=== PATIENT | female | born 1940 | race Caucasian/White ===

== ENCOUNTER → 2017-07-08 | Outpatient (CLI) | payer OTHER ==
[~2017-07-08] MED LIST: ASPI-435 PO; BRIM0.2S18 OP; CHOL1000 PO; CLOP1TAB15 PO; CLOT1CRE4 TOP; DORZ1SOL6 OP; GLC5 PO; INSDGI SC; LISI10TA PO; MAGN400T6 PO; METF-383 PO; POLY1DRO2 OPB; POLYSOL OPB; SIMV20TA5 PO; TPRSR25 PO; TRVOPS OPB
== END | disposition home or self-care (01) ==
LOC: C.PAPS 14:52
PROVIDERS: ATTEND Obstetrics & Gynecology
DX: L90.0 Lichen sclerosus et atrophicus (principal)

== ENCOUNTER → 2017-09-22 | Outpatient (CLI) | payer OTHER ==
[~2017-09-22] MED LIST changes: -BRIM0.2S18 OP; +BRIM0.2S18 OPB; +CEPH500C PO; +CLOT-51 TOP; -CLOT1CRE4 TOP; +HYDR25SU6 PR; +INSDGIPEN SC; +INSU3INJ3 SC; +KFL500 PO; +LCTX PO; +TRAV0.00 OP
== END | disposition home or self-care (01) ==
LOC: C.LABSPEC 08:00 → EDSTATUS 09-29 10:30
PROVIDERS: ATTEND Physician Assistant
DX: L98.499 Non-pressure chronic ulcer of skin of other sites with unspecified severity (principal)

== ENCOUNTER 2017-09-23 09:35 | Inpatient (IN) | payer OTHER ==
[~2017-09-23] VITALS: Ht 152.4 cm; Wt 68.4 kg
[~2017-09-23 09:35] MED LIST changes: -CEPH500C PO; +CLOT-40 TOP; -CLOT-51 TOP; -HYDR25SU6 PR; -INSDGIPEN SC; -INSU3INJ3 SC; -KFL500 PO; -LCTX PO; -TRAV0.00 OP
--- NOTE | 2017-09-23 11:09 | EMERGENCY ROOM VISIT NOTE ---
ED Visit Note First contact with patient: 09:56 I have seen and examined this patient with Yuliya Camacho and generally agree with the treatment plan as discussed. 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 (8) Neuropathy In Diabetes Status: Chronic (9) Osteomyelitis Nos-Unspec Status: Resolved Surgical Problems: (1) s/p multiple toe amputations Status: Chronic Current/Historical Medications Scheduled Aspirin (Aspirin 81), 81 MG PO QAM Brimonidine Tartrate (Brimonidine Tartrate), Unknown Dose OP DAILY Cholecalciferol (Vitamin D3), 1 TAB PO DAILY Clopidogrel (Plavix), 75 MG PO QAM Clotrimazole (Topical) (Lotrimin Af), 1 APPLN TOP BID Dorzolamide Hcl-Timolol Maleat (Cosopt Oph), 1 DROPS OP BID Glipizide (Glipizide), 5 MG PO QAM Insulin Glargine (Lantus), 10 UNITS SC HS Lisinopril (Prinivil), 10 MG PO QAM Magnesium Oxide (Mag-Ox), 400 MG PO QAM Metformin Hcl (Glucophage), 850 MG PO BIDM Metoprolol Succinate (Metoprolol Succinate ER), 0.5 TAB PO QAM Polyethylene Glycol-Propylene (Systane Gel), 1 DROP OPB HS Simvastatin (Zocor), 1 TAB PO HS Travoprost (Travatan Oph Soln 0.004% *), 1 DROP OPB HS Scheduled PRN Polyvinyl Alcohol-Povidone (Op (Refresh), 1 DROP OPB QID PRN for DRY EYES Allergies Coded Allergies: Baclofen (Unverified Allergy, Unknown, unkown , 10/18/16) Sulfamethoxazole w/Trimethoprim (Verified Allergy, Unknown, itching, 10/18) Tramadol (Unverified Allergy, Unknown, unkown , 12/30/16) Vital Signs Date Time Temp Pulse Resp B/P (MAP) Pulse Ox O2 Delivery O2 Flow Rate FiO2 09/23/17 09:45 37.0 102 20 161/71 97 Room Air Laboratory Results Test 09/23/17 10:04 Departure Information Referrals Roland Plunkett M.D. (PCP) Patient Instructions Counts Include [facility] At [facility]
[2017-09-23] MEDS ORDERED: GADAVIST IV PRN (11:15)
[2017-09-23 11:23] LABS: ISTAT CREATININE 0.7 mg/dl (0.6-1.3); ISTAT HEMOGLOBIN 11.9 g/dl (12.0-16.0); ISTAT IONIZED CALCIUM 1.2 mmol/l (1.12-1.32)
[2017-09-23 12:27] LABS: BASO % 0.3 %; BASO ABS # 0.03 K/uL (0-0.2); COMPLETE YES; HEMATOCRIT 35.7 % (37-47); IG% 0.3 %; LYMPH % 15.4 %; LYMPH ABS # 1.47 K/uL (1.2-3.4); MEAN CORPUSCULAR HEMOGLOBIN 30.9 pg (25-34); MEAN CORPUSCULAR HGB CONC 33.6 g/dl (32-36); MEAN PLATELET VOLUME 10.5 fL (7.4-10.4); MONO % 8.7 %; NEUT % 72.3 %; PLATELET COUNT 170 K/uL (130-400); RED BLOOD COUNT 3.88 M/uL (4.2-5.4); WHITE BLOOD COUNT 9.57 K/uL (4.8-10.8)
--- NOTE | 2017-09-23 12:34 | DIAGNOSTIC IMAGING REPORT ---
L LOWER EXT NONJOINT COMBO HISTORY: 76 years-old Female left foot redness and swelling/evaluate for osteomyelitis attent chronic open wound of the left third toe with concern for osteomyelitis. History of diabetes. COMPARISON: Left foot radiographs 01/10/2012 TECHNIQUE: Multiplanar multisequence MRI of the left foot was obtained both with and without the use of 6.5 mL Gadavist FINDINGS: There is loss of normal marrow signal with associated cortical irregularity and indistinctness involving the distal portion of the third distal phalanx with moderate associated bone marrow edema nicely seen on image 16 series 5, image 8 series 10 and image 8 series 11. There is a focal area of nonenhancement involving this region suggesting necrotic bone as seen on image 9 series 13 and image 26 series 12. Additionally, there is moderate soft tissue swelling with a focal skin ulceration at this area measuring up to 9 x 10 mm. Edema with adjacent enhancement involves the associated soft tissues compatible with cellulitis. There is mild diffuse nonspecific edema about the forefoot and midfoot, greatest laterally. There is moderate bone marrow edema involving the third metatarsal head with mild bone marrow edema involving the first and fourth metatarsal heads. No definite additional evidence of acute osteomyelitis. 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 Subcortical cystic changes of the first metatarsal head. Mild hallux valgus deformity. Multifocal interphalangeal and metatarsal phalangeal degenerative changes are noted which are mostly moderate. Degenerative spurring with chondral thinning and joint space narrowing is also seen throughout the midfoot. Prior amputation of the second digit at the level of the metatarsal phalangeal joint. There is moderate atrophy of the intrinsic musculature of the foot. No evidence of perineural fibrosis or Brumfield's neuroma. Study is mildly motion degraded. No definite tendon or ligamentous tear identified. Lisfranc ligament appears intact. IMPRESSION: 1. Osteomyelitis involves the distal most portion of the third distal phalanx as above. Small adjacent focal skin ulcer with cellulitis. No focal abscess or drainable collection. 2. Bone marrow edema involves the first, third and fourth metatarsal heads, likely reactive and/or degenerative in nature without additional evidence of acute osteomyelitis. 3. Moderate atrophy involves the intrinsic musculature of the foot, likely secondary to chronic denervation changes with long-standing diabetes mellitus. 4. Prior amputation of the second digit at the level of the metatarsal phalangeal joint. The above report was generated using voice recognition software. It may contain grammatical, syntax or spelling errors. Electronically signed by: Dale Rodriguez M.D. 09/23/2017 12:33 PM Dictated Date/Time: 09/23/2017 12:20 PM
[2017-09-23 12:42] LABS: BUN/CREATININE RATIO 30.1 (10-20); CALCIUM 9.3 mg/dl (8.5-10.1); CREATININE 0.81 mg/dl (0.60-1.20); POTASSIUM 4.4 mmol/L (3.5-5.1)
[2017-09-23] MEDS ORDERED: VANCOMYCIN INJ 1,500 MG in SODIUM CHLORIDE 0.9% 500ML 500 ML IV STA (12:58)
[2017-09-23] MEDS ORDERED: PIPERACILLIN/TAZOBACTAM 4.5 GM/100ML D5W IV STA (12:58)
--- NOTE | 2017-09-23 13:09 | EMERGENCY ROOM VISIT NOTE ---
History First contact with patient: 09:56 Chief Complaint: WOUND INFECTION Stated Complaint: TOE BLEEDING/L FOOT SWOLLEN-WOUND CARE/DIABETIC History of Present Illness The patient is a 76 year old female who presents to the Emergency Room with complaints of left second toe being more swollen today and was bleeding. The patient is being followed by the wound clinic for this diabetic wound. She was seen there yesterday and they applied Aquacel. She also states that they did a culture yesterday She states when she woke up this morning there was bleeding and the toe looked more swollen. The patient denies any increased redness in the toe or foot. The patient is concerned because she has had to have most toes removed from the right foot due to osteomyelitis. The patient denies any fever. The patient denies any chest pain or shortness of breath. Review of Systems 10 system review was performed and was negative unless stated otherwise history of present illness. Past Medical/Surgical History Medical Problems: (1) Acute Kidney Failure With Lesion Of Tubular Necrosis (2) CAD (coronary artery disease) (3) Diab W Oth Spec Manifest, Type Ii Or Unspec Type, Uncntrld (4) Diabetic foot ulcer (5) Diabetic peripheral neuropathy associated with type 2 diabetes mellitus (6) Diverticulosis Colon (W/O Ment Of Hemorrhage) (7) Dyslipidemia (8) History of diabetic ulcer of foot (9) HTN (hypertension) (10) Loss of sensation (11) Methicillin Susceptible Staphylococcus Aureus Class Els/Nos (12) Neuropathy In Diabetes (13) Osteomyelitis (14) Osteomyelitis Nos-Unspec (15) Status post partial amputation of foot Surgical Problems: (1) s/p multiple toe amputations Social History Smoking Status: Never Smoker Drug Use: none Marital Status: Occupation Status: disabled Current/Historical Medications Scheduled Aspirin (Aspirin 81), 81 MG PO QAM Brimonidine Tartrate (Brimonidine Tartrate), Unknown Dose OP DAILY Cholecalciferol (Vitamin D3), 1 TAB PO DAILY Clopidogrel (Plavix), 75 MG PO QAM Clotrimazole (Topical) (Lotrimin Af), 1 APPLN TOP BID Dorzolamide Hcl-Timolol Maleat (Cosopt Oph), 1 DROPS OP BID Glipizide (Glipizide), 5 MG PO QAM Insulin Glargine (Lantus), 10 UNITS SC HS Lisinopril (Prinivil), 10 MG PO QAM Magnesium Oxide (Mag-Ox), 400 MG PO QAM Metformin Hcl (Glucophage), 850 MG PO BIDM Metoprolol Succinate (Metoprolol Succinate ER), 0.5 TAB PO QAM Polyethylene Glycol-Propylene (Systane Gel), 1 DROP OPB HS Simvastatin (Zocor), 1 TAB PO HS Travoprost (Travatan Oph Soln 0.004% *), 1 DROP OPB HS Scheduled PRN Polyvinyl Alcohol-Povidone (Op (Refresh), 1 DROP OPB QID PRN for DRY EYES Physical Exam Vital Signs Date Time Temp Pulse Resp B/P (MAP) Pulse Ox O2 Delivery O2 Flow Rate FiO2 09/23/17 11:34 66 22 140/70 93 Room Air 09/23/17 09:45 37.0 102 20 161/71 97 Room Air Physical Exam GENERAL: 68-year-old white female appears in no acute distress. MENTAL Status: Alert and oriented 3. NECK: Supple, no lymphadenopathy noted. No carotid bruits noted. LUNGS: Clear auscultation without wheezes rales or rhonchi. CARDIAC: Regular rate and rhythm without murmur. Pulses is full and equal throughout. LEFT FOOT: Patient has a bunion noted. The second toe is absent. The third toe had erythema and edema with a scab on the distal aspect. This is covered with a bandage. There is slight erythema and edema extending to the forefoot. Medical Decision & Procedures ER Provider Diagnostic Interpretation: L LOWER EXT NONJOINT COMBO HISTORY: 76 years-old Female left foot redness and swelling/evaluate for osteomyelitis attent chronic open wound of the left third toe with concern for osteomyelitis. History of diabetes. COMPARISON: Left foot radiographs 01/10/2012 TECHNIQUE: Multiplanar multisequence MRI of the left foot was obtained both with and without the use of 6.5 mL Gadavist FINDINGS: There is loss of normal marrow signal with associated cortical irregularity and indistinctness involving the distal portion of the third distal phalanx with moderate associated bone marrow edema nicely seen on image 16 series 5, image 8 series 10 and image 8 series 11. There is a focal area of nonenhancement involving this region suggesting necrotic bone as seen on image 9 series 13 and image 26 series 12. Additionally, there is moderate soft tissue swelling with a focal skin ulceration at this area measuring up to 9 x 10 mm. Edema with adjacent enhancement involves the associated soft tissues compatible with cellulitis. There is mild diffuse nonspecific edema about the forefoot and midfoot, greatest laterally. There is moderate bone marrow edema involving the third metatarsal head with mild bone marrow edema involving the first and fourth metatarsal heads. No definite additional evidence of acute osteomyelitis. 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 Subcortical cystic changes of the first metatarsal head. Mild hallux valgus deformity. Multifocal interphalangeal and metatarsal phalangeal degenerative changes are noted which are mostly moderate. Degenerative spurring with chondral thinning and joint space narrowing is also seen throughout the midfoot. Prior amputation of the second digit at the level of the metatarsal phalangeal joint. There is moderate atrophy of the intrinsic musculature of the foot. No evidence of perineural fibrosis or Brumfield's neuroma. Study is mildly motion degraded. No definite tendon or ligamentous tear identified. Lisfranc ligament appears intact. IMPRESSION: 1. Osteomyelitis involves the distal most portion of the third distal phalanx as above. Small adjacent focal skin ulcer with cellulitis. No focal abscess or drainable collection. 2. Bone marrow edema involves the first, third and fourth metatarsal heads, likely reactive and/or degenerative in nature without additional evidence of acute osteomyelitis. 3. Moderate atrophy involves the intrinsic musculature of the foot, likely secondary to chronic denervation changes with long-standing diabetes mellitus. 4. Prior amputation of the second digit at the level of the metatarsal phalangeal joint. The above report was generated using voice recognition software. It may contain grammatical, syntax or spelling errors. Electronically signed by: Dale Rodriguez M.D. 09/23/2017 12:33 PM Dictated Date/Time: 09/23/2017 12:20 PM Laboratory Results 09/23/17 12:09 Red Blood Count 3.88, Mean Corpuscular Volume 92.0, Mean Corpuscular Hemoglobin 30.9, Mean Corpuscular Hemoglobin Concent 33.6, Mean Platelet Volume 10.5, Neutrophils (%) (Auto) 72.3, Lymphocytes (%) (Auto) 15.4, Monocytes (%) (Auto) 8.7, Eosinophils (%) (Auto) 3.0, Basophils (%) (Auto) 0.3, Neutrophils # (Auto) 6.92, Lymphocytes # (Auto) 1.47, Monocytes # (Auto) 0.83, Eosinophils # (Auto) 0.29, Basophils # (Auto) 0.03 09/23/17 12:09 Test 09/23/17 11:07 09/23/17 12:09 Bedside Hemoglobin 11.9 g/dl (12.0-16.0) Bedside Hematocrit 35 % (37-47) Bedside Sodium 136 mEq/L (135-144) Bedside Potassium 4.2 mEq/L (3.3-5.0) Bedside Chloride 99 mEq/L (101-112) Bedside Total CO2 26 mEq/l (24-31) Bedside Blood Urea Nitrogen 24 mg/dl (7-18) Bedside Creatinine 0.7 mg/dl (0.6-1.3) Bedside Glucose (other) 229 mg/dl (70-99) Bedside Ionized Calcium (Angus) 1.20 mmol/l (1.12-1.32) White Blood Count 9.57 K/uL (4.8-10.8) Red Blood Count 3.88 M/uL (4.2-5.4) Hemoglobin 12.0 g/dL (12.0-16.0) Hematocrit 35.7 % (37-47) Mean Corpuscular Volume 92.0 fL (80-100) Mean Corpuscular Hemoglobin 30.9 pg (25-34) Mean Corpuscular Hemoglobin Concent 33.6 g/dl (32-36) Platelet Count 170 K/uL (130-400) Mean Platelet Volume 10.5 fL (7.4-10.4) Neutrophils (%) (Auto) 72.3 % Lymphocytes (%) (Auto) 15.4 % Monocytes (%) (Auto) 8.7 % Eosinophils (%) (Auto) 3.0 % Basophils (%) (Auto) 0.3 % Neutrophils # (Auto) 6.92 K/uL (1.4-6.5) Lymphocytes # (Auto) 1.47 K/uL (1.2-3.4) Monocytes # (Auto) 0.83 K/uL (0.11-0.59) Eosinophils # (Auto) 0.29 K/uL (0-0.5) Basophils # (Auto) 0.03 K/uL (0-0.2) RDW Standard Deviation 43.5 fL (36.4-46.3) RDW Coefficient of Variation 13.0 % (11.5-14.5) Immature Granulocyte % (Auto) 0.3 % Immature Granulocyte # (Auto) 0.03 K/uL (0.00-0.02) Anion Gap 6.0 mmol/L (3-11) Est Creatinine Clear Calc Drug Dose 49.4 ml/min Estimated GFR () 80.6 Estimated GFR (Non- 69.6 BUN/Creatinine Ratio 30.1 (10-20) Calcium Level 9.3 mg/dl (8.5-10.1) ED Course The patient was evaluated. IV access was obtained. CBC and differential and renal profile was ordered. MRI of the foot with and without IV contrast was ordered. Labs are reviewed. The patient's white count is normal. BUN is 25, creatinine is 0.81. MRI was reviewed as above by the radiologist with evidence of osteomyelitis. I discussed antibiotic coverage with the pharmacist who recommended Zosyn and vancomycin these were ordered IV. The patient was independently evaluated by Dr. Maldonado who agreed with treatment plan. The hospitalist was consulted for admission. Medical Decision Differential diagnosis include localized infection, cellulitis, osteomyelitis [place] Drug Monitoring Program Search Results: patient reviewed within database Medication Reconcilliation Current Medication List: was personally reviewed by me Blood Pressure Screening Patient's blood pressure: Normal blood pressure Impression Primary Impression: Osteomyelitis Departure Information Dispostion Being Evaluated By Hospitalist Condition GOOD Referrals Roland Plunkett M.D. (PCP) Patient Instructions My [facility] Problem Qualifiers Primary Impression: Osteomyelitis Osteomyelitis type: unspecified type Osteomyelitis location: foot Laterality: left Qualified Codes: M86.9 - Osteomyelitis, unspecified
[2017-09-23] MEDS ORDERED: TRAV0.00 OP (13:28)
[2017-09-23] MEDS ORDERED: INSU3INJ3 SC (13:28)
[2017-09-23] MEDS ORDERED: HYDR25SU6 PR (13:28)
[2017-09-23] MEDS ORDERED: INSDGIPEN SC (13:28)
[2017-09-23 13:30] VITALS: O2SAT 98; Ht 152.4 cm; Wt 68.4 kg
[2017-09-23] MEDS ORDERED: GLUCOSE 40% GEL 15 GM TUBE PO PRN (14:15)
[2017-09-23] MEDS ORDERED: ONDANSETRON INJ 2 MG/ML 2 ML VIAL IV PRN (14:15)
[2017-09-23] MEDS ORDERED: DEXTROSE 50% 50 ML SYR IV PRN (14:15)
[2017-09-23] MEDS ORDERED: GLUCOSE 10 TABS/TUBE PO PRN (14:15)
[2017-09-23] MEDS ORDERED: GLUCAGON FOR INJ 1 MG VIAL SQ PRN (14:15)
[2017-09-23] MEDS ORDERED: ACETAMINOPHEN 325 MG TAB PO PRN (14:15)
--- NOTE | 2017-09-23 14:40 | History and Physical ---
History & Physical Date & Time of Service: Sep 23, 2017 at 14:38 Chief Complaint: Toe Bleeding/L Foot Swollen-Wound Care/Diabetic Primary Care Physician: Roland Plunkett M.D. History of Present Illness Source: patient, family (daughter in law at bedside) This is a 76yo F with a PMH of DM II, PVD, h/o several separate toe amputations , CAD, HTN, bilateral diabetic retinopathy who presents with worsening redness and swelling of Left 3rd toe x 2 days. Patient required an amputation of 4th and 5th digits of R [place] [address] Acosta, followed by amputation of of residual R toes in 2016. Also has history of L 2nd toe amputation (date unknown) . Has been a roasterman patient in wound care clinic as well as diabetic foot clinic. Recently returned to wound clinic for development of a pressure wound on the bottom of her L foot which is healing in a removable cast walker per the most recent wound care note. Patient endorses 3/10 intermittent throbbing pain of L 2nd toe. Denies fever, chills, CP, SOB, abd pain, nausea, vomiting. Walks with a cane and removable cast walker on R foot. Lives alone and reports doing daily skin checks of feet. Past Medical/Surgical History Medical Problems: (1) CAD (coronary artery disease) Status: Chronic (2) Diabetes mellitus, type II Status: Chronic (3) Diabetic neuropathy Status: Chronic (4) Diabetic retinopathy Status: Chronic (5) Dyslipidemia Status: Chronic (6) HTN (hypertension) Status: Chronic (7) Status post partial amputation of foot Status: Chronic (8) Yeast dermatitis Status: Chronic Surgical Problems: (1) s/p multiple toe amputations Status: Chronic Family History Family history is non-contributory. Social History Smoking Status: Never Smoker Alcohol Use: none Drug Use: none Marital Status: Housing status: lives alone Occupational Status: disabled Immunizations History of Influenza Vaccine: No Influenza Vaccine Date: Sep 02, 2010 History of Tetanus Vaccine?: 2009 Tetanus Immunization Date: Jul 05, 2003 History of Pneumococcal: UNSURE OF DATE Pneumococcal Date: Feb 02, 2004 History of Hepatitis B Vaccine: Unknown Multi-Drug Resistant Organisms History of MDRO: No Allergies Coded Allergies: Baclofen (Unverified Allergy, Unknown, unkown , 10/18/16) Sulfamethoxazole w/Trimethoprim (Verified Allergy, Unknown, itching, ) Tramadol (Unverified Allergy, Unknown, unkown , 09/23/17) Home Medications Scheduled Aspirin (Aspirin 81), 81 MG PO QAM Brimonidine Tartrate (Brimonidine Tartrate), 1 DROP OPB Q8 Cholecalciferol (Vitamin D3), 1,000 UNITS PO DAILY Clopidogrel (Plavix), 75 MG PO QAM Dorzolamide Hcl-Timolol Maleat (Cosopt Oph), 1 DROPS OP BID Glipizide (Glipizide), 5 MG PO QAM Insulin Glargine (Lantus Solostar), 10 UNITS SC DAILY Lisinopril (Prinivil), 10 MG PO QAM Magnesium Oxide (Mag-Ox), 400 MG PO QAM Metformin Hcl (Glucophage), 850 MG PO BIDM Metoprolol Succinate (Metoprolol Succinate ER), 12.5 MG PO QAM Polyethylene Glycol-Propylene (Systane Gel), 1 DROP OPB HS Simvastatin (Zocor), 20 MG PO HS Travoprost (Travatan Z), 1 DROPS OP HS Review of Systems Constitutional- no fever; no weight loss Eyes- no acute visual changes ENT- no sinus drainage; no pharyngitis Pulmonary- no cough, no wheezing, no shortness of breath Cardiac- no chest pain, no palpitations, no orthopnea, no dependent edema GI- no nausea, no vomiting, no diarrhea, no melena, no hematochezia - no dysuria, no hematuria Musculoskeletal- (+) as noted above Derm- no rashes, no new skin lesions, no changing skin lesions Hematologic- no unusual bruising, no unusual bleeding Lymphatics- no adenopathy Endocrine- no polyuria or polydipsia; no heat or cold intolerance Neuro- no headaches, no focal neurologic symptoms Psych- no anxiety, no depression Physical Exam Vital Signs Date Time Temp Pulse Resp B/P (MAP) Pulse Ox O2 Delivery O2 Flow Rate FiO2 09/23/17 14:14 89 18 119/58 94 09/23/17 14:07 89 18 119/58 94 Room Air 09/23/17 13:30 98 Room Air 09/23/17 13:14 76 20 141/82 98 Room Air 09/23/17 11:34 66 22 140/70 93 Room Air 09/23/17 09:45 37.0 102 20 161/71 97 Room Air General Appearance: WD/WN, no apparent distress Head: normocephalic, atraumatic Eyes: normal inspection, PERRL, sclerae normal ENT: normal ENT inspection, hearing grossly normal, pharynx normal (moist mucous membranes) Neck: supple, thyroid normal, trachea midline Respiratory/Chest: chest non-tender, lungs clear, normal breath sounds, no respiratory distress, no accessory muscle use Cardiovascular: regular rate, rhythm, no murmur, normal peripheral pulses Abdomen/GI: non tender, soft, no organomegaly Extremities/Musculoskelatal: + pertinent finding (S/p amputation R phalanx 1-5 , L 2nd toe. L 3rd phalanx with painful ulcer on distal portion with clear drainage. Also well healing pressure wound on plantar aspect of L MCP. ) Neurologic/Psych: puppy trainer II-XII nml as tested, no motor/sensory deficits (Chronic neuropathy in bilateral feet ), alert, normal mood/affect, oriented x 3 Skin: normal color, warm/dry Diagnostics Laboratory Results Results Past 24 Hours Test 09/23/17 11:07 09/23/17 12:09 Range/Units Bedside Hemoglobin 11.9 12.0-16.0 g/dl Bedside Hematocrit 35 37-47 % Bedside Sodium 136 135-144 mEq/L Bedside Potassium 4.2 3.3-5.0 mEq/L Bedside Chloride 99 101-112 mEq/L Bedside Total CO2 26 24-31 mEq/l Anion Gap 16.0 6.0 3-11 mmol/L Bedside Blood Urea Nitrogen 24 7-18 mg/dl Bedside Creatinine 0.7 0.6-1.3 mg/dl Bedside Glucose (other) 229 70-99 mg/dl Bedside Ionized Calcium (Angus) 1.20 1.12-1.32 mmol/l White Blood Count 9.57 4.8-10.8 K/uL Red Blood Count 3.88 4.2-5.4 M/uL Hemoglobin 12.0 12.0-16.0 g/dL Hematocrit 35.7 37-47 % Mean Corpuscular Volume 92.0 80-100 fL Mean Corpuscular Hemoglobin 30.9 25-34 pg Mean Corpuscular Hemoglobin Concent 33.6 32-36 g/dl Platelet Count 170 130-400 K/uL Mean Platelet Volume 10.5 7.4-10.4 fL Neutrophils (%) (Auto) 72.3 % Lymphocytes (%) (Auto) 15.4 % Monocytes (%) (Auto) 8.7 % Eosinophils (%) (Auto) 3.0 % Basophils (%) (Auto) 0.3 % Neutrophils # (Auto) 6.92 1.4-6.5 K/uL Lymphocytes # (Auto) 1.47 1.2-3.4 K/uL Monocytes # (Auto) 0.83 0.11-0.59 K/uL Eosinophils # (Auto) 0.29 0-0.5 K/uL Basophils # (Auto) 0.03 0-0.2 K/uL RDW Standard Deviation 43.5 36.4-46.3 fL RDW Coefficient of Variation 13.0 11.5-14.5 % Immature Granulocyte % (Auto) 0.3 % Immature Granulocyte # (Auto) 0.03 0.00-0.02 K/uL Sodium Level 137 136-145 mmol/L Potassium Level 4.4 3.5-5.1 mmol/L Chloride Level 102 98-107 mmol/L Carbon Dioxide Level 29 21-32 mmol/L Blood Urea Nitrogen 25 7-18 mg/dl Creatinine 0.81 0.60-1.20 mg/dl Est Creatinine Clear Calc Drug Dose 49.4 ml/min Estimated GFR () 80.6 Estimated GFR (Non- 69.6 BUN/Creatinine Ratio 30.1 10-20 Random Glucose 158 70-99 mg/dl Calcium Level 9.3 8.5-10.1 mg/dl Diagnostic Radiology Lower Extremity MRI: IMPRESSION: 1. Osteomyelitis involves the distal most portion of the third distal phalanx as above. Small adjacent focal skin ulcer with cellulitis. No focal abscess or drainable collection. 2. Bone marrow edema involves the first, third and fourth metatarsal heads, likely reactive and/or degenerative in nature without additional evidence of acute osteomyelitis. 3. Moderate atrophy involves the intrinsic musculature of the foot, likely secondary to chronic denervation changes with long-standing diabetes mellitus. 4. Prior amputation of the second digit at the level of the metatarsal phalangeal joint. Impression Assessment and Plan This is a 76yo F with a PMH of DM II, PVD, h/o several separate toe amputations , CAD, HTN, bilateral diabetic retinopathy who presents with worsening redness and swelling of Left 3rd toe x 2 days. Left toe osteomyelitis: -Significant h/o osteomyelitis and subsequent toe amputation in setting of DM II , PVD -LE MRI: osteomyelitis involves the distal most portion of the third distal phalanx. Small adjacent focal skin ulcer with cellulitis. No focal abscess or drainable collection -Preliminary wound culture is growing staph aureus -Afebrile, no leukocytosis, minimal pain -ID consulted: recommend continuing vancomycin pending final culture results -Ortho consulted: likely require I&D, partial vs. complete amputation of L 3rd digit. Defer to vascular surgery -Vascular consulted: patient known to Dr. Acosta. Will evaluate tomorrow -Continue IV abx, follow up cultures, wound care DM II: -Hgb a1c of 6.8 in Jul 2017 -Held home agents -SSI while in-patient -BG checks AC HS CAD: -Cardiac cath in 2013: complete total occlusion of the circumflex with right-to- left collaterals and 80% mid LAD stenosis, treated medically -On lisinopril, metoprolol, statin -Hold aspirin and plavix in case of surgical intervention tomorrow HLD: -Continue statin HTN: -Cont home dose lisinopril, metoprolol Diabetic retinopathy: -Continue home eye drops DVT Ppx: SCDs (hold off on additional anticoagulation in case of potential amputation) Code status: FULL PCP: Dimitrios Dispo: Plan to return home once medically stable Patient seen in collaboration with Dr. Welch. Please see addendum. ATTENDING ADDENDUM care coordinated with JL Arshad please refer to her notes for full details, I agree with her notes patient seen and examined, records reviewed by myself as well on exam, patient seen resting in bed, comfortable states she has minimal pain on the affected toe denies fever/chills no other symptoms VS noted and reviewed oriented x 3, not in distress, speaks in sentences with no effort nor accessory muscle use normal rate, regular rhythm, no murmurs clear breath sounds bilaterally non distended, soft, nontender 3rd toe left: (+) open wound on the distal phalanx with some yellow discharge, edema, erythema no bipedal edema, erythema, warmth no neuro deficits WBC 9.5 crea 0.81 left MRI Foot: (+) 3rd toe OM ASSESSMENT/PLAN> OSTEOMYELITIS, LEFT 3RD TOE - in the setting of DM, PVD - no signs of sepsis - placed on Vanco and Zosyn IV - Ortho, Vascular Surg and ID consulted HISTORY OF CAD - ASA and Plavix held for possible procedures - resume immediately when possible DM 2 - ISS other diagnoses and plan of care as per JL Arshad's notes Brandt Welch MD Level of Care Med/Surg Advanced Directives Existing Living Will: No Existing Power of Inspector Rag Sorting: Yes Resuscitation Status FULL RESUSCITATION VTE Prophylaxis VTE Risk Assessment Done? Y/N: Yes Risk Level: Moderate Given or contraindicated: SCD's
[2017-09-23 15:01] VITALS: BP 151/68; PULSE 88; TEMP 38.5; O2SAT 100
--- NOTE | 2017-09-23 15:31 | Progress Note ---
Progress Note Date of Service Sep 23, 2017. Progress Note ID Consul Dictated #[id number] A/P: 1. Osteomyelitis left foot - S. aureus -Continue vanco for now -Follow cultures -Surgical eval pending -Will follow, thank you
--- NOTE | 2017-09-23 15:52 | INFECT. DISEASE CONSULTATION ---
DATE OF CONSULTATION: 09/23/2017 DATE OF CONSULTATION: 09/23/2017 REQUESTING PHYSICIAN: Dr. Welch. HISTORY OF PRESENT ILLNESS: This is a 76-year-old female who was admitted to the hospital with worsening redness and swelling of her left third toe for the past 2 days. She recently was at the wound center yesterday and there was drainage noted. A culture was obtained and this is preliminarily growing Staph aureus. She continued to have pain and drainage and presented to the ER. Her white blood cell count is normal. She did have an MRI which showed osteo of the third toe and questionable osteo of the metatarsals. She has had several toe amputations in the past. Most recently her second toe on the left foot was amputated. She has a TMA on the right. She denies any fevers or chills. She denies any drainage at this time. She denies any pain in the wound. Her remaining review of systems is reviewed and unremarkable. PAST MEDICAL HISTORY: Acute kidney injury, coronary artery disease, type 2 diabetes, diverticulosis, high cholesterol, hypertension, diabetic neuropathy, history of osteomyelitis. PAST SURGICAL HISTORY: Significant for multiple toe amputations. SOCIAL HISTORY: Negative for tobacco use, alcohol use or drug use. ALLERGIES: SHE IS ALLERGIC TO BACLOFEN, BACTRIM, AND TRAMADOL. MEDICATIONS: Include vitamin D, lisinopril, magnesium, Toprol-XL, eyedrops, Zocor, insulin, Tylenol, Zofran and vancomycin. PHYSICAL EXAMINATION: VITAL SIGNS: She is currently febrile with a temperature of 38.5, pulse 88, respiratory rate 18, blood pressure 151/68, oxygen saturation is 100% on room air. GENERAL: She is awake, alert and oriented x3. She is in no acute distress. HEAD, EYES, EARS, NOSE, AND THROAT: Mucous membranes are moist. Extraocular muscles are intact. HEART: Regular. LUNGS: Clear. ABDOMEN: Soft. There is no edema. EXTREMITIES: Examination of the foot reveals ulceration over the third toe on the left foot with minimal erythema. There is no drainage expressed on my exam. TMA on the right foot is noted. LABORATORY STUDIES: CBC reveals a white blood cell count 9.5, hemoglobin 12, platelets are 170. Chemistry panel reveals a sodium of 137, potassium 4.4, chloride 102, bicarb 29, BUN 25, creatinine 0.8, glucose is 158. Previous culture again is growing Staph aureus, sensitivities are pending. MRI is as above. ASSESSMENT AND PLAN: Osteomyelitis. She will continue on vancomycin pending final culture results. Surgical evaluation should be obtained for likely need for amputation. Thank you for this consultation.
--- NOTE | 2017-09-23 17:55 | Orthopedic Consultation ---
Orthopedic Consultation Date of Consultation: Sep 23, 2017. Attending Physician: Brandt Welch MD History of Present Illness The patient is a 76-year-old female who presents with worsening left third toe erythema and edema 2 days. She has an extensive history of diabetes and vascular disease with prior amputations most recently a transmetatarsal amputation on the right foot by Dr. Acosta and 2016. She also has a history of previous amputation of the second digit on the left foot, date unknown, patient is a poor historian. She has also been followed extensively at the diabetic foot clinic, wound care clinic. Currently denies fevers chills nausea vomiting shortness of breath chest pains. Social History Smoking Status: Never Smoker Alcohol Use: none Drug Use: none Marital Status: Occupation Status: disabled Allergies Coded Allergies: Baclofen (Unverified Allergy, Unknown, unkown , 10/18/16) Sulfamethoxazole w/Trimethoprim (Verified Allergy, Unknown, itching, ) Tramadol (Unverified Allergy, Unknown, unkown , 09/23/17) Home Medications Scheduled Aspirin (Aspirin 81), 81 MG PO QAM Brimonidine Tartrate (Brimonidine Tartrate), 1 DROP OPB Q8 Cholecalciferol (Vitamin D3), 1,000 UNITS PO DAILY Clopidogrel (Plavix), 75 MG PO QAM Dorzolamide Hcl-Timolol Maleat (Cosopt Oph), 1 DROPS OP BID Glipizide (Glipizide), 5 MG PO QAM Insulin Glargine (Lantus Solostar), 10 UNITS SC DAILY Lisinopril (Prinivil), 10 MG PO QAM Magnesium Oxide (Mag-Ox), 400 MG PO QAM Metformin Hcl (Glucophage), 850 MG PO BIDM Metoprolol Succinate (Metoprolol Succinate ER), 12.5 MG PO QAM Polyethylene Glycol-Propylene (Systane Gel), 1 DROP OPB HS Simvastatin (Zocor), 20 MG PO HS Travoprost (Travatan Z), 1 DROPS OP HS Current Inpatient Medications Current Inpatient Medications Medications (Trade) Dose Ordered Sig/Shell Route Start Time Stop Time Status Last Admin Dose Admin Gadobutrol (Gadavist) 6.5 mmol UD PRN IV 09/23/17 11:15 09/27/17 11:14 Acetaminophen (Tylenol Tab) 650 mg Q4H PRN PO 09/23/17 14:15 10/23/17 14:14 Ondansetron HCl (Zofran Inj) 4 mg Q6H PRN IV 09/23/17 14:15 10/23/17 14:14 Insulin Aspart (novoLOG ASPART) SLIDING SCALE If C... ACHS SC 09/23/17 17:15 10/23/17 17:14 Glucose (Glucose 40% Gel) 15-30 GRAMS 15 GRAMS... UD PRN PO 09/23/17 14:15 10/23/17 14:14 Glucose (Glucose Chew Tab) 4-8 Tablets 4 Tabl... UD PRN PO 09/23/17 14:15 10/23/17 14:14 Dextrose (Dextrose 50% 50ML Syringe) 25-50ML OF 50% DW IV FOR... UD PRN IV 09/23/17 14:15 10/23/17 14:14 Glucagon (Glucagon Inj) 1 mg UD PRN SQ 09/23/17 14:15 10/23/17 14:14 Cholecalciferol (Vitamin D Tab) 1,000 inter.unit DAILY PO 09/24/17 09:00 10/24/17 08:59 Dorzolamide/ Timolol (Cosopt Op Soln) 1 drops BID OP 09/23/17 21:00 10/23/17 20:59 Lisinopril (Zestril Tab) 10 mg QAM PO 09/24/17 09:00 10/24/17 08:59 Magnesium Oxide (Mag-Ox Tab) 400 mg QAM PO 09/24/17 09:00 10/24/17 08:59 Metoprolol Succinate (Toprol Xl Tab) 12.5 mg QAM PO 09/24/17 09:00 10/24/17 08:59 Simvastatin (Zocor Tab) 20 mg HS PO 09/23/17 21:00 10/23/17 20:59 Travoprost (Travatan Z) 1 drops HS OP 09/23/17 21:00 10/23/17 20:59 Miscellaneous Information (Order Awaiting Action) 1 ea QS N/A 09/23/17 16:00 1/4/18 15:59 Review of Systems Review of systems negative with the exception of those mentioned in history of present illness above. Physical Exam Date Time Temp Pulse Resp B/P (MAP) Pulse Ox O2 Delivery O2 Flow Rate FiO2 09/23/17 15:01 38.5 88 18 151/68 (95) 100 Room Air 09/23/17 14:14 89 18 119/58 94 09/23/17 14:07 89 18 119/58 94 Room Air 09/23/17 13:30 98 Room Air 09/23/17 13:14 76 20 141/82 98 Room Air 09/23/17 11:34 66 22 140/70 93 Room Air 09/23/17 09:45 37.0 102 20 161/71 97 Room Air No apparent distress, alert and oriented 3 Left lower extremity: 1.5 x 1 cm ulceration of the distal plantar aspect of the third digit, no active drainage, +erythema. Second toe amputation, scar clean dry and intact. Decreased sensation to the distal aspects of the first third fourth and fifth digits. Otherwise SILT grossly, compartments soft nontender, painless range of motion of hip knee and ankle. Laboratory Results Last 24 Hours Test 09/23/17 11:07 09/23/17 12:09 Bedside Hemoglobin 11.9 g/dl Bedside Hematocrit 35 % Bedside Sodium 136 mEq/L Bedside Potassium 4.2 mEq/L Bedside Chloride 99 mEq/L Bedside Total CO2 26 mEq/l Anion Gap 16.0 mmol/L 6.0 mmol/L Bedside Blood Urea Nitrogen 24 mg/dl Bedside Creatinine 0.7 mg/dl Bedside Glucose (other) 229 mg/dl Bedside Ionized Calcium (Angus) 1.20 mmol/l White Blood Count 9.57 K/uL Red Blood Count 3.88 M/uL Hemoglobin 12.0 g/dL Hematocrit 35.7 % Mean Corpuscular Volume 92.0 fL Mean Corpuscular Hemoglobin 30.9 pg Mean Corpuscular Hemoglobin Concent 33.6 g/dl Platelet Count 170 K/uL Mean Platelet Volume 10.5 fL Neutrophils (%) (Auto) 72.3 % Lymphocytes (%) (Auto) 15.4 % Monocytes (%) (Auto) 8.7 % Eosinophils (%) (Auto) 3.0 % Basophils (%) (Auto) 0.3 % Neutrophils # (Auto) 6.92 K/uL Lymphocytes # (Auto) 1.47 K/uL Monocytes # (Auto) 0.83 K/uL Eosinophils # (Auto) 0.29 K/uL Basophils # (Auto) 0.03 K/uL RDW Standard Deviation 43.5 fL RDW Coefficient of Variation 13.0 % Immature Granulocyte % (Auto) 0.3 % Immature Granulocyte # (Auto) 0.03 K/uL Sodium Level 137 mmol/L Potassium Level 4.4 mmol/L Chloride Level 102 mmol/L Carbon Dioxide Level 29 mmol/L Blood Urea Nitrogen 25 mg/dl Creatinine 0.81 mg/dl Est Creatinine Clear Calc Drug Dose 49.4 ml/min Estimated GFR () 80.6 Estimated GFR (Non- 69.6 BUN/Creatinine Ratio 30.1 Random Glucose 158 mg/dl Calcium Level 9.3 mg/dl Assessment & Plan Osteomyelitis of the distal phalanx of the third digit on the left foot. -Patient will likely require I and D, partial vs complete amputation of the third digit, the extent of which, we will defer to vascular surgery for which the patient is known and performed previous surgeries. -IV abx -F/U Cultures/gram stain -Wound care -Trend inflammatory labs MRI Left Foot: 1. Osteomyelitis involves the distal most portion of the third distal phalanx as above. Small adjacent focal skin ulcer with cellulitis. No focal abscess or drainable collection. 2. Bone marrow edema involves the first, third and fourth metatarsal heads, likely reactive and/or degenerative in nature without additional evidence of acute osteomyelitis. 3. Moderate atrophy involves the intrinsic musculature of the foot, likely secondary to chronic denervation changes with long-standing diabetes mellitus. 4. Prior amputation of the second digit at the level of the metatarsal phalangeal joint.
[2017-09-23] MEDS: INSULIN ASPART 100 UNITS/ML 3 ML PEN SC SCH ×2 (18:42→21:21)
[2017-09-23] MEDS ORDERED: NURSING VERBAL MED ORDER ONE (18:45)
[2017-09-23] MEDS: TRAVOPROST Z 0.004% OPH SOLN 2.5 ML BTL OP SCH (20:47)
[2017-09-23] MEDS: SIMVASTATIN 20 MG TAB PO SCH (20:47)
[2017-09-23] MEDS ORDERED: POLYETHYLENE GLYCOL PROPYLENE OPB SCH (21:00)
[2017-09-23] MEDS: DORZOLAMIDE/TIMOLOL 22.3/6.8MG/ML 10 ML BTL OP SCH (21:21)
[2017-09-23 21:22] VITALS: BP 113/53; PULSE 87; TEMP 36.9; O2SAT 95
[2017-09-23] MEDS ORDERED: BRIMONIDINE TARTRATE 0.2% 5ML OPB SCH (22:00)
[2017-09-23] MEDS: BRIMONIDINE TARTRATE 0.2% 5ML OPB SCH (22:14)
[2017-09-23] MEDS ORDERED: VANCOMYCIN CONSULT ACTIVE PRN (22:36)
[2017-09-23] MEDS ORDERED: PIPERACILL/TAZOBAC CONSULT ACTIVE PRN (22:45)
[2017-09-23] MEDS ORDERED: PIPERACILL/TAZOBAC IV 3.375 GM in DEXTROSE 5% 100ML IV ONE (23:00)
[2017-09-23 23:01] VITALS: BP 105/65; PULSE 73; TEMP 36.7; O2SAT 96
--- NOTE | 2017-09-24 01:12 | Pharmacy Progress Note ---
Pharmacy Abx Initial Consult Date of Service Sep 24, 2017. Pharmacy Dosing Scope Date of Consult: 09/23/17 Consultation requested by: Dr. Welch Pharmacy is consulted to initiate vancomycin IV dosing therapy, order appropriate labs and adjust drug dose/frequency. Subjective The patient is a 76 year old female admitted on Sep 23, 2017 at 14:40. Objective Height (Feet): 5 Height (Inches): 0.00 Weight (Kilograms): 68.400 Vital Signs (Past 12Hrs) Vital Signs Past 12 Hours Date Time Temp Pulse Resp B/P (MAP) Pulse Ox O2 Delivery O2 Flow Rate FiO2 09/23/17 23:01 36.7 73 16 105/65 (78) 96 Room Air 09/23/17 21:22 36.9 87 17 113/53 (73) 95 Room Air 09/23/17 15:30 Room Air 09/23/17 15:01 38.5 88 18 151/68 (95) 100 Room Air 09/23/17 14:14 89 18 119/58 94 09/23/17 14:07 89 18 119/58 94 Room Air 09/23/17 13:30 98 Room Air 09/23/17 13:14 76 20 141/82 98 Room Air Lab Results (24Hrs) Laboratory Tests (24 Hours) Test 09/23/17 12:09 White Blood Count 9.57 K/uL (4.8-10.8) Red Blood Count 3.88 M/uL (4.2-5.4) L Hemoglobin 12.0 g/dL (12.0-16.0) Hematocrit 35.7 % (37-47) L Mean Corpuscular Volume 92.0 fL (80-100) Mean Corpuscular Hemoglobin 30.9 pg (25-34) Mean Corpuscular Hemoglobin Concent 33.6 g/dl (32-36) Platelet Count 170 K/uL (130-400) Mean Platelet Volume 10.5 fL (7.4-10.4) H Neutrophils (%) (Auto) 72.3 % Lymphocytes (%) (Auto) 15.4 % Monocytes (%) (Auto) 8.7 % Eosinophils (%) (Auto) 3.0 % Basophils (%) (Auto) 0.3 % Neutrophils # (Auto) 6.92 K/uL (1.4-6.5) H Lymphocytes # (Auto) 1.47 K/uL (1.2-3.4) Monocytes # (Auto) 0.83 K/uL (0.11-0.59) H Eosinophils # (Auto) 0.29 K/uL (0-0.5) Basophils # (Auto) 0.03 K/uL (0-0.2) Micro Results Date/Time Source Procedure Growth Status 09/23/17 16:20 Skin Toe Left 3 Gram Stain Pending Received 09/23/17 16:20 Skin Toe Left 3 Wound Culture Pending Received Risk Factors for Resistance * wound clinic patient Assessment & Plan Assessment 76 year old female admitted with left third toe osteomyelitis. Patient has a history of prior amputations on her feet. Culture from wound clinic growing S aureus. Plan vancomycin/Zosyn for treatment of osteomyelitis Vancomycin IV * Loading dose: 1500 mg (22 mg/kg) * Maintenance dose: 1000 mg IV (15 mg/kg) every 14 hours (population pharmacokinetics suggest a half-life of 15 hours and elimination constant of 0.046 hr-1... chose more aggressive dose at first due to osteomyelitis diagnosis ). * Goal trough level for osteomyelitis : 15 to 20 mcg/mL * Trough ordered for 09/25/17 Piperacillin/tazobactam * 3.375 g bolus administered over 30 minutes, then 3.375 g IV extended infusion every 8 hours for CrCl greater than 20 mL/min Pharmacy will continue to follow and will adjust dose/frequency as necessary. Thank you.
[2017-09-24] MEDS ORDERED: VANCOMYCIN INJ 1,000 MG in SODIUM CHLORIDE 0.9% 250ML 250 ML IV SCH (02:00)
[2017-09-24] MEDS: PIPERACILL/TAZOBAC IV 3.375 GM in DEXTROSE 5% 100ML IV SCH ×2 (04:12→13:02)
[2017-09-24] MEDS: BRIMONIDINE TARTRATE 0.2% 5ML OPB SCH ×3 (05:46→21:30)
[2017-09-24 07:54] LABS: HEMATOCRIT 34.6 % (37-47); MEAN CELL VOLUME 91.8 fL (80-100); MEAN CORPUSCULAR HEMOGLOBIN 30.8 pg (25-34); MEAN CORPUSCULAR HGB CONC 33.5 g/dl (32-36); MEAN PLATELET VOLUME 10.5 fL (7.4-10.4); PLATELET COUNT 146 K/uL (130-400); RED BLOOD COUNT 3.77 M/uL (4.2-5.4); WHITE BLOOD COUNT 7.24 K/uL (4.8-10.8)
[2017-09-24 07:59] LABS: PROTHROMBIN TIME (PATIENT) 10.1 SECONDS (9.0-12.0)
[2017-09-24 08:01] VITALS: BP 118/58; PULSE 70; TEMP 36.5; O2SAT 95
[2017-09-24 08:20] LABS: BLOOD UREA NITROGEN 24 mg/dl (7-18); BUN/CREATININE RATIO 24.4 (10-20); CALCIUM 8.7 mg/dl (8.5-10.1); CARBON DIOXIDE 28 mmol/L (21-32); CHLORIDE 105 mmol/L (98-107); CREATININE 0.98 mg/dl (0.60-1.20); GLUCOSE 158 mg/dl (70-99); SODIUM 138 mmol/L (136-145)
[2017-09-24 08:27] VITALS: O2SAT 95
[2017-09-24] MEDS: LISINOPRIL 10 MG TAB PO SCH (08:45)
[2017-09-24] MEDS: CHOLECALCIFEROL 1000 INTER.UNIT TAB PO SCH (08:45)
[2017-09-24] MEDS: METOPROLOL SUCC 25MG EXT REL TAB PO SCH (08:45)
[2017-09-24] MEDS: MAGNESIUM OXIDE 400 MG TAB PO SCH (08:46)
[2017-09-24] MEDS: DORZOLAMIDE/TIMOLOL 22.3/6.8MG/ML 10 ML BTL OP SCH ×2 (08:46→20:39)
[2017-09-24] MEDS: INSULIN ASPART 100 UNITS/ML 3 ML PEN SC SCH ×4 (09:04→20:47)
--- NOTE | 2017-09-24 09:51 | Surgery Consultation ---
Consultation Date of Service Sep 24, 2017. Chief Complaint L 3rd toe osteomyelitis History of Present Illness The patient is a 76 year old female with multiple medical problems, including DMII, HTN, and PAD, known to Dr Espitia for previous amputation and arteriography , admitted for L 3rd toe osteomyelitis, seen in consultation today for L 3rd toe infection. Pt states she noted the wound a few weeks ago and was scheduled to see wound clinic, however, saw the diabetic foot clinic in meantime who advised her to go to ED if she noted increased pain or swelling of L foot. Pt states she noted worsening edema of foot and came to ED. Denies pain d/t neuropathy. Denies HUDSON, fever, chills, chest pain, SOB, abd pain, N/V, rest pain , claudication, other complaints. Previously known to Dr Espitia for angiography with [employer] peroneal artery in 2011, and L 2nd toe amputation, as well as RLE completion TMA in 2015. Has not had arterial imaging performed recently. MRI demonstrates LLE osteo in 3rd distal phalanx, as well as surrounding cellulitis. Pt on Vancomycin and zosyn. Vitals Vital Signs Past 12 Hours Date Time Temp Pulse Resp B/P (MAP) Pulse Ox O2 Delivery O2 Flow Rate FiO2 09/24/17 08:27 95 Room Air 09/24/17 08:01 36.5 70 16 118/58 (78) 95 Room Air 09/24/17 08:00 Room Air 09/23/17 23:40 Room Air 09/23/17 23:01 36.7 73 16 105/65 (78) 96 Room Air Allergies Coded Allergies: Baclofen (Unverified Allergy, Unknown, unkown , 10/18/16) Sulfamethoxazole w/Trimethoprim (Verified Allergy, Unknown, itching, ) Tramadol (Unverified Allergy, Unknown, unkown , 09/23/17) Home Medications Scheduled Aspirin (Aspirin 81), 81 MG PO QAM Brimonidine Tartrate (Brimonidine Tartrate), 1 DROP OPB Q8 Cholecalciferol (Vitamin D3), 1,000 UNITS PO DAILY Clopidogrel (Plavix), 75 MG PO QAM Dorzolamide Hcl-Timolol Maleat (Cosopt Oph), 1 DROPS OP BID Glipizide (Glipizide), 5 MG PO QAM Insulin Glargine (Lantus Solostar), 10 UNITS SC DAILY Lisinopril (Prinivil), 10 MG PO QAM Magnesium Oxide (Mag-Ox), 400 MG PO QAM Metformin Hcl (Glucophage), 850 MG PO BIDM Metoprolol Succinate (Metoprolol Succinate ER), 12.5 MG PO QAM Polyethylene Glycol-Propylene (Systane Gel), 1 DROP OPB HS Simvastatin (Zocor), 20 MG PO HS Travoprost (Travatan Z), 1 DROPS OP HS Problem List Medical Problems: (1) CAD (coronary artery disease) (2) Diabetes mellitus, type II (3) Diabetic neuropathy (4) Diabetic retinopathy (5) Dyslipidemia (6) HTN (hypertension) (7) Status post partial amputation of foot (8) Yeast dermatitis Surgical Problems: (1) s/p multiple toe amputations Surgical / Medical History Hx Cardiac Surgery: No Hx Abdominal Surgery: No Hx Cancer Surgery: No Hx Thoracic Surgery: No Hx Orthopedic: Yes (amputation of all toes right foot, left 2nd toe amputated) Hx Urinary Tract Surgery: No HX Other Surgery: Yes (bilateral cataracts) Past Medical/Surgical History: Diabetes, Heart Disease, High Cholesterol, Hypertension Family History + DMII, HTN Social History Smoking Status: Never Smoker Hx Tobacco Use In Past Year?: No Hx Alcohol Use - Type & Amnt: No Hx Substance Use -Type & Amnt: No Review of Systems Constitutional: No chills, No fever, No malaise Skin: + change in color Eyes: No visual changes ENMT: No sore throat Respiratory: No GEE, No hemoptysis, No short of breath Cardiovascular: + edema, No chest pain, No palpitations, No syncope, No intermittent claudication Gastrointestinal: No abdominal pain, No nausea, No vomiting, No anorexia Neurologic: + numbness, + tingling, No dizziness, No headache, No lethargy Physical Exam Constitutional: General Apperance: well-nourished, well-developed, overweight Level of Distress: NAD, chronically ill Psychiatric: Mental Status: active & alert, normal mood, normal affect Orientation: oriented except where noted, to time, to place, to person Memory: recent memory normal, remote memory normal Head: normocephalic, atraumatic Eyes: EOM: EOMI ENMT: normal ENT inspection, hearing grossly normal Neck: supple, trachea midline Lungs: Respiratory effort: no dyspnea Auscultation: no rales/crackles, no rhonchi Cardiovascular: Apical Impulse: not displaced Heart Auscultation: RRR, no rubs, no gallops Peripheral Pulses: Pulses: full and equal, in all extremities except if noted Bruits: none appreciated Carotid Pulse: normal on the left, normal on the right Brachial Pulses: normal on the left, normal on the right Radial Pulse: normal on the left, normal on the right Femoral Pulse: normal on the left, normal on the right Posterior Tibialis Pulse: pertinent finding (Nonpalapble BLE) Dorsalis Pedis Pulse: pertinent finding (Nonpalpable BLE) Abdomen: Bowel Sounds: normal Inspection & Palpation: soft, non-distended, no tenderness, guarding & rebound Musculoskeletal: normal strength (5/5 throughout), normal tone Extremities: Upper Right: no cyanosis, no edema, no varicosities Upper Left: no cyanosis, no edema, no varicosities Lower Right: no cyanosis, no edema, no varicosities, pertinent finding ( healed TMA) Lower Left: no cyanosis, no varicosities, no palpable cord, edema (and erythema dorsal foot near 3rd toe, open callous draining small amt serous fluid with tenderness and erythema.) Neurologic: Cranial Nerves: grossly intact Assessment and Plan ASSESSMENT and PLAN: L 3rd toe osteomyelitis PAD Pt will undergo arterial US to eval for likelihood of healing any surgical wound. Will make further recommendations after US. Likely will need amputation of L 3rd toe, however, will decide after US. Dressing discussed with RN, nonstick silver dressing with 4x4 and tubegauze/ small kerlix.
[2017-09-24] MEDS ORDERED: CEPH500C PO (10:25)
[2017-09-24 11:38] VITALS: BP 120/64; PULSE 70; TEMP 37.3; O2SAT 95
--- NOTE | 2017-09-24 14:14 | Progress Note ---
Subjective Date of Service: Sep 24, 2017. Subjective Pt evaluation today including: conversation w/ patient, physical exam, chart review, lab review pt seen in followup, doing well, less pain. wound culture from wound center growing MSSA, culture from Er with S. aureus. for ultrasound and then pending results will likely require surgical intervention. tolerating abx. afebrile. overall feeling better. all remaining ros reviewed and are negative. Problem List Social History Problems: (1) Elevated blood pressure reading without diagnosis of hypertension Status: Acute Objective Vital Signs Date Time Temp Pulse Resp B/P (MAP) Pulse Ox O2 Delivery O2 Flow Rate FiO2 09/24/17 11:38 37.3 70 18 120/64 (82) 95 Room Air 09/24/17 08:27 95 Room Air 09/24/17 08:01 36.5 70 16 118/58 (78) 95 Room Air 09/24/17 08:00 Room Air 09/23/17 23:40 Room Air 09/23/17 23:01 36.7 73 16 105/65 (78) 96 Room Air 09/23/17 21:22 36.9 87 17 113/53 (73) 95 Room Air 09/23/17 15:30 Room Air 09/23/17 15:01 38.5 88 18 151/68 (95) 100 Room Air 09/23/17 14:14 89 18 119/58 94 Physical Exam General Appearance: WD/WN, no apparent distress Eyes: normal inspection, EOMI Neck: supple Respiratory/Chest: lungs clear Cardiovascular: regular rate, rhythm, no edema Abdomen: soft Extremities: non-tender, no pedal edema Neurologic/Psychiatric: alert, oriented x 3 Skin: normal color Laboratory Results Item Value Date Time Gram Stain - Final Complete 09/22/17 0940 Ulcer Mth , Left Third Gram Stain - Final Resulted 09/23/17 1620 Skin Toe Left 3 Last 24 Hours Test 09/23/17 18:41 09/23/17 20:39 09/24/17 07:35 09/24/17 08:16 Bedside Glucose 216 mg/dl 243 mg/dl 151 mg/dl White Blood Count 7.24 K/uL Red Blood Count 3.77 M/uL Hemoglobin 11.6 g/dL Hematocrit 34.6 % Mean Corpuscular Volume 91.8 fL Mean Corpuscular Hemoglobin 30.8 pg Mean Corpuscular Hemoglobin Concent 33.5 g/dl RDW Standard Deviation 43.7 fL RDW Coefficient of Variation 13.0 % Platelet Count 146 K/uL Mean Platelet Volume 10.5 fL Prothrombin Time 10.1 SECONDS Prothromb Time International Ratio 1.0 Sodium Level 138 mmol/L Potassium Level mmol/L Chloride Level 105 mmol/L Carbon Dioxide Level 28 mmol/L Anion Gap 6.0 mmol/L Blood Urea Nitrogen 24 mg/dl Creatinine 0.98 mg/dl Est Creatinine Clear Calc Drug Dose 40.8 ml/min Estimated GFR () 64.0 Estimated GFR (Non- 55.3 BUN/Creatinine Ratio 24.4 Random Glucose 158 mg/dl Calcium Level 8.7 mg/dl Test 09/24/17 08:46 09/24/17 12:13 Potassium Level 4.3 mmol/L Bedside Glucose 126 mg/dl Assessment and Plan (1) Diabetic foot ulcer Assessment & Plan: will change to Iv ancef pending surgical plans. (2) Osteomyelitis Problem Qualifiers (1) Osteomyelitis: Osteomyelitis type: unspecified type Osteomyelitis location: foot Laterality : left Qualified Codes: M86.9 - Osteomyelitis, unspecified
[2017-09-24] MEDS ORDERED: CEFAZOLIN IV 1,000 MG in DEXTROSE 5% 50ML 50 ML IV SCH (14:15)
[2017-09-24] MEDS: CEFAZOLIN IV 1,000 MG in SYRINGE 0 ML IV SCH ×2 (15:30→23:24)
--- NOTE | 2017-09-24 15:47 | DIAGNOSTIC IMAGING REPORT ---
L ART DOP DUPLEX LWR EXT UNI CLINICAL HISTORY: PAD, ulcer claudication TECHNIQUE: Arterial Doppler COMPARISON STUDY: None FINDINGS: Biphasic waveforms involving the arterial structures of the left thigh. Monophasic waveforms or absent flow within components of the dorsalis pedis, posterior tibial, with no definite flow within the anterior tibial. IMPRESSION: 1. No significant arteriosclerotic change of the left thigh arterial vasculature. 2. High-grade multilevel arterial occlusive change of all major arterial structures of the left lower leg. 3. No definite antegrade flow in the anterior tibial artery The above report was generated using voice recognition software. It may contain grammatical, syntax or spelling errors. Electronically signed by: Roland Camacho M.D. 09/24/2017 3:46 PM Dictated Date/Time: 09/24/2017 3:43 PM
[2017-09-24 15:50] VITALS: BP 105/67; PULSE 84; TEMP 37.2; O2SAT 91
--- NOTE | 2017-09-24 19:44 | Progress Note ---
Internal Med Progress Note Date of Service: Sep 24, 2017. Provider Documentation: SUBJECTIVE: RESTING COMFORTABLY AFEBRILE EATING OK 'NO CHEST PAIN OR SOB OBJECTIVE: Vital Signs-as noted below Exam: General-alert and awake and oriented ENT-normal hearing Neck-no neck masses Lungs-cta b/l no wheezing or crackles Heart-s1 and s2 heard regular rate and rhythm no murmurs Abdomen-soft BS present non tender Extremities s/p amputations of right toes, left second toe erythematous Neuro-alert and awake moves extremities Lab data as noted below. ASSESSMENT & PLAN: This is a 76yo F with a PMH of DM II, PVD, h/o several separate toe amputations , CAD, HTN, bilateral diabetic retinopathy who presents with worsening redness and swelling of Left 3rd toe x 2 days. Left toe osteomyelitis: Significant h/o osteomyelitis and subsequent toe amputation in setting of DM II , PVD LE MRI: osteomyelitis involves the distal most portion of the third distal phalanx. Preliminary wound culture is growing staph aureus ID, Ortho and vascular surgery on board on iv vanco and zosyn left lower extremity arterial US shows high grade stenosis at multiple levels Await vascular surgery decision regarding amputation DM II: Hgb a1c of 6.8 in Jul 2017 hold po meds lantus and iss will monitor CAD: Cardiac cath in 2013: complete total occlusion of the circumflex with right-to- left collaterals and 80% mid LAD stenosis, treated medically stable on lisinopril, metoprolol, statin -Holding aspirin and plavix in case of surgical intervention tomorrow HLD: on statin HTN: on lisinopril, metoprolol will monitor Diabetic retinopathy: Continue home eye drops DVT Ppx: SCDs (hold off on additional anticoagulation in case of potential amputation) Code status: FULL PCP: Dimitrios Dispo: Plan to return home once medically stable Vital Signs: Date Time Temp Pulse Resp B/P (MAP) Pulse Ox O2 Delivery O2 Flow Rate FiO2 09/24/17 15:50 37.2 84 18 105/67 (80) 91 Room Air 09/24/17 11:38 37.3 70 18 120/64 (82) 95 Room Air 09/24/17 08:27 95 Room Air 09/24/17 08:01 36.5 70 16 118/58 (78) 95 Room Air 09/24/17 08:00 Room Air 09/23/17 23:40 Room Air 09/23/17 23:01 36.7 73 16 105/65 (78) 96 Room Air 09/23/17 21:22 36.9 87 17 113/53 (73) 95 Room Air Lab Results: Results Past 24 Hours Test 09/23/17 20:39 09/24/17 07:35 09/24/17 08:16 09/24/17 08:46 Range/Units Bedside Glucose 243 151 70-90 mg/dl White Blood Count 7.24 4.8-10.8 K/uL Red Blood Count 3.77 4.2-5.4 M/uL Hemoglobin 11.6 12.0-16.0 g/dL Hematocrit 34.6 37-47 % Mean Corpuscular Volume 91.8 80-100 fL Mean Corpuscular Hemoglobin 30.8 25-34 pg Mean Corpuscular Hemoglobin Concent 33.5 32-36 g/dl RDW Standard Deviation 43.7 36.4-46.3 fL RDW Coefficient of Variation 13.0 11.5-14.5 % Platelet Count 146 130-400 K/uL Mean Platelet Volume 10.5 7.4-10.4 fL Prothrombin Time 10.1 9.0-12.0 SECONDS Prothromb Time International Ratio 1.0 0.9-1.1 Sodium Level 138 136-145 mmol/L Potassium Level 4.3 3.5-5.1 mmol/L Chloride Level 105 98-107 mmol/L Carbon Dioxide Level 28 21-32 mmol/L Anion Gap 6.0 3-11 mmol/L Blood Urea Nitrogen 24 7-18 mg/dl Creatinine 0.98 0.60-1.20 mg/dl Est Creatinine Clear Calc Drug Dose 40.8 ml/min Estimated GFR () 64.0 Estimated GFR (Non- 55.3 BUN/Creatinine Ratio 24.4 10-20 Random Glucose 158 70-99 mg/dl Calcium Level 8.7 8.5-10.1 mg/dl Test 09/24/17 12:13 09/24/17 17:03 Range/Units Bedside Glucose 126 251 70-90 mg/dl
[2017-09-24] MEDS: TRAVOPROST Z 0.004% OPH SOLN 2.5 ML BTL OP SCH (20:39)
[2017-09-24] MEDS: SIMVASTATIN 20 MG TAB PO SCH (20:40)
[2017-09-24] MEDS: INSULIN GLARGINE SOLOSTAR 100 UNITS/ML 3 ML PEN SC SCH (20:47)
[2017-09-24 23:30] VITALS: BP 111/54; PULSE 83; TEMP 37.1; O2SAT 93
[2017-09-25] MEDS: BRIMONIDINE TARTRATE 0.2% 5ML OPB SCH ×3 (05:11→21:58)
[2017-09-25] MEDS ORDERED: VANCOMYCIN TROUGH ONE (05:30)
[2017-09-25 07:00] LABS: CREATININE 0.79 mg/dl (0.60-1.20)
[2017-09-25 07:02] VITALS: BP 110/67; PULSE 62; TEMP 36.8; O2SAT 95
[2017-09-25] MEDS: CEFAZOLIN IV 1,000 MG in SYRINGE 0 ML IV SCH ×2 (07:21→16:23)
[2017-09-25 08:40] VITALS: BP 112/76; PULSE 62
[2017-09-25] MEDS: CHOLECALCIFEROL 1000 INTER.UNIT TAB PO SCH (08:43)
[2017-09-25] MEDS: METOPROLOL SUCC 25MG EXT REL TAB PO SCH (08:43)
[2017-09-25] MEDS: MAGNESIUM OXIDE 400 MG TAB PO SCH (08:43)
[2017-09-25] MEDS: LISINOPRIL 10 MG TAB PO SCH (08:43)
[2017-09-25] MEDS: DORZOLAMIDE/TIMOLOL 22.3/6.8MG/ML 10 ML BTL OP SCH ×2 (08:44→20:59)
[2017-09-25] MEDS: INSULIN ASPART 100 UNITS/ML 3 ML PEN SC SCH ×4 (08:53→21:07)
--- NOTE | 2017-09-25 12:41 | Progress Note ---
Progress Note Date of Service Sep 25, 2017. Progress Note Patient is a 76 year old F with a history of multiple toe amputations scheduled for further toe amp on 09/[address] Acosta. PMHx significant for severe CAD and PAD. It appears she had a cardiac cath in 2013 showing up to 80% LAD stenosis but PCI was not performed. The patient however was on dual antiplatelet therapy with Plavix and ASA. She also has diabetes, HTN, and peripheral neuropathy. Labs and studies were reviewed and were acceptable to proceed. Would anticipate general anesthesia versus local and sedation depending on surgical and patient preferences. Pending a change in patient status, surgery should be able to proceed tomorrow. If a resting 12 lead has not been done recently, please obtain this prior to the OR to evaluate baseline abnormalities. There are no recent records in our system. Thank you.
--- NOTE | 2017-09-25 13:39 | Wound Consultation: Inpatient ---
Wound Consultation Date of Consultation: Sep 24, 2017. Attending Physician: Rafita Quigley MD Reason for Consultation: Ulceration third digit left foot History of Present Illness Patient was recently admitted to [facility] for further evaluation of increased swelling redness of the third digit of the left foot approximately 2 days ago. Patient currently denies any fever chills or night sweats. Patient denies any chest pain shortness of breath abdominal discomfort nausea or vomiting. Patient has an extensive history of prior ulcerations requiring multiple digital amputations of her left foot. Patient denies any other systemic complaints at this time. Social History Smoking Status: Never Smoker Alcohol Use: none Drug Use: none Marital Status: Occupation Status: disabled Allergies Coded Allergies: Baclofen (Unverified Allergy, Unknown, unkown , 10/18/16) Sulfamethoxazole w/Trimethoprim (Verified Allergy, Unknown, itching, ) Tramadol (Unverified Allergy, Unknown, unkown , 09/23/17) Home Medications Scheduled Aspirin (Aspirin 81), 81 MG PO QAM Brimonidine Tartrate (Brimonidine Tartrate), 1 DROP OPB Q8 Cephalexin Monohydrate (Keflex), 1 CAP PO TID Cholecalciferol (Vitamin D3), 1,000 UNITS PO DAILY Clopidogrel (Plavix), 75 MG PO QAM Dorzolamide Hcl-Timolol Maleat (Cosopt Oph), 1 DROPS OP BID Glipizide (Glipizide), 5 MG PO QAM Insulin Glargine (Lantus Solostar), 10 UNITS SC DAILY Lisinopril (Prinivil), 10 MG PO QAM Magnesium Oxide (Mag-Ox), 400 MG PO QAM Metformin Hcl (Glucophage), 850 MG PO BIDM Metoprolol Succinate (Metoprolol Succinate ER), 12.5 MG PO QAM Polyethylene Glycol-Propylene (Systane Gel), 1 DROP OPB HS Simvastatin (Zocor), 20 MG PO HS Travoprost (Travatan Z), 1 DROPS OP HS Inpatient Medications Current Inpatient Medications Medications (Trade) Dose Ordered Sig/Shell Route Start Time Stop Time Status Last Admin Dose Admin Gadobutrol (Gadavist) 6.5 mmol UD PRN IV 09/23/17 11:15 09/27/17 11:14 Acetaminophen (Tylenol Tab) 650 mg Q4H PRN PO 09/23/17 14:15 10/23/17 14:14 Ondansetron HCl (Zofran Inj) 4 mg Q6H PRN IV 09/23/17 14:15 10/23/17 14:14 Insulin Aspart (novoLOG ASPART) SLIDING SCALE If C... ACHS SC 09/23/17 17:15 10/23/17 17:14 09/25/17 12:57 4 UNITS Glucose (Glucose 40% Gel) 15-30 GRAMS 15 GRAMS... UD PRN PO 09/23/17 14:15 10/23/17 14:14 Glucose (Glucose Chew Tab) 4-8 Tablets 4 Tabl... UD PRN PO 09/23/17 14:15 10/23/17 14:14 Dextrose (Dextrose 50% 50ML Syringe) 25-50ML OF 50% DW IV FOR... UD PRN IV 09/23/17 14:15 10/23/17 14:14 Glucagon (Glucagon Inj) 1 mg UD PRN SQ 09/23/17 14:15 10/23/17 14:14 Cholecalciferol (Vitamin D Tab) 1,000 inter.unit DAILY PO 09/24/17 09:00 10/24/17 08:59 09/25/17 08:43 1,000 INTER.UNIT Dorzolamide/ Timolol (Cosopt Op Soln) 1 drops BID OP 09/23/17 21:00 10/23/17 20:59 09/25/17 08:44 1 DROPS Lisinopril (Zestril Tab) 10 mg QAM PO 09/24/17 09:00 10/24/17 08:59 09/25/17 08:43 10 MG Magnesium Oxide (Mag-Ox Tab) 400 mg QAM PO 09/24/17 09:00 10/24/17 08:59 09/25/17 08:43 400 MG Metoprolol Succinate (Toprol Xl Tab) 12.5 mg QAM PO 09/24/17 09:00 10/24/17 08:59 09/25/17 08:43 12.5 MG Simvastatin (Zocor Tab) 20 mg HS PO 09/23/17 21:00 10/23/17 20:59 09/24/17 20:40 20 MG Travoprost (Travatan Z) 1 drops HS OP 09/23/17 21:00 10/23/17 20:59 09/24/17 20:39 1 DROPS Miscellaneous Information (Order Awaiting Action) 1 ea QS N/A 09/23/17 16:00 10/23/17 15:59 Brimonidine Tartrate (Alphagan 0.2% Soln) 1 drops Q8 OPB 09/23/17 22:00 10/23/17 21:59 09/25/17 12:56 1 DROPS Cefazolin Sodium 1000 mg/Syringe 5 ml @ 1.667 mls/ min Q8H IV 09/24/17 16:00 11/05/17 15:59 09/25/17 07:21 1.667 MLS/MIN Insulin Glargine (Lantus Solostar Pen) 10 units HS SC 09/24/17 21:00 10/24/17 20:59 09/24/17 20:47 10 UNITS Physical Exam Date Time Temp Pulse Resp B/P (MAP) Pulse Ox O2 Delivery O2 Flow Rate FiO2 09/25/17 08:40 62 112/76 (88) 09/25/17 07:20 Room Air 09/25/17 07:02 36.8 62 19 110/67 (81) 95 Room Air 09/24/17 23:30 37.1 83 16 111/54 (73) 93 Room Air 09/24/17 19:15 Room Air 09/24/17 15:50 37.2 84 18 105/67 (80) 91 Room Air General: The patient is sitting in a hospital bed in no distress. Alert, cooperative and appropriate to all questions. HEENT: Pupils equal and reactive to light. Sclera clear, EOM intact. Neck: Supple, No JVD noted Chest: CTA in all mix. No deformity Heart: RRR without murmurs, S3, S4, thrills, rubs or heaves Extremities: There ulcerative site is noted on the distal aspect of the left foot third digit. There is some minimal swelling and erythema noted. There is also some eschar formation present. No active drainage or odor present no evidence of any erythema swelling or pain of the foot region. Prior amputations of digits are noted. Neurological: Alert and oriented x3. No focal deficits. Laboratory Results Last 24 Hours Test 09/24/17 17:03 09/24/17 20:24 09/25/17 06:11 Bedside Glucose 251 mg/dl 272 mg/dl Creatinine 0.79 mg/dl Est Creatinine Clear Calc Drug Dose 50.6 ml/min Estimated GFR () 83.1 Estimated GFR (Non- 71.7 Assessment & Plan Assessment: Barragan grade 3 diabetic foot ulcer third digit left foot Plan: At this time the patient is being further evaluated by orthopedics for consideration of amputation. Patient's vascular status is also being evaluated to determine appropriate level for amputation. It is my recommendation at this time to consider amputation of the distal phalanx of the third digit if concern for healing would limit a more proximal site. The site will be presently managed with Aquacel Ag and gauze dressings changed daily. This was discussed in detail with the patient and patient's family and they are in agreement to proceed with this course of treatment.
--- NOTE | 2017-09-25 13:58 | Progress Note ---
Subjective Date of Service: Sep 25, 2017. Subjective Pt evaluation today including: conversation w/ patient, physical exam, chart review, lab review pt oob to chair, feeling better, less pain. no f/c. tolerating abx. all wound cultures with MSSA. had ultrasound, stenosis noted, states she is to have vascular procedure, unsure of details. no abd pain, no n/v/d. all remaining ros reviewed and are negative. Problem List Social History Problems: (1) Elevated blood pressure reading without diagnosis of hypertension Status: Acute Objective Vital Signs Date Time Temp Pulse Resp B/P (MAP) Pulse Ox O2 Delivery O2 Flow Rate FiO2 09/25/17 08:40 62 112/76 (88) 09/25/17 07:20 Room Air 09/25/17 07:02 36.8 62 19 110/67 (81) 95 Room Air 09/24/17 23:30 37.1 83 16 111/54 (73) 93 Room Air 09/24/17 19:15 Room Air 09/24/17 15:50 37.2 84 18 105/67 (80) 91 Room Air Physical Exam General Appearance: WD/WN, no apparent distress Eyes: normal inspection, EOMI Neck: supple Respiratory/Chest: lungs clear, normal breath sounds, no respiratory distress Cardiovascular: regular rate, rhythm, no edema Abdomen: soft Extremities: non-tender, no pedal edema Neurologic/Psychiatric: alert, oriented x 3 Skin: normal color, warm/dry, no rash Comments: dressing intact Laboratory Results Item Value Date Time Gram Stain - Final Resulted 09/23/17 1620 Skin Toe Left 3 Gram Stain - Final Complete 09/23/17 1620 Skin Toe Left 3 Last 24 Hours Test 09/24/17 17:03 09/24/17 20:24 09/25/17 06:11 Bedside Glucose 251 mg/dl 272 mg/dl Creatinine 0.79 mg/dl Est Creatinine Clear Calc Drug Dose 50.6 ml/min Estimated GFR () 83.1 Estimated GFR (Non- 71.7 Assessment and Plan (1) Diabetic foot ulcer Assessment & Plan: will change to Iv ancef pending surgical plans. will likely to change to po abx upon d/c. duration will depend on surgery. will follow. (2) Osteomyelitis Problem Qualifiers (1) Osteomyelitis: Osteomyelitis type: unspecified type Osteomyelitis location: foot Laterality : left Qualified Codes: M86.9 - Osteomyelitis, unspecified
[2017-09-25 15:00] VITALS: BP 96/60; PULSE 65; TEMP 36.8; O2SAT 95
--- NOTE | 2017-09-25 17:11 | Progress Note ---
Internal Med Progress Note Date of Service: Sep 25, 2017. Provider Documentation: SUBJECTIVE: Resting comfortably afebrile no nausea no sob awaiting procedures OBJECTIVE: Vital Signs-as noted below Exam: General-alert and awake and oriented ENT-normal hearing Neck-no neck masses Lungs-cta b/l no wheezing or crackles Heart-s1 and s2 heard regular rate and rhythm no murmurs Abdomen-soft BS present non tender Extremities s/p amputations of right toes, left third toe erythematous Neuro-alert and awake moves extremities Lab data as noted below. ASSESSMENT & PLAN: This is a 76yo F with a PMH of DM II, PVD, h/o several separate toe amputations , CAD, HTN, bilateral diabetic retinopathy who presents with worsening redness and swelling of Left 3rd toe x 2 days. Left toe osteomyelitis: Significant h/o osteomyelitis and subsequent toe amputation in setting of DM II , PVD LE MRI: osteomyelitis involves the distal most portion of the third distal phalanx. Preliminary wound culture is growing staph aureus ID, Ortho and vascular surgery on board Initially was on iv vanco and zosyn cx growing MSSA abx changed to Ancef left lower extremity arterial US shows high grade stenosis at multiple levels Await vascular surgery decision regarding amputation DM II: Hgb a1c of 6.8 in Jul 2017 hold po meds lantus and iss 151/126/251/272 CAD: Cardiac cath in 2013: complete total occlusion of the circumflex with right-to- left collaterals and 80% mid LAD stenosis, treated medically stable on lisinopril, metoprolol, statin -Holding aspirin and plavix in case of surgical intervention tomorrow HLD: on statin HTN: on lisinopril, metoprolol will monitor Diabetic retinopathy: Continue home eye drops DVT Ppx: SCDs (hold off on additional anticoagulation in case of potential amputation) Code status: FULL PCP: Dimitrios Dispo: Plan to return home once medically stable pt/ot prior to discharge Vital Signs: Date Time Temp Pulse Resp B/P (MAP) Pulse Ox O2 Delivery O2 Flow Rate FiO2 09/25/17 15:00 36.8 65 16 96/60 (72) 95 Room Air 09/25/17 08:40 62 112/76 (88) 09/25/17 07:20 Room Air 09/25/17 07:02 36.8 62 19 110/67 (81) 95 Room Air 09/24/17 23:30 37.1 83 16 111/54 (73) 93 Room Air 09/24/17 19:15 Room Air Lab Results: Results Past 24 Hours Test 09/24/17 20:24 09/25/17 06:11 Range/Units Bedside Glucose 272 70-90 mg/dl Creatinine 0.79 0.60-1.20 mg/dl Est Creatinine Clear Calc Drug Dose 50.6 ml/min Estimated GFR () 83.1 Estimated GFR (Non- 71.7
[2017-09-25] MEDS: TRAVOPROST Z 0.004% OPH SOLN 2.5 ML BTL OP SCH (20:59)
[2017-09-25] MEDS: SIMVASTATIN 20 MG TAB PO SCH (21:00)
[2017-09-25] MEDS: INSULIN GLARGINE SOLOSTAR 100 UNITS/ML 3 ML PEN SC SCH (21:06)
[2017-09-25 23:50] VITALS: BP 101/59; PULSE 74; TEMP 36.5; O2SAT 93
[2017-09-26] VITALS (8 sets, daily range): BP systolic 111–147; BP diastolic 65–79; PULSE 72–83; TEMP 36.3–36.7; O2SAT 92–97
[2017-09-26] MEDS: CEFAZOLIN IV 1,000 MG in SYRINGE 0 ML IV SCH ×4 (00:44→23:31)
[2017-09-26] MEDS ORDERED: NURSING VERBAL MED ORDER ONE ×2 (03:15→18:15)
[2017-09-26] MEDS: BRIMONIDINE TARTRATE 0.2% 5ML OPB SCH ×3 (06:14→22:07)
[2017-09-26] MEDS: INSULIN ASPART 100 UNITS/ML 3 ML PEN SC SCH ×4 (06:22→22:13)
[2017-09-26] MEDS: DORZOLAMIDE/TIMOLOL 22.3/6.8MG/ML 10 ML BTL OP SCH ×2 (08:33→22:07)
[2017-09-26] MEDS: CHOLECALCIFEROL 1000 INTER.UNIT TAB PO SCH (08:33)
[2017-09-26] MEDS: LISINOPRIL 10 MG TAB PO SCH (08:33)
[2017-09-26] MEDS: METOPROLOL SUCC 25MG EXT REL TAB PO SCH (08:33)
[2017-09-26] MEDS: MAGNESIUM OXIDE 400 MG TAB PO SCH (08:33)
[2017-09-26 09:10] LABS: CREATININE 0.83 mg/dl (0.60-1.20)
--- NOTE | 2017-09-26 10:10 | Progress Note ---
Subjective Date of Service: Sep 26, 2017. Subjective Pt evaluation today including: conversation w/ patient, physical exam, chart review, lab review pt seen in followup, no pain in foot, denies drainage, f/c resolved. tolerating abx. npo for potential amp later today. all remaining ros reviewed and are negative. Problem List Social History Problems: (1) Elevated blood pressure reading without diagnosis of hypertension Status: Acute Objective Vital Signs Date Time Temp Pulse Resp B/P (MAP) Pulse Ox O2 Delivery O2 Flow Rate FiO2 09/26/17 08:45 92 Room Air 09/26/17 07:51 36.7 72 18 132/78 (96) 92 Room Air 09/26/17 07:20 Room Air 09/26/17 00:50 Room Air 09/25/17 23:50 36.5 74 16 101/59 (73) 93 Room Air 09/25/17 16:25 Room Air 09/25/17 15:00 36.8 65 16 96/60 (72) 95 Room Air Physical Exam General Appearance: WD/WN, no apparent distress Eyes: normal inspection, EOMI Neck: supple Respiratory/Chest: lungs clear, normal breath sounds, no respiratory distress Cardiovascular: regular rate, rhythm, no edema Abdomen: soft Extremities: non-tender, no pedal edema Neurologic/Psychiatric: alert, oriented x 3 Skin: normal color, no rash Comments: dressing intact, min surrounding erythema, improving, no warmth or tenderness Laboratory Results Item Value Date Time Gram Stain - Final Complete 09/23/17 1620 Skin Toe Left 3 Last 24 Hours Test 09/25/17 11:59 09/25/17 16:57 09/25/17 20:57 09/26/17 07:43 Bedside Glucose 176 mg/dl 146 mg/dl 190 mg/dl Creatinine 0.83 mg/dl Est Creatinine Clear Calc Drug Dose 48.2 ml/min Estimated GFR () 78.3 Estimated GFR (Non- 67.5 Assessment and Plan (1) Diabetic foot ulcer Assessment & Plan: will change to Iv ancef pending surgical plans. will likely to change to po abx upon d/c. Upon d/c suggest Keflex 500mg po bid with food x 21 days. will plan to follow in wound center post d/c. (2) Osteomyelitis Problem Qualifiers (1) Osteomyelitis: Osteomyelitis type: unspecified type Osteomyelitis location: foot Laterality : left Qualified Codes: M86.9 - Osteomyelitis, unspecified
--- NOTE | 2017-09-26 14:51 | Progress Note ---
Progress Note Date of Service Sep 26, 2017. Progress Note Patient for amputation of left 3rd toe. I have discussed the risks options and benefits of the procedure with the patient. The patient understands the risks options and benefits and agrees to the procedure. I have examined the patient, reviewed the History & Physical and in the interval since the performance of the History & Physical I have noted the following changes of clinical significance: No changes noted
[2017-09-26] MEDS ORDERED: FENTANYL CITRATE INJ 50 MCG/1 ML 2 ML VIAL ONE (15:19)
[2017-09-26] MEDS ORDERED: LIDOCAINE HCL 2% 2 ML VIAL (20MG/ML) ONE ×2 (15:19→16:19)
[2017-09-26] MEDS ORDERED: PROPOFOL IV EMULSION 10 MG/ML 20 ML VIAL IV ONE (15:19)
[2017-09-26] MEDS ORDERED: HYDROmorphone INJ 2 MG/ML SYR/VIAL IV PRN (16:15)
[2017-09-26] MEDS ORDERED: ONDANSETRON INJ 2 MG/ML 2 ML VIAL IV PRN (16:15)
[2017-09-26] MEDS ORDERED: EpHEDrine SULFATE INJ 50 MG/ML AMP IV PRN (16:15)
[2017-09-26] MEDS ORDERED: ATROPINE SULFATE 0.1 MG/ML 5ML SYR IV PRN (16:15)
[2017-09-26] MEDS ORDERED: PHENYLEPHRINE 100MCG/ML 5ML SYR IV PRN (16:15)
[2017-09-26] MEDS ORDERED: MIDAZOLAM HCL 1 MG/ML 2ML VIAL ONE (16:17)
[2017-09-26] MEDS ORDERED: BUPIVACAINE 0.25% 30 ML VIAL ONE (16:18)
--- NOTE | 2017-09-26 17:17 | [facility] Post Operative Brief Note ---
Immediate Operative Summary Operative Date Sep 26, 2017. Pre-Operative Diagnosis gangrene 3rd toe Left foot Post-Operative Diagnosis Same Procedure(s) Performed Amputation 3rd toe , Left foot Surgeon Dr Acosta Insulation Power Unit Tender Surgeon(s) Jacinta Small MD Estimated Blood Loss 10ML Findings good bleeding Specimens A. 3rd Toe , Left foot Anesthesia Ankle block with sedation Complication(s) None Disposition Recovery Room / PACU
--- NOTE | 2017-09-26 17:39 | Anesthesiology Progress Note ---
Anesthesia Post Op Note Date & Time Sep 26, 2017 at 17:38 Vital Signs Pain Intensity: 0 Vital Signs Past 12 Hours Date Time Temp Pulse Resp B/P (MAP) Pulse Ox O2 Delivery O2 Flow Rate FiO2 09/26/17 17:35 36.8 81 16 106/66 97 Room Air 09/26/17 17:25 76 14 122/67 100 Oxymask 10 09/26/17 17:19 36.1 81 19 128/71 99 Oxymask 10 09/26/17 08:45 92 Room Air 09/26/17 07:51 36.7 72 18 132/78 (96) 92 Room Air 09/26/17 07:20 Room Air Notes Mental Status: alert / awake / arousable, participated in evaluation Pt Amnestic to Procedure: Yes Nausea / Vomiting: adequately controlled Pain: adequately controlled Airway Patency, RR, SpO2: stable & adequate BP & HR: stable & adequate Hydration State: stable & adequate Anesthetic Complications: no major complications apparent
--- NOTE | 2017-09-26 17:42 | Progress Note ---
Internal Med Progress Note Date of Service: Sep 26, 2017. Provider Documentation: SUBJECTIVE: Resting comfortably afebrile Awaiting surgery today no chest pain or sob no nausea OBJECTIVE: Vital Signs-as noted below Exam: General-alert and awake and oriented ENT-normal hearing Neck-no neck masses Lungs-cta b/l no wheezing or crackles Heart-s1 and s2 heard regular rate and rhythm no murmurs Abdomen-soft BS present non tender Extremities s/p amputations of right toes, left third toe erythematous Neuro-alert and awake moves extremities Lab data as noted below. ASSESSMENT & PLAN: This is a 76yo F with a PMH of DM II, PVD, h/o several separate toe amputations , CAD, HTN, bilateral diabetic retinopathy who presents with worsening redness and swelling of Left 3rd toe x 2 days. Left toe osteomyelitis: Significant h/o osteomyelitis and subsequent toe amputation in setting of DM II , PVD LE MRI: osteomyelitis involves the distal most portion of the third distal phalanx. Preliminary wound culture is growing staph aureus ID, Ortho and vascular surgery on board Initially was on iv vanco and zosyn cx growing MSSA abx changed to Ancef left lower extremity arterial US shows high grade stenosis at multiple levels Await vascular surgery decision regarding amputation- possibly today DM II: Hgb a1c of 6.8 in Jul 2017 hold po meds lantus and iss 209/160/142/133 CAD: Cardiac cath in 2013: complete total occlusion of the circumflex with right-to- left collaterals and 80% mid LAD stenosis, treated medically stable on lisinopril, metoprolol, statin -Holding aspirin and plavix in case of surgical intervention today HLD: on statin HTN: on lisinopril, metoprolol will monitor Diabetic retinopathy: Continue home eye drops DVT Ppx: SCDs (hold off on additional anticoagulation in case of potential amputation) Code status: FULL PCP: Dimitrios Dispo: Plan to return home once medically stable pt/ot prior to discharge Vital Signs: Date Time Temp Pulse Resp B/P (MAP) Pulse Ox O2 Delivery O2 Flow Rate FiO2 09/26/17 17:19 36.1 81 19 128/71 99 Oxymask 10 09/26/17 08:45 92 Room Air 09/26/17 07:51 36.7 72 18 132/78 (96) 92 Room Air 09/26/17 07:20 Room Air 09/26/17 00:50 Room Air 09/25/17 23:50 36.5 74 16 101/59 (82) 93 Room Air Lab Results: Results Past 24 Hours Test 09/25/17 20:57 09/26/17 06:05 09/26/17 07:43 09/26/17 12:00 Range/Units Bedside Glucose 190 209 160 70-90 mg/dl Creatinine 0.83 0.60-1.20 mg/dl Est Creatinine Clear Calc Drug Dose 48.2 ml/min Estimated GFR () 78.3 Estimated GFR (Non- 67.5 Test 09/26/17 15:53 09/26/17 17:23 Range/Units Bedside Glucose 142 133 70-90 mg/dl
[2017-09-26] MEDS: TRAVOPROST Z 0.004% OPH SOLN 2.5 ML BTL OP SCH (22:06)
[2017-09-26] MEDS: SIMVASTATIN 20 MG TAB PO SCH (22:07)
[2017-09-26] MEDS: INSULIN GLARGINE SOLOSTAR 100 UNITS/ML 3 ML PEN SC SCH (22:14)
[2017-09-27 03:30] VITALS: BP 132/78; PULSE 76; TEMP 36.6; O2SAT 97
[2017-09-27] MEDS: BRIMONIDINE TARTRATE 0.2% 5ML OPB SCH ×3 (05:39→21:21)
[2017-09-27 06:56] LABS: CREATININE 0.81 mg/dl (0.60-1.20)
[2017-09-27 07:12] VITALS: BP 127/76; PULSE 76; TEMP 36.3; O2SAT 97
[2017-09-27] MEDS: MAGNESIUM OXIDE 400 MG TAB PO SCH (08:47)
[2017-09-27] MEDS: DORZOLAMIDE/TIMOLOL 22.3/6.8MG/ML 10 ML BTL OP SCH ×2 (08:47→21:23)
[2017-09-27] MEDS: CEFAZOLIN IV 1,000 MG in SYRINGE 0 ML IV SCH ×2 (08:47→16:23)
[2017-09-27] MEDS: CHOLECALCIFEROL 1000 INTER.UNIT TAB PO SCH (08:48)
[2017-09-27] MEDS: LISINOPRIL 10 MG TAB PO SCH (08:48)
[2017-09-27] MEDS: METOPROLOL SUCC 25MG EXT REL TAB PO SCH (08:48)
[2017-09-27] MEDS: INSULIN ASPART 100 UNITS/ML 3 ML PEN SC SCH ×4 (08:50→21:25)
--- NOTE | 2017-09-27 10:36 | Progress Note ---
Progress Note Date of Service: Sep 27, 2017. Subjective No complaints Problem List Social History Problems: (1) Elevated blood pressure reading without diagnosis of hypertension Status: Acute Objective Vital Signs Vital Signs Past 12 Hours Date Time Temp Pulse Resp B/P (MAP) Pulse Ox O2 Delivery O2 Flow Rate FiO2 09/27/17 07:12 36.3 76 19 127/76 (93) 97 Room Air 09/27/17 03:30 36.6 76 14 132/78 (96) 97 Room Air 09/26/17 22:56 36.4 73 17 147/78 (101) 96 Room Air 09/26/17 22:52 36.4 77 16 147/78 (101) 96 Room Air Exam VSS Afebrile Incision clean and dry. Stump viable. Laboratory and Microbiology Results Past 24 Hours Test 09/26/17 12:00 09/26/17 15:53 09/26/17 17:23 09/26/17 18:17 Range/Units Bedside Glucose 160 142 133 118 70-90 mg/dl Test 09/26/17 20:49 09/27/17 06:09 09/27/17 08:09 Range/Units Bedside Glucose 223 186 70-90 mg/dl Creatinine 0.81 0.60-1.20 mg/dl Est Creatinine Clear Calc Drug Dose 49.4 ml/min Estimated GFR () 80.6 Estimated GFR (Non- 69.6 Imp: Toe amp Plan: Incision looks good. Can d/c per medical service.
[2017-09-27 15:00] VITALS: BP 116/70; PULSE 67; TEMP 36.7; O2SAT 96
--- NOTE | 2017-09-27 16:25 | Progress Note ---
Internal Med Progress Note Date of Service: Sep 27, 2017. Provider Documentation: SUBJECTIVE: eating lunch s/p left middle toe amputation afebrile no pain no sob OBJECTIVE: Vital Signs-as noted below Exam: General-alert and awake and oriented ENT-normal hearing Neck-no neck masses Lungs-cta b/l no wheezing or crackles Heart-s1 and s2 heard regular rate and rhythm no murmurs Abdomen-soft BS present non tender Extremities s/p amputations of right toes, left third toe s/p amputation Neuro-alert and awake moves extremities Lab data as noted below. ASSESSMENT & PLAN: This is a 76yo F with a PMH of DM II, PVD, h/o several separate toe amputations , CAD, HTN, bilateral diabetic retinopathy who presents with worsening redness and swelling of Left 3rd toe x 2 days. Left toe osteomyelitis: Significant h/o osteomyelitis and subsequent toe amputation in setting of DM II , PVD LE MRI: osteomyelitis involves the distal most portion of the third distal phalanx. Preliminary wound culture is growing staph aureus ID, Ortho and vascular surgery on board Initially was on iv vanco and zosyn cx growing MSSA abx changed to Ancef left lower extremity arterial US shows high grade stenosis at multiple levels s/p amputation of left thrid toe plan for po abx as per ID on discharge DM II: Hgb a1c of 6.8 in Jul 2017 hold po meds Lantus and iss adjusting ISS will monitor CAD: Cardiac cath in 2013: complete total occlusion of the circumflex with right-to- left collaterals and 80% mid LAD stenosis, treated medically stable on lisinopril, metoprolol, statin -restart aspirin and Plavix HLD: on statin HTN: on lisinopril, metoprolol will monitor Diabetic retinopathy: Continue home eye drops DVT Ppx: SCDs (hold off on additional anticoagulation in case of potential amputation) Code status: FULL PCP: Dimitrios Dispo: Plan to return home once medically stable pt/ot prior to discharge possible d/c in 1-2 days Vital Signs: Date Time Temp Pulse Resp B/P (MAP) Pulse Ox O2 Delivery O2 Flow Rate FiO2 09/27/17 15:00 36.7 67 20 116/70 (85) 96 Room Air 09/27/17 07:50 Room Air 09/27/17 07:12 36.3 76 19 127/76 (93) 97 Room Air 09/27/17 03:30 36.6 76 14 132/78 (96) 97 Room Air 09/26/17 22:56 36.4 73 17 147/78 (101) 96 Room Air 09/26/17 22:52 36.4 77 16 147/78 (101) 96 Room Air 09/26/17 22:30 Room Air 09/26/17 20:51 36.5 72 17 111/65 (80) 94 Room Air 09/26/17 20:07 36.3 72 17 128/79 (95) 97 09/26/17 19:05 36.3 83 17 112/68 (83) 94 Room Air 09/26/17 18:00 Room Air 09/26/17 18:00 Room Air 09/26/17 18:00 36.5 76 16 120/71 (87) 94 Room Air 09/26/17 17:45 67 16 116/67 96 Room Air 09/26/17 17:35 36.8 81 16 106/66 97 Room Air 09/26/17 17:25 76 14 122/67 100 Oxymask 10 09/26/17 17:19 36.1 81 19 128/71 99 Oxymask 10 Lab Results: Results Past 24 Hours Test 09/26/17 17:23 09/26/17 18:17 09/26/17 20:49 09/27/17 06:09 Range/Units Bedside Glucose 133 118 223 70-90 mg/dl Creatinine 0.81 0.60-1.20 mg/dl Est Creatinine Clear Calc Drug Dose 49.4 ml/min Estimated GFR () 80.6 Estimated GFR (Non- 69.6 Test 09/27/17 08:09 Range/Units Bedside Glucose 186 70-90 mg/dl
[2017-09-27] MEDS: TRAVOPROST Z 0.004% OPH SOLN 2.5 ML BTL OP SCH (21:23)
[2017-09-27] MEDS: SIMVASTATIN 20 MG TAB PO SCH (21:23)
[2017-09-27] MEDS: INSULIN GLARGINE SOLOSTAR 100 UNITS/ML 3 ML PEN SC SCH (21:26)
[2017-09-28] MEDS: CEFAZOLIN IV 1,000 MG in SYRINGE 0 ML IV SCH ×2 (00:40→08:20)
[2017-09-28] MEDS: OXYCODONE/ACETAMINOPHEN 5-325 TAB PO PRN ×2 (00:48→22:11)
[2017-09-28] MEDS: BRIMONIDINE TARTRATE 0.2% 5ML OPB SCH ×3 (05:34→21:32)
[2017-09-28 07:16] VITALS: BP 116/69; PULSE 65; TEMP 36.4; O2SAT 98
[2017-09-28] MEDS: INSULIN ASPART 100 UNITS/ML 3 ML PEN SC SCH ×4 (09:07→21:31)
[2017-09-28] MEDS: ASPIRIN 81 MG ECTAB PO SCH (09:09)
[2017-09-28] MEDS: MAGNESIUM OXIDE 400 MG TAB PO SCH (09:09)
[2017-09-28] MEDS: CHOLECALCIFEROL 1000 INTER.UNIT TAB PO SCH (09:10)
[2017-09-28] MEDS: CLOPIDOGREL BISULFATE 75 MG TAB PO SCH (09:10)
[2017-09-28] MEDS: METOPROLOL SUCC 25MG EXT REL TAB PO SCH (09:10)
[2017-09-28] MEDS: LISINOPRIL 10 MG TAB PO SCH (09:11)
[2017-09-28] MEDS: DORZOLAMIDE/TIMOLOL 22.3/6.8MG/ML 10 ML BTL OP SCH ×2 (09:14→21:32)
--- NOTE | 2017-09-28 10:13 | Progress Note ---
Progress Note Date of Service: Sep 28, 2017. Subjective No complaints Problem List Social History Problems: (1) Elevated blood pressure reading without diagnosis of hypertension Status: Acute Objective Vital Signs Vital Signs Past 12 Hours Date Time Temp Pulse Resp B/P (MAP) Pulse Ox O2 Delivery O2 Flow Rate FiO2 09/28/17 07:16 36.4 65 16 116/69 (85) 98 Room Air 09/28/17 00:30 Room Air Exam Amp site clean and dry Laboratory and Microbiology Results Past 24 Hours Test 09/27/17 11:58 09/27/17 16:55 09/27/17 20:42 09/28/17 08:28 Range/Units Bedside Glucose 308 116 220 171 70-90 mg/dl Imp: Post left 3rd toe amp Plan: Surgical site doing well. Will follow as outpatient.
[2017-09-28] MEDS ORDERED: INSULIN GLARGINE SOLOSTAR 100 UNITS/ML 3 ML PEN SC ONE (12:15)
[2017-09-28 15:13] VITALS: BP 90/54; PULSE 84; TEMP 36.9; O2SAT 98
--- NOTE | 2017-09-28 15:48 | Progress Note ---
Internal Med Progress Note Date of Service: Sep 28, 2017. Provider Documentation: SUBJECTIVE: sitting on the chair comfortably s/p left middle toe amputation afebrile wants to go home no nausea OBJECTIVE: Vital Signs-as noted below Exam: General-alert and awake and oriented ENT-normal hearing Neck-no neck masses Lungs-cta b/l no wheezing or crackles Heart-s1 and s2 heard regular rate and rhythm no murmurs Abdomen-soft BS present non tender Extremities s/p amputations of right toes, left third toe s/p amputation Neuro-alert and awake moves extremities Lab data as noted below. ASSESSMENT & PLAN: This is a 76yo F with a PMH of DM II, PVD, h/o several separate toe amputations , CAD, HTN, bilateral diabetic retinopathy who presents with worsening redness and swelling of Left 3rd toe x 2 days. Left toe osteomyelitis: Significant h/o osteomyelitis and subsequent toe amputation in setting of DM II , PVD LE MRI: osteomyelitis involves the distal most portion of the third distal phalanx. Preliminary wound culture is growing staph aureus ID, Ortho and vascular surgery on board Initially was on iv vanco and zosyn cx growing MSSA abx changed to Ancef left lower extremity arterial US shows high grade stenosis at multiple levels s/p amputation of left thrid toe plan for po abx as per ID on discharge changed iv Ancef to po Keflex DM II: Hgb a1c of 6.8 in Jul 2017 hold po meds Lantus and iss adjusting ISS Bs running high changed lantus to 10units bid will monitor CAD: Cardiac cath in 2013: complete total occlusion of the circumflex with right-to- left collaterals and 80% mid LAD stenosis, treated medically stable on lisinopril, metoprolol, statin -restart aspirin and Plavix HLD: on statin HTN: on lisinopril, metoprolol will monitor Diabetic retinopathy: Continue home eye drops DVT Ppx: SCDs (hold off on additional anticoagulation in case of potential amputation) Code status: FULL PCP: Dimitrios Dispo: Plan to return home once medically stable pt/ot prior to discharge possible d/c in am Vital Signs: Date Time Temp Pulse Resp B/P (MAP) Pulse Ox O2 Delivery O2 Flow Rate FiO2 09/28/17 15:13 36.9 84 18 90/54 (66) 98 Room Air 09/28/17 08:00 Room Air 09/28/17 07:16 36.4 65 16 116/69 (85) 98 Room Air 09/28/17 00:30 Room Air 09/27/17 16:30 Room Air Lab Results: Results Past 24 Hours Test 09/27/17 16:55 09/27/17 20:42 09/28/17 08:28 09/28/17 11:52 Range/Units Bedside Glucose 116 220 171 357 70-90 mg/dl
[2017-09-28 17:00] VITALS: BP 99/64
[2017-09-28] MEDS: SIMVASTATIN 20 MG TAB PO SCH (21:32)
[2017-09-28] MEDS: CEPHALEXIN MONOHYDRATE 500 MG CAP PO SCH (21:32)
[2017-09-28] MEDS: INSULIN GLARGINE SOLOSTAR 100 UNITS/ML 3 ML PEN SC SCH (21:32)
[2017-09-28] MEDS: TRAVOPROST Z 0.004% OPH SOLN 2.5 ML BTL OP SCH (21:32)
[2017-09-28 23:15] VITALS: BP 94/56; PULSE 63; TEMP 36.4; O2SAT 95
[2017-09-29 00:02] VITALS: BP 97/60
[2017-09-29] MEDS: BRIMONIDINE TARTRATE 0.2% 5ML OPB SCH ×2 (06:06→14:00)
[2017-09-29 07:15] LABS: CREATININE 0.92 mg/dl (0.60-1.20)
[2017-09-29 07:44] LABS: ESTIMATED AVERAGE GLUCOSE 154 mg/dl; HA1C FLAG Normal (Normal)
--- NOTE | 2017-09-29 07:44 | OPERATIVE REPORT ---
DATE OF OPERATION: 09/26/2017 PREOPERATIVE DIAGNOSIS: Third toe osteomyelitis. POSTOPERATIVE DIAGNOSIS: Same. PROCEDURE: Third toe amputation. ANESTHESIA: Conscious sedation plus regional block. FLUIDS: 400. ESTIMATED BLOOD LOSS: 10 mL. URINE OUTPUT: Not recorded. COMPLICATIONS: None apparent. CONDITION: Stable to PACU. INDICATIONS: This is a 76-year-old female who presents with third toe osteomyelitis. She was advised of the risks and benefits of undergoing toe amputation and agreed to undergo the procedure. DESCRIPTION OF PROCEDURE: The patient was brought into the operative suite. She was prepped and draped in usual fashion and a timeout occurred. An incision was made circumferentially around her third toe. The incision was deepened to the bone. The joint space was found. The third toe was disarticulated and removed. All tendons were removed. The cartilage on the third metatarsal head was removed with a rongeur. Hemostasis was obtained. The wound was closed with 3-0 nylon mattress sutures. The patient tolerated the procedure well, was transported to PACU in stable condition. Dr. Kaleb Acosta was present for the entirety of this case. I attest to the content of the Intraoperative Record and any orders documented therein. Any exceptions are noted below. ALIYAD
[2017-09-29 07:48] VITALS: BP 100/62; PULSE 68; TEMP 36.8; O2SAT 97
[2017-09-29] MEDS: CEPHALEXIN MONOHYDRATE 500 MG CAP PO SCH (07:51)
[2017-09-29] MEDS: CLOPIDOGREL BISULFATE 75 MG TAB PO SCH (07:51)
[2017-09-29] MEDS: MAGNESIUM OXIDE 400 MG TAB PO SCH (07:51)
[2017-09-29] MEDS: LISINOPRIL 10 MG TAB PO SCH (07:51)
[2017-09-29] MEDS: CHOLECALCIFEROL 1000 INTER.UNIT TAB PO SCH (07:51)
[2017-09-29] MEDS: ASPIRIN 81 MG ECTAB PO SCH (07:51)
[2017-09-29] MEDS: METOPROLOL SUCC 25MG EXT REL TAB PO SCH (07:52)
[2017-09-29] MEDS: DORZOLAMIDE/TIMOLOL 22.3/6.8MG/ML 10 ML BTL OP SCH (07:52)
[2017-09-29 07:55] LABS: BASO % 0.6 %; BASO ABS # 0.04 K/uL (0-0.2); COMPLETE YES; EOS % 4.4 %; HEMATOCRIT 33.5 % (37-47); IG% 0.9 %; LYMPH % 26.7 %; LYMPH ABS # 1.69 K/uL (1.2-3.4); MEAN CORPUSCULAR HEMOGLOBIN 30.7 pg (25-34); MEAN CORPUSCULAR HGB CONC 33.7 g/dl (32-36); MEAN PLATELET VOLUME 10.1 fL (7.4-10.4); MONO % 11.5 %; NEUT % 55.9 %; PLATELET COUNT 161 K/uL (130-400); RED BLOOD COUNT 3.68 M/uL (4.2-5.4); WHITE BLOOD COUNT 6.34 K/uL (4.8-10.8)
[2017-09-29 08:33] LABS: BUN/CREATININE RATIO 29.6 (10-20); CALCIUM 8.8 mg/dl (8.5-10.1); CREATININE 0.89 mg/dl (0.60-1.20); POTASSIUM 4.2 mmol/L (3.5-5.1)
[2017-09-29 08:39] VITALS: O2SAT 97
[2017-09-29] MEDS: INSULIN GLARGINE SOLOSTAR 100 UNITS/ML 3 ML PEN SC SCH (10:16)
[2017-09-29] MEDS: INSULIN ASPART 100 UNITS/ML 3 ML PEN SC SCH ×2 (10:16→12:00)
--- NOTE | 2017-09-29 10:26 | Progress Note ---
Subjective Date of Service: Sep 29, 2017. Subjective s/p amp thrid toe, tolerated well. remains on IV abx, cultures with MSSA. afebrile. no overnight events. Problem List Social History Problems: (1) Elevated blood pressure reading without diagnosis of hypertension Status: Acute Objective Vital Signs Date Time Temp Pulse Resp B/P (MAP) Pulse Ox O2 Delivery O2 Flow Rate FiO2 09/29/17 08:46 Room Air 09/29/17 08:39 97 Room Air 09/29/17 07:48 36.8 68 20 100/62 (75) 97 Room Air 09/29/17 00:02 97/60 (72) 09/28/17 23:45 Room Air 09/28/17 23:15 36.4 63 16 94/56 (69) 95 Room Air 09/28/17 17:00 99/64 (76) 09/28/17 15:25 Room Air 09/28/17 15:13 36.9 84 18 90/54 (66) 98 Room Air Laboratory Results Item Value Date Time Gram Stain - Final Complete 09/23/17 1620 Skin Toe Left 3 Last 24 Hours Test 09/28/17 11:52 09/28/17 17:16 09/28/17 20:09 09/29/17 06:21 Bedside Glucose 357 mg/dl 169 mg/dl 150 mg/dl Creatinine 0.92 mg/dl Est Creatinine Clear Calc Drug Dose 43.5 ml/min Estimated GFR () 69.1 Estimated GFR (Non- 59.6 Estimated Average Glucose 154 mg/dl Hemoglobin A1c 7.0 % Test 09/29/17 07:34 09/29/17 08:11 White Blood Count 6.34 K/uL Red Blood Count 3.68 M/uL Hemoglobin 11.3 g/dL Hematocrit 33.5 % Mean Corpuscular Volume 91.0 fL Mean Corpuscular Hemoglobin 30.7 pg Mean Corpuscular Hemoglobin Concent 33.7 g/dl Platelet Count 161 K/uL Mean Platelet Volume 10.1 fL Neutrophils (%) (Auto) 55.9 % Lymphocytes (%) (Auto) 26.7 % Monocytes (%) (Auto) 11.5 % Eosinophils (%) (Auto) 4.4 % Basophils (%) (Auto) 0.6 % Neutrophils # (Auto) 3.54 K/uL Lymphocytes # (Auto) 1.69 K/uL Monocytes # (Auto) 0.73 K/uL Eosinophils # (Auto) 0.28 K/uL Basophils # (Auto) 0.04 K/uL RDW Standard Deviation 42.9 fL RDW Coefficient of Variation 13.0 % Immature Granulocyte % (Auto) 0.9 % Immature Granulocyte # (Auto) 0.06 K/uL Sodium Level 138 mmol/L Potassium Level 4.2 mmol/L Chloride Level 104 mmol/L Carbon Dioxide Level 27 mmol/L Anion Gap 6.0 mmol/L Blood Urea Nitrogen 26 mg/dl Creatinine 0.89 mg/dl Est Creatinine Clear Calc Drug Dose 45.0 ml/min Estimated GFR () 71.9 Estimated GFR (Non- 62.1 BUN/Creatinine Ratio 29.6 Random Glucose 160 mg/dl Calcium Level 8.8 mg/dl Bedside Glucose 154 mg/dl Assessment and Plan (1) Diabetic foot ulcer Assessment & Plan: continue ancef for now, can change to po abx upon d/c. Upon d/c suggest Keflex 500mg po bid with food x 21 days. will plan to follow in wound center post d/c. No new ID recs, ok for d/c from Id standpoint. (2) Osteomyelitis Problem Qualifiers (1) Osteomyelitis: Osteomyelitis type: unspecified type Osteomyelitis location: foot Laterality : left Qualified Codes: M86.9 - Osteomyelitis, unspecified
--- NOTE | 2017-09-29 10:47 | Anesthesiology Progress Note ---
Anesthesia Post Op Note Date & Time Sep 29, 2017 at 10:46 Vital Signs Pain Intensity: 0.0 Vital Signs Past 12 Hours Date Time Temp Pulse Resp B/P (MAP) Pulse Ox O2 Delivery O2 Flow Rate FiO2 09/29/17 08:46 Room Air 09/29/17 08:39 97 Room Air 09/29/17 07:48 36.8 68 20 100/62 (75) 97 Room Air 09/29/17 00:02 97/60 (72) 09/28/17 23:45 Room Air 09/28/17 23:15 36.4 63 16 94/56 (69) 95 Room Air Notes Mental Status: alert / awake / arousable, participated in evaluation Pt Amnestic to Procedure: Yes Nausea / Vomiting: adequately controlled Pain: adequately controlled Airway Patency, RR, SpO2: stable & adequate BP & HR: stable & adequate Hydration State: stable & adequate Anesthetic Complications: no major complications apparent
[2017-09-29 12:12] VITALS: BP 112/62; PULSE 68; TEMP 36.3; O2SAT 98
[2017-09-29] MEDS ORDERED: LCTX PO ×2 (13:51→14:02)
[2017-09-29] MEDS ORDERED: KFL500 PO ×2 (13:51→14:02)
--- NOTE | 2017-09-29 14:01 | Discharge Instructions ---
Discharge Instructions Date of Service Sep 29, 2017. Admission Reason for Admission: Osteomyelitis Discharge Discharge Diagnosis / Problem: OSTEOMYELITIS OF LEFT THIRD TOE S/P AMPUTATION Discharge Goals Goal(s): Decrease discomfort, Improve function Activity Recommendations Activity Limitations: resume your previous activity . Instructions / Follow-Up Instructions / Follow-Up FOLLOWUP WITH FAMILY DOCTOR ON Sep AT 11:05AM FOLLOWUP WITH WOUND CARE Current Hospital Diet Patient's current hospital diet: Diabetes Type 2 Diet, Low Sodium Diet (2gm Na) Discharge Diet Recommended Diet: AHA Diet (Heart Healthy), Diabetes Type 2 Diet Procedures Procedures Performed: Amputation 3rd toe , Left foot Pending Studies Studies pending at discharge: no Laboratory Results Hemoglobin A1c Test 09/29/17 06:21 Range/Units Estimated Average Glucose 154 mg/dl Hemoglobin A1c 7.0 H 4.5-5.6 % Medical Emergencies . Who to Call and When: Medical Emergencies: If at any time you feel your situation is an emergency, please call 911 immediately. . Non-Emergent Contact Non-Emergency issues call your: Primary Care Provider . . "Provider Documentation" section prepared by Rafita Quigley. . VTE Core Measure Inpt VTE Proph given/why not?: SCD's
[2017-09-29 14:13] VITALS: BP 112/62; PULSE 68; TEMP 36.3; O2SAT 98
--- NOTE | 2017-09-29 19:04 | Progress Note ---
Internal Med Progress Note Date of Service: Sep 29, 2017. Provider Documentation: SUBJECTIVE: sitting on the chair comfortably s/p left middle toe amputation no pain eating ok ok to go home OBJECTIVE: Vital Signs-as noted below Exam: General-alert and awake and oriented ENT-normal hearing Neck-no neck masses Lungs-cta b/l no wheezing or crackles Heart-s1 and s2 heard regular rate and rhythm no murmurs Abdomen-soft BS present non tender Extremities s/p amputations of right toes, left third toe s/p amputation Neuro-alert and awake moves extremities Lab data as noted below. ASSESSMENT & PLAN: This is a 76yo F with a PMH of DM II, PVD, h/o several separate toe amputations , CAD, HTN, bilateral diabetic retinopathy who presents with worsening redness and swelling of Left 3rd toe x 2 days. Left toe osteomyelitis: Significant h/o osteomyelitis and subsequent toe amputation in setting of DM II , PVD LE MRI: osteomyelitis involves the distal most portion of the third distal phalanx. Preliminary wound culture is growing staph aureus ID, Ortho and vascular surgery on board Initially was on iv vanco and zosyn cx growing MSSA abx changed to Ancef left lower extremity arterial US shows high grade stenosis at multiple levels s/p amputation of left thrid toe plan for po abx as per ID on discharge changed iv Ancef to po Keflex 500mg bid for 21 days f/u with wound clinic DM II: Hgb a1c of 6.8 in Jul 2017 hold po meds Lantus and iss adjusting ISS Bs running high changed lantus to 10units bid hba1c 7.0 d/c on home meds CAD: Cardiac cath in 2013: complete total occlusion of the circumflex with right-to- left collaterals and 80% mid LAD stenosis, treated medically stable on lisinopril, metoprolol, statin -restart aspirin and Plavix HLD: on statin HTN: on lisinopril, metoprolol will monitor Diabetic retinopathy: Continue home eye drops discharged home Vital Signs: Date Time Temp Pulse Resp B/P (MAP) Pulse Ox O2 Delivery O2 Flow Rate FiO2 09/29/17 14:13 36.3 68 15 98 Room Air 09/29/17 12:12 36.3 68 15 112/62 (79) 98 Room Air 09/29/17 08:46 Room Air 09/29/17 08:39 97 Room Air 09/29/17 07:48 36.8 68 20 100/62 (75) 97 Room Air 09/29/17 00:02 97/60 (72) 09/28/17 23:45 Room Air 09/28/17 23:15 36.4 63 16 94/56 (69) 95 Room Air Lab Results: Results Past 24 Hours Test 09/28/17 20:09 09/29/17 06:21 09/29/17 07:34 09/29/17 08:11 Range/Units Bedside Glucose 150 154 70-90 mg/dl Creatinine 0.92 0.89 0.60-1.20 mg/dl Est Creatinine Clear Calc Drug Dose 43.5 45.0 ml/min Estimated GFR () 69.1 71.9 Estimated GFR (Non- 59.6 62.1 Estimated Average Glucose 154 mg/dl Hemoglobin A1c 7.0 4.5-5.6 % White Blood Count 6.34 4.8-10.8 K/uL Red Blood Count 3.68 4.2-5.4 M/uL Hemoglobin 11.3 12.0-16.0 g/dL Hematocrit 33.5 37-47 % Mean Corpuscular Volume 91.0 80-100 fL Mean Corpuscular Hemoglobin 30.7 25-34 pg Mean Corpuscular Hemoglobin Concent 33.7 32-36 g/dl Platelet Count 161 130-400 K/uL Mean Platelet Volume 10.1 7.4-10.4 fL Neutrophils (%) (Auto) 55.9 % Lymphocytes (%) (Auto) 26.7 % Monocytes (%) (Auto) 11.5 % Eosinophils (%) (Auto) 4.4 % Basophils (%) (Auto) 0.6 % Neutrophils # (Auto) 3.54 1.4-6.5 K/uL Lymphocytes # (Auto) 1.69 1.2-3.4 K/uL Monocytes # (Auto) 0.73 0.11-0.59 K/uL Eosinophils # (Auto) 0.28 0-0.5 K/uL Basophils # (Auto) 0.04 0-0.2 K/uL RDW Standard Deviation 42.9 36.4-46.3 fL RDW Coefficient of Variation 13.0 11.5-14.5 % Immature Granulocyte % (Auto) 0.9 % Immature Granulocyte # (Auto) 0.06 0.00-0.02 K/uL Sodium Level 138 136-145 mmol/L Potassium Level 4.2 3.5-5.1 mmol/L Chloride Level 104 98-107 mmol/L Carbon Dioxide Level 27 21-32 mmol/L Anion Gap 6.0 3-11 mmol/L Blood Urea Nitrogen 26 7-18 mg/dl BUN/Creatinine Ratio 29.6 10-20 Random Glucose 160 70-99 mg/dl Calcium Level 8.8 8.5-10.1 mg/dl Test 09/29/17 12:44 Range/Units Bedside Glucose 260 70-90 mg/dl
--- NOTE | 2017-09-29 19:19 | Discharge Summary ---
Discharge Summary Date of Service Sep 29, 2017. Discharge Summary Admission Date: Sep 23, 2017 at 14:40 Discharge Date: Sep 29, 2017 Discharge Disposition: Home Principal Diagnosis: LEFT THIRD TOE OSTEOMYELITIS S/P AMPUTATION Secondary Diagnoses/Problems: (1) CAD (coronary artery disease) Status: Chronic (2) Diabetes mellitus, type II Status: Chronic (3) Diabetic neuropathy Status: Chronic (4) Diabetic retinopathy Status: Chronic (5) Dyslipidemia Status: Chronic (6) HTN (hypertension) Status: Chronic (7) Status post partial amputation of foot Status: Chronic (8) Yeast dermatitis Status: Chronic Procedures: LOWER EXTREMITY MRI: 1. Osteomyelitis involves the distal most portion of the third distal phalanx as above. Small adjacent focal skin ulcer with cellulitis. No focal abscess or drainable collection. 2. Bone marrow edema involves the first, third and fourth metatarsal heads, likely reactive and/or degenerative in nature without additional evidence of acute osteomyelitis. 3. Moderate atrophy involves the intrinsic musculature of the foot, likely secondary to chronic denervation changes with long-standing diabetes mellitus. 4. Prior amputation of the second digit at the level of the metatarsal phalangeal joint. LOWER EXTREMITY ARTERIAL DOPPLER: 1. No significant arteriosclerotic change of the left thigh arterial vasculature. 2. High-grade multilevel arterial occlusive change of all major arterial structures of the left lower leg. 3. No definite antegrade flow in the anterior tibial artery S/P LEFT THIRD TOE AMPUTATION Consultations: VASCULAR SURGERY ID ORTHOPEDICS WOUND CARE Medication Reconciliation New Medications: Lactobacillus Acidophilus (Lactinex) Tab 2 TAB PO BID for 30 Days, #120 TAB Cephalexin Monohydrate (Cephalexin) 500 Mg Cap 500 MG PO BID for 21 Days, #42 CAP Continued Medications: Aspirin (Aspirin 81) 81 Mg Tab 81 MG PO QAM Brimonidine Tartrate (Brimonidine Tartrate) 0.2 % Alicja 1 DROP OPB Q8 Cholecalciferol (Vitamin D3) 1,000 Unit Tab 1000 UNITS PO DAILY Clopidogrel (Plavix) 75 Mg Tab 75 MG PO QAM, 0 Refills Dorzolamide Hcl-Timolol Maleat (Cosopt Oph) 1 Alicja Alicja 1 DROPS OP BID, #10 ML 6 Refills Glipizide (Glipizide) 5 Mg Tab 5 MG PO QAM 30 minutes before a meal Insulin Glargine (Lantus Solostar) 100 Unit/Ml Inj 10 UNITS SC DAILY, PEN Lisinopril (Prinivil) 10 Mg Tab 10 MG PO QAM, TAB Magnesium Oxide (Mag-Ox) 400 Mg Tab 400 MG PO QAM, 0 Refills Metformin Hcl (Glucophage) 850 Mg Tab 850 MG PO BIDM, TAB Metoprolol Succinate (Metoprolol Succinate ER) 25 Mg Tabcr 12.5 MG PO QAM Polyethylene Glycol-Propylene (Systane Gel) 1 Yaw Yaw 1 DROP OPB HS Simvastatin (Zocor) 20 Mg Tab 20 MG PO HS Travoprost (Travatan Z) 0.004 % Yaw 1 DROPS OP HS, #1 BTL 5 Refills Discontinued Medications: Cephalexin Monohydrate (Keflex) 500 Mg Cap 1 CAP PO TID for 10 Days, #30 CAP Admission Information HPI (per Admitting provider): This is a 76yo F with a PMH of DM II, PVD, h/o several separate toe amputations , CAD, HTN, bilateral diabetic retinopathy who presents with worsening redness and swelling of Left 3rd toe x 2 days. Patient required an amputation of 4th and 5th digits of [place] [address] Acosta, followed by amputation of of residual R toes in 2016. Also has history of L 2nd toe amputation (date unknown) . Has been a detention patient in wound care clinic as well as diabetic foot clinic. Recently returned to wound clinic for development of a pressure wound on the bottom of her L foot which is healing in a removable cast walker per the most recent wound care note. Patient endorses 3/10 intermittent throbbing pain of L 2nd toe. Denies fever, chills, CP, SOB, abd pain, nausea, vomiting. Walks with a cane and removable cast walker on R foot. Lives alone and reports doing daily skin checks of feet. Physical Exam (per Admitting): General Appearance: WD/WN, no apparent distress Head: normocephalic, atraumatic Eyes: normal inspection, PERRL, sclerae normal ENT: normal ENT inspection, hearing grossly normal, pharynx normal (moist mucous membranes) Neck: supple, thyroid normal, trachea midline Respiratory/Chest: chest non-tender, lungs clear, normal breath sounds, no respiratory distress, no accessory muscle use Cardiovascular: regular rate, rhythm, no murmur, normal peripheral pulses Abdomen/GI: non tender, soft, no organomegaly Extremities/Musculoskelatal: + pertinent finding (S/p amputation R phalanx 1 -5, L 2nd toe. L 3rd phalanx with painful ulcer on distal portion with clear drainage. Also well healing pressure wound on plantar aspect of L MCP. ) Neurologic/Psych: shook splicer II-XII nml as tested, no motor/sensory deficits ( Chronic neuropathy in bilateral feet ), alert, normal mood/affect, oriented x 3 Skin: normal color, warm/dry Hospital Course This is a 76yo F with a PMH of DM II, PVD, h/o several separate toe amputations , CAD, HTN, bilateral diabetic retinopathy who presents with worsening redness and swelling of Left 3rd toe x 2 days. Left toe osteomyelitis: Significant h/o osteomyelitis and subsequent toe amputation in setting of DM II , PVD LE MRI: osteomyelitis involves the distal most portion of the third distal phalanx. Preliminary wound culture is growing staph aureus ID, Ortho and vascular surgery on board Initially was on iv vanco and zosyn cx growing MSSA abx changed to Ancef left lower extremity arterial US shows high grade stenosis at multiple levels s/p amputation of left thrid toe plan for po abx as per ID on discharge changed iv Ancef to po Keflex 500mg bid for 21 days f/u with wound clinic DM II: Hgb a1c of 6.8 in Jul 2017 hold po meds Lantus and iss adjusting ISS Bs running high changed lantus to 10units bid hba1c 7.0 d/c on home meds CAD: Cardiac cath in 2013: complete total occlusion of the circumflex with right-to- left collaterals and 80% mid LAD stenosis, treated medically stable on lisinopril, metoprolol, statin -restart aspirin and Plavix HLD: on statin HTN: on lisinopril, metoprolol will monitor Diabetic retinopathy: Continue home eye drops discharged home Total time spent on discharge = 35MINUTES This includes examination of the patient, discharge planning, medication reconciliation, and communication with other providers. Discharge Instructions Discharge Instructions Date of Service Sep 29, 2017. Admission Reason for Admission: Osteomyelitis Discharge Discharge Diagnosis / Problem: OSTEOMYELITIS OF LEFT THIRD TOE S/P AMPUTATION Discharge Goals Goal(s): Decrease discomfort, Improve function Activity Recommendations Activity Limitations: resume your previous activity . Instructions / Follow-Up Instructions / Follow-Up FOLLOWUP WITH FAMILY DOCTOR ON Sep AT 11:05AM FOLLOWUP WITH WOUND CARE Current Hospital Diet Patient's current hospital diet: Diabetes Type 2 Diet, Low Sodium Diet (2gm Na) Discharge Diet Recommended Diet: AHA Diet (Heart Healthy), Diabetes Type 2 Diet Procedures Procedures Performed: Amputation 3rd toe , Left foot Pending Studies Studies pending at discharge: no Laboratory Results Hemoglobin A1c Test 09/29/17 06:21 Range/Units Estimated Average Glucose 154 mg/dl Hemoglobin A1c 7.0 H 4.5-5.6 % Medical Emergencies . Who to Call and When: Medical Emergencies: If at any time you feel your situation is an emergency, please call 911 immediately. . Non-Emergent Contact Non-Emergency issues call your: Primary Care Provider . . "Provider Documentation" section prepared by Rafita Quigley. . VTE Core Measure Inpt VTE Proph given/why not?: SCD's
== END 2017-09-29 15:57 | disposition home or self-care (01) | DRG 617 ==
LOC: C.EDB 09:38 → ENRESERV 13:19 → C.MSW 14:40
PROVIDERS: ADMIT Internal Medicine; ATTEND Internal Medicine
PROC: 0Y6U0Z0 Detachment at Left 3rd Toe, Complete, Open Approach (ICD-10-PCS; principal; 2017-09-26 14:30)
DX: E11.69 Type 2 diabetes mellitus with other specified complication (principal); M86.172 Other acute osteomyelitis, left ankle and foot; I25.10 Atherosclerotic heart disease of native coronary artery without angina pectoris; E11.621 Type 2 diabetes mellitus with foot ulcer; E11.51 Type 2 diabetes mellitus with diabetic peripheral angiopathy without gangrene; K57.90 Diverticulosis of intestine, part unspecified, without perforation or abscess without bleeding; L97.529 Non-pressure chronic ulcer of other part of left foot with unspecified severity; Z86.14 Personal history of Methicillin resistant Staphylococcus aureus infection; I10 Essential (primary) hypertension; E11.319 Type 2 diabetes mellitus with unspecified diabetic retinopathy without macular edema; Z89.421 Acquired absence of other right toe(s); E11.40 Type 2 diabetes mellitus with diabetic neuropathy, unspecified; L30.9 Dermatitis, unspecified; Z79.4 Long term (current) use of insulin; Z79.82 Long term (current) use of aspirin; B95.62 Methicillin resistant Staphylococcus aureus infection as the cause of diseases classified elsewhere

== ENCOUNTER 2017-12-21 13:14 | Emergency (ER) | payer OTHER ==
[~2017-12-21] VITALS: Ht 152.4 cm; Wt 67.3 kg
[~2017-12-21 13:14] MED LIST changes: -CLOT-40 TOP; -INSDGI SC; +INSDGIPEN SC; +KFL500 PO; +LCTX PO; -POLYSOL OPB; +TRAV0.00 OP; -TRVOPS OPB
[2017-12-21 13:32] VITALS: TEMP 37.6; Ht 152.4 cm; Wt 67.3 kg
[2017-12-21] MEDS ORDERED: NYSTATIN POWDER 15GM BTL EXT STA (14:08)
--- NOTE | 2017-12-21 14:34 | EMERGENCY ROOM VISIT NOTE ---
History Report prepared by Fish: Carson Crystal Under the Supervision of: Dr. Curry Lange M.D. First contact with patient: 13:42 Chief Complaint: OTHER COMPLAINT Stated Complaint: BLOOD LEAKING FROM MY LEFT GROIN History of Present Illness The patient is a 77 year old female who presents to the Emergency Room with complaints of resolved left sided groin bleeding that began at 1200. The patient states that she typically uses antifungal cream at morning and night for her history of yeast dermatitis. She reports that she develops sores around the groin region due to this condition. The patient states that she developed a sore on the left groin between her abdomen and leg that started been bleeding at 1200. She reports that the bleeding had resolved and she noticed a long clot at the site. The patient reports the area is painful when she separates her abdomen from her left leg. The patient denies fevers, chills, cough, congestion. The patient reports a history of Diabetes and neuropathy. She reports that she is on two blood thinners. Source of History: patient Onset: 1200 Position: other (left groin) Quality: other (bleeding) Timing: resolved Associated Symptoms: No fevers, No chills, No cough Review of Systems See HPI for pertinent positives and negatives. A total of ten systems were reviewed and were otherwise negative. Past Medical & Surgical Medical Problems: (1) CAD (coronary artery disease) (2) Diabetes mellitus, type II (3) Diabetic neuropathy (4) Diabetic retinopathy (5) Dyslipidemia (6) HTN (hypertension) (7) Status post partial amputation of foot (8) Yeast dermatitis Surgical Problems: (1) s/p multiple toe amputations Family History Heart disease Social History Smoking Status: Never Smoker Drug Use: none Marital Status: Occupation Status: disabled Current/Historical Medications Scheduled Aspirin (Aspirin 81), 81 MG PO QAM Brimonidine Tartrate (Brimonidine Tartrate), 1 DROP OPB Q8 Cholecalciferol (Vitamin D3), 1,000 UNITS PO DAILY Clopidogrel (Plavix), 75 MG PO QAM Dorzolamide Hcl-Timolol Maleat (Cosopt Oph), 1 DROPS OP BID Glipizide (Glipizide), 5 MG PO QAM Insulin Detemir (Levemir Flextouch), 10 UNITS SQ DAILY Lisinopril (Prinivil), 10 MG PO QAM Magnesium Oxide (Mag-Ox), 400 MG PO QAM Metformin Hcl (Glucophage), 850 MG PO BIDM Metoprolol Succinate (Metoprolol Succinate ER), 12.5 MG PO QAM Polyethylene Glycol-Propylene (Systane Gel), 1 DROP OPB HS Simvastatin (Zocor), 20 MG PO HS Travoprost (Travatan Z), 1 DROPS OP HS Scheduled PRN Nystatin (Topical) (Nystatin), 1 APPLN TOP BID PRN for Itching Allergies Coded Allergies: Baclofen (Unverified Allergy, Unknown, unkown , 12/21/17) Sulfamethoxazole w/Trimethoprim (Verified Allergy, Unknown, itching, ) Tramadol (Unverified Allergy, Unknown, unkown , 12/21/17) Physical Exam Vital Signs Date Time Temp Pulse Resp B/P (MAP) Pulse Ox O2 Delivery O2 Flow Rate FiO2 12/21/17 16:42 86 17 120/54 94 12/21/17 13:32 37.6 113 18 149/85 96 Room Air Physical Exam GENERAL: Awake, alert, well-appearing, in no distress HENT: Normocephalic, atraumatic. Dry mucous membranes. EYES: Normal conjunctiva. Sclera non-icteric. NECK: Supple. No nuchal rigidity. FROM. No JVD. RESPIRATORY: Clear to auscultation. CARDIAC: Regular rate, normal rhythm. Extremities warm and well perfused. Pulses equal. ABDOMEN: Soft, non-distended. No tenderness to palpation. No rebound or guarding. No masses. RECTAL: Deferred. MUSCULOSKELETAL: Chest examination reveals no tenderness. The back is symmetrical on inspection without obvious abnormality. There is no CVA tenderness to palpation. No joint edema. LOWER EXTREMITIES: Calves are equal size bilaterally and non-tender. No edema. No discoloration. NEURO: Normal sensorium. No sensory or motor deficits noted. SKIN: No rash or jaundice noted. Scaly erythema in the inguinal and creases of pannus bilaterally with extensive excoriation to the left pannus crease with scant sanguineous ooze. Medical Decision & Procedures Laboratory Results 12/21/17 14:27 Red Blood Count 4.13, Mean Corpuscular Volume 89.1, Mean Corpuscular Hemoglobin 31.7, Mean Corpuscular Hemoglobin Concent 35.6, Mean Platelet Volume 10.3, Neutrophils (%) (Auto) 79.9, Lymphocytes (%) (Auto) 9.3, Monocytes (%) (Auto) 8.8, Eosinophils (%) (Auto) 1.2, Basophils (%) (Auto) 0.2, Neutrophils # (Auto) 10.40, Lymphocytes # (Auto) 1.21, Monocytes # (Auto) 1.14, Eosinophils # (Auto) 0.16, Basophils # (Auto) 0.02 12/21/17 14:27 Test 12/21/17 14:27 White Blood Count 13.01 K/uL (4.8-10.8) Red Blood Count 4.13 M/uL (4.2-5.4) Hemoglobin 13.1 g/dL (12.0-16.0) Hematocrit 36.8 % (37-47) Mean Corpuscular Volume 89.1 fL (80-100) Mean Corpuscular Hemoglobin 31.7 pg (25-34) Mean Corpuscular Hemoglobin Concent 35.6 g/dl (32-36) Platelet Count 185 K/uL (130-400) Mean Platelet Volume 10.3 fL (7.4-10.4) Neutrophils (%) (Auto) 79.9 % Lymphocytes (%) (Auto) 9.3 % Monocytes (%) (Auto) 8.8 % Eosinophils (%) (Auto) 1.2 % Basophils (%) (Auto) 0.2 % Neutrophils # (Auto) 10.40 K/uL (1.4-6.5) Lymphocytes # (Auto) 1.21 K/uL (1.2-3.4) Monocytes # (Auto) 1.14 K/uL (0.11-0.59) Eosinophils # (Auto) 0.16 K/uL (0-0.5) Basophils # (Auto) 0.02 K/uL (0-0.2) RDW Standard Deviation 44.4 fL (36.4-46.3) RDW Coefficient of Variation 13.6 % (11.5-14.5) Immature Granulocyte % (Auto) 0.6 % Immature Granulocyte # (Auto) 0.08 K/uL (0.00-0.02) Prothrombin Time 10.1 SECONDS (9.0-12.0) Prothromb Time International Ratio 1.0 (0.9-1.1) Activated Partial Thromboplast Time 26.8 SECONDS (21.0-31.0) Partial Thromboplastin Ratio 1.0 Anion Gap 8.0 mmol/L (3-11) Est Creatinine Clear Calc Drug Dose 43.9 ml/min Estimated GFR () 71.4 Estimated GFR (Non- 61.6 BUN/Creatinine Ratio 29.7 (10-20) Calcium Level 8.9 mg/dl (8.5-10.1) Laboratory results reviewed by me Medications Administered Medications (Trade) Dose Ordered Sig/Shell Route Start Time Stop Time Status Last Admin Dose Admin Nystatin (Mycostatin Powder) 1 appln NOW STAT EXT 12/21/17 14:08 12/21/17 14:09 DC 12/21/17 15:34 1 APPLN ED Course 1348: The patient was evaluated in room B07. A complete history and physical exam was performed. 1624: I reevaluated the patient. Discussed results and discharge instructions: She verbalized understanding and agreement. The patient is ready for discharge. Medical Decision I reviewed the patient's past medical history, medications, and the nursing notes as described above. The patient's presentation and history were concerning for etiologies such as contact dermatitis, viral exanthem, urticaria, allergic reaction, Kam- Tim syndrome, toxic epidermal necrolysis, erythema multiforme, cellulitis, scabies, HSV, varicella, zoster, eczema, staph scalded skin syndrome, fungal infection, as well as others were entertained. The patient is a 77-year-old woman with a past medical history of CAD on aspirin and Plavix who presents emergency department with oozing from her left inguinal/pannus area that began today in the setting of being treated with antifungal creams per hpi. On arrival the patient is no acute distress, afebrile stable vital signs. On exam the patient has bilateral pannus and inguinal creases with scaly erythema consistent with candidal dermatitis with the left pannus crease demonstrating substantial excoriation and slight sanguinous ooze that is currently hemostatic. No underlying crepitus or fluctuance. Labs unremarkable. Sanguinous ooze likely secondary to friction/ excoriation under pannus in the setting of her candidal dermatitis. Patient instructed on making sure areas dry and we will attempt a nystatin powder with nonadherent dressings to help as barrier from additional friction. She will follow with her PCP within 1 week for reassessment. Findings and plan for follow -up reviewed with patient. Patient agreeable and d/c'd per discharge instructions. Medication Reconcilliation Current Medication List: was personally reviewed by me Blood Pressure Screening Patient's blood pressure: Elevated blood pressure Blood pressure disposition: Elevated BP felt to be situational Impression Primary Impression: Candidal dermatitis Additional Impression: Excoriated rash Scribe Attestation The scribe's documentation has been prepared under my direction and personally reviewed by me in its entirety. I confirm that the note above accurately reflects all work, treatment, procedures, and medical decision making performed by me. Departure Information Dispostion Home / Self-Care Prescriptions Nystatin (Topical) (Nystatin) 100,000 Unit/Gm Pow 1 APPLN TOP BID Y for Itching for 10 Days, #1 BTL Prov: Curry Lange M.D. 12/21/17 Referrals No Doctor, Assigned (PCP) Patient Instructions ED Candidiasis Cutaneous, My [facility] Additional Instructions Please follow up with your primary care physician in the next 1-3 days for re- evaluation. Your bleeding is likely related to a worsening of your fungal skin infection subsequent friction between your skin causing excoriation and mild bleeding likely worsened by being on Plavix. However, your exam and lab results did not show signs of an emergent condition at this time. Dry area thoroughly after bathing. Apply Nystatin powder as directed for antifungal treatment as well as to absorb moisture. Apply Non-adhesive dressing in the crease of your abdomen to form a barrier and prevent further excoriation. Apply direct pressure for any recurrence of bleeding for 30minutes. Return to the emergency department for worsening symptoms as described in the accompanying instructions. Problem Qualifiers
[2017-12-21] MEDS ORDERED: LVMIPEN SQ (14:35)
[2017-12-21 14:45] LABS: BASO % 0.2 %; BASO ABS # 0.02 K/uL (0-0.2); EOS % 1.2 %; EOS ABS # 0.16 K/uL (0-0.5); HEMATOCRIT 36.8 % (37-47); HEMOGLOBIN 13.1 g/dL (12.0-16.0); IG# 0.08 K/uL (0.00-0.02); LYMPH % 9.3 %; LYMPH ABS # 1.21 K/uL (1.2-3.4); MEAN CELL VOLUME 89.1 fL (80-100); MEAN CORPUSCULAR HEMOGLOBIN 31.7 pg (25-34); MEAN CORPUSCULAR HGB CONC 35.6 g/dl (32-36); MEAN PLATELET VOLUME 10.3 fL (7.4-10.4); MONO % 8.8 %; MONO ABS # 1.14 K/uL (0.11-0.59); NEUT % 79.9 %; PLATELET COUNT 185 K/uL (130-400); RED CELL DISTRIBUTION WIDTH CV 13.6 % (11.5-14.5); RED CELL DISTRIBUTION WIDTH SD 44.4 fL (36.4-46.3); WHITE BLOOD COUNT 13.01 K/uL (4.8-10.8)
[2017-12-21 14:52] LABS: PTT PATIENT 26.8 SECONDS (21.0-31.0)
[2017-12-21 15:06] LABS: CALCIUM 8.9 mg/dl (8.5-10.1); CREATININE 0.89 mg/dl (0.60-1.20); POTASSIUM 4.1 mmol/L (3.5-5.1)
[2017-12-21] MEDS ORDERED: NYST100033 TOP (16:04)
[2017-12-21 16:42] VITALS: BP 120/54; PULSE 86; O2SAT 94
== END 2017-12-21 16:43 | disposition home or self-care (01) ==
LOC: C.EDB 13:16
DX: B37.2 Candidiasis of skin and nail (principal); R21 Rash and other nonspecific skin eruption; I25.10 Atherosclerotic heart disease of native coronary artery without angina pectoris; E11.9 Type 2 diabetes mellitus without complications; E78.5 Hyperlipidemia, unspecified; I10 Essential (primary) hypertension; Z82.49 Family history of ischemic heart disease and other diseases of the circulatory system; Z79.82 Long term (current) use of aspirin; Z79.02 Long term (current) use of antithrombotics/antiplatelets; Z79.899 Other long term (current) drug therapy; Z88.2 Allergy status to sulfonamides; Z88.8 Allergy status to other drugs, medicaments and biological substances; Z88.5 Allergy status to narcotic agent

== ENCOUNTER 2019-02-18 14:37 | Inpatient (IN) ==
--- NOTE | 2019-02-18 15:45 | Emergency Department Note ---
ED Visit Note I, Dr. Taina Su, PGY3, saw this patient with my attending, Dr. Olivares, and participated in the care and management of this patient. Resident Activity Tracking Resident Involvement: Resident Care Provided Care Provided: Adult ED
--- NOTE | 2019-02-18 16:45 | XRay Report ---
XR foot LT min 3V routine CLINICAL HISTORY: DM foot ulcer, warm, tracking. r/o osteomyelitis COMPARISON: MRI of the left foot September 23, 2017. Left foot radiographs January 10, 2012. FINDINGS: Amputation of the left second and third toes at the level of the metatarsophalangeal joint s is noted. No acute fracture is present. There is extensive vascular calcification. Left foot soft t issue swelling is noted. There is possible bony erosion of the distal tuft of the distal phalanx of t he left fourth toe. IMPRESSION: 1. Possible bony erosion of the distal tuft of the distal phalanx of the left fourth toe which raises the possibility of osteomyelitis. 2. Status post amputation of the left second and third toes. Electronically signed by: Christoph Calloway M.D. 02/18/2019 4:44 PM
[2019-02-18 17:41] LABS: Basophils # (auto) 0.02 K/uL (0-0.2); Basophils % (auto) 0.2 %; Eosinophils # (auto) 0.24 K/uL (0-0.5); Eosinophils % (auto) 2.7 %; Hematocrit (blood only) 40.3 % (37-47); Hemoglobin 13.9 g/dL (12.0-16.0); Immature Granulocytes # (auto) 0.02 K/uL (0.00-0.02); Immature Granulocytes % (auto) 0.2 %; Lymphocytes # (auto) 1.77 K/uL (1.2-3.4); Mean Corpuscular Hgb Conc 34.5 g/dL (32-36); Mean Platelet Volume 10.6 fL (7.4-10.4); Monocytes # (auto) 0.68 K/uL (0.11-0.59); Monocytes % (auto) 7.7 %; Neutrophils % (auto) 69.2 %; Platelet Count 219 K/uL (130-400); RDW Coefficient of Variation 12.6 % (11.5-14.5); RDW Standard Deviation 41.9 fL (36.4-46.3); Red Blood Count 4.43 M/uL (4.2-5.4); White Blood Count 8.83 K/uL (4.8-10.8)
--- NOTE | 2019-02-18 17:41 | Emergency Department Note ---
Entered by Bridget Liang acting as a scribe for History of Present Illness General Chief complaint: Foot Injury/Pain Stated complaint: TOE IS INFECTED,FOOT SWOLLEN,RED STREAK GOING UP Time Seen by Provider: 02/18/19 15:43 Source: patient History of Present Illness Onset (ago): day(s) (last night) Location: foot (left) Pain Consistency: + other (episode) Quality: + other (injury, ulceration) Associated symptoms: + other (streaking up leg); no diaphoresis and no fever/chills The patient is an 78 year old female who presents to the Emergency Room with complaints of an episode of a left foot injury starting last night. The patient states that she is a diabetic and has neuropathy in her feet. She states that she has a history of osteomyelitis in her toes. She notes that she has had all the toes on her right foot removed and 2 of her toes on her left foot removed. She notes that she always wears a boot to protect her feet. The patient states that last night her daughter noticed a bubble on her pinky toe. She states that she called the diabetic clinic to make an appointment to be seen today. She reports that when she went today, they noticed that she also had red streaks tracking up her leg. She reports that because of that they sent her here. The patient denies fever, chills, diaphoresis, missing any of her medications, and recent travel. Home Medications Home Medications Medication Instructions Recorded Confirmed Type aspirin [Aspirin Low Dose] 81 mg PO DAILY 02/18/19 02/18/19 History brimonidine 1 drp OPB DAILY 02/18/19 02/18/19 History carboxymethylcellulose sodium 1 drp OPB DAILY PRN 02/18/19 02/18/19 History [Refresh Plus] cholecalciferol (vitamin D3) 1,000 unit PO DAILY 02/18/19 02/18/19 History [Vitamin D3] clobetasol 1 applic TOPICAL DIRECTED 02/18/19 02/18/19 History clopidogrel 75 mg PO DAILY 02/18/19 02/18/19 History dorzolamide-timolol (PF) [Cosopt 1 drp OPB BID 02/18/19 02/18/19 History (PF)] glipizide 5 mg PO DAILY 02/18/19 02/18/19 History hydrocortisone acetate [Anucort-HC] 25 mg ND BID PRN 02/18/19 02/18/19 History insulin detemir U-100 [Levemir 14 unit SUBCUT DAILY 02/18/19 02/18/19 History FlexTouch U-100 Insuln] lisinopril 10 mg PO DAILY 02/18/19 02/18/19 History magnesium oxide 400 mg PO DAILY 02/18/19 02/18/19 History metformin 850 mg PO BIDM 02/18/19 02/18/19 History metoprolol succinate 12.5 mg PO DAILY 02/18/19 02/18/19 History simvastatin 20 mg PO HS 02/18/19 02/18/19 History travoprost 1 drp OPB PM 02/18/19 02/18/19 History Allergies Allergy/AdvReac Type Severity Reaction Status Date / Time baclofen Allergy Unknown unkown Unverified 02/18/19 16:00 Bactrim Allergy Unknown itching Verified 12/21/17 14:38 sulfamethoxazole Allergy Unknown itching Verified 02/18/19 16:00 tramadol Allergy Unknown unkown Unverified 02/18/19 16:00 trimethoprim Allergy Unknown itching Verified 02/18/19 16:00 Past Med/Surg History Medical History Amputated toe of left foot (Acute) Amputated great toe of right foot (Acute) Callus (Acute) Hallux valgus (acquired), left foot (Acute) Diabetes mellitus with diabetic polyneuropathy (Acute) CAD (coronary artery disease) (Chronic) Dyslipidemia (Chronic) HTN (hypertension) (Chronic) Yeast dermatitis (Chronic) Diabetic foot ulcer (Acute) Status post partial amputation of foot (Chronic) Osteomyelitis (Acute) Diabetes mellitus, type II (Chronic) Diabetic neuropathy (Chronic) Skin ulcer of left foot including toes (Acute) Surgical History Status post amputation of lesser toe of right foot (Acute) Family History Other Family history non-contributory Social History marital status: / Current Living Situation: Alone current occupational status: retired Feels Safe at Home: Yes Smoking Status: Never smoker Review of Systems See HPI for pertinent positives & negatives. and A total of 10 systems reviewed and were otherwise negative Physical Exam Vital Signs Vital Signs - 24 hr 02/18/19 14:41 02/18/19 17:34 Temperature 36.9 C Temperature Source Oral Sepsis Recent Fever Within 48 Hours No Sepsis Action Taken by Nursing No Action Required Pulse Rate 106 H Pulse Rate [Left Finger] 82 Respiratory Rate 20 21 Respiratory Effort / Characteristics Non-Labored Non-Labored Respiratory Depth Normal Normal Respiratory Pattern Regular Blood Pressure 152/73 H Blood Pressure [Left Arm] 138/72 Blood Pressure Mean 99 Blood Pressure Mean [Left Arm] 94 Pulse Oximetry 97 97 Oxygen Delivery Method Room Air Room Air GENERAL: Awake, alert, well-appearing, in no distress HENT: Normocephalic, atraumatic. Oropharynx unremarkable. EYES: Normal conjunctiva. Sclera non-icteric. NECK: Supple. No nuchal rigidity. RESPIRATORY: Clear to auscultation. No wheezes. Normal respiratory effort. CARDIAC: Normal rate. Normal rhythm. Extremities warm and well perfused. GI: Soft, non-distended. No tenderness to palpation. No rebound or guarding. No masses. RECTAL: Deferred. MUSCULOSKELETAL: Atraumatic. Chest examination reveals no tenderness. There is no CVA tenderness to palpation. LOWER EXTREMITIES: Slight swelling and tenderness of the right calf. Amputation of all right toes. Well healed. Left second and third toes amputated. Fourth and fifth left toes appear to have distal ulcerations and are erythematous. Questionable fluctuance on the fifth toe. Redness extending from toes over dorsum of foot. Streaky erythema to the left de guzman. 1+ pedal pulse. NEURO: Decreased sensation of bilateral lower feet. No sensory or motor deficits noted. No facial droop. SKIN: Warm and dry. No rash or jaundice noted. Course 154: The resident, Dr. Taina Su, saw the patient at this time and performed her initial evaluation, history, and examination. 160: The patient was evaluated in room C10. A complete history and physical exam was performed. 165: I reevaluated the patient and updated her on her results thus far. 1751: I discussed the patient's case with JP Gambino [facility]. She will evaluate the patient for further management. Consultations Consultation #1: I discussed the patient's case with JP Gambino - [facility] Hospitalist. She will evaluate the patient for further management. Time: 17:52 Medical Decision Making Differential Diagnosis Differential diagnosis: Etiologies such as cellulitis, abscess, osteomyelitis, MRSA infection, DVT, necrotizing fasciitis, dermatitis, drug eruption, as well as others were entertained. Medical Records Attestation: I reviewed the patient's medical records. Home Medications Current Medication List: was personally reviewed by me Laboratory Data Attestation: I reviewed the patient's lab results. Result diagrams: 02/18/19 17:11 02/18/19 17:11 Lab Results 02/18/19 02/18/19 02/18/19 Range/Units 17:11 17:11 17:11 WBC 8.83 (4.8-10.8) K/uL RBC 4.43 (4.2-5.4) M/uL Hgb 13.9 (12.0-16.0) g/dL Hct 40.3 (37-47) % MCV 91.0 (80-100) fL MCH 31.4 (25-34) pg MCHC 34.5 (32-36) g/dL RDW Std Deviation 41.9 (36.4-46.3) fL RDW Coeff of Dipesh 12.6 (11.5-14.5) % Plt Count 219 (130-400) K/uL MPV 10.6 H (7.4-10.4) fL Immature Gran % (Auto) 0.2 % Neut % (Auto) 69.2 % Lymph % (Auto) 20.0 % [place] % (Auto) 7.7 % Eos % (Auto) 2.7 % Baso % (Auto) 0.2 % Immature Gran # (Auto) 0.02 (0.00-0.02) K/uL Neut # (Auto) 6.10 (1.4-6.5) K/uL Lymph # (Auto) 1.77 (1.2-3.4) K/uL [place] # (Auto) 0.68 H (0.11-0.59) K/uL Eos # (Auto) 0.24 (0-0.5) K/uL Baso # (Auto) 0.02 (0-0.2) K/uL ESR 33 H (0-21) mm/hr Sodium 134 L (136-145) mmol/L Potassium 4.3 (3.5-5.1) mmol/L Chloride 102 (98-107) mmol/L Carbon Dioxide 28 (21-32) mmol/L Anion Gap 4.0 (3-11) BUN 23 H (7-18) mg/dl Creatinine 0.90 (0.6-1.2) mg/dl Est Cr Clr Drug Dosing Not Reportable Est GFR ( Amer) 70.0 Est GFR (Non-Af Amer) 60.4 BUN/Creatinine Ratio 25.8 H (10-20) Glucose 137 H (70-99) mg/dl Calcium 9.8 (8.5-10.1) mg/dl Total Bilirubin 0.3 (0.2-1) mg/dl AST 15 (15-37) U/L ALT 23 (12-78) U/L Alkaline Phosphatase 115 (45-117) U/L C-Reactive Protein 2.41 H (0-0.29) mg/dl Total Protein 8.3 H (6.4-8.2) gm/dl Albumin 4.1 (3.4-5.0) gm/dl Globulin 4.2 H (2.5-4.0) gm/dl Albumin/Globulin Ratio 1.0 (0.9-2) Imaging Data Radiologist's Impression: Radiology results as stated below per my review and the radiologist's interpretation: XR foot LT min 3V routine CLINICAL HISTORY: DM foot ulcer, warm, tracking. r/o osteomyelitis COMPARISON: MRI of the left foot September 23, 2017. Left foot radiographs January 10, 2012. FINDINGS: Amputation of the left second and third toes at the level of the metatarsophalangeal joints is noted. No acute fracture is present. There is extensive vascular calcification. Left foot soft tissue swelling is noted. There is possible bony erosion of the distal tuft of the distal phalanx of the left fourth toe. IMPRESSION: 1. Possible bony erosion of the distal tuft of the distal phalanx of the left fourth toe which raises the possibility of osteomyelitis. 2. Status post amputation of the left second and third toes. Electronically signed by: Christoph Calloway M.D. 02/18/2019 4:44 PM RIGHT LOWER EXTREMITY VENOUS DOPPLER CLINICAL HISTORY: Right leg pain and swelling. COMPARISON STUDY: Bilateral lower extremity venous Doppler ultrasound January 13, 2012. TECHNIQUE: Sonography of the deep venous system of the right lower extremity was performed. Compression and augmentation were evaluated. FINDINGS: The right common femoral, superficial femoral and popliteal veins were compressible. Augmentation was normal. Flow was shown within the deep calf vessels. IMPRESSION: No evidence of deep venous thrombus within the right lower extremity. Electronically signed by: Christoph Calloway M.D. 02/18/2019 5:54 PM Blood Pressure Blood Pressure Findings: Elevated blood pressure Blood Pressure Disposition: further management by hospitalist ANUPAM Narrative Patient is an 78-year-old female with a history of CAD, diabetes, hypertension, and prior osteomyelitis of the lower extremities presenting from wound clinic today with concerns for redness and streaking of redness up the leg from her left toes. Sent from the diabetic wound clinic. Patient is afebrile upon ar rival. Denies systemic symptoms. Has pretty severe diabetic neuropathy. Possible amputation's with removal of the right toes and we will of toes 2 and 3 on the left. Patient does endorse a little bit of discomfort and swelling of the right lower extremity. Duplex to exclude DVT here was completed. Redness again is extending from the left toes on the dorsal aspect to the ankle and looks like some erythema over the de guzman. No crepitus. He does have what appears to be some ulcerations in likely a small abscess on the fifth toe. X-ray obtained shows concern for possible osteomyelitis of the toe. Basic labs were obtained. Ordered vancomycin and zosyn empirically for infection/osteo/cellul itis. Will require admission. [facility] Hospitalist contacted. Impression & Plan Cellulitis of left lower extremity, Toe osteomyelitis, left Discharge Plan Visit Data Chief Complaint: Foot Injury/Pain Stated Complaint: TOE IS INFECTED,FOOT SWOLLEN,RED STREAK GOING UP ED Provider: Alistair Olivares ED Midlevel Provider: Taina Su Discharge Problem: Cellulitis of left lower extremity, Toe osteomyelitis, left Patient Disposition: Being Evaluated by Hospitalist Forms Stand Alone Forms: My [facility] [employer] Prescriptions Prescriptions: No Action metformin 850 mg Tablet 850 mg PO BIDM RF: 0 travoprost 0.004 % Drops 1 drp OPB PM RF: 0 clopidogrel 75 mg Tablet 75 mg PO DAILY RF: 0 aspirin [Aspirin Low Dose] 81 mg Tablet,Delayed Release (Dr/Ec) 81 mg PO DAILY RF: 0 hydrocortisone acetate [Anucort-HC] 25 mg Suppository 25 mg ND BID PRN (Reason: Hemorrhoids) RF: 0 simvastatin 20 mg Tablet 20 mg PO HS RF: 0 lisinopril 10 mg Tablet 10 mg PO DAILY RF: 0 brimonidine 0.2 % Drops 1 drp OPB DAILY RF: 0 metoprolol succinate 25 mg Tablet Extended Release 24 Hr 12.5 mg PO DAILY RF: 0 clobetasol 0.05 % Ointment 1 applic TOPICAL DIRECTED RF: 0 glipizide 5 mg Tablet 5 mg PO DAILY RF: 0 cholecalciferol (vitamin D3) [Vitamin D3] 1,000 unit Capsule 1,000 unit PO DAILY RF: 0 Refresh Plus 0.5 % Dropperette 1 drp OPB DAILY PRN (Reason: Dry Eye(S)) RF: 0 Levemir FlexTouch U-100 Insuln 100 unit/mL (3 mL) Insulin Pen 14 unit SUBCUT DAILY RF: 0 dorzolamide-timolol (PF) [Cosopt (PF)] 2-0.5 % Dropperette 1 drp OPB BID RF: 0 magnesium oxide 400 mg magnesium Tablet 400 mg PO DAILY RF: 0 Referrals Referrals: Roland Plunkett MD [Primary Care Provider] - The scribe's documentation has been prepared under my direction and personally reviewed by me in its entirety. I confirm that the note above accurately reflects all work, treatment, procedures, and medical decision making performed by me.
[2019-02-18] MEDS ORDERED: PIPERACILL/TAZOBAC CONSULT ACTIVE PRN (17:45)
[2019-02-18] MEDS ORDERED: VANCOMYCIN HCL 1,250 MG in SODIUM CHLORIDE 0.9% 500 ML IV ONE (17:45)
[2019-02-18] MEDS ORDERED: VANCOMYCIN CONSULT ACTIVE PRN (17:45)
[2019-02-18] MEDS ORDERED: PIPERACILLIN/TAZOBACTAM 4.5 GM/120 ML BAG IV ONE (17:45)
--- NOTE | 2019-02-18 17:55 | Ultrasound Report ---
RIGHT LOWER EXTREMITY VENOUS DOPPLER CLINICAL HISTORY: Right leg pain and swelling. COMPARISON STUDY: Bilateral lower extremity venous Doppler ultrasound January 13, 2012. TECHNIQUE: Sonography of the deep venous system of the right lower extremity was performed. Compress ion and augmentation were evaluated. FINDINGS: The right common femoral, superficial femoral and popliteal veins were compressible. Augme ntation was normal. Flow was shown within the deep calf vessels. IMPRESSION: No evidence of deep venous thrombus within the right lower extremity. Electronically signed by: Christoph Calloway M.D. 02/18/2019 5:54 PM
[2019-02-18 17:57] LABS: Alanine Aminotransferase 23 U/L (12-78); Albumin Level 4.1 gm/dl (3.4-5.0); Aspartate Aminotransferase 15 U/L (15-37); BUN Creatinine Ratio 25.8 (10-20); Blood Urea Nitrogen 23 mg/dl (7-18); Calcium 9.8 mg/dl (8.5-10.1); Carbon Dioxide 28 mmol/L (21-32); Chloride 102 mmol/L (98-107); Est GFR (Non-African American) 60.4; Glucose 137 mg/dl (70-99); Potassium 4.3 mmol/L (3.5-5.1); Sodium 134 mmol/L (136-145)
[2019-02-18 18:00] LABS: Alkaline Phosphatase 115 U/L (45-117); Bilirubin,Total 0.3 mg/dl (0.2-1); C Reactive Protein 2.41 mg/dl (0-0.29); Globulin 4.2 gm/dl (2.5-4.0); Total Protein 8.3 gm/dl (6.4-8.2)
[2019-02-18] MEDS ORDERED: SODIUM CHLORIDE 0.9% 1000ML 500 ML IV ONE ×2 (18:49→20:19)
[2019-02-18] MEDS ORDERED: DAPTOmycin 500 MG VIAL IV SCH (19:15)
[2019-02-18] MEDS ORDERED: DAPTOmycin 375 MG in SYRINGE 0 ML IV ONE (19:15)
[2019-02-18 19:52] LABS: Troponin I < 0.015 ng/ml (0-0.045)
--- NOTE | 2019-02-18 20:17 | History & Physical Report ---
Date of Service February 18, 2019 Assessment & Plan (1) Osteomyelitis: -Admit to telemetry -Patient presenting by referral of diabetic foot clinic for evaluation of left toe ulcer infection -Long-standing history of diabetic foot infections status post multiple amputations -Most recent cultures positive for MSSA -Received vancomycin and Zosyn simultaneously in the ED however with reaction which will be discussed below -will start daptomycin, continue with Zosyn and monitor for response -No signs of sepsis -Patient known to Dr. Acosta, case was discussed with him and he advises obtaining arterial Doppler. If Doppler demonstrates significant arterial disease, he will evaluate the patient. If it is negative for significant arterial disease, he recommends orthopedics evaluation. (2) Hypotensive episode: -Patient developed symptomatic hypotension and bradycardia while vancomycin and Zosyn were infusing simultaneously -Suspect vasovagal versus reaction from infusion of antibiotics being infused simultaneously -Improved once patient was placed supine and received IVF bolus -Antibiotics as above -EKG negative for acute changes, cycle cardiac enzymes -Hold antihypertensives, give additional 500 cc bolus with maintenance NSS at 80 cc/hour -PRN Benadryl for further allergic symptoms (3) Diabetes mellitus, type II: -Hgb A1c 7.5 01/2019 -Hold oral agents and utilize Lantus and NovoLog per protocol while hospitalized (4) PAD (peripheral artery disease): -Continue aspirin and Plavix (5) CAD (coronary artery disease): -Stable, no reports of chest pain -Continue aspirin, statin, Plavix -Beta-floyd on hold as above (6) HTN (hypertension): -As above (7) DVT prophylaxis: -SQ heparin History of Present Illness Chief Complaint: Left toe infection Primary Care Provider: Roland Plunkett MD 78-year-old female who presents to the ED by referral of the diabetic foot clin ic for evaluation of left toe infection. Patient has a long-standing history of diabetic foot infections status post multiple toe amputations. Patient reports she checks her feet daily for wounds. Yesterday, her [id number] noted that her left fifth toe was white in color. Patient made an appointment to be seen in the diabetic foot clinic today. There, and also was noted to the plantar gaines rface of the left fifth toe with surrounding erythema streaking up the dorsal aspect of the left foot. Patient denies fevers and chills. Reports she has been feeling well recently. No chest pain or shortness of breath. She denies lightheadedness, dizziness, diaphoresis, syncopal events. No abdominal pain, nausea, vomiting, diarrhea. She denies any urinary symptoms. In the ED, left foot x-ray suggesting possible osteomyelitis of the left fifth toe. Labs are unremarkable. At the time my exam, patient was hemodynamically stable. After my exam, infusion of vancomycin and Zosyn were initiated simultaneously. Patient then developed symptomatic bradycardia and hypotension. This improved after patient was placed supine and received IVF bolus. There was no visible rash noted. EKG was obtained that did not demonstrate any acute findings. Troponin negative. Allergies Allergy/AdvReac Type Severity Reaction Status Date / Time baclofen Allergy Unknown unkown Unverified 02/18/19 16:00 Bactrim Allergy Unknown itching Verified 12/21/17 14:38 sulfamethoxazole Allergy Unknown itching Verified 02/18/19 16:00 tramadol Allergy Unknown unkown Unverified 02/18/19 16:00 trimethoprim Allergy Unknown itching Verified 02/18/19 16:00 Home Medications Home Medications Medication Instructions Recorded Confirmed Type aspirin [Aspirin Low Dose] 81 mg PO DAILY 02/18/19 02/18/19 History brimonidine 1 drp OPB DAILY 02/18/19 02/18/19 History carboxymethylcellulose sodium 1 drp OPB DAILY PRN 02/18/19 02/18/19 History [Refresh Plus] cholecalciferol (vitamin D3) 1,000 unit PO DAILY 02/18/19 02/18/19 History [Vitamin D3] clobetasol 1 applic TOPICAL DIRECTED 02/18/19 02/18/19 History clopidogrel 75 mg PO DAILY 02/18/19 02/18/19 History dorzolamide-timolol (PF) [Cosopt 1 drp OPB BID 02/18/19 02/18/19 History (PF)] glipizide 5 mg PO DAILY 02/18/19 02/18/19 History hydrocortisone acetate [Anucort-HC] 25 mg [place] BID PRN 02/18/19 02/18/19 History insulin detemir U-100 [Levemir 14 unit SUBCUT DAILY 02/18/19 02/18/19 History FlexTouch U-100 Insuln] lisinopril 10 mg PO DAILY 02/18/19 02/18/19 History magnesium oxide 400 mg PO DAILY 02/18/19 02/18/19 History metformin 850 mg PO BIDM 02/18/19 02/18/19 History metoprolol succinate 12.5 mg PO DAILY 02/18/19 02/18/19 History simvastatin 20 mg PO HS 02/18/19 02/18/19 History travoprost 1 drp OPB PM 02/18/19 02/18/19 History Past Med/Surg History Medical History PAD (peripheral artery disease) (Chronic) Multiple interventions to RLE Amputated toe of left foot (Chronic) CAD (coronary artery disease) (Chronic) Chronic total circumflex occlusion, 80% mid LAD stenosis -managed medically Dyslipidemia (Chronic) HTN (hypertension) (Chronic) Diabetes mellitus, type II (Chronic) Diabetic neuropathy (Chronic) Diabetic retinopathy (Chronic) Surgical History History of cataract surgery (Chronic) History of transmetatarsal amputation of right foot (Chronic) Family History Brother Diabetes Social History Preferred Language: Estonian Communication Ability: Effective 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 Beliefs That Will Affect Care: None marital status: / Current Living Situation: Alone current occupational status: retired Other Information That Helps Us Care for You: No Feels Safe at Home: Yes Safety Concerns: Feels Safe At This Time Smoking Status: Never smoker Hx Alcohol Use: No Hx Substance Use: No Review of Systems Review of Systems: ROS per HPI, all other systems reviewed and negative Physical Exam Constitutional: WD/WN, vitals as above Eyes: PERRL, conjunctivae normal, anicteric sclerae ENMT: external ear and nose normal, oropharynx normal Respiratory: normal respiratory effort, lungs clear to auscultation Cardiovascular: Rate/Rhythm: regular rate and regular rhythm Vessels: normal peripheral pulses Extremities: no edema Gastrointestinal (Abdomen): normal bowel sounds, soft, nontender, no hepatosplenomegaly Musculoskeletal: no cyanosis or clubbing, extremities motor strength 5/5 Right transmetatarsal amputation, left second and third toe amputated Skin: no rashes, warm and dry Ulcer noted to the plantar surface of the left fifth toe with surrounding erythema and streaking up the dorsal aspect of the left foot, macerated skin Neurologic: PERRL, EOMI, accommodation nl, no face palsy, no dysarthria Psychiatric: A+Ox3, euthymic affect Results & Data Vital Signs (Past 12 Hours) Vital Signs Temp Pulse Pulse Resp BP BP Pulse Ox 02/18/19 19:46 92 H 16 99/80 L 98 02/18/19 19:34 93 H 13 130/55 L 98 02/18/19 19:16 77 17 107/62 96 02/18/19 19:11 75 19 106/53 L 96 02/18/19 19:04 73 23 81/62 L 94 02/18/19 19:01 72 15 85/48 L 94 02/18/19 18:57 74 18 83/61 L 02/18/19 18:54 73 17 64/46 L 94 02/18/19 18:51 51 L 18 65/38 L 91 02/18/19 18:48 51 L 17 48/26 L 93 02/18/19 18:33 80 19 127/78 97 02/18/19 18:32 81 21 127/78 98 02/18/19 17:34 82 21 138/72 97 02/18/19 14:41 36.9 C 106 H 20 152/73 H 97 Laboratory Results Laboratory Last Values WBC 8.83 K/uL (4.8-10.8) 02/18/19 17:11 RBC 4.43 M/uL (4.2-5.4) 02/18/19 17:11 Hgb 13.9 g/dL (12.0-16.0) 02/18/19 17:11 Hct 40.3 % (37-47) 02/18/19 17:11 MCV 91.0 fL (80-100) 02/18/19 17:11 MCH 31.4 pg (25-34) 02/18/19 17:11 MCHC 34.5 g/dL (32-36) 02/18/19 17:11 RDW Std Deviation 41.9 fL (36.4-46.3) 02/18/19 17:11 RDW Coeff of Dipesh 12.6 % (11.5-14.5) 02/18/19 17:11 Plt Count 219 K/uL (130-400) 02/18/19 17:11 MPV 10.6 fL (7.4-10.4) H 02/18/19 17:11 Immature Gran % (Auto) 0.2 % 02/18/19 17:11 Neut % (Auto) 69.2 % 02/18/19 17:11 Lymph % (Auto) 20.0 % 02/18/19 17:11 [place] % (Auto) 7.7 % 02/18/19 17:11 Eos % (Auto) 2.7 % 02/18/19 17:11 Baso % (Auto) 0.2 % 02/18/19 17:11 Immature Gran # (Auto) 0.02 K/uL (0.00-0.02) 02/18/19 17:11 Neut # (Auto) 6.10 K/uL (1.4-6.5) 02/18/19 17:11 Lymph # (Auto) 1.77 K/uL (1.2-3.4) 02/18/19 17:11 [place] # (Auto) 0.68 K/uL (0.11-0.59) H 02/18/19 17:11 Eos # (Auto) 0.24 K/uL (0-0.5) 02/18/19 17:11 Baso # (Auto) 0.02 K/uL (0-0.2) 02/18/19 17:11 ESR 33 mm/hr (0-21) H 02/18/19 17:11 Sodium 134 mmol/L (136-145) L 02/18/19 17:11 Potassium 4.3 mmol/L (3.5-5.1) 02/18/19 17:11 Chloride 102 mmol/L (98-107) 02/18/19 17:11 Carbon Dioxide 28 mmol/L (21-32) 02/18/19 17:11 Anion Gap 4.0 (3-11) 02/18/19 17:11 BUN 23 mg/dl (7-18) H 02/18/19 17:11 Creatinine 0.90 mg/dl (0.6-1.2) 02/18/19 17:11 Est Cr Clr Drug Dosing Not Reportable 02/18/19 17:11 Est GFR ( Amer) 70.0 02/18/19 17:11 Est GFR (Non-Af Amer) 60.4 02/18/19 17:11 BUN/Creatinine Ratio 25.8 (10-20) H 02/18/19 17:11 Glucose 137 mg/dl (70-99) H 02/18/19 17:11 POC Glucose 145 (70-99) H 02/18/19 18:52 Calcium 9.8 mg/dl (8.5-10.1) 02/18/19 17:11 Total Bilirubin 0.3 mg/dl (0.2-1) 02/18/19 17:11 AST 15 U/L (15-37) 02/18/19 17:11 ALT 23 U/L (12-78) 02/18/19 17:11 Alkaline Phosphatase 115 U/L (45-117) 02/18/19 17:11 Troponin I < 0.015 ng/ml (0-0.045) 02/18/19 17:11 C-Reactive Protein 2.41 mg/dl (0-0.29) H 02/18/19 17:11 Total Protein 8.3 gm/dl (6.4-8.2) H 02/18/19 17:11 Albumin 4.1 gm/dl (3.4-5.0) 02/18/19 17:11 Globulin 4.2 gm/dl (2.5-4.0) H 02/18/19 17:11 Albumin/Globulin Ratio 1.0 (0.9-2) 02/18/19 17:11 Diagnostic Findings LEFT FOOT XR IMPRESSION: 1. Possible bony erosion of the distal tuft of the distal phalanx of the left fourth toe which raises the possibility of osteomyelitis. 2. Status post amputation of the left second and third toes. RLE VENOUS DOPPLER IMPRESSION: No evidence of deep venous thrombus within the right lower extremity. Code Status & VTE Plan Code Status Patient is a full code as per my discussion with her. VTE Prophylaxis Plan VTE Prophylaxis will be ordered: Yes Supervising Physician Co-Signing Physician Notes Patient is an 78-year-old female with history of peripheral artery disease, coronary artery disease, hypertension, diabetes and other medical problems presents to the ED on recommendations from diabetic foot clinic for management of left fifth toe infection. Patient denies any fever chills. She had history of multiple toe amputations. Please review HPI for complete details of presentation. Patient's white blood cell count is within normal range. Left foot x-ray showed possible bony erosion of the distal phalanx of the left fourth toe which is suggestive of possible osteomyelitis. Venous Dopplers showed no a cute DVT. On exam patient is moderately built and nourished, no apparent distress, lungs are clear to auscultation, S1 and S2, no murmur, no pedal edema, abdomen soft, nontender, distended, left second and third toe amputated, right toes amputated, left fifth toe erythema, and streaking up the dorsal aspect of the left foot, macerated skin. Patient is admitted for management of acute osteomyelitis and possible need for toe amputation. Patient will be started on IV daptomycin and Zosyn. Vascular surgery is consulted. Will obtain arterial Dopplers. Consider orthopedics evaluation if no significant arterial disease. SQ heparin for DVT prophylaxis. I personally reviewed the record. Patient is interviewed and examined at bedside. Patient's care is coordinated with Shivani Hopkins NP. Please refer to the documentation above for details of patient's presentation and for discussion of other issues.
[2019-02-18] MEDS ORDERED: DEXTROSE 50% 50 ML SYRINGE IV PRN (20:19)
[2019-02-18] MEDS ORDERED: GLUCOSE 10 TABS/TUBE PO PRN (20:19)
[2019-02-18] MEDS ORDERED: CARBOHYDRATES FOR HYPOGLYCEMIA PO PRN (20:19)
[2019-02-18] MEDS ORDERED: DiphenhydrAMINE HCL 50 MG/ML VIAL IV PRN (20:19)
[2019-02-18] MEDS ORDERED: ARTIFICIAL TEARS OPB PRN (20:19)
[2019-02-18] MEDS ORDERED: GLUCOSE 40% GEL 15 GM TUBE PO PRN (20:19)
[2019-02-18] MEDS ORDERED: GLUCAGON FOR INJ 1 MG VIAL SQ PRN (20:19)
[2019-02-18] MEDS ORDERED: INSULIN ASPART 100 UNITS/ML 3 ML PEN SC SCH (21:00)
[2019-02-18 21:09] LABS: Prothrombin Time 9.8 Seconds (9.0-12.0)
[2019-02-18] MEDS: PATIENT'S HEIGHT AND/OR WEIGHT NEEDED SCH ×2 (21:48)
[2019-02-18] MEDS: TRAVOPROST Z 0.004% OPH SOLN 2.5 ML BTL OPB SCH (21:56)
[2019-02-18] MEDS: SODIUM CHLORIDE 0.9% 1000ML 1,000 ML IV SCH (21:56)
[2019-02-18] MEDS: SIMVASTATIN 20 MG TAB PO SCH (21:57)
[2019-02-18] MEDS: PIPERACILLIN/TAZOBACTAM 3.375 GM in DEXTROSE 5% 100 ML IV SCH (23:42)
[2019-02-18] MEDS: HEPARIN SOD 5,000 UNIT/0.5 ML VIAL SQ SCH (23:42)
[2019-02-19] MEDS: PATIENT'S HEIGHT AND/OR WEIGHT NEEDED SCH ×2 (00:25→00:26)
[2019-02-19 01:28] LABS: Hematocrit (blood only) 31.7 % (37-47); Hemoglobin 11.3 g/dL (12.0-16.0); Mean Corpuscular Hgb Conc 35.6 g/dL (32-36); Mean Corpuscular Volume 90.1 fL (80-100); Mean Platelet Volume 9.6 fL (7.4-10.4); Platelet Count 157 K/uL (130-400); RDW Coefficient of Variation 12.8 % (11.5-14.5); RDW Standard Deviation 41.5 fL (36.4-46.3); Red Blood Count 3.52 M/uL (4.2-5.4); White Blood Count 11.06 K/uL (4.8-10.8)
[2019-02-19 01:53] LABS: BUN Creatinine Ratio 31.1 (10-20); Blood Urea Nitrogen 27 mg/dl (7-18); Calcium 8.2 mg/dl (8.5-10.1); Carbon Dioxide 26 mmol/L (21-32); Chloride 108 mmol/L (98-107); Creatinine Clr Calc Pharmacy 43.8 ml/min; Est GFR (African American) 73.9; Est GFR (Non-African American) 63.8; Glucose 233 mg/dl (70-99); Potassium 3.8 mmol/L (3.5-5.1); Sodium 138 mmol/L (136-145); Troponin I < 0.015 ng/ml (0-0.045)
[2019-02-19] MEDS ORDERED: Nursing to Pharmacy Communication ONE ×2 (04:37→10:48)
[2019-02-19] MEDS: HEPARIN SOD 5,000 UNIT/0.5 ML VIAL SQ SCH ×3 (05:54→20:23)
[2019-02-19] MEDS: INSULIN ASPART 100 UNITS/ML 3 ML PEN SC SCH ×5 (05:55→20:26)
--- NOTE | 2019-02-19 07:06 | Ultrasound Report ---
US arterial duplex LE LT HISTORY: 78 years-old Female toe ulcer nonhealing ulcer of the left toe COMPARISON: Left arterial Doppler study 09/24/2017 TECHNIQUE: Multiple real-time sonographic images of the left lower extremity arterial structures were obtained assessing grayscale appearance, color and spectral flow FINDINGS: Segmental blood pressures were also obtained. Right brachial 102 (index). Posterior tibial and dorsal is pedis pressures rule out obtained. LEFT: Brachial 103 (index). Posterior tibial of 72 (0.70); dors arian pedis of 77 (0.75). Extensive atherosclerotic plaquing is noted about the left lower extremity. Patent common femoral, pr ofunda femoris and superficial femoral arteries with triphasic waveforms. Triphasic waveforms about t he proximal popliteal artery with blunted monophasic waveforms about the distal popliteal artery. Add itionally, there are elevated peak systolic velocities about the popliteal trifurcation measuring up to 98 cm/s. Short segment of the proximal posterior tibial artery is occluded with slight reversal flow seen just distal to the occlusion. Biphasic waveforms about the mid posterior tibial artery with markedly blun víctor monophasic waveforms with spectral broadening about the distal portion of the posterior tibial ar fabián. Monophasic waveforms about the peroneal artery. Blunted monophasic waveforms of the anterior ti bial artery. Blunted monophasic waveforms about the dorsalis pedis artery. IMPRESSION: 1. Extensive calcified plaque about the left lower extremity arterial structures. 2. Elevated peak systolic velocities about the popliteal trifurcation suggest high-grade stenosis. 3. Short segment occlusion about the proximal posterior tibial artery. 4. Blunted monophasic waveforms about the left calf vessels as above compatible with severe periphera l arterial disease. The above report was generated using voice recognition software. It may contain grammatical, syntax o r spelling errors. Electronically signed by: Dale Rodriguez M.D. 02/19/2019 7:05 AM
[2019-02-19] MEDS ORDERED: BRIMONIDINE TART 0.2% OP SOLN PER DROP CHARGE OPB SCH (09:00)
[2019-02-19] MEDS ORDERED: ASPIRIN 81 MG ECTAB PO SCH (09:00)
--- NOTE | 2019-02-19 09:08 | Consultation ---
Date of Consultation February 19, 2019 Assessment & Plan (1) PAD (peripheral artery disease): Pt scheduled for LLE angio with intervention on Friday by Dr Acosta. Pt agreeable. Present on Admission?: Yes (2) Osteomyelitis: Recommend consult orthopedics for possible toe amputation. Present on Admission?: Yes History of Present Illness Reason for Consultation: L toe osteo, PAD Attending Physician: Saskia Sanders MD History of Present Illness 78 yo f with multiple medical problems, including DMII, HTN, PAD, CAD, dyslipidemia, neuropathy, and diabetic retinopathy, admitted d/t infection of L 5th toe and known to Dr Acosta for previous angiogram with intervention and toe amputations, seen in consultation today for PAD noted on US. Pt states she has poor vision and has not been able to see her toes in a long time. States she had some discomfort in L toes a week ago and asked her daughter to look at them. She noted the redness and wound and made appt with diabetic foot clinic for . Pt was sent to [facility] d/t cellulitis/lymphangitis. Pt states pain is improved. Did have an episode of hypotension last night, but none at home prior. Pt states she also had chills last night. Denies fever, chest pain,SOB, abd pain, N/V, rest pain, claudication, other complaints. Pt previously underwent RLE completion TMA [place] [address] Acosta. She did have other single toe amputations in past at other facilities. Arterial US demonstrates arterial calcifications, with possible stenosis of L pop art. X-ray demonstrates osteomyelitis. Allergies Allergy/AdvReac Type Severity Reaction Status Date / Time baclofen Allergy Unknown unkown Unverified 02/18/19 16:00 Bactrim Allergy Unknown itching Verified 12/21/17 14:38 sulfamethoxazole Allergy Unknown itching Verified 02/18/19 16:00 tramadol Allergy Unknown unkown Unverified 02/18/19 16:00 trimethoprim Allergy Unknown itching Verified 02/18/19 16:00 Home Medications Home Medications Medication Instructions Recorded Confirmed Type aspirin [Aspirin Low Dose] 81 mg PO DAILY 02/18/19 02/18/19 History brimonidine 1 drp OPB DAILY 02/18/19 02/18/19 History carboxymethylcellulose sodium 1 drp OPB DAILY PRN 02/18/19 02/18/19 History [Refresh Plus] cholecalciferol (vitamin D3) 1,000 unit PO DAILY 02/18/19 02/18/19 History [Vitamin D3] clobetasol 1 applic TOPICAL DIRECTED 02/18/19 02/18/19 History clopidogrel 75 mg PO DAILY 02/18/19 02/18/19 History dorzolamide-timolol (PF) [Cosopt 1 drp OPB BID 02/18/19 02/18/19 History (PF)] glipizide 5 mg PO DAILY 02/18/19 02/18/19 History hydrocortisone acetate [Anucort-HC] 25 mg DC BID PRN 02/18/19 02/18/19 History insulin detemir U-100 [Levemir 14 unit SUBCUT DAILY 02/18/19 02/18/19 History FlexTouch U-100 Insuln] lisinopril 10 mg PO DAILY 02/18/19 02/18/19 History magnesium oxide 400 mg PO DAILY 02/18/19 02/18/19 History metformin 850 mg PO BIDM 02/18/19 02/18/19 History metoprolol succinate 12.5 mg PO DAILY 02/18/19 02/18/19 History simvastatin 20 mg PO HS 02/18/19 02/18/19 History travoprost 1 drp OPB PM 02/18/19 02/18/19 History Patient History Medical History PAD (peripheral artery disease) (Chronic) Multiple interventions to RLE Amputated toe of left foot (Chronic) CAD (coronary artery disease) (Chronic) Chronic total circumflex occlusion, 80% mid LAD stenosis -managed medically Dyslipidemia (Chronic) HTN (hypertension) (Chronic) Diabetes mellitus, type II (Chronic) Diabetic neuropathy (Chronic) Diabetic retinopathy (Chronic) Surgical History History of cataract surgery (Chronic) History of transmetatarsal amputation of right foot (Chronic) Family History Brother Diabetes Social History Preferred Language: Lebanese Communication Ability: Effective 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 Beliefs That Will Affect Care: None marital status: / Current Living Situation: Alone current occupational status: retired Other Information That Helps Us Care for You: No Feels Safe at Home: Yes Safety Concerns: Feels Safe At This Time Smoking Status: Never smoker Hx Alcohol Use: No Hx Substance Use: No Review of Systems Constitutional: + chills; no fever, no sweats, no fatigue, no malaise and no weight loss Eyes: + problem reported (retinopathy); no blind spots Ear, Nose, Mouth, Throat: no hearing loss and no sore throat Respiratory: no cough, no dyspnea, no dyspnea on exertion and no hemoptysis Cardiovascular: no chest pain, no palpitations, no syncope, no claudication and no problem reported Gastrointestinal: no abdominal pain, no early satiety, no nausea, no vomiting, no cramping, no change in bowel habits, no diarrhea/loose stools and no blood in stools Musculoskeletal: + swelling (L toes/foot); no back pain, no joint pain and no muscle weakness Integumentary: + skin ulcer (L toes) and + erythema Neurologic: + paresthesia (BLE d/t neuropathy); no localized weakness, no generalized weakness, no paralysis, no tingling, no seizure-like activity, no syncope, no headache(s) and no confusion Psychiatric: as per Subjective / HPI Hematologic / Lymphatic: no easy bleeding, no easy bruising, no coagulopathy, no night sweats and no unexplained weight loss Physical Exam Constitutional: WD/WN, vitals as above well developed, well nourished, + ill appearing (mildly chronically), + obese, well groomed, cooperative and comfortable; not in distress and not combative Eyes: PERRL, conjunctivae normal, anicteric sclerae EOM intact bilaterally ENMT: external ear and nose normal, oropharynx normal Ears: no hearing impairment Nose: no nasal discharge Throat: no posterior oropharynx abnormality Neck: trachea midline, no thyromegaly no tracheal deviation, no neck crepitus and neck nontender Respiratory: normal respiratory effort, lungs clear to auscultation able to speak in complete sentences; does not use accessory muscles, no cough, not tachypneic and no audible wheezes Auscultation: lungs clear to auscultation bilaterally and + diminished lung sounds; no rhonchi and no wheezes Cardiovascular: Rate/Rhythm: regular rate and regular rhythm Heart Sounds: no gallop and no murmur Vessels: femoral pulses present, posterior tibial pulses present (Nonpalpable BLE), dorsalis pedis pulses present (palpable RLE, nonpalpable LLE), brachial pulses present and radial pulses present; no carotid bruit, no femoral bruit and + abnormal peripheral pulses Extremities: normal capillary refill and + edema (L 5th toe and distal foot) Gastrointestinal (Abdomen): normal bowel sounds, soft, nontender, no hepatosplenomegaly Inspection/Auscultation: abdomen normal to inspection and normal bowel sounds; abdomen not distended Percussion/Palpation: abdomen soft; abdomen nontender, no guarding, abdomen not rigid and no abdominal mass Musculoskeletal: no cyanosis or clubbing, extremities motor strength 5/5 Head/Neck/Chest: normocephalic, head atraumatic and neck supple Extremities: extremities normal to inspection, strength 5/5 throughout and + amputation noted (RLE Complete TMA, L 2nd and 3rd toes); full ROM of extremities and no chronic stasis changes Skin: no rashes, warm and dry normal turgor, + wound (L 5th toe white, with open wound distal plantar, dry. see below) and + erythema; no rashes, no eschar, no excoriations and no mottling Remaining L toe erythematous, with lymphangitis noted to ankle. Warm, No drainage. No cap refill to distal 5th toe, 4th toe with dry ulcer to distal tip, 4th toe + cap refill. Neurologic: moves all extremities and awake; no focal motor deficits and not confused Speech / Cognition: no expressive aphasia and no receptive aphasia Motor/Sensory: no tremor Cranial Nerves: EOM intact bilaterally and normal f acial strength Gait: not gait assisted Psychiatric: Orientation: alert, oriented x 3 and cooperative Apperance: appropriately dressed, appropriately groomed and appeared stated age; not disheveled Affect: euthymic affect Thought Process: goal directed thought process, linear/logical thought process and clear/coherent thought process Cognition: recent memory grossly intact, remote memory grossly intact, attention grossly intact and language grossly intact Estimated Intelligence: average estimated intelligence and + below average estimated intelligence Lymphatic: no lymphedema Results & Data Vital Signs (Past 12 Hours) Vital Signs Temp Pulse Resp BP BP Pulse Ox 02/19/19 08:14 36.6 C 72 18 110/67 96 02/19/19 03:43 36.7 C 87 18 94/59 L 98 02/19/19 00:17 36.6 C 91 H 18 90/58 L 95 02/18/19 22:07 36.8 C 105 H 20 124/72 96
[2019-02-19] MEDS: PIPERACILLIN/TAZOBACTAM 3.375 GM in DEXTROSE 5% 100 ML IV SCH ×3 (09:17→23:57)
[2019-02-19] MEDS: SODIUM CHLORIDE 0.9% 1000ML 1,000 ML IV SCH ×2 (09:18→23:55)
[2019-02-19] MEDS: MAGNESIUM OXIDE 400 MG TAB PO SCH (10:14)
[2019-02-19] MEDS: INSULIN DETEMIR FLEXPEN/FLEX TOUCH 100 UNITS/ML 3ML SQ SCH (10:15)
[2019-02-19] MEDS: CLOPIDOGREL BISULFATE 75 MG TAB PO SCH ×2 (10:15→11:55)
[2019-02-19] MEDS: CHOLECALCIFEROL 1,000 UNITS TAB PO SCH (10:15)
[2019-02-19] MEDS ORDERED: INSULIN ASPART 100 UNITS/ML 3 ML PEN SC SCH (11:30)
[2019-02-19] MEDS: BRIMONIDINE TARTRATE 0.2% 5ML OPB SCH (15:12)
--- NOTE | 2019-02-19 15:17 | Hospitalist Progress Note ---
Date of Service February 19, 2019 Assessment & Plan (1) Osteomyelitis: - -Long-standing history of diabetic foot infections status post multiple amputations -Most recent cultures positive for MSSA send from diabetic foot clinic for ulcer on left little toe with drainage X-ray of foot shows osteomyelitis and left toe -will start daptomycin, continue with Zosyn and monitor for response -No signs of sepsis -Appreciate input from vascular surgery Dr. Acosta Plan for surgery possible amputation left little toe on 02/22/2019 (2) Hypotensive episode: Results blood pressure remains stable -Patient developed symptomatic hypotension and bradycardia while vancomycin and Zosyn were infusing simultaneously -Suspect vasovagal versus reaction from infusion of antibiotics being infused simultaneously -Blood pressure improved after IV fluid resuscitation -PRN Benadryl for further allergic symptoms (3) Diabetes mellitus, type II: -Hgb A1c 7.5 01/2019 -Hold oral agents and utilize Lantus and NovoLog per protocol while hospitalized (4) PAD (peripheral artery disease): Hold aspirin and Plavix for planned surgery on Friday (5) CAD (coronary artery disease): -Stable, no reports of chest pain -Hold aspirin and Plavix for surgery -Beta-floyd resumed on holding parameters (6) HTN (hypertension): -As above (7) DVT prophylaxis: -SQ heparin would be hold 12 hours prior to surgery Disposition: Lives at home, patient will need PT OT evaluation prior to discharge Social service consult for discharge Subjective Denies of any pain or discomfort on left foot or toe, Afebrile Details remained stable Very pleasant, cooperative Physical Exam Constitutional: WD/WN, vitals as above no acute distress Eyes: PERRL, conjunctivae normal, anicteric sclerae ENMT: external ear and nose normal, oropharynx normal Neck: trachea midline, no thyromegaly Respiratory: normal respiratory effort, lungs clear to auscultation Cardiovascular: RRR, no murmur, no edema Gastrointestinal (Abdomen): Inspection/Auscultation: normal bowel sounds Percussion/Palpation: abdomen soft; abdomen nontender Musculoskeletal: Multiple toe amputation on the left, left fifth toe bandaged, status post transmetatarsal amputation of right foot Neurologic: PERRL, EOMI, accommodation nl, no face palsy, no dysarthria Psychiatric: A+Ox3, euthymic affect Results & Data Vital Signs (Past 12 Hours) Vital Signs Temp Pulse Pulse Resp BP Pulse Ox 02/19/19 11:34 37.2 C 80 19 122/71 95 02/19/19 08:14 36.6 C 72 18 110/67 96 02/19/19 08:00 73 02/19/19 03:43 36.7 C 87 18 94/59 L 98
[2019-02-19] MEDS: DAPTOmycin 275 MG in SYRINGE 0 ML IV SCH (20:14)
[2019-02-19] MEDS: SIMVASTATIN 20 MG TAB PO SCH (20:20)
[2019-02-19] MEDS: TRAVOPROST Z 0.004% OPH SOLN 2.5 ML BTL OPB SCH (20:21)
[2019-02-20] MEDS: HEPARIN SOD 5,000 UNIT/0.5 ML VIAL SQ SCH ×2 (05:53→15:43)
[2019-02-20 07:37] LABS: Hematocrit (blood only) 33.5 % (37-47); Hemoglobin 11.7 g/dL (12.0-16.0); Mean Corpuscular Hgb Conc 34.9 g/dL (32-36); Mean Corpuscular Volume 90.8 fL (80-100); Mean Platelet Volume 10.2 fL (7.4-10.4); Platelet Count 160 K/uL (130-400); RDW Coefficient of Variation 12.8 % (11.5-14.5); RDW Standard Deviation 42.7 fL (36.4-46.3); Red Blood Count 3.69 M/uL (4.2-5.4); White Blood Count 6.15 K/uL (4.8-10.8)
[2019-02-20] MEDS: MAGNESIUM OXIDE 400 MG TAB PO SCH (08:00)
[2019-02-20] MEDS: CHOLECALCIFEROL 1,000 UNITS TAB PO SCH (08:00)
[2019-02-20] MEDS: BRIMONIDINE TARTRATE 0.2% 5ML OPB SCH (08:01)
[2019-02-20] MEDS: INSULIN DETEMIR FLEXPEN/FLEX TOUCH 100 UNITS/ML 3ML SQ SCH (08:02)
[2019-02-20] MEDS: PIPERACILLIN/TAZOBACTAM 3.375 GM in DEXTROSE 5% 100 ML IV SCH ×2 (08:05→17:14)
[2019-02-20 08:24] LABS: BUN Creatinine Ratio 17.2 (10-20); Calcium 8.8 mg/dl (8.5-10.1); Est GFR (Non-African American) 60.4; Potassium 3.9 mmol/L (3.5-5.1)
[2019-02-20] MEDS: INSULIN ASPART 100 UNITS/ML 3 ML PEN SC SCH ×4 (09:01→21:00)
[2019-02-20] MEDS ORDERED: GADOBUTROL 30ML VIAL IV PRN (11:48)
--- NOTE | 2019-02-20 12:22 | Magnetic Resonance Report ---
MRI OF THE LEFT MIDFOOT AND FOREFOOT WITH AND WITHOUT CONTRAST CLINICAL HISTORY: Left fourth toe osteomyelitis. COMPARISON STUDY: MRI of the left foot September 23, 2017. Left radiograph February 18, 2019. TECHNIQUE: Utilizing a 1.5 Marti magnet, multiplanar, multiecho imaging of the left midfoot and foref oot was performed pre and postcontrast administration. Intravenous injection of 6 cc of Gadavist was uneventful. FINDINGS: Note is made of marked marrow edema within the distal phalanx of the left fifth toe with di minished T1 signal. There is associated enhancement. This reflects osteomyelitis. There is minimal ma rrow edema within the distal phalanx of the left fourth toe with preserved T1 signal. The patient is status post dilatation of the left second and third digits at the level the metatarsophalangeal joint s. No additional sites of marrow edema are present. Tarsometatarsal joints are intact. No abscess is present. IMPRESSION: 1. Findings consistent with osteomyelitis of the distal phalanx of the left fifth toe. 2. Mild marrow edema within the distal phalanx of the left fourth toe which suggests osteitis. 3. Status post amputation of the left second and third toes. Electronically signed by: Christoph Calloway M.D. 02/20/2019 12:21 PM
--- NOTE | 2019-02-20 13:36 | Consultation Report ---
DATE OF OPERATION: 02/20/2019 PERTINENT HISTORY: This is an 78-year-old female seen at the request of Dr. Saskia Sanders regarding left foot possible osteomyelitis. The patient was under the care of Dr. James Ramirez at the diabetic foot center. She had developed left toe redness, swelling. Fifth toe was white in color as noted by her [id number]. She was seen at the diabetic foot clinic and was then referred to the ER. They noted some streaking that extended up to the dorsal aspect of the left foot. She had no fevers or chills when she was admitted to the hospital after radiographs suggested possible osteomyelitis of the left fourth toe. The patient also had an episode of symptomatic bradycardia and hypotension. She was placed on IV antibiotics and orthopedic consultation was requested. The patient has also been ordered an MRI of the left foot by the medical service to confirm or deny the findings of the radiographs. PAST MEDICAL HISTORY: Peripheral artery disease, amputated second and third toes of the left foot, coronary artery disease, dyslipidemia, hypertension, diabetes mellitus type 2, diabetic neuropathy, diabetic retinopathy. PAST SURGICAL HISTORY: Cataract surgery, transmetatarsal amputation of the right foot by Dr. Acosta in 2017, amputation of the second and third toes of the left foot. She has had angiogram and angioplasty by Dr. Acosta in the past. Other procedures, noncontributory. ALLERGIES: BACLOFEN, BACTRIM, SULFAMETHOXAZOLE, TRAMADOL, AND TRIMETHOPRIM. MEDICATIONS: Please see the extensive list in the medical record. SOCIAL HISTORY: The patient is a . She lives alone. She is retired. Denies tobacco, alcohol, or drug use. PHYSICAL EXAMINATION: GENERAL: This is a pleasant 78-year-old female who is lying supine in her hospital room bed. Alert and oriented x3. Speech clear and fluent. No acute distress. EXTREMITIES: Examination of the lower extremities demonstrates right status post transmetatarsal amputation with slight callus into the distal fourth metatarsal. The left foot demonstrates severe hallux valgus deformity of the great toe with callusing over the medial aspect of the interphalangeal joint region. She also has callus into the first metatarsal. She has callus at the base of the fifth metatarsal and she has severe claw toes of the fourth and fifth toes of the left foot with thickened dystrophic nails and some subungual hematoma at the fourth toe distal tip. Severe callusing of the distal tips of the toes is also noted with scant hair growth. The feet are warm. The dorsalis pedis is palpable on the left. The posterior tibial pulse is intermittently palpable. She had limited range of motion of the great toe and lesser toes in the left foot. Radiographs were reviewed demonstrating claw toes of the fourth and fifth toes with erosion consistent with possible osteomyelitis of the distal phalanx of the fourth toe, possibly of the fifth toe. LABORATORIES: Reviewed. IMPRESSION: 1. Left fourth toe, possible osteomyelitis. 2. Possibility of fifth toe osteomyelitis, left foot. 3. Severe peripheral vascular disease with previous amputations, bilateral feet. 4. Severe clawtoe deformities of the left foot, severe hallux valgus deformity of the left foot. 5. DM Type 2 RECOMMENDATION: Await MRI assessment of the left foot to confirm or deny osteomyelitis; however, despite MRI findings the patient is a good candidate for transmetatarsal amputation due to the deformities and difficulties that she has had with the residual 3 toes of the left foot and her underlying PVD. She is scheduled to have an arterial procedure by on Friday. If amenable, she may be able to undergo a transmetatarsal amputation on Friday as well pending revascularization if possible per Dr. Acosta. In the meantime, dry dressings to the left foot, limit weightbearing to the heel only, and will follow with you. Thank you for the opportunity to consult in the care of this patient. I attest to the content of the Intraoperative Record and any orders documented therein. Any exceptions are noted below. MTDD
--- NOTE | 2019-02-20 14:08 | Infectious Disease Consult ---
Date of Consultation February 20, 2019 Assessment & Plan (1) Osteomyelitis of fifth toe of left foot: 78-year-old female with diabetes and neuropathy now with osteomyelitis of the left fifth toe in the setting of peripheral arterial disease. Pending surgical intervention and vascular intervention, would continue patient on daptomycin and Zosyn. Length of IV antibiotics yet to be determined and will be based on surgical results. Will follow. (2) PAD (peripheral artery disease): History of Present Illness Reason for Consultation: Osteomyelitis left fifth toe Attending Physician: Saskia Sanders MD History of Present Illness 78-year-old female with long-standing diabetes mellitus with peripheral vascular disease, status post previous amputation of 2 toes of the left foot, was referred for admission on February 18 by the diabetic foot clinic for worsening cellulitis of her left foot. She was noted to have discoloration of the toe with red streaking up the foot and leg. She was admitted to the hospital and started empirically on daptomycin and Zosyn. Blood cultures have been negative. She has been seen by orthopedic surgery and vascular surgery, and plans for further intervention with possible transmetatarsal amputation next week. Patient currently afebrile, denies any significant pain. Has been tolerating antibiotics without apparent difficulty. Allergies Allergy/AdvReac Type Severity Reaction Status Date / Time baclofen Allergy Unknown unkown Unverified 02/18/19 16:00 Bactrim Allergy Unknown itching Verified 12/21/17 14:38 sulfamethoxazole Allergy Unknown itching Verified 02/18/19 16:00 tramadol Allergy Unknown unkown Unverified 02/18/19 16:00 trimethoprim Allergy Unknown itching Verified 02/18/19 16:00 Home Medications Home Medications Medication Instructions Recorded Confirmed Type aspirin [Aspirin Low Dose] 81 mg PO DAILY 02/18/19 02/18/19 History brimonidine 1 drp OPB DAILY 02/18/19 02/18/19 History carboxymethylcellulose sodium 1 drp OPB DAILY PRN 02/18/19 02/18/19 History [Refresh Plus] cholecalciferol (vitamin D3) 1,000 unit PO DAILY 02/18/19 02/18/19 History [Vitamin D3] clobetasol 1 applic TOPICAL DIRECTED 02/18/19 02/18/19 History clopidogrel 75 mg PO DAILY 02/18/19 02/18/19 History dorzolamide-timolol (PF) [Cosopt 1 drp OPB BID 02/18/19 02/18/19 History (PF)] glipizide 5 mg PO DAILY 02/18/19 02/18/19 History hydrocortisone acetate [Anucort-HC] 25 mg NC BID PRN 02/18/19 02/18/19 History insulin detemir U-100 [Levemir 14 unit SUBCUT DAILY 02/18/19 02/18/19 History FlexTouch U-100 Insuln] lisinopril 10 mg PO DAILY 02/18/19 02/18/19 History magnesium oxide 400 mg PO DAILY 02/18/19 02/18/19 History metformin 850 mg PO BIDM 02/18/19 02/18/19 History metoprolol succinate 12.5 mg PO DAILY 02/18/19 02/18/19 History simvastatin 20 mg PO HS 02/18/19 02/18/19 History travoprost 1 drp OPB PM 02/18/19 02/18/19 History Patient History Medical History PAD (peripheral artery disease) (Chronic) Multiple interventions to RLE Amputated toe of left foot (Chronic) CAD (coronary artery disease) (Chronic) Chronic total circumflex occlusion, 80% mid LAD stenosis -managed medically Dyslipidemia (Chronic) HTN (hypertension) (Chronic) Diabetes mellitus, type II (Chronic) Diabetic neuropathy (Chronic) Diabetic retinopathy (Chronic) Surgical History History of cataract surgery (Chronic) History of transmetatarsal amputation of right foot (Chronic) Family History Brother Diabetes Social History Preferred Language: Vietnamese 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 Beliefs That Will Affect Care: None marital status: / Current Living Situation: Alone current occupational status: retired Other Information That Helps Us Care for You: No Feels Safe at Home: Yes Safety Concerns: Feels Safe At This Time Smoking Status: Never smoker Hx Alcohol Use: No Hx Substance Use: No Review of Systems Review of Systems: All systems reviewed & are unremarkable except as noted in HPI & below Physical Exam Constitutional: WD/WN, vitals as above + ill appearing (Chronically) and + obese; no acute distress Eyes: PERRL, conjunctivae normal, anicteric sclerae ENMT: external ear and nose normal, oropharynx normal Neck: trachea midline, no thyromegaly Respiratory: normal respiratory effort, lungs clear to auscultation Cardiovascular: RRR, no murmur, no edema Diminished peripheral pulses Gastrointestinal (Abdomen): normal bowel sounds, soft, nontender, no hepatosplenomegaly Percussion/Palpation: no abdominal mass Musculoskeletal: no cyanosis or clubbing, extremities motor strength 5/5 Skin: normal turgor; no rashes Discoloration of left fifth toe with erythema foot Neurologic: moves all extremities; no focal motor deficits Diminished sensation of feet Psychiatric: A+Ox3, euthymic affect Lymphatic: no cervical or axillary lymphadenopathy no inguinal lymphadenopathy Results & Data Vital Signs (Past 12 Hours) Vital Signs Temp Pulse Resp BP Pulse Ox 02/20/19 07:07 36.4 C L 74 16 161/81 H 97 Laboratory Results Short CBC 02/20/19 Range/Units 07:12 WBC 6.15 (4.8-10.8) K/uL Hgb 11.7 L (12.0-16.0) g/dL Hct 33.5 L (37-47) % Plt Count 160 (130-400) K/uL BMP 02/20/19 07:12 Sodium 140 Potassium 3.9 Chloride 109 H Carbon Dioxide 26 BUN 15 Creatinine 0.90 Glucose 195 H Calcium 8.8 Cardiac Enzymes 02/20/19 Range/Units 07:12 Total Creatine Kinase 74 (26-192) U/L Diagnostic Findings Microbiology 02/18/19 17:11 Blood Blood Culture - Preliminary No growth to date. 02/18/19 17:22 Blood Blood Culture - Preliminary No growth to date. MRI OF THE LEFT MIDFOOT AND FOREFOOT WITH AND WITHOUT CONTRAST CLINICAL HISTORY: Left fourth toe osteomyelitis. COMPARISON STUDY: MRI of the left foot September 23, 2017. Left radiograph February 18, 2019. TECHNIQUE: Utilizing a 1.5 Marti magnet, multiplanar, multiecho imaging of the left midfoot and forefoot was performed pre and postcontrast administration. Intravenous injection of 6 cc of Gadavist was uneventful. FINDINGS: Note is made of marked marrow edema within the distal phalanx of the left fifth toe with diminished T1 signal. There is associated enhancement. This reflects osteomyelitis. There is minimal marrow edema within the distal phalanx of the left fourth toe with preserved T1 signal. The patient is status post dilatation of the left second and third digits at the level the me tatarsophalangeal joints. No additional sites of marrow edema are present. Tarsometatarsal joints are intact. No abscess is present. IMPRESSION: 1. Findings consistent with osteomyelitis of the distal phalanx of the left fifth toe. 2. Mild marrow edema within the distal phalanx of the left fourth toe which suggests osteitis. 3. Status post amputation of the left second and third toes. Electronically signed by: Christoph Calloway M.D. 02/20/2019 12:21 PM Dictated: 02/20/19 1214 Transcribed: 02/20/19 1214
--- NOTE | 2019-02-20 16:22 | Hospitalist Progress Note ---
Date of Service February 20, 2019 Assessment & Plan (1) Osteomyelitis: - -Long-standing history of diabetic foot infections status post multiple amputations -Most recent cultures positive for MSSA sent from diabetic foot clinic for ulcer on left little toe with drainage X-ray of foot shows osteomyelitis and left toe MRI shows osteomyelitis of left fifth toe Patient will be continued with daptomycin and IV Zosyn-DC statin while on daptomycin -Appreciate input from infectious disease -Appreciate input from vascular surgery Dr. Acosta Plan for revascularization of left lower extremity on 02/21/2019 Orthopedics consulted, possible transmetatarsal amputation of left foot on Friday (2) Hypotensive episode: Blood pressure stable -Patient developed symptomatic hypotension and bradycardia while vancomycin and Zosyn were infusing simultaneously -Suspect vasovagal versus reaction from infusion of antibiotics being infused simultaneously -Blood pressure improved after IV fluid resuscitation -PRN Benadryl for further allergic symptoms (3) Diabetes mellitus, type II: -Hgb A1c 7.5 01/2019 -Hold oral agents and utilize Lantus and NovoLog per protocol while hospitalized (4) PAD (peripheral artery disease): Lower extremity arterial Doppler: 1. Extensive calcified plaque in the lower extremity arterial structure. 2. Elevated peak systolic velocities about the popliteal area suggest high- grade stenosis. 3. Short segment occlusion about the proximal posterior tibial artery. 4. Blunted monophasic waveform suggestive of severe peripheral artery disease Appreciate input from vascular surgery: Plan for revascularization procedure on Friday Hold aspirin and Plavix for planned surgery on Friday (5) CAD (coronary artery disease): -Stable, no reports of chest pain -Hold aspirin and Plavix for surgery -Beta-floyd resumed on holding parameters (6) HTN (hypertension): -As above (7) DVT prophylaxis: -SQ heparin would be hold 12 hours prior to surgery Disposition: Lives at home, patient will need PT OT evaluation prior to discharge May need rehab post operatively Social service consult for discharge Subjective Patient reports of feeling fine no complaint of pain on the left foot, Afebrile, vitals stable Plan for vascular intervention tomorrow on left lower extremity, followed by possible transmetatarsal amputation of left foot Physical Exam Constitutional: WD/WN, vitals as above no acute distress Eyes: PERRL, conjunctivae normal, anicteric sclerae ENMT: external ear and nose normal, oropharynx normal Neck: trachea midline, no thyromegaly Respiratory: normal respiratory effort, lungs clear to auscultation Cardiovascular: RRR, no murmur, no edema Gastrointestinal (Abdomen): Inspection/Auscultation: normal bowel sounds Percussion/Palpation: abdomen soft; abdomen nontender Musculoskeletal: Left foot status post amputation of left second third toe, bandage present on left fourth and fifth toe no active drainage noted Neurologic: PERRL, EOMI, accommodation nl, no face palsy, no dysarthria Psychiatric: A+Ox3, euthymic affect Results & Data Vital Signs (Past 12 Hours) Vital Signs Temp Pulse Resp BP BP Pulse Ox 02/20/19 15:34 36.7 C 78 18 158/91 H 99 02/20/19 07:07 36.4 C L 74 16 161/81 H 97
[2019-02-20] MEDS: DAPTOmycin 275 MG in SYRINGE 0 ML IV SCH (19:51)
[2019-02-20] MEDS: TRAVOPROST Z 0.004% OPH SOLN 2.5 ML BTL OPB SCH (20:46)
[2019-02-20] MEDS: DORZOLAMIDE/TIMOLOL 22.3/6.8MG/ML 10 ML BTL OP SCH (20:57)
[2019-02-21] MEDS: PIPERACILLIN/TAZOBACTAM 3.375 GM in DEXTROSE 5% 100 ML IV SCH ×2 (00:07→20:02)
[2019-02-21 08:13] LABS: Hematocrit (blood only) 35.2 % (37-47); Hemoglobin 12.3 g/dL (12.0-16.0); Mean Corpuscular Hgb Conc 34.9 g/dL (32-36); Mean Corpuscular Volume 90.3 fL (80-100); Mean Platelet Volume 10.2 fL (7.4-10.4); Platelet Count 178 K/uL (130-400); RDW Coefficient of Variation 12.8 % (11.5-14.5); RDW Standard Deviation 41.9 fL (36.4-46.3); White Blood Count 6.33 K/uL (4.8-10.8)
[2019-02-21 08:48] LABS: BUN Creatinine Ratio 18.5 (10-20); Calcium 9.2 mg/dl (8.5-10.1); Creatinine Clr Calc Pharmacy 43.5 ml/min; Est GFR (African American) 72.9; Est GFR (Non-African American) 62.9
[2019-02-21] MEDS: DORZOLAMIDE/TIMOLOL 22.3/6.8MG/ML 10 ML BTL OP SCH ×2 (08:49→21:24)
[2019-02-21] MEDS: BRIMONIDINE TARTRATE 0.2% 5ML OPB SCH (08:49)
[2019-02-21] MEDS: INSULIN ASPART 100 UNITS/ML 3 ML PEN SC SCH ×4 (08:51→21:27)
[2019-02-21] MEDS: INSULIN DETEMIR FLEXPEN/FLEX TOUCH 100 UNITS/ML 3ML SQ SCH (08:52)
--- NOTE | 2019-02-21 09:28 | Communication Note ---
Date of Service: February 21, 2019 Patient is scheduled for an arteriogram with possible intervention of her left popliteal artery tomorrow morning. I have discussed the risks options and benefits of the procedure with the patient. The patient understands the risks options and benefits and agrees to the procedure.
[2019-02-21] MEDS: CHOLECALCIFEROL 1,000 UNITS TAB PO SCH (09:58)
[2019-02-21] MEDS: MAGNESIUM OXIDE 400 MG TAB PO SCH (09:58)
[2019-02-21] MEDS ORDERED: PIPERACILL/TAZOBAC CONSULT ACTIVE PRN (14:55)
[2019-02-21] MEDS ORDERED: PIPERACILLIN/TAZOBACTAM 3.375 GM in DEXTROSE 5% 100 ML IV ONE (15:00)
--- NOTE | 2019-02-21 15:40 | Consultation ---
Date of Consultation Patient was seen at bedside as a follow-up from previous consultation yesterday. MRI report and images reviewed. Findings consistent with osteomyelitis of the distal phalanges of the fourth and fifth toes. Physical exam continued edema and local swelling of the fourth and fifth toes with claw toe deformities. Severe hallux valgus of the left great toe. Callus under the first and fifth metatarsal heads with a callus at the base of the left fifth metatarsal. Pulses are intermittently palpable. Foot is warm. Limited sensation in a stocking dis tribution. Impression left foot fourth and fifth toe distal phalanx osteomyelitis. Severe hallux valgus deformity. Neuropathy. Severe peripheral vascular disease. Based upon the patient's poor vascularity, peripheral vascular disease, neuropathy and diabetes mellitus I would recommend a transmetatarsal amputation of the left foot. This may be able to occur tomorrow after her arteriogram and possible revascularization procedure is performed by Dr. Acosta. February 21, 2019 History of Present Illness Attending Physician: Saskia Sanders MD Allergies Allergy/AdvReac Type Severity Reaction Status Date / Time baclofen Allergy Unknown unkown Unverified 02/18/19 16:00 Bactrim Allergy Unknown itching Verified 12/21/17 14:38 sulfamethoxazole Allergy Unknown itching Verified 02/18/19 16:00 tramadol Allergy Unknown unkown Unverified 02/18/19 16:00 trimethoprim Allergy Unknown itching Verified 02/18/19 16:00 Home Medications Home Medications Medication Instructions Recorded Confirmed Type aspirin [Aspirin Low Dose] 81 mg PO DAILY 02/18/19 02/18/19 History brimonidine 1 drp OPB DAILY 02/18/19 02/18/19 History carboxymethylcellulose sodium 1 drp OPB DAILY PRN 02/18/19 02/18/19 History [Refresh Plus] cholecalciferol (vitamin D3) 1,000 unit PO DAILY 02/18/19 02/18/19 History [Vitamin D3] clobetasol 1 applic TOPICAL DIRECTED 02/18/19 02/18/19 History clopidogrel 75 mg PO DAILY 02/18/19 02/18/19 History dorzolamide-timolol (PF) [Cosopt 1 drp OPB BID 02/18/19 02/18/19 History (PF)] glipizide 5 mg PO DAILY 02/18/19 02/18/19 History hydrocortisone acetate [Anucort-HC] 25 mg ME BID PRN 02/18/19 02/18/19 History insulin detemir U-100 [Levemir 14 unit SUBCUT DAILY 02/18/19 02/18/19 History FlexTouch U-100 Insuln] lisinopril 10 mg PO DAILY 02/18/19 02/18/19 History magnesium oxide 400 mg PO DAILY 02/18/19 02/18/19 History metformin 850 mg PO BIDM 02/18/19 02/18/19 History metoprolol succinate 12.5 mg PO DAILY 02/18/19 02/18/19 History simvastatin 20 mg PO HS 02/18/19 02/18/19 History travoprost 1 drp OPB PM 02/18/19 02/18/19 History Patient History Medical History PAD (peripheral artery disease) (Chronic) Multiple interventions to RLE Amputated toe of left foot (Chronic) CAD (coronary artery disease) (Chronic) Chronic total circumflex occlusion, 80% mid LAD stenosis -managed medically Dyslipidemia (Chronic) HTN (hypertension) (Chronic) Diabetes mellitus, type II (Chronic) Diabetic neuropathy (Chronic) Diabetic retinopathy (Chronic) Surgical History History of cataract surgery (Chronic) History of transmetatarsal amputation of right foot (Chronic) Family History Brother Diabetes Social History Preferred Language: Argentine Communication Ability: Effective 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
--- NOTE | 2019-02-21 17:29 | Hospitalist Progress Note ---
Date of Service February 21, 2019 Assessment & Plan (1) Osteomyelitis: - -Long-standing history of diabetic foot infections status post multiple amputations -Most recent cultures positive for MSSA sent from diabetic foot clinic for ulcer on left little toe with drainage X-ray of foot shows osteomyelitis and left toe MRI shows osteomyelitis of left fifth toe Patient will be continued with daptomycin and IV Zosyn-DC statin while on daptomycin -Appreciate input from infectious disease -Appreciate input from vascular surgery Dr. Acosta Plan for revascularization of left lower extremity on 02/22/2019 Orthopedics consulted, possible transmetatarsal amputation of left foot on Friday02/22/2019 Patient is ordered n.p.o. past midnight, Aspirin Plavix has been kept on hold Subcu heparin has been kept on hold for procedure tomorrow (2) Hypotensive episode: Blood pressure stable -Patient developed symptomatic hypotension and bradycardia while vancomycin and Zosyn were infusing simultaneously Vancomycin discontinued -Suspect vasovagal versus reaction from infusion of antibiotics being infused simultaneously Vision will be continued with IV Zosyn -Blood pressure improved after IV fluid resuscitation -PRN Benadryl for further allergic symptoms (3) Diabetes mellitus, type II: -Hgb A1c 7.5 01/2019 -Hold oral agents and utilize Lantus and NovoLog per protocol while hospitalized (4) PAD (peripheral artery disease): Lower extremity arterial Doppler: 1. Extensive calcified plaque in the lower extremity arterial structure. 2. Elevated peak systolic velocities about the popliteal area suggest high- grade stenosis. 3. Short segment occlusion about the proximal posterior tibial artery. 4. Blunted monophasic waveform suggestive of severe peripheral artery disease Appreciate input from vascular surgery: Plan for revascularization procedure on Friday Hold aspirin and Plavix for planned surgery on Friday02/22/2019 (5) CAD (coronary artery disease): -Stable, no reports of chest pain -Hold aspirin and Plavix for surgery -Beta-floyd resumed on holding parameters (6) HTN (hypertension): -As above (7) DVT prophylaxis: -SQ heparin would be hold 12 hours prior to surgery Disposition: Lives at home, patient will need PT OT evaluation prior to discharge May need rehab post operatively Social service consult for discharge Subjective Sitting up, finishing dinner, no complaint of pain or discomfort on left foot, no fever or chills Scheduled for left lower extremity vascular procedure followed by left foot transmetatarsal amputation tomorrow 02/22/2019 Physical Exam Constitutional: WD/WN, vitals as above no acute distress Eyes: PERRL, conjunctivae normal, anicteric sclerae ENMT: external ear and nose normal, oropharynx normal Neck: trachea midline, no thyromegaly Respiratory: normal respiratory effort, lungs clear to auscultation Cardiovascular: RRR, no murmur, no edema Gastrointestinal (Abdomen): Inspection/Auscultation: normal bowel sounds Percussion/Palpation: abdomen soft; abdomen nontender Neurologic: PERRL, EOMI, accommodation nl, no face palsy, no dysarthria Psychiatric: A+Ox3, euthymic affect Results & Data Vital Signs (Past 12 Hours) Vital Signs Temp Pulse Resp BP BP Pulse Ox 02/21/19 15:49 36.6 C 86 16 143/83 H 97 02/21/19 07:16 36.6 C 78 16 143/87 H 95
[2019-02-21] MEDS: DAPTOmycin 275 MG in SYRINGE 0 ML IV SCH (19:19)
[2019-02-21] MEDS: TRAVOPROST Z 0.004% OPH SOLN 2.5 ML BTL OPB SCH (21:33)
--- NOTE | 2019-02-21 21:39 | Infectious Disease Progress Nt ---
Date of Service February 21, 2019 Assessment & Plan (1) Osteomyelitis of fifth toe of left foot: 78-year-old female with diabetes and neuropathy now with osteomyelitis of the left fifth toe in the setting of peripheral arterial disease. Pending surgical intervention and vascular intervention, would continue patient on daptomycin and Zosyn. Length of IV antibiotics yet to be determined and will be based on surgical results. Will follow. (2) PAD (peripheral artery disease): Subjective Patient seen in follow-up for left foot osteomyelitis, cellulitis, and ischemia. Pain controlled. Orthopedic follow-up noted, plans for transmetatarsal amp utation after vascular intervention. Remains afebrile. Review of Systems Review of Systems: All systems reviewed & are unremarkable except as noted in HPI & below Physical Exam Constitutional: WD/WN, vitals as above + ill appearing (Chronically) and + obese; no acute distress Eyes: PERRL, conjunctivae normal, anicteric sclerae ENMT: external ear and nose normal, oropharynx normal Neck: trachea midline, no thyromegaly Respiratory: normal respiratory effort, lungs clear to auscultation Cardiovascular: RRR, no murmur, no edema Gastrointestinal (Abdomen): normal bowel sounds, soft, nontender, no hepatosplenomegaly Percussion/Palpation: no abdominal mass Musculoskeletal: no cyanosis or clubbing, extremities motor strength 5/5 Skin: normal turgor; no rashes Left foot with gangrenous changes Neurologic: moves all extremities; no focal motor deficits Psychiatric: A+Ox3, euthymic affect Lymphatic: no cervical or axillary lymphadenopathy no inguinal lymphadenopathy Results & Data Vital Signs (Past 12 Hours) Vital Signs Temp Pulse Resp BP Pulse Ox 02/21/19 15:49 36.6 C 86 16 143/83 H 97 Laboratory Results Short CBC 02/21/19 Range/Units 07:23 WBC 6.33 (4.8-10.8) K/uL Hgb 12.3 (12.0-16.0) g/dL Hct 35.2 L (37-47) % Plt Count 178 (130-400) K/uL BMP 02/21/19 07:23 Sodium 138 Potassium 4.0 Chloride 106 Carbon Dioxide 26 BUN 16 Creatinine 0.87 Glucose 164 H Calcium 9.2 Diagnostic Findings Microbiology 02/18/19 17:11 Blood Blood Culture - Preliminary No growth to date. 02/18/19 17:22 Blood Blood Culture - Preliminary No growth to date.
[2019-02-22] MEDS: PIPERACILLIN/TAZOBACTAM 3.375 GM in DEXTROSE 5% 100 ML IV SCH ×3 (04:32→21:27)
[2019-02-22] MEDS: SODIUM CHLORIDE 0.9% 1000ML 1,000 ML IV SCH ×2 (05:59→21:13)
[2019-02-22] MEDS ORDERED: CEFAZOLIN 1000MG 1,000 MG/7.5 ML SYR IV SCH (06:00)
[2019-02-22 06:49] LABS: Hematocrit (blood only) 37.2 % (37-47); Mean Corpuscular Hgb Conc 34.9 g/dL (32-36); Mean Corpuscular Volume 90.3 fL (80-100); Mean Platelet Volume 9.8 fL (7.4-10.4); Platelet Count 175 K/uL (130-400); RDW Coefficient of Variation 12.8 % (11.5-14.5); Red Blood Count 4.12 M/uL (4.2-5.4); White Blood Count 4.99 K/uL (4.8-10.8)
[2019-02-22 07:21] LABS: Calcium 9.4 mg/dl (8.5-10.1); Est GFR (African American) 58.1; Est GFR (Non-African American) 50.1; Potassium 4.1 mmol/L (3.5-5.1)
--- NOTE | 2019-02-22 08:12 | Pre Anesthesia Assessment ---
Date of Service February 22, 2019 Pre Sedation Assessment Vital Signs Temp Pulse Resp BP BP Pulse Ox 02/22/19 07:40 36.8 C 83 16 145/84 H 95 02/22/19 07:02 36.5 C 80 16 136/80 95 02/21/19 23:40 35.6 C L 70 19 115/74 93 02/21/19 15:49 36.6 C 86 16 143/83 H 97 Cardiovascular RRR, no murmur, no edema Respiratory normal respiratory effort, lungs clear to auscultation Pre-Sedation Airway Assessment Smoking Status: Never smoker Hx Sleep Apnea: No Short, Thick Neck: No Thyromental Distance: > or= 3.5 Finger Breadths Oral Cavity: + WNL Mallampati Class: II ASA: ASA3 NPO Status Date of Last Intake of Fluids: 02/21/19 Time of Last Intake of Fluids: 23:00 Date of Last Intake of Solid Food: 02/21/19 Time of Last Intake of Solid Foods: 20:00 Procedure Planning Contraindications for Sedation: none Current Medications Reviewed: Yes Notes The planned sedation has been discussed with the patient. Informed Consent was obtained. I have identified the patient, determined the appropriateness of sedation and have assessed the patient immediately prior to the procedure. All medicine(s) and interventions are by my order.
--- NOTE | 2019-02-22 08:12 | History & Physical Bridge Note ---
Date of Service February 22, 2019 History & Physical Bridge Note Patient for arteriography of the left lower extremity and possibleintervention. I have discussed the risks options and benefits of the procedure with the patient. The patient understands the risks options and benefits and agrees to the procedure. I have examined the patient, reviewed the History & Physical and in the interval since the performance of the History & Physical I have noted the following changes of clinical significance: no changes noted
[2019-02-22] MEDS ORDERED: fentaNYL citrate 100 MCG/2 ML VIAL ONE ×2 (08:21→15:30)
[2019-02-22] MEDS ORDERED: MIDAZOLAM HCL 1 MG/ML 2ML VIAL ONE ×2 (08:21→09:17)
[2019-02-22] MEDS ORDERED: HEPARIN SOD (PORCINE) 1000 UNIT/ML 10 ML VIAL ONE (08:26)
[2019-02-22] MEDS: MAGNESIUM OXIDE 400 MG TAB PO SCH (09:00)
[2019-02-22] MEDS ORDERED: LIDOCAINE HCL 1% 20 ML VIAL INJ ONE (09:41)
[2019-02-22] MEDS ORDERED: VISIPAQUE IV PRN (09:41)
--- NOTE | 2019-02-22 09:48 | Post Anesthesia Assessment ---
Date of Service February 22, 2019 Post Sedation Assessment Vital Signs Temp Pulse Pulse Resp BP BP Pulse Ox 02/22/19 09:47 82 14 130/77 93 02/22/19 09:42 90 15 135/82 92 02/22/19 09:40 91 H 15 135/82 95 02/22/19 09:35 83 15 119/68 98 02/22/19 09:30 90 15 128/75 98 02/22/19 09:25 84 14 113/75 97 02/22/19 09:20 84 12 131/71 94 02/22/19 09:15 81 16 131/92 98 02/22/19 09:10 85 14 138/85 99 02/22/19 09:05 87 18 146/86 H 99 02/22/19 09:00 85 16 130/83 98 02/22/19 08:55 84 18 130/95 99 02/22/19 08:50 83 18 131/81 99 02/22/19 08:45 83 16 125/79 98 02/22/19 08:40 90 19 191/104 H 100 02/22/19 08:29 87 22 171/102 H 100 02/22/19 07:40 36.8 C 83 16 145/84 H 95 02/22/19 07:02 36.5 C 80 16 136/80 95 02/21/19 23:40 35.6 C L 70 19 115/74 93 02/21/19 15:49 36.6 C 86 16 143/83 H 97 Recovery Score Activity: Moves 4 extremities Respiration: Deep Breath/Cough Circulation: +/-20% PreAnes Value Consciousness: Fully Awake Oxygen Saturation: > 92% On Room Air Post Anesthesia Score: 10 Discharge Sedation Level of Care: Fast Track Phase II Post Sedation Plan On clinical assessment, the patient appears to have tolerated the sedation without complications. Patient is recovering as anticipated. Patient will continue to be monitored by nursing and may be discharged when sedation discharge criteria are met per below protocol. Upon Completions of procedure and additional 15 minutes continue every 5 minute vital signs and the P.A.R. score; then discharge to a Phase I or Fast Track to Phase II per the following guidelines: * Discharge Patient to appropriate Phase II area if PAR is 8 or greater or return to pre- procedure baseline. The post - procedure orders will be as directed. * If PAR score is less than 8 or not return to pre-procedure baseline then patient will follow Phase I monitoring till PAR is reached for Phase II. The Phase I may be done in procedure room or may call to secure a Phase I area. * If naloxone or flumazenil are used for reversal, hold in Phase I for continued monitoring from when last reversal dose was given for a minimum of 60 minutes or longer pending the nurse and/or physician discretion of patient condition before discharge to Phase II. Please call the Sedation Physician to re-evaluate and complete post-note for discharge to Phase II area. Do NOT discharge from procedure sedation or Phase 1 until post- sedation evaluation note is complete by procedure /sedation MD Sedation Discharge Instructions to be given to the patient at discharge to home.
--- NOTE | 2019-02-22 09:48 | Operative Report ---
Post Operative Report Pre & Post Diagnosis Operation Date: 02/22/19 07:00 <No data on this case meets the specified criteria> Operation Date: 02/22/19 08:00 Pre-Op Diagnosis: Osteomyelitis Left Foot, Peroneal Artery Occlusion Post-Op Diagnosis: Osteomyelitis Left Foot, Peroneal Artery Occlusion Procedure Operation Date: 02/22/19 07:00 <No data on this case meets the specified criteria> Operation Date: 02/22/19 08:00 Actual Procedures p Left Lower Extremity Arterogram, Percutaneous Angioplasty of Peroneal Artery, Mechanical Closure of Right Femoral Artery; Moderate Sedation [id number](Right) - Kaleb Acosta MD Surgeon Kaleb Acosta MD Fuel Cell Designer None Estimated Blood Loss 10 Findings Consistent with Post-Op Diagnosis Specimens None Anesthesia Type RN Sedation Complications none Disposition Accompanied Patient To Recovery: No Disposition: Recovery Room Indications This is an 78-year-old female who has osteomyelitis of the left toes. She has had a peroneal artery balloon dilatation 2011. Her noninvasive at this time show markedly decreased ankle arm index with occlusion of the distal popliteal or proximal peroneal artery. Arteriography and possible intervention was recommended. I have discussed the risks options and benefits of the procedure with the patient. The patient understands the risks options and benefits and agrees to the procedure. Description of Procedure Patient was taken to the angiogram suite and placed in the supine position. After both groins were prepped and draped in a sterile manner a timeout and patient identification were performed. The local anesthetic was then administered to the right groin. Percutaneous puncture was made of the right common femoral artery and 035 wire was inserted and a 5 [place]ian sheath inserted over the wire. Using a rim catheter and 035 Glidewire the left iliac was cannulated from the right side. The rim catheter was passed down to the distal external iliac. Hand injections were then performed. This showed the common femoral profundofemoral and superficial femoral popliteal artery widely open. There is minimal atherosclerotic changes along these arteries. There is a short proximal occlusion of the peroneal artery. It reconstituted just beyond this occlusion. The peroneal artery then reconstituted in the DP and PT on the foot supplying the digital arteries. The anterior tibial posterior tibial are occluded from their origin down to the foot level. An 035 wire was then inserted through the rim catheter. This was a stiffened Glidewire. The 5 [place]ian sheath was exchanged for a 6 [place]ian destination. Using the stiff Glidewire and a long quick cross the lesion was traversed. The wire was removed. Angiogram showed that the quick cross was true lumen beyond the occlusion. The wire was reinserted the quick cross was removed. We ballooned this area with a 3 x 4 Gulliver balloon. Being that this was a reocclusion we then ballooned with a 4 x 80 medicated balloon. Balloon wire were then removed. For completion anginal which showed the peroneal artery proximally widely patent. Good flow to the foot was then seen through the collaterals of the ankle. The destination sheath was then pulled over to the right side. Injection performed showed the puncture to be in the common femoral artery anteriorly. The puncture site was then closed using a Star closure device. Adequate hemostasis was obtained.The patient left the operation room in satisfactory condition and tolerated the procedure well. All needle and sponge counts were correct at the end of the procedure. I attest to the content of the Intraoperative Record and any orders documented therein. Any exceptions are noted below.
[2019-02-22] MEDS ORDERED: SODIUM CHLORIDE 0.9% 1000ML 1,000 ML IV SCH (10:03)
[2019-02-22] MEDS: DORZOLAMIDE/TIMOLOL 22.3/6.8MG/ML 10 ML BTL OP SCH ×2 (10:14→21:15)
[2019-02-22] MEDS: BRIMONIDINE TARTRATE 0.2% 5ML OPB SCH (10:14)
[2019-02-22] MEDS: INSULIN ASPART 100 UNITS/ML 3 ML PEN SC SCH ×4 (10:21→22:03)
[2019-02-22] MEDS: INSULIN DETEMIR FLEXPEN/FLEX TOUCH 100 UNITS/ML 3ML SQ SCH (10:21)
[2019-02-22] MEDS: CHOLECALCIFEROL 1,000 UNITS TAB PO SCH (15:12)
--- NOTE | 2019-02-22 15:14 | Anesthesiology Consultation ---
Date of Service February 22, 2019 Assessment & Plan (1) Encounter for pre-operative examination: Chart Review Chart Review: Acceptable Risk for Surgery and Patient NOT seen in Pre Admission Testing Consults Requested none ASA ASA4 Proposed Anesthesia Anesthesia Type: General Regional Laterality: Left Site: Popliteal and Adductor Canal Risk / Benefits Reviewed With: PT / POA / Parent / Guardian, Accepts Plan and Informed Consent Obtained History Surgery Operation Date: 02/22/19 07:00 Proposed Procedures p Left Transmetatarsal Amputation - Gentry Dee DO Operation Date: 02/22/19 08:00 Proposed Procedures p Left Femoral Arterogram, Possible Intervention - Kaleb Acosta MD Height/Weight Height: 5 ft Weight: 65.2 kg Allergies Allergy/AdvReac Type Severity Reaction Status Date / Time baclofen Allergy Unknown unkown Verified 02/22/19 08:33 Bactrim Allergy Unknown itching Verified 12/21/17 14:38 sulfamethoxazole Allergy Unknown itching Verified 02/22/19 08:33 tramadol Allergy Unknown unkown Verified 02/22/19 08:33 trimethoprim Allergy Unknown itching Verified 02/22/19 08:33 Medications Home Medications Medication Instructions Recorded Confirmed Last Taken aspirin [Aspirin Low Dose] 81 mg PO DAILY 02/18/19 02/18/19 02/18/19 brimonidine 1 drp OPB DAILY 02/18/19 02/18/19 02/18/19 carboxymethylcellulose sodium 1 drp OPB DAILY PRN 02/18/19 02/18/19 02/18/19 [Refresh Plus] cholecalciferol (vitamin D3) 1,000 unit PO DAILY 02/18/19 02/18/19 02/18/19 [Vitamin D3] clobetasol 1 applic TOPICAL DIRECTED 02/18/19 02/18/19 02/18/19 clopidogrel 75 mg PO DAILY 02/18/19 02/18/19 02/18/19 dorzolamide-timolol (PF) [Cosopt 1 drp OPB BID 02/18/19 02/18/19 02/18/19 (PF)] glipizide 5 mg PO DAILY 02/18/19 02/18/19 02/18/19 hydrocortisone acetate [Anucort-HC] 25 mg NH BID PRN 02/18/19 02/18/19 Unknown insulin detemir U-100 [Levemir 14 unit SUBCUT DAILY 02/18/19 02/18/19 02/18/19 FlexTouch U-100 Insuln] lisinopril 10 mg PO DAILY 02/18/19 02/18/19 02/18/19 magnesium oxide 400 mg PO DAILY 02/18/19 02/18/19 02/18/19 metformin 850 mg PO BIDM 02/18/19 02/18/19 02/18/19 metoprolol succinate 12.5 mg PO DAILY 02/18/19 02/18/19 02/18/19 simvastatin 20 mg PO HS 02/18/19 02/18/19 02/17/19 travoprost 1 drp OPB PM 02/18/19 02/18/19 02/17/19 Active Medications Generic Name Dose Route Start Last Admin Trade Name Freq PRN Reason Stop Dose Admin Brimonidine Tartrate 1 drops 02/19/19 12:15 02/22/19 10:14 Alphagan 0.2% OPB 03/21/19 12:14 1 drops DAILY MIRANDA Administration Dorzolamide/Timolol 1 drops 02/20/19 21:00 02/22/19 10:14 Cosopt OP 03/22/19 20:59 1 drops BID MIRANDA Administration Gadobutrol 6 ml 02/20/19 11:48 02/20/19 11:49 Gadavist 30ml IV 02/24/19 11:47 6 ml ONCE PRN Administration Interaction Checking Heparin Sodium (Porcine) 5,000 units 02/18/19 22:00 02/20/19 15:43 Heparin Sodium (Porcine) SQ 03/20/19 21:59 5,000 units Q8 MIRANDA Administration Daptomycin 275 mg/ Syringe 5.5 mls @ 2.75 mls/min 02/19/19 19:00 02/21/19 19:19 IV 04/02/19 18:59 2.75 mls/min Q24H MIRANDA Administration Protocol Piperacillin Sod/Tazobactam 115 mls @ 28.75 mls/hr 02/21/19 20:00 02/22/19 12:34 Sod 3.375 gm/ Dextrose IV 03/04/19 19:59 28.8 mls/hr Q8H MIRANDA Administration Protocol Insulin Aspart 0 units 02/19/19 11:30 02/22/19 11:30 Novolog Flexpen SC 03/21/19 11:29 Not Given ACHS MIRANDA Insulin Detemir 14 units 02/19/19 09:00 02/22/19 10:21 Levemir Flextouch SQ 03/21/19 08:59 14 units DAILY MIRANDA Administration Iodixanol 75 ml 02/22/19 09:41 02/22/19 09:45 Visipaque IV 02/26/19 09:40 75 ml UD PRN Administration now Magnesium Oxide 400 mg 02/19/19 09:00 02/22/19 09:00 Mag-Ox PO 03/21/19 08:59 Not Given DAILY MIRANDA Vitamin D 1,000 units 02/19/19 09:00 02/22/19 15:12 Vitamin D3 PO 03/21/19 08:59 Not Given DAILY MIRANDA NPO Date Last Intake of Fluids: 02/21/19 Time Last Intake of Fluids: 18:00 Last Intake of Fluids Comment: water Date Last Intake of Solids: 02/21/19 Time Last Intake of Solids: 18:00 Past Medical History Medical History PAD (peripheral artery disease) (Chronic) Multiple interventions to RLE Amputated toe of left foot (Chronic) CAD (coronary artery disease) (Chronic) Chronic total circumflex occlusion, 80% mid LAD stenosis -managed medically Dyslipidemia (Chronic) HTN (hypertension) (Chronic) Diabetes mellitus, type II (Chronic) Diabetic neuropathy (Chronic) Diabetic retinopathy (Chronic) Exercise / Class Metabolic Activity II 4-5 Yardwork/Stairs/Walk up hill Past Family History Family History Brother Diabetes Past Surgical History Surgical History History of cataract surgery (Chronic) History of transmetatarsal amputation of right foot (Chronic) Past Anesthesia History No Hx of Anesthesia Complications and No Family Hx of Anesthesia Complications History of PONV No Hx of PONV and No Hx of Motion Sickness Social History Smoking Status: Never smoker Hx Alcohol Use: No Hx Substance Use: No substance use type: does not use Physical Exam Vital Signs Last Vital Signs Temp 36.5 C 02/22/19 15:30 Pulse 80 02/22/19 15:30 Resp 16 02/22/19 15:30 BP 158/84 H 02/22/19 15:30 Pulse Ox 95 02/22/19 15:30 ENMT Mouth: + poor dentition; no TMJ abnormality and oral opening not small Thyromental Distance: > or= 3.5 Finger Breadths Mallampati Class: II Neck normal visual inspection; neck extension not limited Respiratory normal respiratory effort Auscultation: lungs clear to auscultation bilaterally Cardiovascular Rate/Rhythm: regular rate and regular rhythm Heart Sounds: no murmur Musculoskeletal Extremities: + amputation noted (R partial foot) Neurologic moves all extremities Motor/Sensory: no sensory deficit Psychiatric Orientation: alert and oriented x 3 Testing Electrocardiogram Date: 02/18/19 Findings: + SB @ (51) Incomplete RBBB, left anterior fascicular block, When compared with ECG of 25-SEP-2017 15:57, No significant change was found Laboratory Results 02/22/19 06:41 02/22/19 06:41 PT 9.8 Seconds (9.0-12.0) 02/18/19 17:11 INR 1.0 (0.9-1.1) 02/18/19 17:11 02/18/19 17:11 Blood Culture - Preliminary Blood No growth to date. 02/18/19 17:22 Blood Culture - Preliminary Blood No growth to date. 02/22/19 02/22/19 02/22/19 15:34 11:31 10:19 POC Glucose 95 143 H 199 H 02/22/19 07:19 POC Glucose 178 H
[2019-02-22] MEDS ORDERED: BACITRACIN INJ 50,000 UNIT VIAL ONE (15:45)
[2019-02-22] MEDS ORDERED: BUPIVACAINE 0.5 % 5 MG/1 ML MPF 30ML VIAL ONE (15:45)
--- NOTE | 2019-02-22 15:46 | History & Physical Bridge Note ---
Date of Service February 22, 2019 History & Physical Bridge Note I have examined the patient, reviewed the History & Physical and in the interval since the performance of the History & Physical I have noted the following changes of clinical significance: Will require Left foot transmetatarsal amputation.
[2019-02-22] MEDS ORDERED: CEFAZOLIN 1000MG 1,000 MG/7.5 ML SYR IV ONE (15:47)
[2019-02-22] MEDS ORDERED: BUPIVACAINE/EPINEPHRINE 0.5% MPF 1:200,000 30 ML VIAL ONE (15:48)
[2019-02-22] MEDS ORDERED: DEXAMETHASONE SOD INJ 4 MG/ML VIAL ONE (15:48)
[2019-02-22] MEDS ORDERED: ATROPINE SULFATE 0.1 MG/ML 10ML SYR IV PRN ×2 (16:26→17:54)
[2019-02-22] MEDS ORDERED: fentaNYL citrate 100 MCG/2 ML VIAL IV PRN ×2 (16:26→17:54)
[2019-02-22] MEDS ORDERED: ePHEDrine sulfate 50 MG/ML AMP IV PRN ×2 (16:26→17:54)
[2019-02-22] MEDS ORDERED: ONDANSETRON INJ 2 MG/ML 2 ML VIAL IV PRN ×3 (16:26→18:45)
[2019-02-22] MEDS ORDERED: ONDANSETRON INJ 2 MG/ML 2 ML VIAL ONE (16:47)
[2019-02-22] MEDS ORDERED: ePHEDrine sulfate 50 MG/ML SYR ONE (16:47)
[2019-02-22] MEDS ORDERED: PROPOFOL IV EMULSION 10 MG/ML 20 ML VIAL IV ONE (16:47)
[2019-02-22] MEDS ORDERED: LIDOCAINE HCL 2% 2 ML VIAL/AMP(20MG/ML) INFIL ONE (16:47)
--- NOTE | 2019-02-22 17:14 | Post Operative Brief Note ---
Immediate Post Op Note v1 Date of Surgery February 22, 2019 Pre & Post Diagnosis Operation Date: 02/22/19 07:00 Pre-Op Diagnosis: Osteomyelitis fourth and fifth toes, peripheral vascular disease, Claw toes fourth and fifth toes, Diabetes mellitus, Severe hallux valgus deformity Post-Op Diagnosis: Osteomyelitis fourth and fifth toes, peripheral vascular disease, Claw toes fourth and fifth toes, Diabetes mellitus, Severe hallux valgus deformity Operation Date: 02/22/19 08:00 Pre-Op Diagnosis: Osteomyelitis Left Foot, Peroneal Artery Occlusion Post-Op Diagnosis: Osteomyelitis Left Foot, Peroneal Artery Occlusion Procedure Operation Date: 02/22/19 07:00 Actual Procedures p Left Transmetatarsal Amputation of foot(Left) - Gentry Dee DO Operation Date: 02/22/19 08:00 Actual Procedures p Left Lower Extremity Arteriogram, Percutaneous Angioplasty of Peroneal Artery, Mechanical Closure of Right Femoral Artery; Moderate Sedation [id number].(Right) - Kaleb Acosta MD Surgeon Gentry Dee DO Lidar Analyst Julio Granda PA-C Estimated Blood Loss 3 Findings Consistent with Post-Op Diagnosis Specimens First fourth and fifth toes, first through fifth metatarsal heads Drains Hemovac Drain Anesthesia Type General Regional Complications none Disposition Accompanied Patient To Recovery: No Disposition: Recovery Room
--- NOTE | 2019-02-22 17:28 | Hospitalist Progress Note ---
Date of Service February 22, 2019 Assessment & Plan (1) Osteomyelitis: - -Long-standing history of diabetic foot infections status post multiple amputations -Most recent cultures positive for MSSA sent from diabetic foot clinic for ulcer on left little toe with drainage X-ray of foot shows osteomyelitis and left toe MRI shows osteomyelitis of left fifth toe Patient will be continued with daptomycin and IV Zosyn-DC statin while on daptomycin -Appreciate input from infectious disease -Appreciate input from vascular surgery Dr. Espitia/Orthpedics s/p revascularization of left lower extremity today followed by transmetatarsal amputation of left foot (2) Hypotensive episode: Blood pressure stable -Patient developed symptomatic hypotension and bradycardia while vancomycin and Zosyn were infusing simultaneously Vancomycin discontinued -Suspect vasovagal versus reaction from infusion of antibiotics being infused simultaneously (3) Diabetes mellitus, type II: -Hgb A1c 7.5 01/2019 -Hold oral agents and utilize Lantus and NovoLog per protocol while hospitalized (4) PAD (peripheral artery disease): Lower extremity arterial Doppler: 1. Extensive calcified plaque in the lower extremity arterial structure. 2. Elevated peak systolic velocities about the popliteal area suggest high- grade stenosis. 3. Short segment occlusion about the proximal posterior tibial artery. 4. Blunted monophasic waveform suggestive of severe peripheral artery disease Appreciate input from vascular surgery: s/p revascularization procedure of left leg today by Dr Espitia (5) CAD (coronary artery disease): -Stable, no reports of chest pain -resumed aspirin and Plavix post surgery -Beta-floyd resumed on holding parameters (6) HTN (hypertension): -As above (7) DVT prophylaxis: -SQ heparin Disposition: Lives at home, patient will need PT OT evaluation prior to discharge May need rehab post operatively Social service consult for discharge Subjective s/p transmetatarsal amputation on left foot after vascular intervention mon left leg . vital remains stable pain well controlled with current meds Physical Exam Constitutional: WD/WN, vitals as above no acute distress Eyes: PERRL, conjunctivae normal, anicteric sclerae ENMT: external ear and nose normal, oropharynx normal Neck: trachea midline, no thyromegaly Respiratory: normal respiratory effort, lungs clear to auscultation Cardiovascular: RRR, no murmur, no edema Gastrointestinal (Abdomen): Inspection/Auscultation: normal bowel sounds Percussion/Palpation: abdomen soft; abdomen nontender Musculoskeletal: s/ p transmetatarsal amputation of left foot prior transmetatarsal amputation of rt food Neurologic: PERRL, EOMI, accommodation nl, no face palsy, no dysarthria Psychiatric: A+Ox3, euthymic affect Results & Data Vital Signs (Past 12 Hours) Vital Signs Temp Pulse Pulse Pulse Resp BP BP 02/22/19 15:30 36.5 C 80 16 158/84 H 02/22/19 11:11 36.8 C 72 16 101/59 L 02/22/19 10:03 37.4 C 84 16 125/80 02/22/19 09:47 82 14 130/77 02/22/19 09:42 90 15 135/82 02/22/19 09:40 91 H 15 135/82 02/22/19 09:35 83 15 119/68 02/22/19 09:30 90 15 128/75 02/22/19 09:25 84 14 113/75 02/22/19 09:20 84 12 131/71 02/22/19 09:15 81 16 131/92 02/22/19 09:10 85 14 138/85 02/22/19 09:05 87 18 146/86 H 02/22/19 09:00 85 16 130/83 02/22/19 08:55 84 18 130/95 02/22/19 08:50 83 18 131/81 02/22/19 08:45 83 16 125/79 02/22/19 08:40 90 19 191/104 H 02/22/19 08:29 87 22 171/102 H 02/22/19 07:40 36.8 C 83 16 145/84 H 02/22/19 07:02 36.5 C 80 16 136/80 Pulse Ox 02/22/19 15:30 95 02/22/19 11:11 96 02/22/19 10:03 92 02/22/19 09:47 93 02/22/19 09:42 92 02/22/19 09:40 95 02/22/19 09:35 98 02/22/19 09:30 98 02/22/19 09:25 97 02/22/19 09:20 94 02/22/19 09:15 98 02/22/19 09:10 99 02/22/19 09:05 99 02/22/19 09:00 98 02/22/19 08:55 99 02/22/19 08:50 99 02/22/19 08:45 98 02/22/19 08:40 100 02/22/19 08:29 100 02/22/19 07:40 95 02/22/19 07:02 95
--- NOTE | 2019-02-22 18:17 | Anesthesiology Progress Note ---
Date of Service February 22, 2019 Anesthesia Post Procedure Vital Signs Vital Signs: Temp Pulse Pulse Pulse Resp BP BP 02/22/19 18:10 87 18 123/56 L 02/22/19 17:55 36.3 C L 89 16 121/61 02/22/19 17:45 94 H 22 134/70 02/22/19 17:35 85 16 140/64 02/22/19 17:25 88 21 147/82 H 02/22/19 17:15 36.4 C L 86 15 148/77 H 02/22/19 15:30 36.5 C 80 16 158/84 H 02/22/19 11:11 36.8 C 72 16 101/59 L 02/22/19 10:03 37.4 C 84 16 125/80 02/22/19 09:47 82 14 130/77 02/22/19 09:42 90 15 135/82 02/22/19 09:40 91 H 15 135/82 02/22/19 09:35 83 15 119/68 02/22/19 09:30 90 15 128/75 02/22/19 09:25 84 14 113/75 02/22/19 09:20 84 12 131/71 02/22/19 09:15 81 16 131/92 02/22/19 09:10 85 14 138/85 02/22/19 09:05 87 18 146/86 H 02/22/19 09:00 85 16 130/83 02/22/19 08:55 84 18 130/95 02/22/19 08:50 83 18 131/81 02/22/19 08:45 83 16 125/79 02/22/19 08:40 90 19 191/104 H 02/22/19 08:29 87 22 171/102 H 02/22/19 07:40 36.8 C 83 16 145/84 H 02/22/19 07:02 36.5 C 80 16 136/80 02/21/19 23:40 35.6 C L 70 19 115/74 Pulse Ox 02/22/19 18:10 94 02/22/19 17:55 92 02/22/19 17:45 95 02/22/19 17:35 100 02/22/19 17:25 100 02/22/19 17:15 100 02/22/19 15:30 95 02/22/19 11:11 96 02/22/19 10:03 92 02/22/19 09:47 93 02/22/19 09:42 92 02/22/19 09:40 95 02/22/19 09:35 98 02/22/19 09:30 98 02/22/19 09:25 97 02/22/19 09:20 94 02/22/19 09:15 98 02/22/19 09:10 99 02/22/19 09:05 99 02/22/19 09:00 98 02/22/19 08:55 99 02/22/19 08:50 99 02/22/19 08:45 98 02/22/19 08:40 100 02/22/19 08:29 100 02/22/19 07:40 95 02/22/19 07:02 95 02/21/19 23:40 93 Transfer of Care Handoff Completed per policy Notes Mental Status: alert / awake / arousable and participated in evaluation Patient Amnestic to Procedure: Yes Nausea / Vomiting: adequately controlled Pain: adequately controlled Airway Patency, RR, SpO2: stable & adequate BP & HR: stable & adequate Hydration State: stable & adequate Anesthetic Complications: no major complications apparent and Pt Satisfied with anesthetic care
[2019-02-22] MEDS ORDERED: HYDROmorphone INJ 0.5 MG/0.5 ML SYR IV PRN (18:45)
[2019-02-22] MEDS ORDERED: BISACODYL 10 MG SUPP PR PRN (18:45)
[2019-02-22] MEDS ORDERED: METOCLOPRAMIDE HCL INJ 5 MG/ML 2 ML VIAL IV PRN (18:45)
[2019-02-22] MEDS ORDERED: NALOXONE HCL 0.4 MG/1 ML VIAL/CARP IV PRN (18:45)
[2019-02-22] MEDS ORDERED: OXYCODONE HCL IR 5 MG TAB (IMMEDIATE RELEASE) PO PRN (18:45)
--- NOTE | 2019-02-22 19:07 | Infectious Disease Progress Nt ---
Date of Service February 22, 2019 Assessment & Plan (1) Osteomyelitis of fifth toe of left foot: 78-year-old female with diabetes and neuropathy now with osteomyelitis of the left fifth toe in the setting of peripheral arterial disease. Now status post transmetatarsal amputation. Pending operative cultures, will continue on present antibiotics. Will follow. (2) PAD (peripheral artery disease): Subjective Patient seen in follow-up for left foot osteomyelitis, cellulitis, and ischemia. Now status post transmetatarsal amputation. Expected postoperative discomfort. He is medically stable at present. Afebrile. Review of Systems Review of Systems: All systems reviewed & are unremarkable except as noted in HPI & below Physical Exam Constitutional: WD/WN, vitals as above + ill appearing (Chronically) and + obese; no acute distress Eyes: PERRL, conjunctivae normal, anicteric sclerae ENMT: external ear and nose normal, oropharynx normal Neck: trachea midline, no thyromegaly Respiratory: normal respiratory effort, lungs clear to auscultation Cardiovascular: RRR, no murmur, no edema Gastrointestinal (Abdomen): normal bowel sounds, soft, nontender, no hepatosplenomegaly Percussion/Palpation: no abdominal mass Musculoskeletal: no cyanosis or clubbing, extremities motor strength 5/5 Skin: normal turgor; no rashes Surgical dressing intact Neurologic: moves all extremities; no focal motor deficits Psychiatric: A+Ox3, euthymic affect Lymphatic: no cervical or axillary lymphadenopathy no inguinal lymphadenopathy Results & Data Vital Signs (Past 12 Hours) Vital Signs Temp Pulse Pulse Pulse Resp BP BP 02/22/19 18:55 36.4 C L 86 18 127/73 02/22/19 18:10 87 18 123/56 L 02/22/19 17:55 36.3 C L 89 16 121/61 02/22/19 17:45 94 H 22 134/70 02/22/19 17:35 85 16 140/64 02/22/19 17:25 88 21 147/82 H 02/22/19 17:15 36.4 C L 86 15 148/77 H 02/22/19 15:30 36.5 C 80 16 158/84 H 02/22/19 11:11 36.8 C 72 16 101/59 L 02/22/19 10:03 37.4 C 84 16 125/80 02/22/19 09:47 82 14 130/77 02/22/19 09:42 90 15 135/82 02/22/19 09:40 91 H 15 135/82 02/22/19 09:35 83 15 119/68 02/22/19 09:30 90 15 128/75 02/22/19 09:25 84 14 113/75 02/22/19 09:20 84 12 131/71 02/22/19 09:15 81 16 131/92 02/22/19 09:10 85 14 138/85 02/22/19 09:05 87 18 146/86 H 02/22/19 09:00 85 16 130/83 02/22/19 08:55 84 18 130/95 02/22/19 08:50 83 18 131/81 02/22/19 08:45 83 16 125/79 02/22/19 08:40 90 19 191/104 H 02/22/19 08:29 87 22 171/102 H 02/22/19 07:40 36.8 C 83 16 145/84 H Pulse Ox 02/22/19 18:55 93 02/22/19 18:10 94 02/22/19 17:55 92 02/22/19 17:45 95 02/22/19 17:35 100 02/22/19 17:25 100 02/22/19 17:15 100 02/22/19 15:30 95 02/22/19 11:11 96 02/22/19 10:03 92 02/22/19 09:47 93 02/22/19 09:42 92 02/22/19 09:40 95 02/22/19 09:35 98 02/22/19 09:30 98 02/22/19 09:25 97 02/22/19 09:20 94 02/22/19 09:15 98 02/22/19 09:10 99 02/22/19 09:05 99 02/22/19 09:00 98 02/22/19 08:55 99 02/22/19 08:50 99 02/22/19 08:45 98 02/22/19 08:40 100 02/22/19 08:29 100 02/22/19 07:40 95 Laboratory Results Short CBC 02/22/19 Range/Units 06:41 WBC 4.99 (4.8-10.8) K/uL Hgb 13.0 (12.0-16.0) g/dL Hct 37.2 (37-47) % Plt Count 175 (130-400) K/uL BMP 02/22/19 06:41 Sodium 138 Potassium 4.1 Chloride 105 Carbon Dioxide 25 BUN 16 Creatinine 1.05 Glucose 184 H Calcium 9.4 Diagnostic Findings Microbiology 02/18/19 17:11 Blood Blood Culture - Preliminary No growth to date. 02/18/19 17:22 Blood Blood Culture - Preliminary No growth to date.
[2019-02-22] MEDS ORDERED: CLOPIDOGREL BISULFATE 300 MG TAB PO SCH (20:00)
[2019-02-22] MEDS: DAPTOmycin 275 MG in SYRINGE 0 ML IV SCH (21:14)
[2019-02-22] MEDS: DOCUSATE SODIUM 100 MG CAP PO SCH ×2 (21:15)
[2019-02-22] MEDS: TRAVOPROST Z 0.004% OPH SOLN 2.5 ML BTL OPB SCH (21:16)
[2019-02-22] MEDS: POLYETHYLENE (MIRALAX) 17 GM PACK PO SCH (21:17)
--- NOTE | 2019-02-22 21:45 | Operative Report ---
DATE OF OPERATION: 02/22/2019 PREOPERATIVE DIAGNOSES: 1. Left foot fourth and fifth toe osteomyelitis. 2. Claw toes, fourth and fifth toes. 3. Severe hallux valgus deformity. 4. Peripheral vascular disease. 5. Diabetes mellitus. PROCEDURE: Left foot transmetatarsal amputation. SURGEON: Gentry Dee DO CLAY STAIN MIXER: Julio Granda PA-C who was present for patient positioning, sterile prep and drape, management of retractors and instruments. He was present through the critical portions of the case including wound closure, application of sterile dressing and transport of the patient to recovery. ANESTHESIA: General LMA with regional block. SPECIMENS: First, fourth and fifth toes. First, second, third, fourth and fifth metatarsal heads. DRAINS: Hemovac x1. COMPLICATIONS: None. BLOOD LOSS: 3 mL. PERTINENT HISTORY: This is an 78-year-old female with severe peripheral vascular disease, diabetes mellitus, neuropathy and osteomyelitis determined via radiographs and MRI of the 4th and 5th toes. The patient had attempted and failed conservative management. Had an arteriogram with vascular procedure earlier today to help facilitate healing of the left foot and the patient was then scheduled for transmetatarsal amputation as indicated. All potential risks, benefits, complications, alternatives, rehab, potential for incomplete relief of symptoms, need for further surgery, DVT, PE, , persistent pain, swelling, scarring, weakness, neurovascular injury, wound complications were discussed with the patient. The patient decided to proceed with procedure as indicated. PROCEDURE: The patient was taken to the operative suite after popliteal and adductor canal blocks were performed by the anesthesiologist. The patient was then placed supine on the operating table. I reviewed consent and identification of proper operative site, the patient was anesthetized, LMA was placed. Left lower extremity was then sterilely prepped and draped in usual fashion, elevated and exsanguinated with Esmarch bandage. Esmarch tourniquet applied over sterile surgical towel at the level of the ankle. Next, after the proper postprocedure flaps were outlined with a skin marker, a 15 blade scalpel was then used to make a dorsal incision across the tops of the distal metatarsals, christine, fourth, third, second and first. The flap was then outlined and then the plantar flap was then contoured and incised with a 15 blade scalpel. The toes were resected at the level of the metatarsophalangeal joints for the first, fourth and fifth toes. The second and third toes have been previously resected due to previous amputation. The toes were then passed off as specimen after these were transected with a 15 blade scalpel including the vascular structures and the flexor and extensor tendons. Next, the exposed metatarsal heads were then carefully circumferentially debrided with a 15 blade scalpel, removing the plantar plates and the sesamoid bones where indicated. Next, the excess fibers and capsular tissue was then excised and passed off. As the metatarsal heads were then sequentially exposed with a Isaiah rake and a Hohmann retractor, a sagittal saw was then used to transect them using a slight plantar flexed angle to prevent callusing the first, second, third, fourth and fifth metatarsal heads and then transected and passed off as specimen. A long for maximal length while producing the best contour for flap closure. After this was completed, the flexor tendons were placed on traction and then transected with a 10 blade scalpel and the flap was then carefully debrided for cosmesis and balance. Next, the pulsatile lavage with bacitracin and saline was then used to irrigate the surgical site. This was then followed by full thickness closure over a drain with interrupted 3-0 nylon horizontal mattress and simple sutures. Next, a sterile compressive dressing and Mehul wrap was applied. The 10-Bangladeshi Hemovac drain was placed in the distal aspect flap exiting the superior medial aspect of the foot. The tourniquet was released, the patient was awakened and taken to recovery in stable condition. I attest to the content of the Intraoperative Record and any orders documented therein. Any exception s are noted below.
[2019-02-22] MEDS: SENNA 8.6 MG TAB PO SCH (21:56)
[2019-02-23] MEDS: PIPERACILLIN/TAZOBACTAM 3.375 GM in DEXTROSE 5% 100 ML IV SCH ×3 (04:53→19:58)
[2019-02-23] MEDS: SODIUM CHLORIDE 0.9% 1000ML 1,000 ML IV SCH (06:13)
--- NOTE | 2019-02-23 08:49 | Surgery Progress Note ---
Date of Service February 23, 2019 Assessment & Plan (1) PAD (peripheral artery disease): Pt now s/p LLE angio with SPORTS JOURNALIST peroneal art. Doing well post op. Will see in office in 6 wks with arterial US. Please call if needed otherwise. Will need to be on plavix at discharge Present on Admission?: Yes Subjective 78 yo f POD #1 after LLE angio with SPORTS JOURNALIST of peroneal art, seen in f/ut kacy. Pt admits pain in L foot since amputation by orthopedics yesterday. Denies any new complaints Physical Exam Physical Exam: CONST: A&O x3, NAD EXT: R groin puncture without significant bleeding, soft, mildly tender. LLE foot dressing in place, not removed today. Results & Data Vital Signs (Past 12 Hours) Vital Signs Temp Pulse Resp BP BP Pulse Ox 02/23/19 07:40 36.6 C 78 16 143/79 H 96 02/23/19 03:43 36.6 C 85 18 128/72 96 02/22/19 22:45 36.4 C L 92 H 20 152/71 H 94 02/22/19 21:52 36.4 C L 89 19 120/71 94 02/22/19 20:53 36.7 C 86 18 121/69 96
[2019-02-23] MEDS: DOCUSATE SODIUM 100 MG CAP PO SCH ×4 (09:24→21:32)
[2019-02-23] MEDS: POLYETHYLENE (MIRALAX) 17 GM PACK PO SCH (09:24)
[2019-02-23] MEDS: MULTIVITAMIN TAB PO SCH (09:24)
[2019-02-23] MEDS: BRIMONIDINE TARTRATE 0.2% 5ML OPB SCH (09:25)
[2019-02-23] MEDS: MAGNESIUM OXIDE 400 MG TAB PO SCH (09:25)
[2019-02-23] MEDS: CHOLECALCIFEROL 1,000 UNITS TAB PO SCH (09:25)
[2019-02-23] MEDS: INSULIN DETEMIR FLEXPEN/FLEX TOUCH 100 UNITS/ML 3ML SQ SCH (09:26)
[2019-02-23] MEDS: CLOPIDOGREL BISULFATE 75 MG TAB PO SCH (09:26)
[2019-02-23] MEDS: DORZOLAMIDE/TIMOLOL 22.3/6.8MG/ML 10 ML BTL OP SCH ×2 (09:26→21:33)
[2019-02-23] MEDS: INSULIN ASPART 100 UNITS/ML 3 ML PEN SC SCH ×4 (09:28→21:34)
--- NOTE | 2019-02-23 10:50 | Orthopedic Progress Note ---
Date of Service February 23, 2019 Assessment & Plan (1) Osteomyelitis: Status post transmetatarsal amputation -Antibiotics per medical team, Zosyn and Dapto -DVT prophylaxis Plavix -Weight-bear as tolerates through heel on left lower extremity -PT/OT when medically stable -Ice and elevation of her left lower extremity Subjective Post Operative Progress Note Patient seen sitting at bedside, comfortable, denies complaints, pain well controlled, no acute issues. Review of Systems Review of Systems: All systems reviewed & are unremarkable except as noted in HPI & below Constitutional: as per Subjective / HPI Physical Exam Physical Exam: LLE dressing cdi, +TA/DF, decreased sensation at baseline, compartments soft NT Constitutional: WD/WN, vitals as above Results & Data Vital Signs (Past 12 Hours) Vital Signs Temp Pulse Resp BP BP Pulse Ox 02/23/19 07:40 36.6 C 78 16 143/79 H 96 02/23/19 03:43 36.6 C 85 18 128/72 96
[2019-02-23] MEDS ORDERED: PHARMACY GLYCEMIC MGMT CONSULT PRN (14:58)
--- NOTE | 2019-02-23 14:58 | Infectious Disease Progress Nt ---
Date of Service February 23, 2019 Assessment & Plan (1) Osteomyelitis of fifth toe of left foot: 78-year-old female with diabetes and neuropathy now with osteomyelitis of the left fifth toe in the setting of peripheral arterial disease. Now status post transmetatarsal amputation. Will consider transition to oral antibiotics in the next day or 2 if continues to improve. Will follow. (2) PAD (peripheral artery disease): Subjective Patient seen in follow-up for left foot infection. Status post transmetatarsal pain is controlled. No fever. Tolerating antibiotic without apparent difficulty. No operative cultures available for review. Review of Systems Review of Systems: All systems reviewed & are unremarkable except as noted in HPI & below Physical Exam Constitutional: WD/WN, vitals as above + ill appearing (Chronically) and + obese; no acute distress Eyes: PERRL, conjunctivae normal, anicteric sclerae ENMT: external ear and nose normal, oropharynx normal Neck: trachea midline, no thyromegaly Respiratory: normal respiratory effort, lungs clear to auscultation Cardiovascular: RRR, no murmur, no edema Gastrointestinal (Abdomen): normal bowel sounds, soft, nontender, no hepatosplenomegaly Percussion/Palpation: no abdominal mass Musculoskeletal: no cyanosis or clubbing, extremities motor strength 5/5 Skin: normal turgor; no rashes Neurologic: moves all extremities; no focal motor deficits Psychiatric: A+Ox3, euthymic affect Lymphatic: no cervical or axillary lymphadenopathy no inguinal lymphadenopathy Results & Data Vital Signs (Past 12 Hours) Vital Signs Temp Pulse Resp BP BP Pulse Ox 02/23/19 12:10 36.6 C 78 16 113/69 96 02/23/19 07:40 36.6 C 78 16 143/79 H 96 02/23/19 03:43 36.6 C 85 18 128/72 96 Laboratory Results Laboratory Results - last 48 hr 02/21/19 02/21/19 02/22/19 16:52 20:03 06:41 WBC RBC Hgb Hct MCV MCH MCHC RDW Std Deviation RDW Coeff of Dipesh Plt Count MPV Sodium 138 Potassium 4.1 Chloride 105 Carbon Dioxide 25 Anion Gap 8.0 BUN 16 Creatinine 1.05 Est Cr Clr Drug Dosing 36.0 Est GFR ( Amer) 58.1 Est GFR (Non-Af Amer) 50.1 BUN/Creatinine Ratio 15.0 Glucose 184 H POC Glucose 157 H 236 H Calcium 9.4 02/22/19 02/22/19 02/22/19 06:41 07:19 10:19 WBC 4.99 RBC 4.12 L Hgb 13.0 Hct 37.2 MCV 90.3 MCH 31.6 MCHC 34.9 RDW Std Deviation 42.0 RDW Coeff of Dipesh 12.8 Plt Count 175 MPV 9.8 Sodium Potassium Chloride Carbon Dioxide Anion Gap BUN Creatinine Est Cr Clr Drug Dosing Est GFR ( Amer) Est GFR (Non-Af Amer) BUN/Creatinine Ratio Glucose POC Glucose 178 H 199 H Calcium 02/22/19 02/22/19 02/22/19 11:31 15:34 17:17 WBC RBC Hgb Hct MCV MCH MCHC RDW Std Deviation RDW Coeff of Dipesh Plt Count MPV Sodium Potassium Chloride Carbon Dioxide Anion Gap BUN Creatinine Est Cr Clr Drug Dosing Est GFR ( Amer) Est GFR (Non-Af Amer) BUN/Creatinine Ratio Glucose POC Glucose 143 H 95 111 H Calcium 02/22/19 02/23/19 02/23/19 21:15 08:30 12:08 WBC RBC Hgb Hct MCV MCH MCHC RDW Std Deviation RDW Coeff of Dipesh Plt Count MPV Sodium Potassium Chloride Carbon Dioxide Anion Gap BUN Creatinine Est Cr Clr Drug Dosing Est GFR ( Amer) Est GFR (Non-Af Amer) BUN/Creatinine Ratio Glucose POC Glucose 248 H 251 H 329 H* Calcium Diagnostic Findings Microbiology 02/18/19 17:11 Blood Blood Culture - Preliminary No growth to date. 02/18/19 17:22 Blood Blood Culture - Preliminary No growth to date.
[2019-02-23] MEDS ORDERED: INSULIN DETEMIR FLEXPEN/FLEX TOUCH 100 UNITS/ML 3ML SQ ONE (16:00)
--- NOTE | 2019-02-23 16:14 | Pharmacy Report ---
Glycemic Control Consultation - Date of Service February 23, 2019 - Scope Scope: Glycemic Pharmacist consulted by Dr Sanders on 02/23 for glycemic control and to write orders per [facility] inpatient glycemic control protocol - Objective Weight: 65.2 kg Accuchecks BSG (last 24hrs): 02/22/19 02/22/19 02/23/19 17:17 21:15 08:30 POC Glucose 111 H 248 H 251 H 02/23/19 12:08 POC Glucose 329 H* - Recent Pertinent Medications Outpatient Anti-diabetic Regimen: * Metformin 850 mg BID * Glipizide 5 mg daily * Levemir 14 units daily * A1c = 7.5 % 01/2019 The patient is currently receiving: * Basal insulin: Levemir 14 units every 24 hours * Correctional Insulin: Novolog Correction per scale ACHS Goal Range: Low 100 mg/dL - High 140 mg/dL Correction Factor: 40 mg/dL/unit * Prandial insulin: Per carb ratio of 1 unit per 15 grams CHO consumed * Oral Agents: None at this time Risk Factors for Insulin Resistance: * Steroids: Decadron 4 mg IV intraop last evening * Infection: osteo * Recent Surgery: POD 1 s/p transmetatarsal foot amputation * Diet: type 2 diabetes - Assessment & Plan Assessment & Plan: ASSESSMENT: * 78 y/o female admitted for osteomyelitis. She has a history of type 2 diabetes, managed with basal insulin and 2 oral agents as an outpatient. BSGs have been well controlled while an inpatient; however, they have spiked since she received a dose of Decadron last evening. I'm anticipating the effects of this to hang on through tomorrow AM so will tighten correctional and prandial insulin, as well as provide a one time dose (50% increase) of basal insulin to provide additional overnight coverage. PLAN FOR INPATIENT GLYCEMIC CONTROL: * Continue to hold outpatient oral diabetes medications * Basal insulin * Continue Levemir 14 units daily * Additional 8 units x 1 now * Bolus insulin - tighten CF/CR and add overnight check * NovoLog per scale ACHS or Q6hrs while NPO * Goal Range: Low 110 mg/dL - High 140 mg/dL - adjust lower end of range per ADA guidelines, may need to loosen upper end tomorrow once BSGs improved * Correction Factor: 30 mg/dL/unit * Nutritional / Prandial insulin per carb ratio of 1 unit per 8 grams CHO consumed Discharge Recommendations: * A1c of 7.5% may be at/below goal for patient's age/comorbidities. Would recommend to continue same outpatient regimen on discharge. Thank you.
--- NOTE | 2019-02-23 19:23 | Hospitalist Progress Note ---
Date of Service February 23, 2019 Assessment & Plan (1) Osteomyelitis: -S/P transmetatarsal amputation of left foot POD #1 recovering well post op surgical site pain well controlled pt evaluated by Orthopedics this AM -pt has Long-standing history of diabetic foot infections status post multiple amputations -Most recent cultures positive for MSSA sent from diabetic foot clinic for ulcer on left little toe with drainage X-ray of foot shows osteomyelitis and left toe MRI shows osteomyelitis of left fifth toe started on Empiric Abs daptomycin and IV Zosyn-DC statin while on daptomycin -Appreciate input from infectious disease -Appreciate input from vascular surgery Dr. Acosta s/p revascularization of left lower extremity on 02/22/2019 Orthopedics consulted,s/p transmetatarsal amputation of left foot on Friday02/22/2019 pt recovering from the procedure well will need to D/w ID regarding duration of Abx therapy post amputation (2) Hypotensive episode: Blood pressure stable resume out pt meds -Patient developed symptomatic hypotension and bradycardia while vancomycin and Zosyn were infusing simultaneously Vancomycin discontinued -Suspect vasovagal versus reaction from infusion of antibiotics being infused simultaneously (3) Diabetes mellitus, type II: -Hgb A1c 7.5 01/2019 developed hyperglycemic episodes post op -=due to stress respone ? pharmacy consulted for glycemic managmement (4) PAD (peripheral artery disease): Lower extremity arterial Doppler: 1. Extensive calcified plaque in the lower extremity arterial structure. 2. Elevated peak systolic velocities about the popliteal area suggest high- grade stenosis. 3. Short segment occlusion about the proximal posterior tibial artery. 4. Blunted monophasic waveform suggestive of severe peripheral artery disease Appreciate input from vascular surgery s/p revascularization procedure on Friday02/22/19 cont aspirin and Plavix (5) CAD (coronary artery disease): -Stable, no reports of chest pain -on aspirin and Plavix f/beta floyd (6) HTN (hypertension): -stable cont home meds (7) DVT prophylaxis: -SQ heparin Disposition: will need rehab post operatively pt is willing for [facility] PT/Ot eval requested Social service consult for discharge Subjective Status post transmetatarsal amputation of left foot no complain of pain or discomfort on surgical site no fever or chills vital remains stable pt offers no new complain, comfortable , finishing dinner understands that she will need to go to rehab wants referral to be made to [facility] Physical Exam Constitutional: WD/WN, vitals as above no acute distress Eyes: PERRL, conjunctivae normal, anicteric sclerae ENMT: external ear and nose normal, oropharynx normal Neck: trachea midline, no thyromegaly Respiratory: normal respiratory effort, lungs clear to auscultation Cardiovascular: RRR, no murmur, no edema Gastrointestinal (Abdomen): Inspection/Auscultation: normal bowel sounds Percussion/Palpation: abdomen soft; abdomen nontender Musculoskeletal: s/p trasnsmetatarsal amputation of left foot , bandage present, no dainage noted old transmetatarsal amputation of rt foot ,stumps healed well Skin: no rashes, warm and dry Neurologic: PERRL, EOMI, accommodation nl, no face palsy, no dysarthria Psychiatric: A+Ox3, euthymic affect Results & Data Vital Signs (Past 12 Hours) Vital Signs Temp Pulse Resp BP BP Pulse Ox 02/23/19 15:39 37.0 C 81 18 114/61 97 02/23/19 12:10 36.6 C 78 16 113/69 96 02/23/19 07:40 36.6 C 78 16 143/79 H 96
[2019-02-23] MEDS: DAPTOmycin 275 MG in SYRINGE 0 ML IV SCH (19:54)
[2019-02-23] MEDS: SENNA 8.6 MG TAB PO SCH (21:33)
[2019-02-23] MEDS: TRAVOPROST Z 0.004% OPH SOLN 2.5 ML BTL OPB SCH (21:33)
[2019-02-24] MEDS ORDERED: INSULIN ASPART 100 UNITS/ML 3 ML PEN SC ONE (02:00)
[2019-02-24] MEDS: PIPERACILLIN/TAZOBACTAM 3.375 GM in DEXTROSE 5% 100 ML IV SCH ×3 (03:54→20:02)
[2019-02-24] MEDS: MAGNESIUM HYDROXIDE SUSP 30 ML UDC PO PRN (05:39)
[2019-02-24 06:00] LABS: Est GFR (African American) 56.1; Est GFR (Non-African American) 48.4
[2019-02-24] MEDS: BRIMONIDINE TARTRATE 0.2% 5ML OPB SCH (08:20)
[2019-02-24] MEDS: CLOPIDOGREL BISULFATE 75 MG TAB PO SCH (08:21)
[2019-02-24] MEDS: MULTIVITAMIN TAB PO SCH (08:21)
[2019-02-24] MEDS: MAGNESIUM OXIDE 400 MG TAB PO SCH (08:21)
[2019-02-24] MEDS: CHOLECALCIFEROL 1,000 UNITS TAB PO SCH (08:21)
[2019-02-24] MEDS: DORZOLAMIDE/TIMOLOL 22.3/6.8MG/ML 10 ML BTL OP SCH ×2 (08:22→21:14)
[2019-02-24] MEDS: DOCUSATE SODIUM 100 MG CAP PO SCH ×3 (08:22→21:13)
[2019-02-24] MEDS: INSULIN DETEMIR FLEXPEN/FLEX TOUCH 100 UNITS/ML 3ML SQ SCH (08:30)
[2019-02-24] MEDS: INSULIN ASPART 100 UNITS/ML 3 ML PEN SC SCH ×5 (08:31→23:54)
[2019-02-24] MEDS: POLYETHYLENE (MIRALAX) 17 GM PACK PO SCH (08:37)
--- NOTE | 2019-02-24 09:51 | Orthopedic Progress Note ---
Date of Service February 24, 2019 Assessment & Plan (1) Osteomyelitis: POD#2- Status post left foot transmetatarsal amputation -Antibiotics per medical team/ ID, Zosyn and Dapto -DVT prophylaxis Plavix -Weight-bear as tolerates through heel on left lower extremity -PT/OT when medically stable -Disposition per primary team, patient states back to [facility]. -Dressing changed today by me. Subjective POD #2 Status post transmetatarsal foot amputation. pain is controlled. No fever. Tolerating antibiotic without apparent difficulty. No operative cultures available for review. Denies SOB, CP, N/V Pain is negligent due to significant neuropathy. Physical Exam Physical Exam: Left foot incision c/d/i, some very mild bloody drainage, no erythema, pulse in tact. Dressing changed by me today. Results & Data Vital Signs (Past 12 Hours) Vital Signs Temp Pulse Pulse Resp BP BP Pulse Ox 02/24/19 07:30 36.6 C 80 16 122/70 95 02/24/19 03:26 36.9 C 80 16 118/73 96 02/23/19 22:55 37 C 78 18 112/68 95
[2019-02-24] MEDS: METOPROLOL SUCC 25MG EXT REL TAB PO SCH (11:52)
--- NOTE | 2019-02-24 13:38 | Hospitalist Progress Note ---
Date of Service February 24, 2019 Assessment & Plan (1) Osteomyelitis: LEFT 5TH TOE Long-standing history of diabetic foot infections status post multiple amputations -->sent from diabetic foot clinic for ulcer on left little toe with drainage. X-ray of foot shows osteomyelitis and left toe and MRI shows osteomyelitis of left fifth toe S/P Revascularization of left lower extremity followed by transmetatarsal amputation of left foot on 02/22/19 -On IV daptomycin. S/P IV Zosyn per ID. Per ID, will transition to oral antibiotics in the next 1 to 2 days if she continues to improve -Pathology from amputation - pending ; Blood cx x 2 - No growth -Appreciate input from vascular surgery Dr. Acosta/Orthopedics (2) Hypotensive episode: BP stable -Patient developed symptomatic hypotension and bradycardia while vancomycin and Zosyn were infusing simultaneously Vancomycin discontinued -Suspect vasovagal versus reaction from infusion of antibiotics being infused simultaneously -BP has been stable (3) Diabetes mellitus, type II: -Hgb A1c 7.5 - 01/2019 -Developed hyperglycemic episodes post op - due to stress response ? -Pharmacy consulted for glycemic management (4) PAD (peripheral artery disease): Lower extremity arterial Doppler: 1. Extensive calcified plaque in the lower extremity arterial structure. 2. Elevated peak systolic velocities about the popliteal area suggest high- grade stenosis. 3. Short segment occlusion about the proximal posterior tibial artery. 4. Blunted monophasic waveform suggestive of severe peripheral artery disease S/P LLE Angio with GR[employer]ERSON Peroneal artery by Vascular surgery on 02/22/19 (5) CAD (coronary artery disease): -Stable, no reports of chest pain -Resumed aspirin and Plavix post surgery -Beta-floyd resumed on holding parameters (6) HTN (hypertension): -stable cont home meds (7) DVT prophylaxis: -SQ heparin Disposition: Lives at home, PT/OT- recommends SNF Medical mx in progress Awaiting pathology results Subjective Patient is s/p transmetatarsal amputation on left foot after vascular intervention - left leg on 02/22/19 Pain is well controlled with current medications No fever, chills Physical Exam Physical Exam: Constitutional WD/WN, vitals as above no acute distress Eyes PERRL, conjunctivae normal, anicteric sclerae ENMT external ear and nose normal, oropharynx normal Neck trachea midline, no thyromegaly Respiratory normal respiratory effort, lungs clear to auscultation Cardiovascular RRR, no murmur, no edema Gastrointestinal (Abdomen) Inspection/Auscultation: normal bowel sounds Percussion/Palpation: abdomen soft; abdomen nontender Musculoskeletal s/p trasnsmetatarsal amputation of left foot , bandage present, no dainage noted old transmetatarsal amputation of rt foot ,stumps healed well Results & Data Vital Signs (Past 12 Hours) Vital Signs Temp Pulse Pulse Resp BP BP Pulse Ox 02/24/19 07:30 36.6 C 80 16 122/70 95 02/24/19 03:26 36.9 C 80 16 118/73 96
--- NOTE | 2019-02-24 14:32 | Infectious Disease Progress Nt ---
Date of Service February 24, 2019 Assessment & Plan (1) Osteomyelitis of fifth toe of left foot: 78-year-old female with diabetes and neuropathy now with osteomyelitis of the left fifth toe in the setting of peripheral arterial disease. Now status post transmetatarsal amputation. Will consider transition to oral antibiotics in the next day or 2 if continues to improve. Will follow. (2) PAD (peripheral artery disease): Subjective Patient is s/p transmetatarsal amputation on left foot after vascular intervention - left leg on 02/22/19 Pain is well controlled with current medications No fever, chills Review of Systems Review of Systems: All systems reviewed & are unremarkable except as noted in HPI & below Physical Exam Constitutional: WD/WN, vitals as above + ill appearing (Chronically) and + obese; no acute distress Eyes: PERRL, conjunctivae normal, anicteric sclerae ENMT: external ear and nose normal, oropharynx normal Neck: trachea midline, no thyromegaly Respiratory: normal respiratory effort, lungs clear to auscultation Cardiovascular: RRR, no murmur, no edema Gastrointestinal (Abdomen): normal bowel sounds, soft, nontender, no hepatosplenomegaly Percussion/Palpation: no abdominal mass Musculoskeletal: no cyanosis or clubbing, extremities motor strength 5/5 Skin: normal turgor; no rashes Neurologic: moves all extremities; no focal motor deficits Psychiatric: A+Ox3, euthymic affect Lymphatic: no cervical or axillary lymphadenopathy no inguinal lymphadenopathy Results & Data Vital Signs (Past 12 Hours) Vital Signs Temp Pulse Pulse Resp BP BP Pulse Ox 02/24/19 07:30 36.6 C 80 16 122/70 95 02/24/19 03:26 36.9 C 80 16 118/73 96 Laboratory Results [facility] 02/24/19 05:08 Creatinine 1.08 Diagnostic Findings Microbiology 02/18/19 17:11 Blood Blood Culture - Final No growth 02/18/19 17:22 Blood Blood Culture - Final No growth
[2019-02-24] MEDS: DAPTOmycin 275 MG in SYRINGE 0 ML IV SCH (19:57)
[2019-02-24] MEDS: SENNA 8.6 MG TAB PO SCH (21:13)
[2019-02-24] MEDS: TRAVOPROST Z 0.004% OPH SOLN 2.5 ML BTL OPB SCH (21:13)
[2019-02-25] MEDS: MAGNESIUM HYDROXIDE SUSP 30 ML UDC PO PRN
[2019-02-25] MEDS: PIPERACILLIN/TAZOBACTAM 3.375 GM in DEXTROSE 5% 100 ML IV SCH ×3 (03:50→20:03)
[2019-02-25] MEDS: INSULIN ASPART 100 UNITS/ML 3 ML PEN SC SCH ×5 (03:50→21:59)
[2019-02-25] MEDS: MAGNESIUM OXIDE 400 MG TAB PO SCH (09:13)
[2019-02-25] MEDS: METOPROLOL SUCC 25MG EXT REL TAB PO SCH (09:13)
[2019-02-25] MEDS: INSULIN DETEMIR FLEXPEN/FLEX TOUCH 100 UNITS/ML 3ML SQ SCH (09:14)
[2019-02-25] MEDS: MULTIVITAMIN TAB PO SCH (09:14)
[2019-02-25] MEDS: CHOLECALCIFEROL 1,000 UNITS TAB PO SCH (09:14)
[2019-02-25] MEDS: DOCUSATE SODIUM 100 MG CAP PO SCH ×2 (09:14→20:09)
[2019-02-25] MEDS: CLOPIDOGREL BISULFATE 75 MG TAB PO SCH (09:14)
[2019-02-25] MEDS: DORZOLAMIDE/TIMOLOL 22.3/6.8MG/ML 10 ML BTL OP SCH ×2 (09:16→20:09)
[2019-02-25] MEDS: BRIMONIDINE TARTRATE 0.2% 5ML OPB SCH (09:17)
--- NOTE | 2019-02-25 09:17 | Orthopedic Progress Note ---
Date of Service February 25, 2019 Assessment & Plan (1) Osteomyelitis: POD#3- Status post left foot transmetatarsal amputation -Antibiotics per medical team/ ID, Zosyn and Dapto, may change to orals at D/C per medicine. -DVT prophylaxis Plavix -Weight-bear as tolerates through heel on left lower extremity -PT/OT when medically stable -Disposition per primary team, patient states back to [facility] possibly tomorrow. -Dressing changes every other day. Follow up with Dr. Dee 10-12 days post op, call [facility] at [phone] for appt. Ortho will sign off, please contact us with any concerns, thank you. Subjective Patient is s/p transmetatarsal amputation on left foot after vascular intervention - POD #3 Pain is well controlled with current medications No fever, chills. Physical Exam Physical Exam: Left foot dressings c/d/i, no drainage. A&Ox3 Patient sitting at bedside comfortable. Results & Data Vital Signs (Past 12 Hours) Vital Signs Temp Pulse Pulse Resp BP Pulse Ox 02/25/19 07:39 37.1 C 88 16 133/76 93 02/24/19 22:48 36.7 C 86 18 117/62 95
[2019-02-25] MEDS: POLYETHYLENE (MIRALAX) 17 GM PACK PO SCH (09:22)
--- NOTE | 2019-02-25 10:07 | Pharmacy Report ---
Pharmacy Glycemic Short Note 2 - Date of Service February 25, 2019 - Glycemic Short BSG Results (Last 24 hours): 02/24/19 02/24/19 02/24/19 12:17 17:39 20:46 POC Glucose 233 H 278 H 308 H* 02/24/19 02/24/19 02/24/19 20:48 20:51 23:52 POC Glucose 335 H* 326 H* 279 H 02/25/19 02/25/19 03:40 08:26 POC Glucose 276 H 199 H OUTPATIENT ANTIDIABETIC REGIMEN: * Metformin 850mg PO BID * Glipizide 5mg PO Daily * Insulin Detemir 14 units SQ Daily ASSESSMENT: * Blood sugars remain elevated above goal, with 63 units of insulin administered yesterday without any blood sugars at goal. * Increase Lantus dose and tighten CF and CR at this time * Patient remains on IV Zosyn and Daptomycin, ID consulted, considering switching to PO antibiotics if continued improvement * POD 3 left fifth toe amputation PLAN FOR INPATIENT GLYCEMIC CONTROL: * Hold outpatient oral diabetes medications * Basal insulin - INCREASE * Levemir 25 units SQ daily * Bolus insulin * NovoLog per scale ACHS or Q6hrs while NPO * Goal Range: Low 110 mg/dL - High 140 mg/dL * TIGHTEN: Correction Factor: 15 mg/dL/unit * TIGHTEN: Nutritional / Prandial insulin per carb ratio of 1 unit per 5 grams CHO consumed PLAN FOR DISCHARGE: * Resume outpatient regimen A1c 7.5% acceptable for patient's age and comorbidities
--- NOTE | 2019-02-25 10:17 | Infectious Disease Progress Nt ---
Date of Service February 25, 2019 Assessment & Plan (1) Osteomyelitis of fifth toe of left foot: 78-year-old female with diabetes and neuropathy now with osteomyelitis of the left fifth toe in the setting of peripheral arterial disease. Now status post transmetatarsal amputation. Will consider transition to oral Augmentin 875 mg twice daily. Likely will need 2 to 4 weeks of oral antibiotics depending on clinical response. Will follow. (2) PAD (peripheral artery disease): Subjective Patient is s/p transmetatarsal amputation on left foot after vascular intervention - POD #3 Pain is well controlled with current medications No fever, chills. Review of Systems Review of Systems: All systems reviewed & are unremarkable except as noted in HPI & below Physical Exam Constitutional: WD/WN, vitals as above + ill appearing (Chronically) and + obese; no acute distress Eyes: PERRL, conjunctivae normal, anicteric sclerae ENMT: external ear and nose normal, oropharynx normal Neck: trachea midline, no thyromegaly Respiratory: normal respiratory effort, lungs clear to auscultation Cardiovascular: RRR, no murmur, no edema Gastrointestinal (Abdomen): normal bowel sounds, soft, nontender, no hepatosplenomegaly Percussion/Palpation: no abdominal mass Musculoskeletal: no cyanosis or clubbing, extremities motor strength 5/5 Skin: normal turgor; no rashes Neurologic: moves all extremities; no focal motor deficits Psychiatric: A+Ox3, euthymic affect Lymphatic: no cervical or axillary lymphadenopathy no inguinal lymphadenopathy Results & Data Vital Signs (Past 12 Hours) Vital Signs Temp Pulse Pulse Resp BP Pulse Ox 02/25/19 07:39 37.1 C 88 16 133/76 93 02/24/19 22:48 36.7 C 86 18 117/62 95 Laboratory Results Laboratory Results - last 48 hr 02/23/19 02/23/19 02/23/19 12:08 17:39 20:44 Creatinine Est Cr Clr Drug Dosing Est GFR ( Amer) Est GFR (Non-Af Amer) POC Glucose 329 H* 205 H 249 H 02/24/19 02/24/19 02/24/19 01:56 05:08 08:14 Creatinine 1.08 Est Cr Clr Drug Dosing 35.0 Est GFR ( Amer) 56.1 Est GFR (Non-Af Amer) 48.4 POC Glucose 265 H 244 H 02/24/19 02/24/19 02/24/19 12:17 17:39 20:46 Creatinine Est Cr Clr Drug Dosing Est GFR ( Amer) Est GFR (Non-Af Amer) POC Glucose 233 H 278 H 308 H* 02/24/19 02/24/19 02/24/19 20:48 20:51 23:52 Creatinine Est Cr Clr Drug Dosing Est GFR ( Amer) Est GFR (Non-Af Amer) POC Glucose 335 H* 326 H* 279 H 02/25/19 02/25/19 03:40 08:26 Creatinine Est Cr Clr Drug Dosing Est GFR ( Amer) Est GFR (Non-Af Amer) POC Glucose 276 H 199 H Diagnostic Findings Microbiology 02/18/19 17:11 Blood Blood Culture - Final No growth 02/18/19 17:22 Blood Blood Culture - Final No growth
--- NOTE | 2019-02-25 11:06 | Hospitalist Progress Note ---
Date of Service February 25, 2019 Assessment & Plan (1) Osteomyelitis: LEFT 5TH TOE OSTEOMYELITIS Long-standing history of Diabetic foot infections status post multiple amputations --> sent from diabetic foot clinic for ulcer on left little toe with drainage. X-ray of foot shows osteomyelitis and left toe and MRI shows Osteomyelitis of left fifth toe. S/P Revascularization of left lower extremity followed by transmetatarsal amputation of left foot on 02/22/19 -On IV daptomycin. S/P IV Zosyn per ID. Per ID, okay to change to Augmentin 875 mg twice daily for 2 to 4 weeks depending on clinical response with follow-up with ID outpatient -Pathology from amputation - pending ; Blood cx x 2 - No growth -Appreciate input from vascular surgery Dr. Acosta/Orthopedics -Cleared by ortho outpatient (2) Hypotensive episode: BP stable -Patient developed symptomatic hypotension and bradycardia while vancomycin and Zosyn were infusing simultaneously Vancomycin discontinued -Suspect vasovagal versus reaction from infusion of antibiotics being infused simultaneously -BP has been stable (3) Diabetes mellitus, type II: -Hgb A1c 7.5 - 01/2019 -Developed hyperglycemic episodes post op - due to stress response ? -Pharmacy consulted for glycemic management (4) PAD (peripheral artery disease): Lower extremity arterial Doppler: 1. Extensive calcified plaque in the lower extremity arterial structure. 2. Elevated peak systolic velocities about the popliteal area suggest high- grade stenosis. 3. Short segment occlusion about the proximal posterior tibial artery. 4. Blunted monophasic waveform suggestive of severe peripheral artery disease S/P LLE Angio with [employer] Peroneal artery by Vascular surgery on 02/22/19 (5) CAD (coronary artery disease): -Stable, no reports of chest pain -Resumed aspirin and Plavix post surgery -Beta-floyd resumed on holding parameters (6) HTN (hypertension): -stable -Continue home meds (7) DVT prophylaxis: -SQ heparin Disposition: Lives at home, PT/OT- recommends SNF [facility] per family Okay to discharge to [facility] once bed available. Subjective Patient is s/p transmetatarsal amputation on left foot after vascular intervention - POD #3 Pain is well controlled with current medications Had a bowel movement yesterday No fever, chills. Tolerating p.o. diet well. Physical Exam Physical Exam: Constitutional WD/WN, vitals as above no acute distress Respiratory normal respiratory effort, lungs clear to auscultation Cardiovascular RRR, no murmur, no edema Gastrointestinal (Abdomen) Inspection/Auscultation: normal bowel sounds Percussion/Palpation: abdomen soft; abdomen nontender Musculoskeletal S/P Transmetatarsal amputation of left foot , bandage present, No drainage noted. Old transmetatarsal amputation of rt foot , stumps healed well. Results & Data Vital Signs (Past 12 Hours) Vital Signs Temp Pulse Resp BP Pulse Ox 02/25/19 07:39 37.1 C 88 16 133/76 93
[2019-02-25] MEDS: DAPTOmycin 275 MG in SYRINGE 0 ML IV SCH (18:52)
[2019-02-25] MEDS: SENNA 8.6 MG TAB PO SCH (20:10)
[2019-02-25] MEDS: TRAVOPROST Z 0.004% OPH SOLN 2.5 ML BTL OPB SCH (20:11)
[2019-02-26] MEDS: INSULIN ASPART 100 UNITS/ML 3 ML PEN SC SCH ×6 (00:34→21:25)
[2019-02-26] MEDS: PIPERACILLIN/TAZOBACTAM 3.375 GM in DEXTROSE 5% 100 ML IV SCH ×3 (04:37→20:09)
[2019-02-26] MEDS: DORZOLAMIDE/TIMOLOL 22.3/6.8MG/ML 10 ML BTL OP SCH ×2 (08:36→20:10)
[2019-02-26] MEDS: CHOLECALCIFEROL 1,000 UNITS TAB PO SCH (08:37)
[2019-02-26] MEDS: MAGNESIUM OXIDE 400 MG TAB PO SCH (08:37)
[2019-02-26] MEDS: DOCUSATE SODIUM 100 MG CAP PO SCH ×2 (08:37→20:10)
[2019-02-26] MEDS: MULTIVITAMIN TAB PO SCH (08:37)
[2019-02-26] MEDS: CLOPIDOGREL BISULFATE 75 MG TAB PO SCH (08:37)
[2019-02-26] MEDS: METOPROLOL SUCC 25MG EXT REL TAB PO SCH (08:37)
[2019-02-26] MEDS: BRIMONIDINE TARTRATE 0.2% 5ML OPB SCH (08:37)
[2019-02-26] MEDS: POLYETHYLENE (MIRALAX) 17 GM PACK PO SCH (08:41)
[2019-02-26] MEDS: INSULIN DETEMIR FLEXPEN/FLEX TOUCH 100 UNITS/ML 3ML SQ SCH (08:49)
[2019-02-26 09:02] LABS: Hematocrit (blood only) 36.3 % (37-47); Hemoglobin 12.3 g/dL (12.0-16.0); Mean Corpuscular Hgb Conc 33.9 g/dL (32-36); Mean Corpuscular Volume 91.7 fL (80-100); Mean Platelet Volume 10.5 fL (7.4-10.4); Platelet Count 196 K/uL (130-400); RDW Coefficient of Variation 13.1 % (11.5-14.5); RDW Standard Deviation 43.3 fL (36.4-46.3); Red Blood Count 3.96 M/uL (4.2-5.4); White Blood Count 8.74 K/uL (4.8-10.8)
[2019-02-26 09:29] LABS: BUN Creatinine Ratio 12.9 (10-20); Calcium 9.5 mg/dl (8.5-10.1); Creatinine Clr Calc Pharmacy 41.1 ml/min; Est GFR (African American) 68.2; Est GFR (Non-African American) 58.8; Potassium 3.8 mmol/L (3.5-5.1)
--- NOTE | 2019-02-26 10:24 | Pharmacy Report ---
Pharmacy Glycemic Short Note 2 - Date of Service February 26, 2019 - Glycemic Short BSG Results (Last 24 hours): 02/25/19 02/25/19 02/25/19 12:02 17:38 21:04 Glucose POC Glucose 184 H 78 311 H* 02/25/19 02/26/19 02/26/19 21:06 00:32 04:43 Glucose POC Glucose 302 H* 240 H 142 H 02/26/19 02/26/19 07:56 08:27 Glucose 222 H POC Glucose 221 H OUTPATIENT ANTIDIABETIC REGIMEN: * Metformin 850mg PO BID * Glipizide 5mg PO Daily * Insulin Detemir 14 units SQ Daily ASSESSMENT: 02/26 * Margaret received 77 units of insulin yesterday (25 of this being basal) * Her BSGs dropped throughout the day (down to 78 mg/dL at dinner) but then spiked again at HS and overnight. I believe this is more likely related to not enough basal on board overnight while using a basal that is more often dosed BID. At home, her oral agents would help with the overnight basal coverage but those are currently on hold during her hospital stay. * BSG increased further at lunch so will start PM Levemir at dinner to get more basal on board sooner * I had loosened CR just slightly this AM since postprandial BSGs were down to 78 mg/dL prior to dinner. Now that BSG has increased further at lunch, will tighten back to 5. This may need loosened further tomorrow once more basal on board and can split basal/bolus more evenly. * Of note, when I spoke with the patient today, she reported that she ate some fig newtons from her purse yesterday when she was feeling like her BSGs were low. This is most likely the cause for the BSG of 311 mg/dL at bedtime last night. I advised patient to notify nursing the next time she feels like her BSGs are low so they can check it and appropriately correct it. 02/25 * Blood sugars remain elevated above goal, with 63 units of insulin administered yesterday without any blood sugars at goal. * Increase Lantus dose and tighten CF and CR at this time * Patient remains on IV Zosyn and Daptomycin, ID consulted, considering switching to PO antibiotics if continued improvement * POD 3 left fifth toe amputation PLAN FOR INPATIENT GLYCEMIC CONTROL: * Hold outpatient oral diabetes medications - consider resuming over the weekend in preparation for discharge * Basal insulin - ADD PM dose to help with overnight hyperglycemia; start earlier today to help with elevated BSGs * Levemir 25 units SQ daily * Levemir 10 units w/ dinner today, then * Levemir qPM per the following scale: (this will most likely need adjusted tomorrow) * 5 units for BSG < 200 * 10 units for BSG 200 or above * Bolus insulin - tighten CR back to 5 and add one overnight check w/ looser parameters; of note, these are quite aggressive parameters so hesitant to tighten further since more basal will be given today, in addition to the fact that patient's BSG dropped to 78 mg/dL at dinner yesterday * NovoLog per scale ACHS or Q6hrs while NPO * Goal Range: Low 110 mg/dL - High 140 mg/dL * Correction Factor: 15 mg/dL/unit (20 mg/dL/unit for 0200 check) * Nutritional / Prandial insulin per carb ratio of 1 unit per 5 grams CHO consumed PLAN FOR DISCHARGE: * Resume outpatient regimen. A1c 7.5% acceptable for patient's age and comorbidities
--- NOTE | 2019-02-26 14:19 | Hospitalist Progress Note ---
Date of Service February 25, 2019 Assessment & Plan (1) Osteomyelitis: LEFT 5TH TOE OSTEOMYELITIS Long-standing history of Diabetic foot infections status post multiple amputations --> sent from diabetic foot clinic for ulcer on left little toe with drainage. X-ray of foot shows osteomyelitis and left toe and MRI shows Osteomyelitis of left fifth toe. S/P Revascularization of left lower extremity followed by transmetatarsal amputation of left foot on 02/22/19 -On IV daptomycin. S/P IV Zosyn per ID. Per ID, okay to change to Augmentin 875 mg twice daily on discharge for 2 to 4 weeks depending on clinical response with follow-up with ID outpatient -Pathology from amputation - Acute OM, cellulitis, small vessel vasculopathy ; Blood cx x 2 - No growth -Appreciate input from vascular surgery Dr. Acosta/Orthopedics -Cleared by ortho outpatient (2) Hypotensive episode: BP stable -Patient developed symptomatic hypotension and bradycardia while vancomycin and Zosyn were infusing simultaneously Vancomycin discontinued -Suspect vasovagal versus reaction from infusion of antibiotics being infused simultaneously -BP has been stable (3) Diabetes mellitus, type II: -Hgb A1c 7.5 - 01/2019 -Developed hyperglycemic episodes post op - due to stress response ? -Pharmacy consulted for glycemic management (4) PAD (peripheral artery disease): Lower extremity arterial Doppler: 1. Extensive calcified plaque in the lower extremity arterial structure. 2. Elevated peak systolic velocities about the popliteal area suggest high- grade stenosis. 3. Short segment occlusion about the proximal posterior tibial artery. 4. Blunted monophasic waveform suggestive of severe peripheral artery disease S/P LLE Angio with METAL TREATER Peroneal artery by Vascular surgery on 02/22/19 (5) CAD (coronary artery disease): -Stable, no reports of chest pain -Resumed aspirin and Plavix post surgery -Beta-floyd resumed on holding parameters (6) HTN (hypertension): -stable -Continue home meds (7) DVT prophylaxis: -SQ heparin Disposition: Lives at home, PT/OT- recommends [facility] per family Okay to discharge to [facility] once bed available- ON FRIDAY Subjective Patient is s/p transmetatarsal amputation on left foot after vascular intervention - POD #3 Pain is well controlled with current medications Had a bowel movement - constipation resolved No fever, chills. Tolerating p.o. diet well. Physical Exam Physical Exam: Constitutional WD/WN, vitals as above no acute distress Eyes PERRL, conjunctivae normal, anicteric sclerae ENMT external ear and nose normal, oropharynx normal Neck trachea midline, no thyromegaly Respiratory normal respiratory effort, lungs clear to auscultation Cardiovascular RRR, no murmur, no edema Gastrointestinal (Abdomen) Inspection/Auscultation: normal bowel sounds Percussion/Palpation: abdomen soft; abdomen nontender Musculoskeletal s/p trasnsmetatarsal amputation of left foot , bandage present, no dainage noted old transmetatarsal amputation of rt foot ,stumps healed well Results & Data Vital Signs (Past 12 Hours) Vital Signs Temp Pulse Resp BP Pulse Ox 02/25/19 07:39 37.1 C 88 16 133/76 93
[2019-02-26] MEDS ORDERED: INSULIN DETEMIR FLEXPEN/FLEX TOUCH 100 UNITS/ML 3ML SQ SCH ×2 (16:30→21:00)
[2019-02-26] MEDS: DAPTOmycin 275 MG in SYRINGE 0 ML IV SCH (20:09)
[2019-02-26] MEDS: SENNA 8.6 MG TAB PO SCH (20:11)
[2019-02-26] MEDS: TRAVOPROST Z 0.004% OPH SOLN 2.5 ML BTL OPB SCH (20:12)
[2019-02-26] MEDS: ACETAMINOPHEN 325 MG TAB PO PRN (21:32)
[2019-02-27] MEDS ORDERED: INSULIN ASPART 100 UNITS/ML 3 ML PEN SC ONE (02:00)
[2019-02-27] MEDS: PIPERACILLIN/TAZOBACTAM 3.375 GM in DEXTROSE 5% 100 ML IV SCH ×3 (03:14→20:28)
[2019-02-27] MEDS: BRIMONIDINE TARTRATE 0.2% 5ML OPB SCH (07:37)
[2019-02-27] MEDS: DORZOLAMIDE/TIMOLOL 22.3/6.8MG/ML 10 ML BTL OP SCH ×2 (07:37→20:29)
[2019-02-27] MEDS: CHOLECALCIFEROL 1,000 UNITS TAB PO SCH (07:39)
[2019-02-27] MEDS: MAGNESIUM OXIDE 400 MG TAB PO SCH (07:39)
[2019-02-27] MEDS: CLOPIDOGREL BISULFATE 75 MG TAB PO SCH (07:39)
[2019-02-27] MEDS: METOPROLOL SUCC 25MG EXT REL TAB PO SCH (07:39)
[2019-02-27] MEDS: MULTIVITAMIN TAB PO SCH (07:40)
[2019-02-27] MEDS: DOCUSATE SODIUM 100 MG CAP PO SCH ×2 (07:40→20:41)
[2019-02-27 07:55] LABS: Creatine Kinase 29 U/L (26-192)
[2019-02-27] MEDS: INSULIN DETEMIR FLEXPEN/FLEX TOUCH 100 UNITS/ML 3ML SQ SCH (09:27)
[2019-02-27] MEDS: POLYETHYLENE (MIRALAX) 17 GM PACK PO SCH (09:27)
[2019-02-27] MEDS: INSULIN ASPART 100 UNITS/ML 3 ML PEN SC SCH ×4 (09:28→20:43)
--- NOTE | 2019-02-27 13:27 | Hospitalist Progress Note ---
Date of Service February 27, 2019 Assessment & Plan (1) Osteomyelitis of fifth toe of left foot: Transmetatarsal amputation left foot performed 02/22/[address] Dee. POD # 5. Afebrile. Continue IV daptomycin and piperacillin / tazobactam. (2) CAD (coronary artery disease): No anginal symptoms. Continue aspirin, clopidogrel, and metoprolol. (3) PAD (peripheral artery disease): PTCA left peroneal artery performed by Vascular Surgery 02/22/19. (4) HTN (hypertension): Continue metoprolol. (5) Diabetes mellitus, type II: Pharmacy consulted for glycemic management. FBS today = 182. Continue Levemir and NovoLog. (6) Dyslipidemia: Statin on hold while receiving daptomycin. (7) DVT prophylaxis: SQ heparin. Ambulate. (8) Discharge planning issues: Subjective Recheck for multiple problems. Patient seen in their room around 1210. Family visiting. Still receiving IV antibiotics for osteomyelitis of toe. Doing well. No fever. No foot pain. Review of Systems: Constitutional- no fever. Cardiac- no chest pain. Pulmonary- no cough or SOB. GI- no nausea, vomiting, diarrhea, melena, hematochezia. - no urinary symptoms. Otherwise, as noted above. Physical Exam Constitutional: no acute distress Respiratory: no respiratory distress Auscultation: lungs clear to auscultation bilaterally Cardiovascular: Rate/Rhythm: regular rate and regular rhythm Vessels: no JVD Extremities: no calf tenderness and no edema Gastrointestinal (Abdomen): normal bowel sounds, soft, nontender, no hepatosplenomegaly Musculoskeletal: Extremities: + foot abnormality (left foot bandaged / surgical shoe) Skin: no rashes, warm and dry Psychiatric: Orientation: alert and oriented x 3 Results & Data Vital Signs (Past 12 Hours) Vital Signs Temp Pulse Resp BP Pulse Ox 02/27/19 07:00 36.9 C 84 16 114/65 98
--- NOTE | 2019-02-27 15:39 | Pharmacy Report ---
Pharmacy Glycemic Short Note 2 - Date of Service February 27, 2019 - Glycemic Short BSG Results (Last 24 hours): 02/26/19 02/26/19 02/27/19 17:36 21:03 03:01 POC Glucose 129 H 201 H 113 H 02/27/19 02/27/19 08:14 12:08 POC Glucose 182 H 290 H OUTPATIENT ANTIDIABETIC REGIMEN: * Metformin 850mg PO BID * Glipizide 5mg PO Daily * Insulin Detemir 14 units SQ Daily ASSESSMENT: 02/27: * Margaret received 86 units of insulin yesterday * 35 units of basal * 50 units of bolus * Fasting BSG is improving (221 -> 182 mg/dL). Evening dose of Lantus was added yesterday - will continue current order for now and reassess need to increase Lantus dose on 02/28. * Patient continues to have BSG spike at lunchtime, therefore I will tighten carb ratio with breakfast only. 02/26 * Margaret received 77 units of insulin yesterday (25 of this being basal) * Her BSGs dropped throughout the day (down to 78 mg/dL at dinner) but then spiked again at HS and overnight. I believe this is more likely related to not enough basal on board overnight while using a basal that is more often dosed BID. At home, her oral agents would help with the overnight basal coverage but those are currently on hold during her hospital stay. * BSG increased further at lunch so will start PM Levemir at dinner to get more basal on board sooner * I had loosened CR just slightly this AM since postprandial BSGs were down to 78 mg/dL prior to dinner. Now that BSG has increased further at lunch, will tighten back to 5. This may need loosened further tomorrow once more basal on board and can split basal/bolus more evenly. * Of note, when I spoke with the patient today, she reported that she ate some fig newtons from her purse yesterday when she was feeling like her BSGs were low. This is most likely the cause for the BSG of 311 mg/dL at bedtime last night. I advised patient to notify nursing the next time she feels like her BSGs are low so they can check it and appropriately correct it. 02/25 * Blood sugars remain elevated above goal, with 63 units of insulin administered yesterday without any blood sugars at goal. * Increase Lantus dose and tighten CF and CR at this time * Patient remains on IV Zosyn and Daptomycin, ID consulted, considering switching to PO antibiotics if continued improvement * POD 3 left fifth toe amputation PLAN FOR INPATIENT GLYCEMIC CONTROL: * Hold outpatient oral diabetes medications - consider resuming over the weekend in preparation for discharge * Basal insulin * Levemir 25 units SQ qAM * Levemir qPM per the following scale: * 5 units for BSG < 140 * 10 units for BSG 140 or above * Bolus insulin - tighten carb coverage with breakfast * NovoLog per scale ACHS or Q6hrs while NPO * Goal Range: Low 110 mg/dL - High 140 mg/dL Breakfast: * Correction Factor: 15 mg/dL/unit (20 mg/dL/unit for 0200 check) * Nutritional / Prandial insulin per carb ratio of 1 unit per 3.5 grams CHO consumed Lunch/Dinner/HS: * Correction Factor: 15 mg/dL/unit (20 mg/dL/unit for 0200 check) * Nutritional / Prandial insulin per carb ratio of 1 unit per 5 grams CHO consumed PLAN FOR DISCHARGE: * Resume outpatient regimen. A1c 7.5% acceptable for patient's age and comorbidities
--- NOTE | 2019-02-27 20:24 | Infectious Disease Progress Nt ---
Date of Service February 27, 2019 Assessment & Plan (1) Osteomyelitis of fifth toe of left foot: 78-year-old female with diabetes and neuropathy now with osteomyelitis of the left fifth toe in the setting of peripheral arterial disease. Now status post transmetatarsal amputation. Transition to oral Augmentin 875 mg twice daily. Likely will need 2 to 4 weeks of oral antibiotics depending on clinical response. Will follow. (2) PAD (peripheral artery disease): Subjective Patient is s/p transmetatarsal amputation on left foot after vascular intervention - POD #3 Pain is well controlled with current medications Had a bowel movement - constipation resolved No fever, chills. Tolerating p.o. diet well. Review of Systems Review of Systems: All systems reviewed & are unremarkable except as noted in HPI & below Physical Exam Constitutional: WD/WN, vitals as above + ill appearing (Chronically) and + obese; no acute distress Eyes: PERRL, conjunctivae normal, anicteric sclerae ENMT: external ear and nose normal, oropharynx normal Neck: trachea midline, no thyromegaly Respiratory: normal respiratory effort, lungs clear to auscultation Cardiovascular: RRR, no murmur, no edema Gastrointestinal (Abdomen): normal bowel sounds, soft, nontender, no hepatosplenomegaly Percussion/Palpation: no abdominal mass Musculoskeletal: no cyanosis or clubbing, extremities motor strength 5/5 Skin: normal turgor; no rashes Neurologic: moves all extremities; no focal motor deficits Psychiatric: A+Ox3, euthymic affect Lymphatic: no cervical or axillary lymphadenopathy no inguinal lymphadenopathy Results & Data Vital Signs (Past 12 Hours) Vital Signs Temp Pulse Resp BP Pulse Ox 02/27/19 15:04 36.9 C 88 16 117/70 100 Laboratory Results Cardiac Enzymes 02/27/19 Range/Units 06:28 Total Creatine Kinase 29 (26-192) U/L Diagnostic Findings Microbiology 02/18/19 17:11 Blood Blood Culture - Final No growth 02/18/19 17:22 Blood Blood Culture - Final No growth
[2019-02-27] MEDS: DAPTOmycin 275 MG in SYRINGE 0 ML IV SCH (20:28)
[2019-02-27] MEDS: TRAVOPROST Z 0.004% OPH SOLN 2.5 ML BTL OPB SCH (20:29)
[2019-02-27] MEDS: SENNA 8.6 MG TAB PO SCH (20:42)
[2019-02-28] MEDS: PIPERACILLIN/TAZOBACTAM 3.375 GM in DEXTROSE 5% 100 ML IV SCH (04:45)
--- NOTE | 2019-02-28 08:14 | Hospitalist Progress Note ---
Date of Service February 28, 2019 Assessment & Plan (1) Osteomyelitis of fifth toe of left foot: Osteomyelitis left 4th and 5th toes. Transmetatarsal amputation left foot performed 02/22/[address] Dee. POD # 6. Afebrile. Received IV daptomycin and piperacillin / tazobactam. ID recommends transition to oral therapy with amoxicillin / clavulanic acid for 2-4 weeks, depending on clinical response. (2) CAD (coronary artery disease): No anginal symptoms. Continue aspirin, clopidogrel, and metoprolol. (3) PAD (peripheral artery disease): PTCA left peroneal artery performed by Vascular Surgery 02/22/19. Continue aspirin and clopidogrel. Resume statin when able. (4) HTN (hypertension): Continue metoprolol. (5) Diabetes mellitus, type II: Pharmacy consulted for glycemic management. FBS today pending. Continue Levemir and NovoLog. (6) Dyslipidemia: Statin on hold while receiving daptomycin. (7) DVT prophylaxis: SQ heparin. Ambulate. (8) Discharge planning issues: Anticipated transfer to [facility] for skilled care. Family Medicine follow-up with Dr. Plunkett. Subjective Recheck for multiple problems. Patient seen in their room around 0750. Doing well. No fever. Had some left foot pain with ambulation this morning. Review of Systems: Constitutional- no fever. Cardiac- no chest pain. Pulmonary- no cough or SOB. GI- received laxatives for constipation with subsequent loose stools; no nausea, vomiting, melena, hematochezia. - no urinary symptoms. Otherwise, as noted above. Physical Exam Constitutional: no acute distress Respiratory: no respiratory distress Auscultation: lungs clear to auscultation bilaterally Cardiovascular: Rate/Rhythm: regular rate and regular rhythm Vessels: no JVD Extremities: no calf tenderness and no edema Gastrointestinal (Abdomen): normal bowel sounds, soft, nontender, no hepatosplenomegaly Musculoskeletal: Extremities: + foot abnormality (left foot bandaged / surgical shoe) Skin: no rashes, warm and dry Psychiatric: Orientation: alert and oriented x 3 Results & Data Vital Signs (Past 12 Hours) Vital Signs Temp Pulse Resp BP BP Pulse Ox 02/28/19 07:01 36.9 C 76 17 120/75 95 02/28/19 05:30 36.5 C 75 16 100/64 97 02/27/19 22:39 36.7 C 88 16 136/77 100 Laboratory Results Laboratory Results - last 24 hr 02/27/19 02/27/19 02/27/19 08:14 12:08 17:10 POC Glucose 182 H 290 H 98 02/27/19 20:25 POC Glucose 185 H
[2019-02-28] MEDS: ASPIRIN 81 MG CHEW PO SCH (08:32)
[2019-02-28] MEDS: DOCUSATE SODIUM 100 MG CAP PO SCH ×2 (08:32→21:23)
[2019-02-28] MEDS: CLOPIDOGREL BISULFATE 75 MG TAB PO SCH (08:32)
[2019-02-28] MEDS: CHOLECALCIFEROL 1,000 UNITS TAB PO SCH (08:32)
[2019-02-28] MEDS: METOPROLOL SUCC 25MG EXT REL TAB PO SCH (08:32)
[2019-02-28] MEDS: MAGNESIUM OXIDE 400 MG TAB PO SCH (08:32)
[2019-02-28] MEDS: DORZOLAMIDE/TIMOLOL 22.3/6.8MG/ML 10 ML BTL OP SCH ×2 (08:34→21:19)
[2019-02-28] MEDS: MULTIVITAMIN TAB PO SCH (08:35)
[2019-02-28] MEDS: BRIMONIDINE TARTRATE 0.2% 5ML OPB SCH (08:36)
[2019-02-28] MEDS: POLYETHYLENE (MIRALAX) 17 GM PACK PO SCH (08:39)
[2019-02-28] MEDS: METFORMIN HCL 850 MG TAB PO SCH ×2 (08:40→17:44)
[2019-02-28] MEDS: INSULIN DETEMIR FLEXPEN/FLEX TOUCH 100 UNITS/ML 3ML SQ SCH (08:41)
[2019-02-28] MEDS: INSULIN ASPART 100 UNITS/ML 3 ML PEN SC SCH ×4 (08:42→21:22)
--- NOTE | 2019-02-28 09:42 | Orthopedic Progress Note ---
Date of Service February 28, 2019 Assessment & Plan (1) Osteomyelitis: POD#6- Status post left foot transmetatarsal amputation -Antibiotics per medical team/ ID, Zosyn and Dapto, may change to orals at D/C per medicine. -DVT prophylaxis Plavix -Weight-bear as tolerates through heel on left lower extremity -Ice and elevation -Daily dressing change -PT/OT -Disposition per primary team, patient states back to [facility] possibly tomorrow. Follow up with Dr. Dee 10-12 days post op, call [facility] at [phone] for appt. Ortho will sign off, please contact us with any concerns, thank you. Subjective Post Operative Progress Note Wound check Patient seen sitting up in chair, comfortable, denies complaints, pain well controlled, no acute issues. Review of Systems 2 Review of Systems: All systems reviewed & are unremarkable except as noted in HPI & below Constitutional: as per Subjective / HPI Physical Exam Physical Exam: LLE NVSI TA/GS SILT grossly, +2 DP pulse, compartments soft NT, dry blood, no active drainage, incision CDI Constitutional: WD/WN, vitals as above Results & Data Vital Signs (Past 12 Hours) Vital Signs Temp Pulse Resp BP BP Pulse Ox 02/28/19 07:01 36.9 C 76 17 120/75 95 02/28/19 05:30 36.5 C 75 16 100/64 97 02/27/19 22:39 36.7 C 88 16 136/77 100
--- NOTE | 2019-02-28 11:15 | Pharmacy Report ---
Pharmacy Glycemic Short Note 2 - Date of Service February 28, 2019 - Glycemic Short BSG Results (Last 24 hours): 02/27/19 02/27/19 02/27/19 12:08 17:10 20:25 POC Glucose 290 H 98 185 H 02/28/19 08:07 POC Glucose 223 H OUTPATIENT ANTIDIABETIC REGIMEN: * Metformin 850mg PO BID * Glipizide 5mg PO Daily * Insulin Detemir 14 units SQ Daily ASSESSMENT: 02/28: * Margaret received 74 units of insulin yesterday * 35 units of basal * 39 units of bolus * Metformin resumed this AM in anticipation of upcoming discharge. * Fasting BSG remains elevated despite patient receiving an extra 10 units of basal insulin the past two days. Will further increase today. * Post prandial BSG elevation at lunchtime. I have tightened Novolog carb ratio with breakfast only to avoid BSG spike at lunchtime -> significant improvement seen at lunch today. Will continue the same Novolog parameters for now. These may need adjusted on 03/01 per metformin has been added back to regimen. 02/27: * Margaret received 86 units of insulin yesterday * 35 units of basal * 50 units of bolus * Fasting BSG is improving (221 -> 182 mg/dL). Evening dose of Lantus was added yesterday - will continue current order for now and reassess need to increase Lantus dose on 02/28. * Patient continues to have BSG spike at lunchtime, therefore I will tighten carb ratio with breakfast only. 02/26 * Margarte received 77 units of insulin yesterday (25 of this being basal) * Her BSGs dropped throughout the day (down to 78 mg/dL at dinner) but then spiked again at HS and overnight. I believe this is more likely related to not enough basal on board overnight while using a basal that is more often dosed BID. At home, her oral agents would help with the overnight basal coverage but those are currently on hold during her hospital stay. * BSG increased further at lunch so will start PM Levemir at dinner to get more basal on board sooner * I had loosened CR just slightly this AM since postprandial BSGs were down to 78 mg/dL prior to dinner. Now that BSG has increased further at lunch, will tighten back to 5. This may need loosened further tomorrow once more basal on board and can split basal/bolus more evenly. * Of note, when I spoke with the patient today, she reported that she ate some fig newtons from her purse yesterday when she was feeling like her BSGs were low. This is most likely the cause for the BSG of 311 mg/dL at bedtime last n ight. I advised patient to notify nursing the next time she feels like her BSGs are low so they can check it and appropriately correct it. PLAN FOR INPATIENT GLYCEMIC CONTROL: * Resume metformin 850 mg PO BID - anticipate discharge to [facility] on Friday * Basal insulin - increase * Levemir 30 units SQ qAM * Levemir qPM per the following scale: * 10 units for BSG < 140 * 13 units for BSG 140 or above * Bolus insulin * NovoLog per scale ACHS or Q6hrs while NPO * Goal Range: Low 110 mg/dL - High 140 mg/dL Breakfast: * Correction Factor: 15 mg/dL/unit * Nutritional / Prandial insulin per carb ratio of 1 unit per 3.5 grams CHO consumed Lunch/Dinner/HS: * Correction Factor: 15 mg/dL/unit * Nutritional / Prandial insulin per carb ratio of 1 unit per 5 grams CHO consumed PLAN FOR DISCHARGE: * Resume outpatient regimen. A1c 7.5% acceptable for patient's age and comorbidities
[2019-02-28] MEDS: AMOXICILLIN/CLAVULANATE 875 MG TAB PO SCH (17:44)
[2019-02-28] MEDS ORDERED: INSULIN DETEMIR FLEXPEN/FLEX TOUCH 100 UNITS/ML 3ML SQ SCH (21:00)
[2019-02-28] MEDS: SENNA 8.6 MG TAB PO SCH (21:23)
[2019-02-28] MEDS: TRAVOPROST Z 0.004% OPH SOLN 2.5 ML BTL OPB SCH (21:23)
[2019-03-01] MEDS: ACETAMINOPHEN 325 MG TAB PO PRN (04:06)
[2019-03-01 07:07] LABS: Hematocrit (blood only) 30.3 % (37-47); Hemoglobin 10.8 g/dL (12.0-16.0); Mean Corpuscular Hgb Conc 35.6 g/dL (32-36); Mean Corpuscular Volume 89.6 fL (80-100); Mean Platelet Volume 9.6 fL (7.4-10.4); Platelet Count 206 K/uL (130-400); RDW Coefficient of Variation 12.9 % (11.5-14.5); Red Blood Count 3.38 M/uL (4.2-5.4); White Blood Count 8.67 K/uL (4.8-10.8)
[2019-03-01 07:37] LABS: BUN Creatinine Ratio 31.4 (10-20); C Reactive Protein 6.06 mg/dl (0-0.29); Calcium 9.3 mg/dl (8.5-10.1); Est GFR (African American) 76.1; Est GFR (Non-African American) 65.6; Potassium 4.2 mmol/L (3.5-5.1)
[2019-03-01 07:42] VITALS: BP 122/68; PULSE 84; TEMP 98.8; O2SAT 95
[2019-03-01] MEDS: AMOXICILLIN/CLAVULANATE 875 MG TAB PO SCH (08:26)
[2019-03-01] MEDS: BRIMONIDINE TARTRATE 0.2% 5ML OPB SCH (08:27)
[2019-03-01] MEDS: METFORMIN HCL 850 MG TAB PO SCH (08:27)
[2019-03-01] MEDS: ASPIRIN 81 MG CHEW PO SCH (08:28)
[2019-03-01] MEDS: MAGNESIUM OXIDE 400 MG TAB PO SCH (08:29)
[2019-03-01] MEDS: DOCUSATE SODIUM 100 MG CAP PO SCH (08:29)
[2019-03-01] MEDS: MULTIVITAMIN TAB PO SCH (08:29)
[2019-03-01] MEDS: CHOLECALCIFEROL 1,000 UNITS TAB PO SCH (08:30)
[2019-03-01] MEDS: CLOPIDOGREL BISULFATE 75 MG TAB PO SCH (08:30)
[2019-03-01] MEDS: METOPROLOL SUCC 25MG EXT REL TAB PO SCH (08:30)
[2019-03-01] MEDS: DORZOLAMIDE/TIMOLOL 22.3/6.8MG/ML 10 ML BTL OP SCH (08:31)
[2019-03-01] MEDS: POLYETHYLENE (MIRALAX) 17 GM PACK PO SCH (08:34)
[2019-03-01] MEDS: INSULIN DETEMIR FLEXPEN/FLEX TOUCH 100 UNITS/ML 3ML SQ SCH (08:40)
[2019-03-01] MEDS: INSULIN ASPART 100 UNITS/ML 3 ML PEN SC SCH (08:42)
--- NOTE | 2019-03-01 09:52 | Hospitalist Progress Note ---
Date of Service March 01, 2019 Assessment & Plan (1) Osteomyelitis of fifth toe of left foot: Osteomyelitis left 4th and 5th toes. Transmetatarsal amputation left foot performed 02/22/[address] Dee. POD # 7. Afebrile. Received IV daptomycin and piperacillin / tazobactam. ID recommends transition to oral therapy with amoxicillin / clavulanic acid for 2-4 weeks, depending on clinical response. C-reactive protein 6.06 day of discharge. No fever or leukocytosis. Wound OK. Recheck C-reactive protein in 1 week. Duration of amoxicillin / clavulanic acid to be determined by Ortho after reassessment. (2) CAD (coronary artery disease): No anginal symptoms. Continue aspirin, clopidogrel, and metoprolol. (3) PAD (peripheral artery disease): PTCA left peroneal artery performed by Vascular Surgery 02/22/19. Continue aspirin, clopidogrel, statin. (4) HTN (hypertension): Continue metoprolol. (5) Diabetes mellitus, type II: Last Hgb A1C 7.5. Blood sugars running high due to acute illness. Pharmacy consulted for glycemic management. Glipizide and metformin held. Received Levemir and NovoLog. Metformin resumed 02/28. FBS today = 150. Resume glipizide upon discharge. Anticipate improving blood sugars with resumption of metformin and glipizide. Discharge on Levemir daily with sliding scale + NovoLog ACHS with sliding scale. Hopefully by time of [facility] discharge patient can be sent home with oral agents and fixed dose of Levemir without NovoLog. (6) Dyslipidemia: Statin held while receiving daptomycin. Daptomycin stopped 02/27. CPK normal. Resume simvastatin. (7) DVT prophylaxis: Received SQ heparin. Transition to SQ enoxaparin- continue until ambulatory. Ambulate. (8) Discharge planning issues: Arrangements being made for transfer to [facility] for skilled care. Family Medicine follow-up with Dr. Plunkett. Ortho follow-up with Dr. Dee 10-12 days postop. Subjective Recheck for multiple problems. Patient seen in their room around 0810. Doing well. No fever. No foot pain. Review of Systems: Constitutional- no fever. Cardiac- no chest pain. Pulmonary- no cough or SOB. GI- no nausea, vomiting, diarrhea, melena, hematochezia. - no urinary symptoms. Otherwise, as noted above. Physical Exam Constitutional: no acute distress Respiratory: no respiratory distress Auscultation: lungs clear to auscultation bilaterally Cardiovascular: Rate/Rhythm: regular rate and regular rhythm Vessels: no JVD Extremities: no calf tenderness and no edema Gastrointestinal (Abdomen): normal bowel sounds, soft, nontender, no hepatosplenomegaly Musculoskeletal: RT foot- old / healed transmetatarsal amp LT foot- recent transmetatarsal amp; wound without drainage; mild erythema and swelling of foot (improved per nursing staff) Skin: no rashes, warm and dry Psychiatric: Orientation: alert and oriented x 3 Results & Data Vital Signs (Past 12 Hours) Vital Signs Temp Pulse Pulse Resp BP Pulse Ox 03/01/19 07:30 37.1 C 84 20 122/68 95 02/28/19 23:00 36.6 C 77 16 121/71 97 Laboratory Results Laboratory Results - last 24 hr 02/28/19 02/28/19 02/28/19 12:05 17:27 21:17 WBC RBC Hgb Hct MCV MCH MCHC RDW Std Deviation RDW Coeff of Dipesh Plt Count MPV Sodium Potassium Chloride Carbon Dioxide Anion Gap BUN Creatinine Est Cr Clr Drug Dosing Est GFR ( Amer) Est GFR (Non-Af Amer) BUN/Creatinine Ratio Glucose POC Glucose 188 H 72 234 H Calcium Total Creatine Kinase C-Reactive Protein 03/01/19 03/01/19 03/01/19 06:54 06:54 07:59 WBC 8.67 RBC 3.38 L Hgb 10.8 L Hct 30.3 L MCV 89.6 MCH 32.0 MCHC 35.6 RDW Std Deviation 42.0 RDW Coeff of Dipesh 12.9 Plt Count 206 MPV 9.6 Sodium 138 Potassium 4.2 Chloride 106 Carbon Dioxide 25 Anion Gap 7.0 BUN 26 H Creatinine 0.84 Est Cr Clr Drug Dosing 45.0 Est GFR ( Amer) 76.1 Est GFR (Non-Af Amer) 65.6 BUN/Creatinine Ratio 31.4 H Glucose 114 H POC Glucose 150 H Calcium 9.3 Total Creatine Kinase 58 C-Reactive Protein 6.06 H
--- NOTE | 2019-03-01 10:01 | Discharge Summary ---
Date of Service Date of Admission: 02/18/19 Date of Discharge: 03/01/19 Admission HPI Per Admitting Provider 78-year-old female who presents to the ED by referral of the diabetic foot clinic for evaluation of left toe infection. Patient has a long-standing history of diabetic foot infections status post multiple toe amputations. Patient reports she checks her feet daily for wounds. Yesterday, her [id number] noted that her left fifth toe was white in color. Patient made an appointment to be seen in the diabetic foot clinic today. There, and also was noted to the plantar surface of the left fifth toe with surrounding erythema streaking up the dorsal aspect of the left foot. Patient denies fevers and chills. Reports she has been feeling well recently. No chest pain or shortness of breath. She denies lightheadedness, dizziness, diaphoresis, syncopal events. No abdominal pain, nausea, vomiting, diarrhea. She denies any urinary symptoms. In the ED, left foot x-ray suggesting possible osteomyelitis of the left fifth toe. Labs are unremarkable. At the time my exam, patient was hemodynamically stable. After my exam, infusion of vancomycin and Zosyn were initiated simultaneously. Patient then developed symptomatic bradycardia and hypotension. This improved after patient was placed supine and received IVF bolus. There was no visible rash noted. EKG was obtained that did not demonstrate any acute findings. Troponin negative. Admission Exam Per Admitting Provider Constitutional: WD/WN, vitals as above Eyes: PERRL, conjunctivae normal, anicteric sclerae ENMT: external ear and nose normal, oropharynx normal Respiratory: normal respiratory effort, lungs clear to auscultation Cardiovascular: Rate/Rhythm: regular rate and regular rhythm Vessels: normal peripheral pulses Extremities: no edema Gastrointestinal (Abdomen): normal bowel sounds, soft, nontender, no hepatosplenomegaly Musculoskeletal: no cyanosis or clubbing, extremities motor strength 5/5 Ri ght transmetatarsal amputation, left second and third toe amputated Skin: no rashes, warm and dry Ulcer noted to the plantar surface of the left fifth toe with surrounding erythema and streaking up the dorsal aspect of the left foot, macerated skin Neurologic: PERRL, EOMI, accommodation nl, no face palsy, no dysarthria Psychiatric: A+Ox3, euthymic affect Principal Diagnosis osteomyelitis left 4th and 5th toes peripheral vascular disease Discharge Data Allergies Allergy/AdvReac Type Severity Reaction Status Date / Time baclofen Allergy Unknown unkown Verified 02/22/19 08:33 Bactrim Allergy Unknown itching Verified 12/21/17 14:38 sulfamethoxazole Allergy Unknown itching Verified 02/22/19 08:33 tramadol Allergy Unknown unkown Verified 02/22/19 08:33 trimethoprim Allergy Unknown itching Verified 02/22/19 08:33 Consultations 02/18/19 17:51 ED Decision to Admit Stat 02/18/19 20:19 Consult Case Management - Discharge Planning Routine Consult Vascular Surgery Routine 02/19/19 09:08 Consult Orthopedic Surgery Routine 02/20/19 13:26 Consult Infectious Diseases Routine Procedures Performed Operation Date: 02/22/19 07:00 Actual Procedures p Left Transmetatarsal Amputation of foot(Left) - Gentry Dee DO Operation Date: 02/22/19 08:00 Actual Procedures p Left Lower Extremity Arterogram, Percutaneous Angioplasty of Peroneal Artery, Mechanical Closure of Right Femoral Artery; Moderate Sedation [id number].(Right) - Kaleb Acosta MD Ordered Studies 02/18/19 16:26 US venous doppler LE RT Stat 02/18/19 20:19 US arterial duplex LE LT Routine 02/20/19 09:00 MR foot LT wo/w con Routine 02/22/19 07:33 EV angio LE LT Routine 02/22/19 15:58 US - OR guided needle placemen Routine Hospital Course (1) Osteomyelitis of fifth toe of left foot: Admitted with osteomyelitis left great toe failing outpatient management. Recent outpatient wound cultures + for MSSA. Received IV vanco /followed by daptomycin and piperacillin / tazobactam. ID, Ortho, Vascular Surgery consulted. MRI demonstrated osteomyelitis left 4th and 5th toes. PTCA left peroneal artery performed by Dr. Acosta 02/22/19. Transmetatarsal amputation left foot performed 02/22/[address] Dee. POD # 7. Afebrile. Received IV daptomycin and piperacillin / tazobactam. ID recommended transition to oral therapy with amoxicillin / clavulanic acid for 2-4 weeks, depending on clinical response. C-reactive protein 6.06 day of discharge. No fever or leukocytosis. Wound OK. Recheck C-reactive protein in 1 week. Duration of amoxicillin / clavulanic acid to be determined by Ortho after reassessment. (2) CAD (coronary artery disease): No anginal symptoms. Continue aspirin, clopidogrel, and metoprolol, statin. (3) PAD (peripheral artery disease): PTCA left peroneal artery performed by Vascular Surgery 02/22/19. Continue aspirin, clopidogrel, statin. (4) HTN (hypertension): Continue metoprolol. (5) Diabetes mellitus, type II: Last Hgb A1C 7.5. Blood sugars running high due to acute illness. Pharmacy consulted for glycemic management. Glipizide and metformin held. Received Levemir and NovoLog. Metformin resumed 02/28. FBS day of discharge = 150. Resume glipizide upon discharge. Anticipate improving blood sugars with treatment of infection, increased activity, and resumption of metformin and glipizide. Discharge on Levemir daily with sliding scale + NovoLog ACHS with sliding scale. Hopefully by time of [facility] discharge patient can be sent home with oral agents and fixed dose of Levemir without NovoLog. (6) Dyslipidemia: Statin held while receiving daptomycin. Daptomycin stopped 02/27. CPK normal. Resume simvastatin. (7) DVT prophylaxis: Received SQ heparin. Transition to SQ enoxaparin- continue until ambulatory. Ambulate. (8) Discharge planning issues: Arrangements being made for transfer to [facility] for skilled care. Family Medicine follow-up with Dr. Plunkett. Ortho follow-up with Dr. Dee 10-12 days postop. Total Time Total Time Spent Total Time Spent (In Minutes): 45 Discharge Plan Discharge Items Patient Disposition: [facility] Reason For Visit: OSTEOMYELITIS Discharge Diagnosis: osteomyelitis left 4th and 5th toes s/p transmetatarsal amputation of left foot 02/22/19 Condition: Good Discharge Goals: Decrease discomfort and Improve function Activity: As commented below Bathing Comment: keep left foot wound dry Weightbearing: Left weightbearing Weightbearing Comment: On the heel only! Non-emergency contact: Surgeon Call non-emergency contact if: your temperature is above 101.5, your wound has increased redness and your wound has increased drainage Follow-up/Referrals: Gentry Dee, [Surgeon] - (Please call office for appointment around 03/04 - 03/06.) Roland Plunkett MD [Primary Care Provider] - (Please arrange for follow-up when ready for DC from your facility.) Diet: Carb Consistent or DM2 and Heart Healthy Addtl Provider Instructions: Weightbearing on heel only for the Left foot Daily dressing changes. If you have minimal drainage, you may shower. Do not soak the wound, No tub baths. Keep leg elevated on 1 or 2 pillows to help reduce swelling when at rest. Follow up with Dr Dee in 10-14 days from the day of surgery. Pt to call for appointment. [phone] MEDICAL INSTRUCTIONS Please check fingerstick blood sugars AC + HS. Please check CBC, BMP, C-reactive protein in 1 week and send report to Dr. Dee. Thank you for this consultation. We will follow the patient with you during their hospital stay. My cell # is [phone]. You can reach a member of the [facility] Medicine Team 12/05 via pager @ [phone]. Prescriptions: New amoxicillin-pot clavulanate 875-125 mg Tablet 1 tab PO BIDM Qty: 56 RF: 0 acetaminophen 500 mg tablet 1,000 mg PO Q8H PRN (Reason: fever or pain) Qty: 60 RF: 0 Levemir FlexTouch U-100 Insuln 100 unit/mL (3 mL) insulin pen See Rx Instructions .ROUTE .COMPLEX Qty: 3 RF: 0 Novolog Flexpen U-100 Insulin 100 unit/mL (3 mL) insulin pen See Rx Instructions .ROUTE .COMPLEX Qty: 15 RF: 0 enoxaparin 30 mg/0.3 mL syringe 30 mg SQ DAILY Qty: 3 RF: 0 Continued metformin 850 mg Tablet 850 mg PO BIDM RF: 0 travoprost 0.004 % Drops 1 drp OPB PM RF: 0 clopidogrel 75 mg Tablet 75 mg PO DAILY RF: 0 aspirin [Aspirin Low Dose] 81 mg Tablet,Delayed Release (Dr/Ec) 81 mg PO DAILY RF: 0 hydrocortisone acetate [Anucort-HC] 25 mg Suppository 25 mg TX BID PRN (Reason: Hemorrhoids) RF: 0 simvastatin 20 mg Tablet 20 mg PO HS RF: 0 lisinopril 10 mg Tablet 10 mg PO DAILY RF: 0 brimonidine 0.2 % Drops 1 drp OPB DAILY RF: 0 metoprolol succinate 25 mg Tablet Extended Release 24 Hr 12.5 mg PO DAILY RF: 0 clobetasol 0.05 % Ointment 1 applic TOPICAL DIRECTED RF: 0 glipizide 5 mg Tablet 5 mg PO DAILY RF: 0 cholecalciferol (vitamin D3) [Vitamin D3] 1,000 unit Capsule 1,000 unit PO DAILY RF: 0 Refresh Plus 0.5 % Dropperette 1 drp OPB DAILY PRN (Reason: Dry Eye(S)) RF: 0 dorzolamide-timolol (PF) [Cosopt (PF)] 2-0.5 % Dropperette 1 drp OPB BID RF: 0 magnesium oxide 400 mg magnesium Tablet 400 mg PO DAILY RF: 0 Discontinued Levemir FlexTouch U-100 Insuln 100 unit/mL (3 mL) Insulin Pen 14 unit SUBCUT DAILY RF: 0 Stand-Alone Forms: [facility] Admission Data Admit Date/Time: 02/18/19 18:22 Attending Provider: Jack Holley Admit Provider: Mark Rico Primary Care Provider: Roland Plunkett. Other Providers: Saskia Sanders ; Anoop Powell ; Mark Rico ; Moi Blackwell ; Gentry Dee ; Julio Granda ; Farzana Duque ; Jarad Matias ; Jory Levine ; Wilbur Marquis ; Roland Alva ; Joon Hewitt ; Roland Mitchell ; Alistair Lewis. ; Joon Mauricio ; Kenneth Goff ; Sagar Belle ; Spenser Landon ; Kavin Awad ; Jacob Mcpherson ; Sandeep Ghotra ; Thomas Petty ; Jory Bernal ; Nicholas Alejandra ; Phillip Leblanc ; Fam Santos ; Jack Gardner ; Kaleb Acosta ; Angella Bey Service: Surgical Services
[2019-03-01] MEDS ORDERED: INSULIN ASPART 100 UNITS/ML 3 ML PEN SQ SCH ×2 (11:30→16:30)
== END 2019-03-01 13:08 | DRG 240 ==
LOC: ED 14:37 → SUATTDRO 18:22 → 2S 18:22 → 4W 02-19 17:28 → 3W 02-22 17:15

== ENCOUNTER 2021-03-12 18:17 | Inpatient (IN) ==
--- NOTE | 2021-03-12 19:29 | CT Scan Report ---
CT SCAN OF THE BRAIN WITHOUT IV CONTRAST CLINICAL HISTORY: Change in mental status. COMPARISON STUDY: CT of the brain dated 06/10/2020. TECHNIQUE: Unenhanced axial CT scan of the brain is performed from the vertex to the skull base. A do se lowering technique was utilized adhering to the principles of ALARA. CT DOSE: 537.48 mGy.cm FINDINGS: Brain parenchyma: There are age-related involutional changes noting moderate subcortical and periven tricular microangiopathic change. There is no hemorrhage, mass effect, or evidence of acute territori al ischemia by CT criteria. Watkins-white matter differentiation is preserved. No extra-axial fluid collins ection is seen. Ventricles, sulci, cisterns: Prominent secondary to involutional change. Intracranial vasculature: There is atherosclerotic calcification of the cavernous carotid and vertebr al arteries. Calvarium: Unremarkable. Soft tissues: There is right posterior parietal scalp contusion. Sinuses and mastoids: The visualized paranasal sinuses are clear. The mastoid air cells are well pneu matized. Orbits: The bony orbits are grossly intact. There are bilateral ocular lens implants. Postoperative c hanges suggested involving the right orbits. IMPRESSION: There is no hemorrhage, mass effect, or evidence of acute territorial ischemia by CT hayley olivas. ACT 112: Negative or not required by law. Electronically signed by: Kobi Davis M.D. 03/12/2021 7:27 PM
[2021-03-12 19:59] LABS: Basophils # (auto) 0.03 K/uL (0-0.2); Basophils % (auto) 0.3 %; Eosinophils # (auto) 0.17 K/uL (0-0.5); Eosinophils % (auto) 1.7 %; Hematocrit (blood only) 28.7 % (37-47); Hemoglobin 9.1 g/dL (12.0-16.0); Immature Granulocytes # (auto) 0.05 K/uL (0.00-0.02); Immature Granulocytes % (auto) 0.5 %; Lymphocytes # (auto) 1.67 K/uL (1.2-3.4); Lymphocytes % (auto) 16.2 %; Mean Corpuscular Hemoglobin 25.1 pg (25-34); Mean Corpuscular Hgb Conc 31.7 g/dL (32-36); Mean Corpuscular Volume 79.3 fL (80-100); Mean Platelet Volume 9.3 fL (7.4-10.4); Monocytes # (auto) 1.02 K/uL (0.11-0.59); Monocytes % (auto) 9.9 %; Neutrophils # (auto) 7.34 K/uL (1.4-6.5); Neutrophils % (auto) 71.4 %; Platelet Count 378 K/uL (130-400); RDW Coefficient of Variation 15.2 % (11.5-14.5); RDW Standard Deviation 44.6 fL (36.4-46.3); Red Blood Count 3.62 M/uL (4.2-5.4); White Blood Count 10.28 K/uL (4.8-10.8)
[2021-03-12 20:09] LABS: Partial Thromboplastin Time 27.1 Seconds (21.0-31.0); Prothrombin Time 10.5 Seconds (9.0-12.0)
[2021-03-12 20:18] LABS: Alanine Aminotransferase 16 U/L (12-78); Albumin Level 2.7 gm/dl (3.4-5.0); Aspartate Aminotransferase 11 U/L (15-37); BUN Creatinine Ratio 39.4 (10-20); Blood Urea Nitrogen 26 mg/dl (7-18); Calcium 8.8 mg/dl (8.5-10.1); Carbon Dioxide 26 mmol/L (21-32); Chloride 106 mmol/L (98-107); Creatinine Clr Calc Pharmacy 54.4 ml/min; Est GFR (African American) 95.3 ml/min; Est GFR (Non-African American) 82.3 ml/min; Glucose 127 mg/dl (70-99); Potassium 4.6 mmol/L (3.5-5.1); Sodium 138 mmol/L (136-145)
--- NOTE | 2021-03-12 20:20 | XRay Report ---
SINGLE VIEW CHEST CLINICAL HISTORY: Fall. FINDINGS: An AP, portable, upright chest radiograph is compared to study dated 06/10/2020. Correlation is made with chest CT dated 01/10/2012. The cardiomediastinal silhouette is unremarkable. Chronic int erstitial thickening is similar to previous. Left basilar atelectasis is unchanged. The lungs and ple ural spaces are otherwise clear. No pneumothorax is seen. The skeletal structures are osteopenic. The bony thorax is grossly intact. 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 IMPRESSION: No acute cardiopulmonary abnormality. ACT 112: Negative or not required by law. Electronically signed by: Kobi Davis M.D. 03/12/2021 8:18 PM
[2021-03-12 20:23] LABS: Albumin Globulin Ratio 0.6 (0.9-2); Alkaline Phosphatase 77 U/L (45-117); Bilirubin,Total 0.2 mg/dl (0.2-1); Creatine Kinase 28 U/L (26-192); Globulin 4.6 gm/dl (2.5-4.0); Total Protein 7.3 gm/dl (6.4-8.2); Troponin I < 0.015 ng/ml (0-0.045)
--- NOTE | 2021-03-12 20:30 | XRay Report ---
SINGLE VIEW PELVIS; 3 VIEWS RIGHT FEMUR; 3 VIEWS LEFT FEMUR CLINICAL HISTORY: Fall. Pelvic and bilateral leg pain. FINDINGS: AP view of the pelvis with AP, frog-leg, and crosstable lateral views of the right and left femur are compared to radiographs of the bony pelvis and right femur dated 06/10/2020. The skeletal s tructures are osteopenic. There is no radiographic evidence of acute fracture involving the hips or b case pelvis. There is no radiographic evidence of right or left femoral fracture. There is moderate de generative joint space narrowing seen in both hips. Sclerotic change is seen in the sacroiliac joints . Lumbosacral spondylosis is partially visualized. The knee joints are grossly maintained noting sign ificant arthritic change. There are bilateral knee joint effusions. The overlying soft tissues are no rmal as imaged. Advanced atherosclerotic calcification is seen in the femoral arteries. IMPRESSION: 1. No acute bony abnormality is seen involving the hips or pelvis. 2. There is no radiographic evidence of right femoral fracture. 3. There is no radiographic evidence of left femoral fracture. Electronically signed by: Kobi Davis M.D. 03/12/2021 8:28 PM
--- NOTE | 2021-03-12 22:42 | History & Physical Report ---
Date of Service March 12, 2021 Assessment & Plan (1) Frequent falls: Admission and Anticipated Discharge Date Admission Date: Please refer to Dr. Galarza's addendum for assessment and plan. History of Present Illness Chief Complaint: Frequent falls Primary Care Provider: Roland Plunkett MD 80-year-old female with PMH DM type II, PVD, CAD, HTN, and the problems listed below who presents to the ED for evaluation of frequent falls. Patient reports that she suffered a fall last summer and reports falling at least 20 times since then. Falls have been becoming more and more frequent. Falls all seem to be mechanical in nature. Patient denies any associated lightheadedness, dizziness, syncopal event. No chest pain or shortness of breath. Has been having a mild hypoglycemia in the morning around 90. Follows with diabetic [facility] who has been adjusting Levemir. Patient denies abdominal pain, nausea, vomiting, diarrhea. Upon questioning, she feels like she has had a 20 pound unintentional weight loss. Denies bright red blood per rectum or dark tarry stools. No fevers or chills. Denies urinary symptoms. In the ED, pelvis and bilateral femur x-rays are unremarkable for acute findings. Head CT is negative for acute intracranial findings. CXR negative for acute cardiopulmonary disease. Labs show Hgb 9.1, otherwise unremarkable. Allergies Allergy/AdvReac Type Severity Reaction Status Date / Time baclofen Allergy Unknown unkown Verified 03/12/21 19:25 Bactrim Allergy Unknown itching Verified 12/21/17 14:38 sulfamethoxazole Allergy Unknown itching Verified 03/12/21 19:25 tramadol Allergy Unknown unkown Verified 03/12/21 19:25 trimethoprim Allergy Unknown itching Verified 03/12/21 19:25 glipizide AdvReac erratic Verified 03/12/21 19:25 bsgs Home Medications Medication Instructions Recorded Confirmed Type aspirin [Aspirin Low Dose] 81 mg PO DAILY 02/18/19 03/12/21 History brimonidine 1 drp OPB TID 02/18/19 03/12/21 History cholecalciferol (vitamin D3) 1,000 unit PO DAILY 02/18/19 03/12/21 History [Vitamin D3] clopidogrel 75 mg PO DAILY 02/18/19 03/12/21 History lisinopril 10 mg PO DAILY 02/18/19 03/12/21 History magnesium oxide 400 mg PO DAILY 02/18/19 03/12/21 History metformin 850 mg PO BIDM 02/18/19 03/12/21 History metoprolol succinate 12.5 mg PO DAILY 02/18/19 03/12/21 History simvastatin 20 mg PO HS 02/18/19 03/12/21 History acetaminophen 1,000 mg PO Q8H PRN #60 tab 03/01/19 03/12/21 Rx dorzolamide-timolol 1 drp OPB BID 06/09/20 03/12/21 History insulin aspart U-100 [Novolog 6 unit SUBCUT BIDM 06/09/20 03/12/21 History Flexpen U-100 Insulin] netarsudil-latanoprost [Rocklatan] 1 drp OPB HS 06/09/20 03/12/21 History docusate sodium [Stool Softener] 100 mg PO DAILY 06/10/20 03/12/21 History insulin detemir U-100 [Levemir 14 unit SUBCUT DAILYBB 06/10/20 03/12/21 History FlexTouch U-100 Insuln] bismuth vurl-msidka-YzBt-resor 1 supp ND Q12 PRN 03/12/21 03/12/21 History [Anusol] ibuprofen 600 mg PO Q6 PRN 03/12/21 03/12/21 History Past Med/Surg History Medical History (Updated 03/13/21 @ 02:34 by Art Maldonado MD) Amputated toe of left foot CAD (coronary artery disease) Chronic total circumflex occlusion, 80% mid LAD stenosis -managed medically Callus Diabetes mellitus, type II Diabetic neuropathy Diabetic retinopathy Dyslipidemia History of amputation of left great toe History of amputation of right great toe HTN (hypertension) PAD (peripheral artery disease) Multiple interventions to RLE Type 2 diabetes mellitus with diabetic polyneuropathy Surgical History History of amputation of lesser toe of left foot History of amputation of lesser toe of right foot History of cataract surgery History of transmetatarsal amputation of right foot Family History Brother Diabetes Social History Smoking Status: Never smoker Second Hand Exposure: No; Hx Alcohol Use: No Hx Substance Use: No Preferred Language: Polish Communication Ability: Effective Care Clinician Required: No Beliefs That Will Affect Care: None marital status: / Current Living Situation: Alone current occupational status: retired Other Information That Helps Us Care for You: No Feels Safe at Home: Yes Safety Concerns: Feels Safe At This Time Assistive Devices: Glasses and Walker Review of Systems Review of Systems: ROS per HPI, all other systems reviewed and negative Physical Exam Constitutional: WD/WN, vitals as above Eyes: PERRL, conjunctivae normal, anicteric sclerae ENMT: external ear and nose normal, oropharynx normal Respiratory: normal respiratory effort, lungs clear to auscultation Cardiovascular: Rate/Rhythm: regular rate and regular rhythm Vessels: normal peripheral pulses Extremities: no edema Gastrointestinal (Abdomen): normal bowel sounds, soft, nontender, no hepatosplenomegaly Musculoskeletal: no cyanosis or clubbing, extremities motor strength 5/5 Skin: no rashes, warm and dry Neurologic: PERRL, EOMI, accommodation nl, no face palsy, no dysarthria Psychiatric: A+Ox3, euthymic affect Results & Data Results & Data ([facility]) Vital Signs (Past 12 Hours) Vital Signs Temp Pulse Resp BP Pulse Ox 03/12/21 22:31 84 17 95 03/12/21 22:30 86 13 106/70 97 03/12/21 22:01 86 12 96 03/12/21 22:00 84 13 115/65 94 03/12/21 21:30 86 18 105/56 L 94 03/12/21 21:04 91 H 15 131/87 95 03/12/21 20:30 84 18 114/52 L 03/12/21 20:00 87 20 124/58 L 98 03/12/21 19:00 82 24 112/67 96 03/12/21 18:30 36.9 C 92 H 16 135/71 98 Laboratory Results Short CBC 03/12/21 Range/Units 19:29 WBC 10.28 (4.8-10.8) K/uL Hgb 9.1 L (12.0-16.0) g/dL Hct 28.7 L (37-47) % Plt Count 378 (130-400) K/uL BMP 03/12/21 19:29 Sodium 138 Potassium 4.6 Chloride 106 Carbon Dioxide 26 BUN 26 H Creatinine 0.66 Glucose 127 H Calcium 8.8 Cardiac Enzymes 03/12/21 Range/Units 19:29 Total Creatine Kinase 28 (26-192) U/L Troponin I < 0.015 (0-0.045) ng/ml Liver Function 03/12/21 Range/Units 19:29 Total Bilirubin 0.2 (0.2-1) mg/dl AST 11 L (15-37) U/L ALT 16 (12-78) U/L Alkaline Phosphatase 77 (45-117) U/L Albumin 2.7 L (3.4-5.0) gm/dl Diagnostic Findings Chest X-Ray 03/12/21 18:36 SINGLE VIEW CHEST CLINICAL HISTORY: Fall. FINDINGS: An AP, portable, upright chest radiograph is compared to study dated 06/10/2020. Correlation is made with chest CT dated 01/10/2012. The cardiomediastinal silhouette is unremarkable. Chronic interstitial thickening is similar to previous. Left basilar atelectasis is unchanged. The lungs and pleural spaces are otherwise clear. No pneumothorax is seen. The skeletal structures are osteopenic. The bony thorax is grossly intact. 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 IMPRESSION: No acute cardiopulmonary abnormality. ACT 112: Negative or not required by law. Electronically signed by: Kobi Davis M.D. 03/12/2021 8:18 PM Femur X-Ray 03/12/21 18:36 SINGLE VIEW PELVIS; 3 VIEWS RIGHT FEMUR; 3 VIEWS LEFT FEMUR CLINICAL HISTORY: Fall. Pelvic and bilateral leg pain. FINDINGS: AP view of the pelvis with AP, frog-leg, and crosstable lateral views of the right and left femur are compared to radiographs of the bony pelvis and right femur dated 06/10/2020. The skeletal structures are osteopenic. There is no radiographic evidence of acute fracture involving the hips or bony pelvis. There is no radiographic evidence of right or left femoral fracture. There is moderate degenerative joint space narrowing seen in both hips. Sclerotic change is seen in the sacroiliac joints. Lumbosacral spondylosis is partially visualized. The knee joints are grossly maintained noting significant arthritic change. There are bilateral knee joint effusions. The overlying soft tissues are normal as imaged. Advanced atherosclerotic calcification is seen in the femoral arteries. IMPRESSION: 1. No acute bony abnormality is seen involving the hips or pelvis. 2. There is no radiographic evidence of right femoral fracture. 3. There is no radiographic evidence of left femoral fracture. Electronically signed by: Kobi Davis M.D. 03/12/2021 8:28 PM Femur X-Ray 03/12/21 18:36 SINGLE VIEW PELVIS; 3 VIEWS RIGHT FEMUR; 3 VIEWS LEFT FEMUR CLINICAL HISTORY: Fall. Pelvic and bilateral leg pain. FINDINGS: AP view of the pelvis with AP, frog-leg, and crosstable lateral views of the right and left femur are compared to radiographs of the bony pelvis and right femur dated 06/10/2020. The skeletal structures are osteopenic. There is no radiographic evidence of acute fracture involving the hips or bony pelvis. There is no radiographic evidence of right or left femoral fracture. There is moderate degenerative joint space narrowing seen in both hips. Sclerotic change is seen in the sacroiliac joints. Lumbosacral spondylosis is partially visualized. The knee joints are grossly maintained noting significant arthritic change. There are bilateral knee joint effusions. The overlying soft tissues are normal as imaged. Advanced atherosclerotic calcification is seen in the femoral arteries. IMPRESSION: 1. No acute bony abnormality is seen involving the hips or pelvis. 2. There is no radiographic evidence of right femoral fracture. 3. There is no radiographic evidence of left femoral fracture. Electronically signed by: Kobi Davis M.D. 03/12/2021 8:[address] 03/12/21 18:36 CT SCAN OF THE BRAIN WITHOUT IV CONTRAST CLINICAL HISTORY: Change in mental status. COMPARISON STUDY: CT of the brain dated 06/10/2020. TECHNIQUE: Unenhanced axial CT scan of the brain is performed from the vertex to the skull base. A dose lowering technique was utilized adhering to the principles of ALARA. CT DOSE: 537.48 mGy.cm FINDINGS: Brain parenchyma: There are age-related involutional changes noting moderate subcortical and periventricular microangiopathic change. There is no hemorrhage, mass effect, or evidence of acute territorial ischemia by CT criteria. Watkins- white matter differentiation is preserved. No extra-axial fluid collection is seen. Ventricles, sulci, cisterns: Prominent secondary to involutional change. Intracranial vasculature: There is atherosclerotic calcification of the cavernous carotid and vertebral arteries. Calvarium: Unremarkable. Soft tissues: There is right posterior parietal scalp contusion. Sinuses and mastoids: The visualized paranasal sinuses are clear. The mastoid air cells are well pneumatized. Orbits: The bony orbits are grossly intact. There are bilateral ocular lens implants. Postoperative changes suggested involving the right orbits. IMPRESSION: There is no hemorrhage, mass effect, or evidence of acute territorial ischemia by CT criteria. ACT 112: Negative or not required by law. Electronically signed by: Kobi Davis M.D. 03/12/2021 7:27 PM Pelvis X-Ray 03/12/21 18:36 SINGLE VIEW PELVIS; 3 VIEWS RIGHT FEMUR; 3 VIEWS LEFT FEMUR CLINICAL HISTORY: Fall. Pelvic and bilateral leg pain. FINDINGS: AP view of the pelvis with AP, frog-leg, and crosstable lateral views of the right and left femur are compared to radiographs of the bony pelvis and right femur dated 06/10/2020. The skeletal structures are osteopenic. There is no radiographic evidence of acute fracture involving the hips or bony pelvis. There is no radiographic evidence of right or left femoral fracture. There is moderate degenerative joint space narrowing seen in both hips. Sclerotic change is seen in the sacroiliac joints. Lumbosacral spondylosis is partially visualized. The knee joints are grossly maintained noting significant arthritic change. There are bilateral knee joint effusions. The overlying soft tissues are normal as imaged. Advanced atherosclerotic calcification is seen in the femoral arteries. IMPRESSION: 1. No acute bony abnormality is seen involving the hips or pelvis. 2. There is no radiographic evidence of right femoral fracture. 3. There is no radiographic evidence of left femoral fracture. Electronically signed by: Kobi Davis M.D. 03/12/2021 8:28 PM Supervising Physician Co-Signing Physician Notes IM ATTENDING : Patient seen and examined. History obtained from patient and records. Preceding documentation by JP Ortega reviewed. In addition: CT abdomen pelvis initial read: Cholelithiasis. Dilatation of the right renal collecting and extrarenal pelvis. Normal caliber ureter. Could not exclude a component of UPJ obstruction. Colonic diverticula without diverticulitis. Unremarkable appendix. Nonspecific bowel gas pattern. Chronic compression deformity of superior endplate of L3. FINAL ASSESSMENT AND PLAN as follows : Ambulatory dysfunction acute on chronic anemia, hemoglobin drop from baseline, no overt source of blee ding for now HTN, BP on the lower side CAD status post stent/PVD status post surgery DM2 insulin requiring, reasonable control as of recent hemoglobin A1c of 27 August 2020 History congenital UPJ obstruction as per records, patient currently without symptoms. OBS [facility] PT OT eval, fall precautions anemia work-up, transfuse PRBC if hemoglobin less than 8 and or for symptomatic anemia basal insulin, ISS BG goal 1 10-1 40, carb count coverage, update hemoglobin A1c Social service RE discharge planning (Patient requesting for [facility] for rehab placement if eligible.) DVT prophylaxis. Lovenox subcu Full code Patient requesting for son to be updated of plan of care. Mr. Cecilio Malone, contact #[phone]. Alternative contact lens polisher is patient [id number], Ms. Radha Malone, contact #[phone]. Text document was generated using [employer] voice recognition software. It may contain grammatical or spelling errors. Kindly contact undersigned for clarification of any documentation item in question.
[2021-03-12 23:27] LABS: Magnesium 2.1 mg/dl (1.8-2.4)
[2021-03-13] MEDS ORDERED: GLUCAGON FOR INJ 1 MG VIAL SQ PRN (00:16)
[2021-03-13] MEDS ORDERED: SODIUM CHLORIDE 0.9% 1000ML 1,000 ML IV ONE (00:16)
[2021-03-13] MEDS ORDERED: GLUCOSE 40% GEL 15 GM TUBE PO PRN (00:16)
[2021-03-13] MEDS ORDERED: oxyCODONE HCL IR 5 MG TAB (IMMEDIATE RELEASE) PO PRN (00:16)
[2021-03-13] MEDS ORDERED: IBUPROFEN 200 MG TAB PO PRN (00:16)
[2021-03-13] MEDS ORDERED: DEXTROSE 50% 50 ML SYRINGE IV PRN (00:16)
[2021-03-13] MEDS ORDERED: PROMETHAZINE HCL 6.25 MG in SODIUM CHLORIDE 0.9% 50 ML IV PRN (00:16)
[2021-03-13] MEDS ORDERED: CARBOHYDRATES FOR HYPOGLYCEMIA PO PRN (00:16)
[2021-03-13] MEDS ORDERED: ACETAMINOPHEN 325 MG TAB PO PRN (00:16)
[2021-03-13] MEDS ORDERED: GLUCOSE 10 TABS/TUBE PO PRN (00:16)
--- NOTE | 2021-03-13 01:06 | Emergency Department Note ---
Impression & Plan Fall, Dizziness ED Provider Note NAME: BRAD AVALOS AGE: 80 SEX: F : 1940 ARRIVES VIA: Ambulance INFORMANT: Patient, ED PROVIDER(S): Art Maldonado MD CHIEF COMPLAINT: Fall HPI: This is an 80-year-old female who presents emergency department after a fall at home. Patient is unsure how she fell but landed on the floor and laid there for several hours. She was found by [id number] who then called EMS. Upon arrival to the emergency department the patient is complaining of bilateral hip pain. She describes the pain as an aching sensation with radiation down her legs. She reports immobilization makes the pain better however movement makes it worse. She has not taken anything for the pain. Telephone call to the patient's son he is concerned that the patient has had a progressive downward spiral over the past 2 months and he is very concerned that the patient is unable to care for herself at home. He notes that the patient has had multiple stays at [facility] for rehab ROS: See above HPI for pertinent positives & negatives. A total of 10 systems reviewed and were otherwise negative. PAST MEDICAL HISTORY: See Below PAST SURGICAL HISTORY: See Below FAMILY HISTORY: See Below SOCIAL HISTORY: See Below HOME MEDICATIONS: See Below ALLERGIES: See Below VITALS: See Below PHYSICAL EXAMINATION: VITAL SIGNS - Vital signs and nursing notes were reviewed. GENERAL - 80-year-old female appearing stated age who is in no acute distress. Communicates well with provider and answers questions appropriately. SKIN - Without rashes. HEAD - NC/AT. EYES - PERRL with EOMI bilaterally. Sclera anicteric. Palpebral conjunctiva pink and moist with no injection noted. EARS - No deformities of external structures noted on gross examination bilaterally. NOSE - Midline and without cyanosis. No epistaxis or purulent drainage noted. Septum midline without deviation or septal hematoma noted. MOUTH/OROPHARYNX - Without perioral cyanosis. Buccal mucosa pink and moist and without leukoplakia. Tongue midline with equal elevation of palate bilaterally. No tonsillar hypertrophy, erythema, or exudates noted. dentition noted. NECK - Neck with FROM. Supple to palpation. No nuchal rigidity. LUNGS - Chest wall symmetric without accessory muscle use, intercostals retractions, or central cyanosis. Normal vesicular breath sounds CTA B/L. No wheezes, rales, or rhonchi appreciated. CARDIAC - RRR with S1/S2. No murmur, rubs, or gallops appreciated. ABDOMEN - Abdominal contour BS normoactive all four quadrants. No tenderness, palpable masses, hepatosplenomegaly, or ascites noted. EXTREMITIES - No clubbing or peripheral cyanosis. No pretibial edema present. +3/5 radial, posterior tibial, and dorsalis pedis pulses palpated throughout. +5/5 strength noted in UE/LE bilaterally. NEUROLOGIC - Cranial nerves II through XII grossly intact. Sensory intact to light touch throughout. Patellar reflexes +2/4. PSYCH - A&Ox3 and cooperates fully with examiner. Pt is very pleasant and interacts well with examiner. MEDICAL DECISION MAKING: Patient was seen and evaluated as above in room B9. Review was performed of nursing notes and vital signs. I did review pertinent previous visits and patient history. After obtaining a thorough history and physical examination the above work up was performed. This is an 80-year-old female who presents emergency department after a fall at home. X-rays do not show any evidence of fracture dislocation or subluxation. I will note that the patient is somewhat anemic compared to how she normally is however she is heme-negative on rectal examination. CT of the head does not show any evidence of fracture dislocation or subluxation. The patient attempted to ambulate for nursing staff however did terrible. The patient is extremely dizzy and off balance and I suspect is a big fall hazard. I did discuss all my findings with the patient's son who feels that the patient needs to go back to rehab like [facility]. An order was placed for continuous cardiac monitoring. The monitor shows a rate of 97 with Normal SInus rhythm. The patient was evaluated during a period of high volume and high acuity during the global COVID-19 pandemic, and that diagnosis was suspected/considered upon their initial presentation. Their evaluation, treatment and testing was consistent with current guidelines for patients who present with complaints or symptoms that may be related to COVID-19. Patient was seen while provider was wearing PPE. Triage Nursing notes reviewed. Prior medical records reviewed Vital Signs: reviewed and remarkable for no significant abnormalities Differential diagnosis: Fracture, dislocation, contusion, intra-abdominal, pneumothorax, intrathoracic, intracranial, neurologic, compartment syndrome, rhabdomyolysis, as well as other pathologies. ER treatment provided: See below Diagnostics interpreted by me: ECG: EKG shows a normal sinus rhythm incomplete right bundle branch block left anterior fascicular block lateral infarct QTC is 467 ventricular rate is 82. EKG compared to 04/24/2020 no significant change was found. Laboratory studies: As stated above and show below. 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 -managed medically Callus Diabetes mellitus, type II Diabetic neuropathy Diabetic retinopathy Dyslipidemia History of amputation of left great toe History of amputation of right great toe HTN (hypertension) PAD (peripheral artery disease) Multiple interventions to RLE Type 2 diabetes mellitus with diabetic polyneuropathy Surgical History History of amputation of lesser toe of left foot History of amputation of lesser toe of right foot History of cataract surgery History of transmetatarsal amputation of right foot Family History Brother Diabetes Social History Smoking Status: Never smoker Second Hand Exposure: No; Hx Alcohol Use: No Hx Substance Use: No Preferred Language: Cameroonian Communication Ability: Effective Paedodontist Required: No Beliefs That Will Affect Care: None marital status: / Current Living Situation: Alone current occupational status: retired Other Information That Helps Us Care for You: No Feels Safe at Home: Yes Safety Concerns: Feels Safe At This Time Assistive Devices: Glasses and Walker Allergies Allergies Allergy/AdvReac Type Severity Reaction Status Date / Time baclofen Allergy Unknown unkown Verified 03/12/21 19:25 Bactrim Allergy Unknown itching Verified 12/21/17 14:38 sulfamethoxazole Allergy Unknown itching Verified 03/12/21 19:25 tramadol Allergy Unknown unkown Verified 03/12/21 19:25 trimethoprim Allergy Unknown itching Verified 03/12/21 19:25 glipizide AdvReac erratic Verified 03/12/21 19:25 bsgs Home Meds Home Medications Medication Instructions Recorded Confirmed aspirin [Aspirin Low Dose] 81 mg PO DAILY 02/18/19 03/12/21 brimonidine 1 drp OPB TID 02/18/19 03/12/21 cholecalciferol (vitamin D3) 1,000 unit PO DAILY 02/18/19 03/12/21 [Vitamin D3] clopidogrel 75 mg PO DAILY 02/18/19 03/12/21 lisinopril 10 mg PO DAILY 02/18/19 03/12/21 magnesium oxide 400 mg PO DAILY 02/18/19 03/12/21 metformin 850 mg PO BIDM 02/18/19 03/12/21 metoprolol succinate 12.5 mg PO DAILY 02/18/19 03/12/21 simvastatin 20 mg PO HS 02/18/19 03/12/21 dorzolamide-timolol 1 drp OPB BID 06/09/20 03/12/21 insulin aspart U-100 [Novolog 6 unit SUBCUT BIDM 06/09/20 03/12/21 Flexpen U-100 Insulin] netarsudil-latanoprost [Rocklatan] 1 drp OPB HS 06/09/20 03/12/21 docusate sodium [Stool Softener] 100 mg PO DAILY 06/10/20 03/12/21 insulin detemir U-100 [Levemir 14 unit SUBCUT DAILYBB 06/10/20 03/12/21 FlexTouch U-100 Insuln] bismuth ebld-fqlpgr-ZwMm-resor 1 supp VT Q12 PRN 03/12/21 03/12/21 [Anusol] ibuprofen 600 mg PO Q6 PRN 03/12/21 03/12/21 Previous Rx's Medication Instructions Recorded acetaminophen 1,000 mg PO Q8H PRN #60 tab 03/01/19 Results & Data (ED) Vital Signs Vital Signs - 24 hr 03/12/21 18:30 03/12/21 19:00 03/12/21 20:00 Temperature 36.9 C Temperature Source Oral Pulse Rate 92 H 82 87 Pulse Rate from SpO2 Sensor Pulse Rhythm Regular Pulse Strength Normal Respiratory Rate 16 24 20 Respiratory Effort / Characteristics Non-Labored Spontaneous Respiratory Depth Normal Respiratory Pattern Regular Blood Pressure 135/71 112/67 124/58 L Blood Pressure Mean 92 82 80 Blood Pressure Position Lying Pulse Oximetry 98 96 98 Oxygen Delivery Method Room Air Sepsis Recent Fever Within 48 Hours No Sepsis New/Unexplained Change in Mental Status No Sepsis Action Taken by Nursing No Action Required 03/12/21 20:30 03/12/21 21:04 03/12/21 21:30 Temperature Temperature Source Pulse Rate 84 91 H 86 Pulse Rate from SpO2 Sensor 91 H 86 Pulse Rhythm Pulse Strength Respiratory Rate 18 15 18 Respiratory Effort / Characteristics Respiratory Depth Respiratory Pattern Blood Pressure 114/52 L 131/87 105/56 L Blood Pressure Mean 72 101 72 Blood Pressure Position Pulse Oximetry 95 94 Oxygen Delivery Method Sepsis Recent Fever Within 48 Hours Sepsis New/Unexplained Change in Mental Status Sepsis Action Taken by Nursing 03/12/21 22:00 03/12/21 22:01 03/12/21 22:30 Temperature Temperature Source Pulse Rate 84 86 86 Pulse Rate from SpO2 Sensor 84 85 86 Pulse Rhythm Pulse Strength Respiratory Rate 13 12 13 Respiratory Effort / Characteristics Respiratory Depth Respiratory Pattern Blood Pressure 115/65 106/70 Blood Pressure Mean 81 82 Blood Pressure Position Pulse Oximetry 94 96 97 Oxygen Delivery Method Sepsis Recent Fever Within 48 Hours Sepsis New/Unexplained Change in Mental Status Sepsis Action Taken by Nursing 03/12/21 22:31 Temperature Temperature Source Pulse Rate 84 Pulse Rate from SpO2 Sensor 84 Pulse Rhythm Pulse Strength Respiratory Rate 17 Respiratory Effort / Characteristics Respiratory Depth Respiratory Pattern Blood Pressure Blood Pressure Mean Blood Pressure Position Pulse Oximetry 95 Oxygen Delivery Method Sepsis Recent Fever Within 48 Hours Sepsis New/Unexplained Change in Mental Status Sepsis Action Taken by Nursing Laboratory Data Result diagrams: 03/12/21 19:29 03/12/21 19:29 Lab Results 03/12/21 03/12/21 03/12/21 Range/Units 19:29 19:29 19:29 WBC 10.28 (4.8-10.8) K/uL RBC 3.62 L (4.2-5.4) M/uL Hgb 9.1 L (12.0-16.0) g/dL Hct 28.7 L (37-47) % MCV 79.3 L (80-100) fL MCH 25.1 (25-34) pg MCHC 31.7 L (32-36) g/dL RDW Std Deviation 44.6 (36.4-46.3) fL RDW Coeff of Dipesh 15.2 H (11.5-14.5) % Plt Count 378 (130-400) K/uL MPV 9.3 (7.4-10.4) fL Immature Gran % (Auto) 0.5 % Neut % (Auto) 71.4 % Lymph % (Auto) 16.2 % [place] % (Auto) 9.9 % Eos % (Auto) 1.7 % Baso % (Auto) 0.3 % Neut # (Auto) 7.34 H (1.4-6.5) K/uL Lymph # (Auto) 1.67 (1.2-3.4) K/uL [place] # (Auto) 1.02 H (0.11-0.59) K/uL Eos # (Auto) 0.17 (0-0.5) K/uL Baso # (Auto) 0.03 (0-0.2) K/uL Immature Gran # (Auto) 0.05 H (0.00-0.02) K/uL PT 10.5 (9.0-12.0) Seconds INR 1.0 (0.9-1.1) APTT 27.1 (21.0-31.0) Seconds PTT Ratio 1.0 Sodium 138 (136-145) mmol/L Potassium 4.6 (3.5-5.1) mmol/L Chloride 106 (98-107) mmol/L Carbon Dioxide 26 (21-32) mmol/L Anion Gap 6.0 (3-11) BUN 26 H (7-18) mg/dl Creatinine 0.66 (0.6-1.2) mg/dl Est Cr Clr Drug Dosing 54.4 ml/min Est GFR ( Amer) 95.3 ml/min Est GFR (Non-Af Amer) 82.3 ml/min BUN/Creatinine Ratio 39.4 H (10-20) Glucose 127 H (70-99) mg/dl Calcium 8.8 (8.5-10.1) mg/dl Magnesium (1.8-2.4) mg/dl Total Bilirubin 0.2 (0.2-1) mg/dl AST 11 L (15-37) U/L ALT 16 (12-78) U/L Alkaline Phosphatase 77 (45-117) U/L Total Creatine Kinase 28 (26-192) U/L Troponin I < 0.015 (0-0.045) ng/ml Total Protein 7.3 (6.4-8.2) gm/dl Albumin 2.7 L (3.4-5.0) gm/dl Globulin 4.6 H (2.5-4.0) gm/dl Albumin/Globulin Ratio 0.6 L (0.9-2) COVID-19 Eval Order SARS-CoV-2 (PCR) (Negative) 03/12/21 03/12/21 03/12/21 Range/Units 19:29 19:45 19:45 WBC (4.8-10.8) K/uL RBC (4.2-5.4) M/uL Hgb (12.0-16.0) g/dL Hct (37-47) % MCV (80-100) fL MCH (25-34) pg MCHC (32-36) g/dL RDW Std Deviation (36.4-46.3) fL RDW Coeff of Dipesh (11.5-14.5) % Plt Count (130-400) K/uL MPV (7.4-10.4) fL Immature Gran % (Auto) % Neut % (Auto) % Lymph % (Auto) % [place] % (Auto) % Eos % (Auto) % Baso % (Auto) % Neut # (Auto) (1.4-6.5) K/uL Lymph # (Auto) (1.2-3.4) K/uL [place] # (Auto) (0.11-0.59) K/uL Eos # (Auto) (0-0.5) K/uL Baso # (Auto) (0-0.2) K/uL Immature Gran # (Auto) (0.00-0.02) K/uL PT (9.0-12.0) Seconds INR (0.9-1.1) APTT (21.0-31.0) Seconds PTT Ratio Sodium (136-145) mmol/L Potassium (3.5-5.1) mmol/L Chloride (98-107) mmol/L Carbon Dioxide (21-32) mmol/L Anion Gap (3-11) BUN (7-18) mg/dl Creatinine (0.6-1.2) mg/dl Est Cr Clr Drug Dosing ml/min Est GFR ( Amer) ml/min Est GFR (Non-Af Amer) ml/min BUN/Creatinine Ratio (10-20) Glucose (70-99) mg/dl Calcium (8.5-10.1) mg/dl Magnesium 2.1 (1.8-2.4) mg/dl Total Bilirubin (0.2-1) mg/dl AST (15-37) U/L ALT (12-78) U/L Alkaline Phosphatase (45-117) U/L Total Creatine Kinase 29 (26-192) U/L Troponin I (0-0.045) ng/ml Total Protein (6.4-8.2) gm/dl Albumin (3.4-5.0) gm/dl Globulin (2.5-4.0) gm/dl Albumin/Globulin Ratio (0.9-2) COVID-19 Eval Order Covid19 at [facility] SARS-CoV-2 (PCR) NEGATIVE (Negative) Administered Medications Brimonidine Tartrate (Brimonidine Tartrate 0.2% 5ml) 1 drops OPB TID MIRANDA Stop: 04/12/21 00:15 Last Admin: 03/13/21 02:07 Dose: 1 drops Documented by: [id number] Dorzolamide/Timolol (Dorzolamide/Timolol 22.3/6.8mg/Ml 10 Ml Btl) 1 drops OPB BID MIRANDA Stop: 04/12/21 00:15 Last Admin: 03/13/21 02:06 Dose: 1 drops Documented by: [id number] Sodium Chloride (Nss 1000ml) 1,000 mls @ 50 mls/hr IV .Q20H ONE Stop: 03/13/21 20:15 Last Admin: 03/13/21 01:13 Dose: 50 mls/hr Documented by: [id number] Insulin Aspart (Insulin Aspart 100 Units/Ml 3 Ml Pen) 0 units SC ACHS MIRANDA Stop: 04/12/21 00:15 Last Admin: 03/13/21 02:12 Dose: 4 units Documented by: [id number] Cosigned by: [id number] Lisinopril (Lisinopril 10 Mg Tab) 10 mg PO DAILY MIRANDA Stop: 04/12/21 00:59 Last Admin: 03/13/21 02:08 Dose: 10 mg Documented by: [id number] Imaging Data Radiologist's Impression: Chest X-Ray 03/12/21 18:36 SINGLE VIEW CHEST CLINICAL HISTORY: Fall. FINDINGS: An AP, portable, upright chest radiograph is compared to study dated 06/10/2020. Correlation is made with chest CT dated 01/10/2012. The cardio mediastinal silhouette is unremarkable. Chronic interstitial thickening is similar to previous. Left basilar atelectasis is unchanged. The lungs and pleural spaces are otherwise clear. No pneumothorax is seen. The skeletal structures are osteopenic. The bony thorax is grossly intact. 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 IMPRESSION: No acute cardiopulmonary abnormality. ACT 112: Negative or not required by law. Electronically signed by: Kobi Davis M.D. 03/12/2021 8:18 PM Femur X-Ray 03/12/21 18:36 SINGLE VIEW PELVIS; 3 VIEWS RIGHT FEMUR; 3 VIEWS LEFT FEMUR CLINICAL HISTORY: Fall. Pelvic and bilateral leg pain. FINDINGS: AP view of the pelvis with AP, frog-leg, and crosstable lateral views of the right and left femur are compared to radiographs of the bony pelvis and right femur dated 06/10/2020. The skeletal structures are osteopenic. There is no radiographic evidence of acute fracture involving the hips or bony pelvis. There is no radiographic evidence of right or left femoral fracture. There is moderate degenerative joint space narrowing seen in both hips. Sclerotic change is seen in the sacroiliac joints. Lumbosacral spondylosis is partially visualized. The knee joints are grossly maintained noting significant arthritic change. There are bilateral knee joint effusions. The overlying soft tissues are normal as imaged. Advanced atherosclerotic calcification is seen in the femoral arteries. IMPRESSION: 1. No acute bony abnormality is seen involving the hips or pelvis. 2. There is no radiographic evidence of right femoral fracture. 3. There is no radiographic evidence of left femoral fracture. Electronically signed by: Kobi Davis M.D. 03/12/2021 8:28 PM Femur X-Ray 03/12/21 18:36 SINGLE VIEW PELVIS; 3 VIEWS RIGHT FEMUR; 3 VIEWS LEFT FEMUR CLINICAL HISTORY: Fall. Pelvic and bilateral leg pain. FINDINGS: AP view of the pelvis with AP, frog-leg, and crosstable lateral views of the right and left femur are compared to radiographs of the bony pelvis and right femur dated 06/10/2020. The skeletal structures are osteopenic. There is no radiographic evidence of acute fracture involving the hips or bony pelvis. There is no radiographic evidence of right or left femoral fracture. There is moderate degenerative joint space narrowing seen in both hips. Sclerotic change is seen in the sacroiliac joints. Lumbosacral spondylosis is partially visualized. The knee joints are grossly maintained noting significant arthritic change. There are bilateral knee joint effusions. The overlying soft tissues are normal as imaged. Advanced atherosclerotic calcification is seen in the femoral arteries. IMPRESSION: 1. No acute bony abnormality is seen involving the hips or pelvis. 2. There is no radiographic evidence of right femoral fracture. 3. There is no radiographic evidence of left femoral fracture. Electronically signed by: Kobi Davis M.D. 03/12/2021 8:[address] 03/12/21 18:36 CT SCAN OF THE BRAIN WITHOUT IV CONTRAST CLINICAL HISTORY: Change in mental status. COMPARISON STUDY: CT of the brain dated 06/10/2020. TECHNIQUE: Unenhanced axial CT scan of the brain is performed from the vertex to the skull base. A dose lowering technique was utilized adhering to the principles of ALARA. CT DOSE: 537.48 mGy.cm FINDINGS: Brain parenchyma: There are age-related involutional changes noting moderate subcortical and periventricular microangiopathic change. There is no hemorrhage, mass effect, or evidence of acute territorial ischemia by CT criteria. Watkins- white matter differentiation is preserved. No extra-axial fluid collection is se en. Ventricles, sulci, cisterns: Prominent secondary to involutional change. Intracranial vasculature: There is atherosclerotic calcification of the cavernous carotid and vertebral arteries. Calvarium: Unremarkable. Soft tissues: There is right posterior parietal scalp contusion. Sinuses and mastoids: The visualized paranasal sinuses are clear. The mastoid air cells are well pneumatized. Orbits: The bony orbits are grossly intact. There are bilateral ocular lens implants. Postoperative changes suggested involving the right orbits. IMPRESSION: There is no hemorrhage, mass effect, or evidence of acute territorial ischemia by CT criteria. ACT 112: Negative or not required by law. Electronically signed by: Kobi Davis M.D. 03/12/2021 7:27 PM Pelvis X-Ray 03/12/21 18:36 SINGLE VIEW PELVIS; 3 VIEWS RIGHT FEMUR; 3 VIEWS LEFT FEMUR CLINICAL HISTORY: Fall. Pelvic and bilateral leg pain. FINDINGS: AP view of the pelvis with AP, frog-leg, and crosstable lateral views of the right and left femur are compared to radiographs of the bony pelvis and right femur dated 06/10/2020. The skeletal structures are osteopenic. There is no radiographic evidence of acute fracture involving the hips or bony pelvis. There is no radiographic evidence of right or left femoral fracture. There is moderate degenerative joint space narrowing seen in both hips. Sclerotic change is seen in the sacroiliac joints. Lumbosacral spondylosis is partially visualized. The knee joints are grossly maintained noting significant arthritic change. There are bilateral knee joint effusions. The overlying soft tissues are normal as imaged. Advanced atherosclerotic calcification is seen in the femoral arteries. IMPRESSION: 1. No acute bony abnormality is seen involving the hips or pelvis. 2. There is no radiographic evidence of right femoral fracture. 3. There is no radiographic evidence of left femoral fracture. Electronically signed by: Kobi Davis M.D. 03/12/2021 8:28 PM Discharge Plan Visit Data Chief Complaint: Fall Stated Complaint: FALL, BOTH HIP & KNEE PAIN ED Provider: Art Maldonado Discharge Problem: Fall, Dizziness Patient Disposition: Admitted As Inpatient Discharge Instructions Interventions: ED Discharge Assessment Last Done: 03/12/21 23:29 Discharge Problem: Fall Qualifiers: Encounter type: initial encounter Qualified Code(s): W19.XXXA - Unspecified fall, initial encounter
[2021-03-13] MEDS: DORZOLAMIDE/TIMOLOL 22.3/6.8MG/ML 10 ML BTL OPB SCH ×3 (02:06→21:01)
[2021-03-13] MEDS: BRIMONIDINE TARTRATE 0.2% 5ML OPB SCH ×4 (02:07→21:09)
[2021-03-13] MEDS: lisinopril 10 MG TAB PO SCH (02:08)
[2021-03-13] MEDS: INSULIN ASPART 100 UNITS/ML 3 ML PEN SC SCH ×5 (02:12→22:06)
[2021-03-13 02:41] LABS: Appearance Urine Clear (Clear); Bacteria Urine Automated Negative (Negative); Bilirubin Urine Negative (Negative); Blood Urine Negative (Negative); Color Urine Yellow; Epithelial Cell Urine Auto 20-30 /lpf (0-5); Glucose Urine UA Negative (Negative); Ketones Urine Trace (Negative); Leukocyte Esterase Urine Trace (Negative); Nitrite Urine Negative (Negative); Protein Urine Negative (Negative); RBC Urine Automated 0-4 /hpf (0-4); Specific Gravity Urine 1.015 (1.000-1.030); Urobilinogen Urine Negative (Negative); pH Urine 6.5 (4.5-7.5)
[2021-03-13 06:09] LABS: Basophils # (auto) 0.03 K/uL (0-0.2); Basophils % (auto) 0.4 %; Eosinophils # (auto) 0.19 K/uL (0-0.5); Eosinophils % (auto) 2.4 %; Hematocrit (blood only) 26.1 % (37-47); Hemoglobin 8.3 g/dL (12.0-16.0); Immature Granulocytes # (auto) 0.02 K/uL (0.00-0.02); Immature Granulocytes % (auto) 0.3 %; Lymphocytes # (auto) 1.62 K/uL (1.2-3.4); Lymphocytes % (auto) 20.7 %; Mean Corpuscular Hemoglobin 25.1 pg (25-34); Mean Corpuscular Hgb Conc 31.8 g/dL (32-36); Mean Corpuscular Volume 78.9 fL (80-100); Mean Platelet Volume 9.2 fL (7.4-10.4); Monocytes # (auto) 0.73 K/uL (0.11-0.59); Monocytes % (auto) 9.3 %; Neutrophils # (auto) 5.25 K/uL (1.4-6.5); Neutrophils % (auto) 66.9 %; Platelet Count 313 K/uL (130-400); RDW Coefficient of Variation 15.1 % (11.5-14.5); RDW Standard Deviation 43.8 fL (36.4-46.3); Red Blood Count 3.31 M/uL (4.2-5.4); Reticulocyte % 1.4 % (0.5-2.0); Reticulocytes # 0.05 10^6/uL (0.02-0.10); White Blood Count 7.84 K/uL (4.8-10.8)
[2021-03-13 06:45] LABS: Calcium 8.6 mg/dl (8.5-10.1); Creatinine Clr Calc Pharmacy 66.1 ml/min; Est GFR (African American) 101.2 ml/min; Est GFR (Non-African American) 87.4 ml/min; Potassium 4.2 mmol/L (3.5-5.1)
[2021-03-13 06:51] LABS: Ferritin 63.8 ng/ml (8-388)
--- NOTE | 2021-03-13 07:11 | CT Scan Report ---
ABDOMEN AND PELVIS CT WITHOUT CONTRAST CT DOSE: 537.02 mGy.cm HISTORY: transient back pain, fall, anemia TECHNIQUE: Multiaxial CT images of the abdomen and pelvis were performed without contrast. A dose lo wering technique was utilized adhering to the principles of ALARA. COMPARISON STUDY: None. FINDINGS: Focal indentation at the superior endplate of L3 could be due to an old compression deformi ty or a Schmorl's node. No acute fractures identified within the lumbar spine. Mild dependent changes seen at the lung bases. No pneumoperitoneum. No pneumatosis. Mild thickening of the distal esophagus . There is a small hiatus hernia. The unenhanced liver, spleen, adrenal glands, and pancreas are unre markable. Layering stones/sludge within the gallbladder. No gallbladder wall thickening. No renal or ureteral calculi. Moderate right hydronephrosis to the level of the ureteropelvic junction. The right ureter is normal in caliber. Therefore, this could represent a UPJ type obstruction. No left-sided h ydronephrosis. No retroperitoneal lymphadenopathy. Calcified plaque within the normal caliber abdomin al aorta. The bladder is unremarkable. The uterus and bilateral adnexa are within normal limits. Subo ptimal evaluation for bowel pathology due to the lack of intravenous and oral contrast. There is mode rate well-formed stool seen within the colon and rectum. No definite bowel wall thickening or obstruc tion. Colonic diverticulosis. No evidence for acute diverticulitis. Normal appendix. IMPRESSION: 1. No bowel wall thickening or obstruction. 2. Colonic diverticulosis. No evidence for acute diverticulitis. 3. Moderate right hydronephrosis to the level of the ureteropelvic junction. No obstructing stones id entified. This could represent a UPJ type obstruction. 4. Additional findings as described above. ACT 112: Negative or not required by law. Electronically signed by: Patrick Kennedy M.D. 03/13/2021 7:10 AM
[2021-03-13 07:17] LABS: Estimated Average Glucose 154 mg/dl
[2021-03-13 07:56] LABS: Folate (Folic Acid) 10.6 ng/ml (>5.38)
[2021-03-13] MEDS: CLOPIDOGREL BISULFATE 75 MG TAB PO SCH (08:44)
[2021-03-13] MEDS: DOCUSATE SODIUM 100 MG CAP PO SCH (08:44)
[2021-03-13] MEDS: ASPIRIN 81 MG ECTAB PO SCH (08:44)
[2021-03-13] MEDS: ENOXAPARIN INJ 30 MG/0.3 ML SYR SQ SCH (08:44)
[2021-03-13] MEDS: METOPROLOL SUCC 25MG EXT REL TAB PO SCH (08:45)
[2021-03-13] MEDS: INSULIN DETEMIR FLEXPEN/FLEX TOUCH 100 UNITS/ML 3ML SC SCH (08:46)
[2021-03-13] MEDS ORDERED: lisinopril 2.5 MG TAB PO SCH (09:00)
--- NOTE | 2021-03-13 13:17 | Electrocardiogram Report ---
Test Reason : Blood Pressure : / mmHG Vent. Rate : 082 BPM Atrial Rate : 082 BPM P-R Int : 142 ms QRS Dur : 118 ms QT Int : 400 ms P-R-T Axes : 039 -48 009 degrees QTc Int : 467 ms Poor data quality, interpretation may be adversely affected Normal sinus rhythm Incomplete right bundle branch block Left anterior fascicular block Lateral infarct , age undetermined Abnormal ECG When compared with ECG of 24-APR-2020 14:43, No significant change was found Confirmed by Jonathan Longo ([id number]) on 03/13/2021 1:16:48 PM Referred By: REFERRED SELF Confirmed By:Jonathan Longo
--- NOTE | 2021-03-13 15:57 | Hospitalist Progress Note ---
Date of Service March 13, 2021 Assessment & Plan Admission and Anticipated Discharge Date Admission Date: March 13, 2021 Supervising Physician Co-Signing Physician Notes Ambulatory dysfunction Acute on chronic anemia; 8.3 today possibly dilutional as well Moderate right hydronephrosis to the level of the ureteropelvic junction. H/O hypertension H/O CAD status post stent/PVD status post surgery H/O DM2 insulin requiring, reasonable control as of recent hemoglobin A1c of 27 August 2020 H/O History congenital UPJ obstruction as per records, patient currently without symptoms. Patient is doing okay. Review of system is mainly negative. Denies any abdominal discomfort. Denies any episodes of bright red blood per rectum or melena. Hemoglobin of 8.3 today, will discontinue IV fluids. Continue to monitor daily CBC. Bilateral femur, CT head, pelvis CT and abdominal pelvis CT without any acute findings. Continue to work with PT/OT. Care management is working on placement. Fall precautions. anemia work-up, transfuse PRBC if hemoglobin less than 8 and or for symptomatic anemia basal insulin, ISS BG goal 1 10-1 40, carb count coverage, update hemoglobin A1c DVT prophylaxis. Lovenox subcu Full code Patient requesting for son to be updated of plan of care. Mr. Cecilio Malone, contact #[phone]. Alternative personal investment adviser is patient [id number], Ms. Radha Malone, contact #[phone]. Text document was generated using [employer] voice recognition software. It may contain grammatical or spelling errors. Kindly contact undersigned for clarification of any documentation item in question. Subjective Patinet Is awake and alert. Oriented x3. Denies any complaint at the moment. Review of system is mainly negative. Review of Systems Review of Systems: All systems reviewed & are unremarkable except as noted in HPI & below Physical Exam Physical Exam: General: A&Ox3 HENT: NCAT, MMM, EOMI Eyes: PERRLA Neck: Supple, normal range of motion CVS: normal rate and rhythm Resp: b/l good breath sounds Abdomen: Soft, ND/NT Extremities: No c/c/e Neuro: face symmetric, no focal deficit Skin: warm and dry, no rashes/lesions/errythema MSK: normal ROM, no joint swelling/erythema Results & Data Results & Data ([facility]) Vital Signs (Past 12 Hours) Vital Signs Temp Pulse Resp BP Pulse Ox 03/13/21 07:08 36.4 C L 77 16 130/72 95
[2021-03-13] MEDS ORDERED: CYANOCOBALAMIN 1000 MCG/ML VIAL IM ONE (19:35)
[2021-03-13] MEDS: SIMVASTATIN 20 MG TAB PO SCH (21:04)
[2021-03-14 06:19] LABS: Hematocrit (blood only) 27.5 % (37-47); Hemoglobin 8.6 g/dL (12.0-16.0); Mean Corpuscular Hemoglobin 24.9 pg (25-34); Mean Corpuscular Hgb Conc 31.3 g/dL (32-36); Mean Corpuscular Volume 79.7 fL (80-100); Mean Platelet Volume 9.3 fL (7.4-10.4); Platelet Count 323 K/uL (130-400); RDW Coefficient of Variation 15.2 % (11.5-14.5); RDW Standard Deviation 44.7 fL (36.4-46.3); Red Blood Count 3.45 M/uL (4.2-5.4); White Blood Count 7.63 K/uL (4.8-10.8)
[2021-03-14 06:48] LABS: BUN Creatinine Ratio 28.5 (10-20); Calcium 8.7 mg/dl (8.5-10.1); Creatinine Clr Calc Pharmacy 67.3 ml/min; Est GFR (African American) 101.9 ml/min; Est GFR (Non-African American) 87.9 ml/min; Magnesium 1.9 mg/dl (1.8-2.4); Phosphorus 3.3 mg/dl (2.5-4.9)
[2021-03-14] MEDS: INSULIN ASPART 100 UNITS/ML 3 ML PEN SC SCH ×4 (08:41→20:40)
[2021-03-14] MEDS: ASPIRIN 81 MG ECTAB PO SCH (08:42)
[2021-03-14] MEDS: CLOPIDOGREL BISULFATE 75 MG TAB PO SCH (08:43)
[2021-03-14] MEDS: METOPROLOL SUCC 25MG EXT REL TAB PO SCH (08:43)
[2021-03-14] MEDS: INSULIN DETEMIR FLEXPEN/FLEX TOUCH 100 UNITS/ML 3ML SC SCH (08:44)
[2021-03-14] MEDS: DOCUSATE SODIUM 100 MG CAP PO SCH (08:44)
[2021-03-14] MEDS: lisinopril 10 MG TAB PO SCH (08:44)
[2021-03-14] MEDS: ENOXAPARIN INJ 30 MG/0.3 ML SYR SQ SCH (08:45)
[2021-03-14] MEDS: BRIMONIDINE TARTRATE 0.2% 5ML OPB SCH ×3 (08:46→20:38)
[2021-03-14] MEDS: DORZOLAMIDE/TIMOLOL 22.3/6.8MG/ML 10 ML BTL OPB SCH ×2 (08:46→20:36)
--- NOTE | 2021-03-14 09:40 | Hospitalist Progress Note ---
Date of Service March 14, 2021 Assessment & Plan (1) Fall: (2) Frequent falls: Ambulatory dysfunction Bilateral femur, CT head, pelvis CT and abdominal pelvis CT without any acute findings. Continue to work with PT/OT. Care management is working on placement. Fall precautions. Acute on chronic anemia; 8.6 today Review of system is mainly negative. Denies any abdominal discomfort. Denies any abdominal discomfort. Denies any episodes of bright red blood per rectum or melena anemia work-up, transfuse PRBC if hemoglobin less than 8 and or for symptomatic anemia -possibly dilutional as well, IVF stopped yesterday -B12 low, started on B12 supplement, iron level also low, started on iron supplement ordered -peripheral smear as well, currently pending -Continue to monitor daily CBC, while inpt -Patient will need follow-up for CBC Moderate right hydronephrosis to the level of the ureteropelvic junction. H/O hypertension H/O CAD status post stent/PVD status post surgery DM2 insulin requiring, reasonable control as of recent hemoglobin A1c of 27 August 2020 basal insulin, ISS BG goal 1 10-1 40, carb count coverage, update hemoglobin A1c History congenital UPJ obstruction as per records, patient currently without symptoms. DVT prophylaxis. Lovenox subcu Full code Patient requesting for son to be updated of plan of care. Mr. Cecilio Malone, contact #[phone]. Alternative contact acid plant operator helper is patient [id number], Ms. Radha Malone, contact #[phone]. Admission and Anticipated Discharge Date Admission Date: March 13, 2021 Subjective Patient seen in follow-up of ambulatory dysfunction, anemia Denies any complaints, specifically denies any chest pain, shortness of breath, palpitations, dizziness Review of Systems Review of Systems: All systems reviewed & are unremarkable except as noted in HPI & below Constitutional: no fever and no chills Respiratory: no cough and no dyspnea Cardiovascular: no chest pain and no palpitations Gastrointestinal: no abdominal pain, no nausea and no vomiting Physical Exam Physical Exam: General: A&Ox3 HENT: NCAT, MMM, EOMI Eyes: EOMI, PERRL Neck: Supple, normal range of motion CVS: normal rate and rhythm Resp: b/l good breath sounds, CTAB Abdomen: Soft, ND/NT Extremities: No c/c/e Neuro: face symmetric, speech fluent by slow, moves extremities, no focal deficit Skin: warm and dry, no rashes/lesions/errythema MSK: normal ROM, no joint swelling/erythema Results & Data Results & Data ([facility]) Vital Signs (Past 12 Hours) Vital Signs Temp Pulse Resp BP BP Pulse Ox 03/14/21 07:53 36.9 C 75 16 123/72 97 03/14/21 00:48 37.1 C 77 20 124/63 97 Laboratory Results 03/14/21 03/14/21 03/14/21 Range/Units 08:09 05:36 05:36 WBC 7.63 (4.8-10.8) K/uL RBC 3.45 L (4.2-5.4) M/uL Hgb 8.6 L (12.0-16.0) g/dL Hct 27.5 L (37-47) % MCV 79.7 L (80-100) fL MCH 24.9 L (25-34) pg MCHC 31.3 L (32-36) g/dL RDW Std Deviation 44.7 (36.4-46.3) fL RDW Coeff of Dipesh 15.2 H (11.5-14.5) % Plt Count 323 (130-400) K/uL MPV 9.3 (7.4-10.4) fL Peripher Smr Path Cons Sodium 137 (136-145) mmol/L Potassium 4.0 (3.5-5.1) mmol/L Chloride 107 (98-107) mmol/L Carbon Dioxide 27 (21-32) mmol/L Anion Gap 3.0 (3-11) BUN 15 (7-18) mg/dl Creatinine 0.54 L (0.6-1.2) mg/dl Est Cr Clr Drug Dosing 67.3 ml/min Est GFR ( Amer) 101.9 ml/min Est GFR (Non-Af Amer) 87.9 ml/min BUN/Creatinine Ratio 28.5 H (10-20) Glucose 86 (70-99) mg/dl POC Glucose 103 H (70-99) mg/dl Calcium 8.7 (8.5-10.1) mg/dl Phosphorus 3.3 (2.5-4.9) mg/dl Magnesium 1.9 (1.8-2.4) mg/dl 03/13/21 03/13/21 03/13/21 Range/Units 20:38 19:52 17:04 WBC (4.8-10.8) K/uL RBC (4.2-5.4) M/uL Hgb (12.0-16.0) g/dL Hct (37-47) % MCV (80-100) fL MCH (25-34) pg MCHC (32-36) g/dL RDW Std Deviation (36.4-46.3) fL RDW Coeff of Dipesh (11.5-14.5) % Plt Count (130-400) K/uL MPV (7.4-10.4) fL Peripher Smr Path Cons Pending Sodium (136-145) mmol/L Potassium (3.5-5.1) mmol/L Chloride (98-107) mmol/L Carbon Dioxide (21-32) mmol/L Anion Gap (3-11) BUN (7-18) mg/dl Creatinine (0.6-1.2) mg/dl Est Cr Clr Drug Dosing ml/min Est GFR ( Amer) ml/min Est GFR (Non-Af Amer) ml/min BUN/Creatinine Ratio (10-20) Glucose (70-99) mg/dl POC Glucose 120 H 126 H (70-99) mg/dl Calcium (8.5-10.1) mg/dl Phosphorus (2.5-4.9) mg/dl Magnesium (1.8-2.4) mg/dl 03/13/21 Range/Units 11:58 WBC (4.8-10.8) K/uL RBC (4.2-5.4) M/uL Hgb (12.0-16.0) g/dL Hct (37-47) % MCV (80-100) fL MCH (25-34) pg MCHC (32-36) g/dL RDW Std Deviation (36.4-46.3) fL RDW Coeff of Dipesh (11.5-14.5) % Plt Count (130-400) K/uL MPV (7.4-10.4) fL Peripher Smr Path Cons Sodium (136-145) mmol/L Potassium (3.5-5.1) mmol/L Chloride (98-107) mmol/L Carbon Dioxide (21-32) mmol/L Anion Gap (3-11) BUN (7-18) mg/dl Creatinine (0.6-1.2) mg/dl Est Cr Clr Drug Dosing ml/min Est GFR ( Amer) ml/min Est GFR (Non-Af Amer) ml/min BUN/Creatinine Ratio (10-20) Glucose (70-99) mg/dl POC Glucose 243 H (70-99) mg/dl Calcium (8.5-10.1) mg/dl Phosphorus (2.5-4.9) mg/dl Magnesium (1.8-2.4) mg/dl Medications Administered Current Inpatient Medications Acetaminophen (Acetaminophen 325 Mg Tab) 650 mg PO Q4H PRN PRN Reason: pain/fever Stop: 04/12/21 00:15 Aspirin (Aspirin 81 Mg Ectab) 81 mg PO DAILY [facility] Stop: 04/12/21 08:59 Last Admin: 03/14/21 08:42 Dose: 81 mg Documented by: Brimonidine Tartrate (Brimonidine Tartrate 0.2% 5ml) 1 drops OPB TID [facility] Stop: 04/12/21 00:15 Last Admin: 03/14/21 08:46 Dose: 1 drops Documented by: Clopidogrel Bisulfate (Clopidogrel Bisulfate 75 Mg Tab) 75 mg PO DAILY [facility] Stop: 04/12/21 08:59 Last Admin: 03/14/21 08:43 Dose: 75 mg Documented by: Cyanocobalamin (Cyanocobalamin 500 Mcg Tablet (Vitamin B-12)) 1,000 mcg PO QAM [facility] Stop: 04/13/21 08:59 Dextrose (Dextrose 50% 50 Ml Syringe) 25 - 50 ml IV UD PRN; Protocol PRN Reason: Hypoglycemia Protocol Stop: 04/12/21 00:15 Docusate Sodium (Docusate Sodium 100 Mg Cap) 100 mg PO DAILY [facility] Stop: 04/12/21 08:59 Last Admin: 03/14/21 08:44 Dose: 100 mg Documented by: Dorzolamide/Timolol (Dorzolamide/Timolol 22.3/6.8mg/Ml 10 Ml Btl) 1 drops OPB BID [facility] Stop: 04/12/21 00:15 Last Admin: 03/14/21 08:46 Dose: 1 drops Documented by: Enoxaparin Sodium (Enoxaparin Inj 30 Mg/0.3 Ml Syr) 30 mg SQ QAM [facility] Stop: 04/12/21 08:59 Last Admin: 03/14/21 08:45 Dose: 30 mg Documented by: Ferrous Sulfate (Ferrous Sulfate 325 Mg Tab) 325 mg PO BIDM [facility] Stop: 04/13/21 07:59 Glucagon (Glucagon For Inj 1 Mg Vial) 1 mg SQ UD PRN; Protocol PRN Reason: Hypoglycemia Protocol Stop: 04/12/21 00:15 Glucose (Glucose 10 Tabs/Tube) 4 - 8 tabs PO UD PRN; Protocol PRN Reason: Hypoglycemia Protocol Stop: 04/12/21 00:15 Glucose (Glucose 40% Gel 15 Gm Tube) 15 - 30 gm PO UD PRN; Protocol PRN Reason: Hypoglycemia Protocol Stop: 04/12/21 00:15 Promethazine HCl 6.25 mg/ (Sodium Chloride) 50.25 mls @ 201 mls/hr IV Q6H PRN PRN Reason: Nausea And Vomiting Stop: 04/12/21 00:15 Insulin Aspart (Insulin Aspart 100 Units/Ml 3 Ml Pen) 0 units SC ACHS [facility] Stop: 04/12/21 00:15 Last Admin: 03/14/21 08:41 Dose: 2 units Documented by: Insulin Detemir (Insulin Detemir Flexpen/Flex Touch 100 Units/Ml 3ml) 15 units SC DAILY [facility] Stop: 04/12/21 08:59 Last Admin: 03/14/21 08:44 Dose: 15 units Documented by: Lisinopril (Lisinopril 10 Mg Tab) 10 mg PO DAILY [facility] Stop: 04/12/21 00:59 Last Admin: 03/14/21 08:44 Dose: 10 mg Documented by: Metoprolol Succinate (Metoprolol Succ 25mg Ext Rel Tab) 12.5 mg PO DAILY [facility] Stop: 04/12/21 08:59 Last Admin: 03/14/21 08:43 Dose: 12.5 mg Documented by: Miscellaneous (Carbohydrates For Hypoglycemia ) 15 - 30 gm PO UD PRN PRN Reason: Hypoglycemia Protocol Stop: 04/12/21 00:15 Miscellaneous (Netarsudil-Latanoprost [Rocklatan]: Order Awaiting Action) 1 ea N/A QS [facility] Stop: 04/12/21 07:59 Last Admin: 03/14/21 08:41 Dose: Not Given Documented by: Oxycodone HCl (Oxycodone Hcl Ir 5 Mg Tab (Immediate Release)) 5 mg PO Q4H PRN PRN Reason: Pain Stop: 03/27/21 00:15 Simvastatin (Simvastatin 20 Mg Tab) 20 mg PO HS [facility] Stop: 04/12/21 20:59 Last Admin: 03/13/21 21:04 Dose: 20 mg Documented by: (1) Fall Encounter type: initial encounter Qualified Code(s): W19.XXXA - Unspecified fall, initial encounter
[2021-03-14] MEDS: CYANOCOBALAMIN 500 MCG TABLET (VITAMIN B-12) PO SCH (09:54)
[2021-03-14] MEDS: FERROUS SULFATE 325 MG TAB PO SCH ×2 (09:55→17:51)
[2021-03-14] MEDS: SIMVASTATIN 20 MG TAB PO SCH (20:37)
[2021-03-15 06:14] LABS: Hematocrit (blood only) 27.4 % (37-47); Hemoglobin 8.8 g/dL (12.0-16.0); Mean Corpuscular Hemoglobin 25.6 pg (25-34); Mean Corpuscular Hgb Conc 32.1 g/dL (32-36); Mean Corpuscular Volume 79.7 fL (80-100); Mean Platelet Volume 9.2 fL (7.4-10.4); Platelet Count 313 K/uL (130-400); RDW Coefficient of Variation 15.2 % (11.5-14.5); RDW Standard Deviation 44.5 fL (36.4-46.3); Red Blood Count 3.44 M/uL (4.2-5.4); White Blood Count 7.37 K/uL (4.8-10.8)
[2021-03-15 06:57] LABS: Calcium 9.1 mg/dl (8.5-10.1); Creatinine Clr Calc Pharmacy 57.7 ml/min; Est GFR (African American) 96.8 ml/min; Est GFR (Non-African American) 83.5 ml/min; Potassium 4.2 mmol/L (3.5-5.1)
--- NOTE | 2021-03-15 07:42 | Hospitalist Progress Note ---
Date of Service March 15, 2021 Assessment & Plan (1) Fall: (2) Frequent falls: Ambulatory dysfunction, Age-related physical debility Bilateral femur, CT head, pelvis CT and abdominal pelvis CT without any acute findings. Continue to work with PT/OT. Care management is working on placement. -Likely to [facility] tomorrow. Cont. fall precautions. Acute on chronic anemia; Hgb 8.8 today , stable Review of system is mainly negative. Denies any abdominal discomfort. Denies any episodes of bright red blood per rectum or melena Anemia work-up, transfuse PRBC if hemoglobin less than 8 and or for symptomatic anemia -possibly dilutional as well, IVF stopped -B12 low, started on B12 supplement, iron level also low, started on iron supplement - ordered -Peripheral smear obtained - remarkable for microcytic anemia, iron and vitamin B12 deficiencies are likely main driving factors for the anemia. There is no evidence of myelodysplasia. -Continue to monitor daily CBC, while inpt -Patient will need follow-up for CBC as outpt, plan to DC on iron and vit. B12 supplement Moderate right hydronephrosis to the level of the ureteropelvic junction. History congenital UPJ obstruction as per records, patient currently without symptoms. H/O hypertension H/O CAD status post stent/PVD status post surgery DM2 insulin requiring, reasonable control as of recent hemoglobin A1c of 27 August 2020 basal insulin, ISS BG goal 1 10-1 40, carb count coverage, update hemoglobin A1c DVT prophylaxis. Lovenox subcu Full code Patient requesting for son to be updated of plan of care. Mr. Cecilio Malone, contact #[phone]. Alternative contact lens assistant is patient [id number], Ms. Radha Malone, contact #[phone]. Admission and Anticipated Discharge Date Admission Date: March 13, 2021 Subjective Patient seen in follow-up of ambulatory dysfunction, anemia Denies any complaints, specifically denies any chest pain, shortness of breath, palpitations, dizziness Patient observed while walking with a walker and physical therapist Review of Systems Review of Systems: All systems reviewed & are unremarkable except as noted in HPI & below Constitutional: no fever and no chills Respiratory: no cough and no dyspnea Cardiovascular: no chest pain and no palpitations Gastrointestinal: no abdominal pain, no nausea and no vomiting Physical Exam Physical Exam: General: A&Ox3 HENT: NCAT, MMM, EOMI Eyes: EOMI, PERRL Neck: Supple, normal range of motion CVS: normal rate and rhythm Resp: b/l good breath sounds, CTAB Abdomen: Soft, ND/NT Extremities: No c/c/e Neuro: face symmetric, speech fluent by slow, moves extremities, no focal deficit, hard of hearing Skin: warm and dry, no rashes/lesions/erythema MSK: normal ROM, no joint swelling/erythema Results & Data Results & Data ([facility]) Vital Signs (Past 12 Hours) Vital Signs Temp Pulse Resp BP Pulse Ox 03/15/21 07:12 37.4 C 76 16 118/64 94 03/14/21 23:07 36.6 C 74 20 110/63 98 Laboratory Results 03/15/21 03/15/21 03/14/21 Range/Units 05:52 05:52 20:38 WBC 7.37 (4.8-10.8) K/uL RBC 3.44 L (4.2-5.4) M/uL Hgb 8.8 L (12.0-16.0) g/dL Hct 27.4 L (37-47) % MCV 79.7 L (80-100) fL MCH 25.6 (25-34) pg MCHC 32.1 (32-36) g/dL RDW Std Deviation 44.5 (36.4-46.3) fL RDW Coeff of Dipesh 15.2 H (11.5-14.5) % Plt Count 313 (130-400) K/uL MPV 9.2 (7.4-10.4) fL Peripher Smr Path Cons Sodium 137 (136-145) mmol/L Potassium 4.2 (3.5-5.1) mmol/L Chloride 107 (98-107) mmol/L Carbon Dioxide 26 (21-32) mmol/L Anion Gap 4.0 (3-11) BUN 18 (7-18) mg/dl Creatinine 0.63 (0.6-1.2) mg/dl Est Cr Clr Drug Dosing 57.7 ml/min Est GFR ( Amer) 96.8 ml/min Est GFR (Non-Af Amer) 83.5 ml/min BUN/Creatinine Ratio 28.0 H (10-20) Glucose 155 H (70-99) mg/dl POC Glucose 242 H (70-99) mg/dl Calcium 9.1 (8.5-10.1) mg/dl 03/14/21 03/14/21 03/14/21 Range/Units 17:02 12:06 08:09 WBC (4.8-10.8) K/uL RBC (4.2-5.4) M/uL Hgb (12.0-16.0) g/dL Hct (37-47) % MCV (80-100) fL MCH (25-34) pg MCHC (32-36) g/dL RDW Std Deviation (36.4-46.3) fL RDW Coeff of Dipesh (11.5-14.5) % Plt Count (130-400) K/uL MPV (7.4-10.4) fL Peripher Smr Path Cons Sodium (136-145) mmol/L Potassium (3.5-5.1) mmol/L Chloride (98-107) mmol/L Carbon Dioxide (21-32) mmol/L Anion Gap (3-11) BUN (7-18) mg/dl Creatinine (0.6-1.2) mg/dl Est Cr Clr Drug Dosing ml/min Est GFR ( Amer) ml/min Est GFR (Non-Af Amer) ml/min BUN/Creatinine Ratio (10-20) Glucose (70-99) mg/dl POC Glucose 138 H 168 H 103 H (70-99) mg/dl Calcium (8.5-10.1) mg/dl 03/13/21 Range/Units 19:52 WBC (4.8-10.8) K/uL RBC (4.2-5.4) M/uL Hgb (12.0-16.0) g/dL Hct (37-47) % MCV (80-100) fL MCH (25-34) pg MCHC (32-36) g/dL RDW Std Deviation (36.4-46.3) fL RDW Coeff of Dipesh (11.5-14.5) % Plt Count (130-400) K/uL MPV (7.4-10.4) fL Peripher Smr Path Cons Sodium (136-145) mmol/L Potassium (3.5-5.1) mmol/L Chloride (98-107) mmol/L Carbon Dioxide (21-32) mmol/L Anion Gap (3-11) BUN (7-18) mg/dl Creatinine (0.6-1.2) mg/dl Est Cr Clr Drug Dosing ml/min Est GFR ( Amer) ml/min Est GFR (Non-Af Amer) ml/min BUN/Creatinine Ratio (10-20) Glucose (70-99) mg/dl POC Glucose (70-99) mg/dl Calcium (8.5-10.1) mg/dl Medications Administered Current Inpatient Medications Acetaminophen (Acetaminophen 325 Mg Tab) 650 mg PO Q4H PRN PRN Reason: pain/fever Stop: 04/12/21 00:15 Aspirin (Aspirin 81 Mg Ectab) 81 mg PO DAILY [facility] Stop: 04/12/21 08:59 Last Admin: 03/14/21 08:42 Dose: 81 mg Documented by: Brimonidine Tartrate (Brimonidine Tartrate 0.2% 5ml) 1 drops OPB TID [facility] Stop: 04/12/21 00:15 Last Admin: 03/14/21 20:38 Dose: 1 drops Documented by: Clopidogrel Bisulfate (Clopidogrel Bisulfate 75 Mg Tab) 75 mg PO DAILY [facility] Stop: 04/12/21 08:59 Last Admin: 03/14/21 08:43 Dose: 75 mg Documented by: Cyanocobalamin (Cyanocobalamin 500 Mcg Tablet (Vitamin B-12)) 1,000 mcg PO QAM [facility] Stop: 04/13/21 08:59 Last Admin: 03/14/21 09:54 Dose: 1,000 mcg Documented by: Dextrose (Dextrose 50% 50 Ml Syringe) 25 - 50 ml IV UD PRN; Protocol PRN Reason: Hypoglycemia Protocol Stop: 04/12/21 00:15 Docusate Sodium (Docusate Sodium 100 Mg Cap) 100 mg PO DAILY [facility] Stop: 04/12/21 08:59 Last Admin: 03/14/21 08:44 Dose: 100 mg Documented by: Dorzolamide/Timolol (Dorzolamide/Timolol 22.3/6.8mg/Ml 10 Ml Btl) 1 drops OPB BID [facility] Stop: 04/12/21 00:15 Last Admin: 03/14/21 20:36 Dose: 1 drops Documented by: Enoxaparin Sodium (Enoxaparin Inj 30 Mg/0.3 Ml Syr) 30 mg SQ QAM [facility] Stop: 04/12/21 08:59 Last Admin: 03/14/21 08:45 Dose: 30 mg Documented by: Ferrous Sulfate (Ferrous Sulfate 325 Mg Tab) 325 mg PO BIDM [facility] Stop: 04/13/21 07:59 Last Admin: 03/14/21 17:51 Dose: 325 mg Documented by: Glucagon (Glucagon For Inj 1 Mg Vial) 1 mg SQ UD PRN; Protocol PRN Reason: Hypoglycemia Protocol Stop: 04/12/21 00:15 Glucose (Glucose 10 Tabs/Tube) 4 - 8 tabs PO UD PRN; Protocol PRN Reason: Hypoglycemia Protocol Stop: 04/12/21 00:15 Glucose (Glucose 40% Gel 15 Gm Tube) 15 - 30 gm PO UD PRN; Protocol PRN Reason: Hypoglycemia Protocol Stop: 04/12/21 00:15 Promethazine HCl 6.25 mg/ (Sodium Chloride) 50.25 mls @ 201 mls/hr IV Q6H PRN PRN Reason: Nausea And Vomiting Stop: 04/12/21 00:15 Insulin Aspart (Insulin Aspart 100 Units/Ml 3 Ml Pen) 0 units SC ACHS [facility] Stop: 04/12/21 00:15 Last Admin: 03/14/21 20:40 Dose: 5 units Documented by: Insulin Detemir (Insulin Detemir Flexpen/Flex Touch 100 Units/Ml 3ml) 15 units SC DAILY [facility] Stop: 04/12/21 08:59 Last Admin: 03/14/21 08:44 Dose: 15 units Documented by: Lisinopril (Lisinopril 10 Mg Tab) 10 mg PO DAILY [facility] Stop: 04/12/21 00:59 Last Admin: 03/14/21 08:44 Dose: 10 mg Documented by: Metoprolol Succinate (Metoprolol Succ 25mg Ext Rel Tab) 12.5 mg PO DAILY [facility] Stop: 04/12/21 08:59 Last Admin: 03/14/21 08:43 Dose: 12.5 mg Documented by: Miscellaneous (Carbohydrates For Hypoglycemia ) 15 - 30 gm PO UD PRN PRN Reason: Hypoglycemia Protocol Stop: 04/12/21 00:15 Miscellaneous (Netarsudil-Latanoprost [Rocklatan]: Order Awaiting Action) 1 ea N/A QS [facility] Stop: 04/12/21 07:59 Last Admin: 03/14/21 23:46 Dose: Not Given Documented by: Oxycodone HCl (Oxycodone Hcl Ir 5 Mg Tab (Immediate Release)) 5 mg PO Q4H PRN PRN Reason: Pain Stop: 03/27/21 00:15 Simvastatin (Simvastatin 20 Mg Tab) 20 mg PO HS [facility] Stop: 04/12/21 20:59 Last Admin: 03/14/21 20:37 Dose: 20 mg Documented by: (1) Fall Encounter type: initial encounter Qualified Code(s): W19.XXXA - Unspecified fall, initial encounter
[2021-03-15] MEDS: CLOPIDOGREL BISULFATE 75 MG TAB PO SCH (08:38)
[2021-03-15] MEDS: lisinopril 10 MG TAB PO SCH (08:39)
[2021-03-15] MEDS: DOCUSATE SODIUM 100 MG CAP PO SCH (08:40)
[2021-03-15] MEDS: FERROUS SULFATE 325 MG TAB PO SCH ×2 (08:40→17:36)
[2021-03-15] MEDS: CYANOCOBALAMIN 500 MCG TABLET (VITAMIN B-12) PO SCH (08:40)
[2021-03-15] MEDS: METOPROLOL SUCC 25MG EXT REL TAB PO SCH (08:41)
[2021-03-15] MEDS: ASPIRIN 81 MG ECTAB PO SCH (08:41)
[2021-03-15] MEDS: INSULIN DETEMIR FLEXPEN/FLEX TOUCH 100 UNITS/ML 3ML SC SCH (08:42)
[2021-03-15] MEDS: ENOXAPARIN INJ 30 MG/0.3 ML SYR SQ SCH (08:42)
[2021-03-15] MEDS: BRIMONIDINE TARTRATE 0.2% 5ML OPB SCH ×3 (08:43→20:58)
[2021-03-15] MEDS: INSULIN ASPART 100 UNITS/ML 3 ML PEN SC SCH ×4 (08:43→20:58)
[2021-03-15] MEDS: DORZOLAMIDE/TIMOLOL 22.3/6.8MG/ML 10 ML BTL OPB SCH ×2 (08:43→20:57)
[2021-03-15] MEDS: SIMVASTATIN 20 MG TAB PO SCH (20:57)
--- NOTE | 2021-03-16 08:54 | Hospitalist Progress Note ---
Date of Service March 16, 2021 Assessment & Plan (1) Fall: (2) Frequent falls: Ambulatory dysfunction, Age-related physical debility Bilateral femur, CT head, pelvis CT and abdominal pelvis CT without any acute findings. Continue to work with PT/OT. Care management is working on placement. -Likely to [facility] today. Cont. fall precautions. Acute on chronic anemia; Current Hgb 8.8 , stable Review of system is mainly negative. Denies any abdominal discomfort. Denies any episodes of bright red blood per rectum or melena Anemia work-up, transfuse PRBC if hemoglobin less than 8 and or for symptomatic anemia -possibly dilutional as well, IVF stopped -B12 low, started on B12 supplement, iron level also low, started on iron supplement - ordered -Peripheral smear obtained - remarkable for microcytic anemia, iron and vitamin B12 deficiencies are likely main driving factors for the anemia. There is no evidence of myelodysplasia. -Patient will need follow-up for CBC as outpt, plan to DC on iron and vit. B12 supplement Moderate right hydronephrosis to the level of the ureteropelvic junction. History congenital UPJ obstruction as per records, patient currently without symptoms. H/O hypertension H/O CAD status post stent/PVD status post surgery DM2 insulin requiring, reasonable control as of recent hemoglobin A1c of 27 August 2020 Current Hgb A1c 7.0% basal insulin, ISS BG goal 1 10-1 40, carb count coverage DVT prophylaxis. Lovenox subcu Full code Patient requesting for son to be updated of plan of care. Mr. Cecilio Malone, contact #[phone]. Alternative contact lens molder is patient [id number], Ms. Radha Malone, contact #[phone]. Admission and Anticipated Discharge Date Admission Date: March 13, 2021 Subjective Patient seen in follow-up of ambulatory dysfunction, anemia Denies any complaints, specifically denies any chest pain, shortness of breath, palpitations, dizziness Review of Systems Review of Systems: All systems reviewed & are unremarkable except as noted in HPI & below Constitutional: no fever and no chills Respiratory: no cough and no dyspnea Cardiovascular: no chest pain and no palpitations Gastrointestinal: no abdominal pain, no nausea and no vomiting Physical Exam Physical Exam: General: A&Ox3 HENT: NCAT, MMM, EOMI Eyes: EOMI, PERRL Neck: Supple, normal range of motion CVS: normal rate and rhythm Resp: b/l good breath sounds, CTAB Abdomen: Soft, ND/NT Extremities: No c/c/e Neuro: face symmetric, speech fluent, moves extremities, no focal deficit, hard of hearing Skin: warm and dry, no rashes/lesions/erythema MSK: normal ROM, no joint swelling/erythema Results & Data Results & Data ([facility]) Vital Signs (Past 12 Hours) Vital Signs Temp Pulse Pulse Resp BP Pulse Ox 03/16/21 07:30 37.1 C 76 18 125/73 94 03/15/21 23:25 36.6 C 78 20 125/75 96 (1) Fall Encounter type: initial encounter Qualified Code(s): W19.XXXA - Unspecified f all, initial encounter
[2021-03-16] MEDS: CYANOCOBALAMIN 500 MCG TABLET (VITAMIN B-12) PO SCH (08:55)
[2021-03-16] MEDS: FERROUS SULFATE 325 MG TAB PO SCH (08:55)
[2021-03-16] MEDS: METOPROLOL SUCC 25MG EXT REL TAB PO SCH (08:56)
[2021-03-16] MEDS: ASPIRIN 81 MG ECTAB PO SCH (08:56)
[2021-03-16] MEDS: DOCUSATE SODIUM 100 MG CAP PO SCH (08:56)
[2021-03-16] MEDS: lisinopril 10 MG TAB PO SCH (08:57)
[2021-03-16] MEDS: BRIMONIDINE TARTRATE 0.2% 5ML OPB SCH (08:57)
[2021-03-16] MEDS: CLOPIDOGREL BISULFATE 75 MG TAB PO SCH (08:57)
[2021-03-16] MEDS: ENOXAPARIN INJ 30 MG/0.3 ML SYR SQ SCH (08:58)
[2021-03-16] MEDS: INSULIN ASPART 100 UNITS/ML 3 ML PEN SC SCH (08:58)
[2021-03-16] MEDS: DORZOLAMIDE/TIMOLOL 22.3/6.8MG/ML 10 ML BTL OPB SCH (08:58)
--- NOTE | 2021-03-16 08:59 | Discharge Summary ---
Date of Service March 16, 2021 Admission HPI Per Admitting Provider 80-year-old female with PMH DM type II, PVD, CAD, HTN, and the problems listed below who presents to the ED for evaluation of frequent falls. Patient reports that she suffered a fall last summer and reports falling at least 20 times since then. Falls have been becoming more and more frequent. Falls all seem to be mechanical in nature. Patient denies any associated lightheadedness, dizziness, syncopal event. No chest pain or shortness of breath. Has been having a mild hypoglycemia in the morning around 90. Follows with [facility] who has been adjusting Levemir. Patient denies abdominal pain, nausea, vomiting, diarrhea. Upon questioning, she feels like she has had a 20 pound unintentional weight loss. Denies bright red blood per rectum or dark tarry stools. No fevers or chills. Denies urinary symptoms. In the ED, pelvis and bilateral femur x-rays are unremarkable for acute findings. Head CT is negative for acute intracranial findings. CXR negative for acute cardiopulmonary disease. Labs show Hgb 9.1, otherwise unremarkable. Admission Exam Per Admitting Provider Constitutional: WD/WN, vitals as above Eyes: PERRL, conjunctivae normal, anicteric sclerae ENMT: external ear and nose normal, oropharynx normal Respiratory: normal respiratory effort, lungs clear to auscultation Cardiovascular: Rate/Rhythm: regular rate and regular rhythm Vessels: normal peripheral pulses Extremities: no edema Gastrointestinal (Abdomen): normal bowel sounds, soft, nontender, no hepatosplenomegaly Musculoskeletal: no cyanosis or clubbing, extremities motor strength 5/5 Skin: no rashes, warm and dry Neurologic: PERRL, EOMI, accommodation nl, no face palsy, no dysarthria Psychiatric: A+Ox3, euthymic affect Principal Diagnosis Ambulatory dysfunction Anemia Discharge Exam General: A&Ox3 HENT: NCAT, MMM, EOMI Eyes: EOMI, PERRL Neck: Supple, normal range of motion CVS: normal rate and rhythm Resp: b/l good breath sounds, CTAB Abdomen: Soft, ND/NT Extremities: No le edema, moves extremities spontaneously Neuro: face symmetric, speech fluent, moves extremities, no focal deficit, hard of hearing Skin: warm and dry, no rashes/lesions/erythema MSK: normal ROM, no joint swelling/erythema Discharge Data Allergies Allergy/AdvReac Type Severity Reaction Status Date / Time baclofen Allergy Unknown unkown Verified 03/12/21 19:25 Bactrim Allergy Unknown itching Verified 12/21/17 14:38 sulfamethoxazole Allergy Unknown itching Verified 03/12/21 19:25 tramadol Allergy Unknown unkown Verified 03/12/21 19:25 trimethoprim Allergy Unknown itching Verified 03/12/21 19:25 glipizide AdvReac erratic Verified 03/12/21 19:25 bsgs Consultations 03/12/21 21:52 ED Decision to Admit Stat Ordered Studies 03/12/21 18:36 CT head/brain wo con Stat IMPRESSION: 1. No bowel wall thickening or obstruction. 2. Colonic diverticulosis. No evidence for acute diverticulitis. 3. Moderate right hydronephrosis to the level of the ureteropelvic junction. No obstructing stones identified. This could represent a UPJ type obstruction. 4. Additional findings as described above. 03/12/21 22:53 CT abd pelvis wo con Urgent IMPRESSION: There is no hemorrhage, mass effect, or evidence of acute territorial ischemia by CT criteria. Hospital Course (1) Fall: (2) Frequent falls: Ambulatory dysfunction, Age-related physical debility Bilateral femur, CT head, pelvis CT and abdominal pelvis CT without any acute findings. Continue to work with PT/OT. Care management is working on placement. -Likely to [facility] today. Cont. fall precautions. Acute on chronic anemia; Current Hgb 8.8 , stable Review of system is mainly negative. Denies any abdominal discomfort. Denies any episodes of bright red blood per rectum or melena Anemia work-up, transfuse PRBC if hemoglobin less than 8 and or for symptomatic anemia -possibly dilutional as well, IVF stopped -B12 low, started on B12 supplement, iron level also low, started on iron supplement - ordered -Peripheral smear obtained - remarkable for microcytic anemia, iron and vitamin B12 deficiencies are likely main driving factors for the anemia. There is no evidence of myelodysplasia. -Patient will need follow-up for CBC as outpt, plan to DC on iron and vit. B12 supplement Moderate right hydronephrosis to the level of the ureteropelvic junction. History congenital UPJ obstruction as per records, patient currently without symptoms. H/O hypertension H/O CAD status post stent/PVD status post surgery DM2 insulin requiring, reasonable control as of recent hemoglobin A1c of 27 August 2020 Current Hgb A1c 7.0% basal insulin, ISS BG goal 1 10-1 40, carb count coverage Patient's son, Mr. Cecilio Malone, contact #[phone]. Alternative contact worker is patient [id number], Ms. Radha Malone, contact #[phone]. Total Time Total Time Spent Total Time Spent (In Minutes): 35 Total Time Includes: Examination of the Patient, Discharge Planning and Medication Reconciliation Discharge Plan Discharge Items Patient Disposition: Transfer Shelter Fac Reason For Visit: AMB DYSFUNCTION Discharge Diagnosis: Ambulatory dysfunction Anemia Activity: Per Instructions section Non-emergency contact: Primary Care Provider Call non-emergency contact if: you have any medication questions and your symptoms worsen Follow-up/Referrals: Roland Plunkett MD [Primary Care Provider] - Diet: Carb Consistent or DM2 and Heart Healthy Addtl Attending Provider Instructions: You were started on vitamin supplements, vitamin B12 and iron supplement to help with your anemia. You should have your blood work checked with your primary care doctor in a couple of weeks. It is important that you follow-up with your primary care provider regularly. It is also important that your blood sugars are monitored closely and if needed your diabetes medications adjusted. Pending Studies at Discharge: No Stand-Alone Forms: My [facility] Skilled Items Patient informed of condition?: Yes DNR: No Discharge Level of Care: Skilled Communicable Disease: No Discharge Prognosis: Stable Lines: None Urinary Catheter: No Medications and DC Order Prescriptions: New ferrous sulfate 325 mg (65 mg iron) Tablet,Delayed Release (Dr/Ec) 325 mg PO BIDM 30 Days Qty: 60 RF: 0 cyanocobalamin (vitamin B-12) 500 mcg Tablet 1,000 mcg PO QAM 30 Days Qty: 60 RF: 0 Continued metformin 850 mg Tablet 850 mg PO BIDM RF: 0 clopidogrel 75 mg Tablet 75 mg PO DAILY RF: 0 aspirin [Aspirin Low Dose] 81 mg Tablet,Delayed Release (Dr/Ec) 81 mg PO DAILY RF: 0 simvastatin 20 mg Tablet 20 mg PO HS RF: 0 lisinopril 10 mg Tablet 10 mg PO DAILY RF: 0 brimonidine 0.2 % Drops 1 drp OPB TID RF: 0 metoprolol succinate 25 mg Tablet Extended Release 24 Hr 12.5 mg PO DAILY RF: 0 cholecalciferol (vitamin D3) [Vitamin D3] 1,000 unit Capsule 1,000 unit PO DAILY RF: 0 magnesium oxide 400 mg magnesium Tablet 400 mg PO DAILY RF: 0 acetaminophen 500 mg tablet 1,000 mg PO Q8H PRN (Reason: fever or pain) Qty: 60 RF: 0 dorzolamide-timolol 22.3-6.8 mg/mL drops 1 drp OPB BID RF: 0 insulin aspart U-100 [Novolog Flexpen U-100 Insulin] 100 unit/mL (3 mL) insulin pen 6 unit SUBCUT BIDM RF: 0 Rocklatan 0.02-0.005 % drops 1 drp OPB HS RF: 0 Levemir FlexTouch U-100 Insuln 100 unit/mL (3 mL) insulin pen 14 unit subcut DAILYBB RF: 0 docusate sodium [Stool Softener] 100 mg Capsule 100 mg PO DAILY RF: 0 ibuprofen 600 mg tablet 600 mg PO Q6 PRN (Reason: Pain) RF: 0 Anusol Suppository 1 supp ND Q12 PRN (Reason: Hemorrhoids) RF: 0 Discharge Orders: Discharge Order (Routine); Ordered 03/16/21 Ordered By: Enmanuel Shrestha Admission Data Admit Date/Time: 03/13/21 11:22 Attending Provider: Enmanuel Shrestha Admit Provider: Kostas Galarza Primary Care Provider: Roland Plunkett Other Providers: [facility] ; Kostas Galarza ; [place] ; Jayleen Gutierrez
[2021-03-16] MEDS: INSULIN DETEMIR FLEXPEN/FLEX TOUCH 100 UNITS/ML 3ML SC SCH (09:00)
== END 2021-03-16 10:07 | DRG 884 ==
LOC: ED 18:17 → 3W 18:17 → SUATTDRO 22:57 → 3W 23:29 → SUATTDRO 03-13 11:22

== ENCOUNTER 2021-04-18 19:48 | Inpatient (IN) ==
[2021-04-18] MEDS ORDERED: SODIUM CHLORIDE 0.9% 250 ML IV PRN (19:58)
[2021-04-18] MEDS ORDERED: PANTOPRAZOLE BOLUS/DRIP 1 EA IV STA (19:58)
[2021-04-18] MEDS ORDERED: PANTOprazole 80 MG in DEXTROSE 5% 100 ML IV ONE (19:58)
[2021-04-18] MEDS ORDERED: SODIUM CHLORIDE 0.9% 1000ML 1,000 ML IV SCH (20:00)
[2021-04-18 20:11] LABS: Basophils # (auto) 0.04 K/uL (0-0.2); Basophils % (auto) 0.4 %; Eosinophils # (auto) 0.15 K/uL (0-0.5); Eosinophils % (auto) 1.3 %; Hematocrit (blood only) 28.1 % (37-47); Hemoglobin 8.9 g/dL (12.0-16.0); Immature Granulocytes # (auto) 0.07 K/uL (0.00-0.02); Immature Granulocytes % (auto) 0.6 %; Lymphocytes # (auto) 1.58 K/uL (1.2-3.4); Mean Corpuscular Hemoglobin 25.6 pg (25-34); Mean Corpuscular Hgb Conc 31.7 g/dL (32-36); Mean Corpuscular Volume 80.7 fL (80-100); Mean Platelet Volume 9.3 fL (7.4-10.4); Monocytes # (auto) 1.46 K/uL (0.11-0.59); Monocytes % (auto) 12.9 %; Neutrophils # (auto) 8.02 K/uL (1.4-6.5); Neutrophils % (auto) 70.8 %; Platelet Count 431 K/uL (130-400); RDW Coefficient of Variation 16.6 % (11.5-14.5); RDW Standard Deviation 48.8 fL (36.4-46.3); Red Blood Count 3.48 M/uL (4.2-5.4); White Blood Count 11.32 K/uL (4.8-10.8)
[2021-04-18] MEDS: PANTOprazole 40 MG in DEXTROSE 5% 100 ML IV SCH (20:11)
--- NOTE | 2021-04-18 20:12 | Emergency Department Note ---
Impression & Plan GIB (gastrointestinal bleeding), Acute UTI ED Provider Note NAME: BRAD AVALOS AGE: 80 SEX: F : 1940 ARRIVES VIA: Ambulance INFORMANT: patient, ED PROVIDER(S): Ted Seals MD Chief Complaint: Weakness, concern for GI bleeding HPI: Patient does present from home due to concern for generalized weakness. The patient reportedly has been weak for approximately 1 week in duration. The patient reportedly had some diarrhea that was dark and tarry in nature. The patient does take aspirin and Plavix. No other blood thinning medications. The patient denies any shortness of breath or chest pains. Patient denies fevers or chills. The patient is not vaccinated for Covid. The patient's weakness is gotten progressively worse with no remitting or exacerbating factors. Patient denies any abdominal pain. No prior history of colon cancer or colon issues. The patient denies taking any other NSAIDs with exception of her aspirin and Plavix given her known history of CAD. ROS: See HPI for pertinent positives and negatives. A total of 10 systems were reviewed and otherwise negative. Past medical history: See below Surgical history: See below Social history: See below Physical Exam: GENERAL: Fatigued in appearance. Wearing a mask. EYE EXAM: Normal conjunctiva. PERRL, no anisocoria and EOM's grossly intact w/o pain. NECK: Supple, no nuchal rigidity, no adenopathy, non-tender. No signs of meningismus. LUNGS: Clear to auscultation. Normal chest wall mechanics. HEART: NSR, no MRG. ABDOMEN: Abdomen soft, non-tender, normo-active bowel sounds, no masses, no rebound or guarding. BACK: No CVA TTP. SKIN: No rashes. Scant bruising of the bilateral upper extremities. Rectal: Dark stool, tracely heme positive. No obvious fissures or hemorrhoids. UPPER EXTREMITIES: Upper extremities are grossly normal. LOWER EXTREMITIES: Grossly normal, no edema. NEURO EXAM: Easily arousable, moves all 4 extremities, normal speech, GCS of 14. Differential diagnoses: Diverticulosis, AVM, coagulopathy, colitis, inflammatory bowel disease, malignancy, Linda-Bernal tear, esophagitis, peptic ulcer disease, variceal bleed, gastritis, epistaxis, fissure, hemorrhoids, as well as other pathologies. Course: Patient was seen and evaluated the bedside. Full history physical exam was performed. EKG interpreted by me Normal sinus rhythm, rate of 84, normal intervals, left axis deviation, T WI in lead III. Incomplete right bundle branch block. Imaging Studies: See below Cardiac monitoring: An order was placed for continuous cardiac monitoring. The monitor shows a rate of 88 with sinus rhythm. MDM: Given the patient's hypotension and positive occult stool the patient was consented for blood. Patient was ordered PPI bolus and drip. The patient was still receiving IV fluids which were initiated by EMS. Patient did have a white count of 11 with a hemoglobin of 8. Patient does take aspirin and Plavix. Patient does have an elevated BUN to creatinine ratio. Initial glucose border line low recheck was normal. Urinalysis does show concern for possible infection. There is not a large change in the patient's anemia although was reported by EMS that the patient dropped from 12 to 8. Given the patient's hypotension additional labs were ordered antibiotics and IV fluids. I did speak the on-call hospitalist Dr. Aguilar and the patient was admitted to the medicine service. Covid negative. Critical Care: I have personally spent 55 minutes of critical care time in direct management of this patient. This includes bedside care, interpretation of diagnostic studies, and testing, discussion with consultants, patient, and family members, and other require inpatient management activities. This 55 minutes is in excess of all separately billable procedures. Past Med/Surg History Medical History (Updated 04/19/21 @ 14:55 by Ted Seals MD) Amputated toe of left foot CAD (coronary artery disease) Chronic total circumflex occlusion, 80% mid LAD stenosis -managed medically Callus Diabetes mellitus, type II Diabetic neuropathy Diabetic retinopathy Dyslipidemia History of amputation of left great toe History of amputation of right great toe HTN (hypertension) PAD (peripheral artery disease) Multiple interventions to RLE Type 2 diabetes mellitus with diabetic polyneuropathy Surgical History History of amputation of lesser toe of left foot History of amputation of lesser toe of right foot History of cataract surgery History of transmetatarsal amputation of right foot Family History Brother Diabetes Social History Smoking Status: Never smoker Tobacco Type: Cigarettes Second Hand Exposure: No; Hx Alcohol Use: No Hx Substance Use: No Preferred Language: Palestinian Communication Ability: Effective Accessioner Required: No Beliefs That Will Affect Care: None marital status: / Current Living Situation: Alone Current Living Situation Comment: unable to obtain from patient, currently confused current occupational status: retired Feels Safe at Home: Yes Assistive Devices: None Allergies Allergies Allergy/AdvReac Type Severity Reaction Status Date / Time baclofen Allergy Unknown unkown Verified 04/18/21 21:04 Bactrim Allergy Unknown itching Verified 12/21/17 14:38 sulfamethoxazole Allergy Unknown itching Verified 04/18/21 21:04 tramadol Allergy Unknown unkown Verified 04/18/21 21:04 trimethoprim Allergy Unknown itching Verified 04/18/21 21:04 glipizide AdvReac erratic Verified 04/18/21 21:04 bsgs Home Meds Home Medications Medication Instructions Recorded Confirmed aspirin [Aspirin Low Dose] 81 mg PO DAILY 02/18/19 04/18/21 brimonidine 1 drp OPB TID 02/18/19 04/18/21 cholecalciferol (vitamin D3) 1,000 unit PO DAILY 02/18/19 04/18/21 [Vitamin D3] clopidogrel 75 mg PO DAILY 02/18/19 04/18/21 lisinopril 10 mg PO DAILY 02/18/19 04/18/21 magnesium oxide 400 mg PO DAILY 02/18/19 04/18/21 metformin 850 mg PO BIDM 02/18/19 04/18/21 metoprolol succinate 12.5 mg PO DAILY 02/18/19 04/18/21 simvastatin 20 mg PO HS 02/18/19 04/18/21 Rocklatan 1 drp OPB HS 06/09/20 04/18/21 dorzolamide-timolol 1 drp OPB BID 06/09/20 04/18/21 insulin aspart U-100 [Novolog 6 unit SUBCUT BIDM 06/09/20 04/18/21 Flexpen U-100 Insulin] Levemir FlexTouch U-100 Insuln 14 unit SUBCUT DAILYBB 06/10/20 04/18/21 docusate sodium [Stool Softener] 100 mg PO DAILY 06/10/20 04/18/21 ibuprofen 600 mg PO Q6 PRN 03/12/21 04/18/21 cyanocobalamin (vitamin B-12) 500 mcg PO DAILY 04/18/21 04/18/21 [Vitamin B-12] ferrous sulfate 325 mg PO BID 04/18/21 04/18/21 hydrocortisone acetate 25 mg ID BID PRN 04/18/21 04/18/21 Previous Rx's Medication Instructions Recorded acetaminophen 1,000 mg PO Q8H PRN #60 tab 03/01/19 Results & Data (ED) Vital Signs Vital Signs - 24 hr 04/18/21 19:53 04/18/21 19:57 04/18/21 20:00 Temperature 36.7 C Temperature Source Oral Pulse Rate 89 86 85 Pulse Rate from SpO2 Sensor 89 86 85 Respiratory Rate 18 19 19 Respiratory Effort / Characteristics Non-Labored Spontaneous Respiratory Depth Normal Blood Pressure 86/46 L 86/46 L Blood Pressure Mean 59 59 Blood Pressure Position Pulse Oximetry 96 96 98 Oxygen Delivery Method Room Air Sepsis Recent Fever Within 48 Hours No Sepsis New/Unexplained Change in Mental Status No Sepsis Action Taken by Nursing No Action Required 04/18/21 20:01 04/18/21 20:15 04/18/21 20:24 Temperature Temperature Source Pulse Rate 83 82 Pulse Rate from SpO2 Sensor 84 82 Respiratory Rate 16 17 Respiratory Effort / Characteristics Respiratory Depth Blood Pressure 85/36 L 95/45 L Blood Pressure Mean 52 61 Blood Pressure Position Pulse Oximetry 95 98 97 Oxygen Delivery Method Room Air Sepsis Recent Fever Within 48 Hours Sepsis New/Unexplained Change in Mental Status Sepsis Action Taken by Nursing 04/18/21 20:29 04/18/21 20:30 04/18/21 20:40 Temperature Temperature Source Pulse Rate 85 87 86 Pulse Rate from SpO2 Sensor 86 87 85 Respiratory Rate 16 16 20 Respiratory Effort / Characteristics Respiratory Depth Blood Pressure 93/46 L 87/51 L Blood Pressure Mean 61 63 Blood Pressure Position Pulse Oximetry 98 99 94 Oxygen Delivery Method Sepsis Recent Fever Within 48 Hours Sepsis New/Unexplained Change in Mental Status Sepsis Action Taken by Nursing 04/18/21 20:45 04/18/21 20:50 04/18/21 21:00 Temperature Temperature Source Pulse Rate 80 85 84 Pulse Rate from SpO2 Sensor 81 88 84 Respiratory Rate 16 16 17 Respiratory Effort / Characteristics Respiratory Depth Blood Pressure 85/52 L Blood Pressure Mean 63 Blood Pressure Position Pulse Oximetry 99 97 96 Oxygen Delivery Method Sepsis Recent Fever Within 48 Hours Sepsis New/Unexplained Change in Mental Status Sepsis Action Taken by Nursing 04/18/21 21:10 04/18/21 21:15 04/18/21 21:20 Temperature Temperature Source Pulse Rate 87 86 86 Pulse Rate from SpO2 Sensor 86 86 86 Respiratory Rate 15 14 19 Respiratory Effort / Characteristics Respiratory Depth Blood Pressure Blood Pressure Mean Blood Pressure Position Pulse Oximetry 96 92 97 Oxygen Delivery Method Sepsis Recent Fever Within 48 Hours Sepsis New/Unexplained Change in Mental Status Sepsis Action Taken by Nursing 04/18/21 21:21 04/18/21 21:22 04/18/21 21:30 Temperature 36.6 C Temperature Source Oral Pulse Rate 82 86 86 Pulse Rate from SpO2 Sensor 87 86 Respiratory Rate 18 18 19 Respiratory Effort / Characteristics Respiratory Depth Blood Pressure 103/54 L 103/54 L 108/49 L Blood Pressure Mean 70 70 68 Blood Pressure Position Pulse Oximetry 98 98 94 Oxygen Delivery Method Sepsis Recent Fever Within 48 Hours Sepsis New/Unexplained Change in Mental Status Sepsis Action Taken by Nursing 04/18/21 21:31 04/18/21 21:40 04/18/21 21:41 Temperature 36.5 C Temperature Source Oral Pulse Rate 81 82 79 Pulse Rate from SpO2 Sensor 83 81 79 Respiratory Rate 18 14 15 Respiratory Effort / Characteristics Respiratory Depth Blood Pressure 105/47 L Blood Pressure Mean 66 Blood Pressure Position Lying Pulse Oximetry 97 96 98 Oxygen Delivery Method Sepsis Recent Fever Within 48 Hours Sepsis New/Unexplained Change in Mental Status Sepsis Action Taken by Nursing 04/18/21 21:56 04/18/21 22:09 04/18/21 22:10 Temperature 36.5 C Temperature Source Oral Pulse Rate 83 87 84 Pulse Rate from SpO2 Sensor 87 84 Respiratory Rate 15 15 14 Respiratory Effort / Characteristics Respiratory Depth Blood Pressure 93/46 L 93/46 L Blood Pressure Mean 61 61 Blood Pressure Position Lying Pulse Oximetry 95 97 93 Oxygen Delivery Method Sepsis Recent Fever Within 48 Hours Sepsis New/Unexplained Change in Mental Status Sepsis Action Taken by Nursing 04/18/21 22:12 04/18/21 22:15 04/18/21 22:17 Temperature Temperature Source Pulse Rate 87 84 87 Pulse Rate from SpO2 Sensor 87 85 87 Respiratory Rate 16 14 22 Respiratory Effort / Characteristics Respiratory Depth Blood Pressure 86/39 L 93/59 L Blood Pressure Mean 54 70 Blood Pressure Position Pulse Oximetry 98 97 98 Oxygen Delivery Method Sepsis Recent Fever Within 48 Hours Sepsis New/Unexplained Change in Mental Status Sepsis Action Taken by Nursing 04/18/21 22:20 Temperature Temperature Source Pulse Rate 88 Pulse Rate from SpO2 Sensor 83 Respiratory Rate 24 Respiratory Effort / Characteristics Respiratory Depth Blood Pressure Blood Pressure Mean Blood Pressure Position Pulse Oximetry 92 Oxygen Delivery Method Sepsis Recent Fever Within 48 Hours Sepsis New/Unexplained Change in Mental Status Sepsis Action Taken by [facility] Medications Current Medication List: was personally reviewed by me Laboratory Data Attestation: I reviewed the patient's lab results. Result diagrams: 04/19/21 12:15 04/18/21 19:57 Lab Results 04/18/21 04/18/21 04/18/21 Range/Units 19:57 19:57 19:57 WBC 11.32 H (4.8-10.8) K/uL RBC 3.48 L (4.2-5.4) M/uL Hgb 8.9 L (12.0-16.0) g/dL Hct 28.1 L (37-47) % MCV 80.7 (80-100) fL MCH 25.6 (25-34) pg MCHC 31.7 L (32-36) g/dL RDW Std Deviation 48.8 H (36.4-46.3) fL RDW Coeff of Dipesh 16.6 H (11.5-14.5) % Plt Count 431 H (130-400) K/uL MPV 9.3 (7.4-10.4) fL Immature Gran % (Auto) 0.6 % Neut % (Auto) 70.8 % Lymph % (Auto) 14.0 % Gaines % (Auto) 12.9 % Eos % (Auto) 1.3 % Baso % (Auto) 0.4 % Neut # (Auto) 8.02 H (1.4-6.5) K/uL Lymph # (Auto) 1.58 (1.2-3.4) K/uL Gaines # (Auto) 1.46 H (0.11-0.59) K/uL Eos # (Auto) 0.15 (0-0.5) K/uL Baso # (Auto) 0.04 (0-0.2) K/uL Immature Gran # (Auto) 0.07 H (0.00-0.02) K/uL PT 10.3 (9.0-12.0) Seconds INR 1.0 (0.9-1.1) APTT 25.7 (21.0-31.0) Seconds PTT Ratio 1.0 Sodium (136-145) mmol/L Potassium (3.5-5.1) mmol/L Chloride (98-107) mmol/L Carbon Dioxide (21-32) mmol/L Anion Gap (3-11) BUN (7-18) mg/dl Creatinine (0.6-1.2) mg/dl Est Cr Clr Drug Dosing ml/min Est GFR ( Amer) ml/min Est GFR (Non-Af Amer) ml/min BUN/Creatinine Ratio (10-20) Glucose (70-99) mg/dl POC Glucose (70-99) mg/dl Calcium (8.5-10.1) mg/dl Magnesium (1.8-2.4) mg/dl Total Bilirubin (0.2-1) mg/dl AST (15-37) U/L ALT (12-78) U/L Alkaline Phosphatase (45-117) U/L Total Protein (6.4-8.2) gm/dl Albumin (3.4-5.0) gm/dl Globulin (2.5-4.0) gm/dl Albumin/Globulin Ratio (0.9-2) TSH (0.300-4.500) uIu/ml Urine Color Urine Appearance (Clear) Urine pH (4.5-7.5) Ur Specific [place] (1.000-1.030) Urine Protein (Negative) Urine Glucose (UA) (Negative) Urine Ketones (Negative) Urine Blood (Negative) Urine Nitrite (Negative) Urine Bilirubin (Negative) Urine Urobilinogen (Negative) Ur Leukocyte Esterase (Negative) Urine WBC (Auto) (0-5) /hpf Urine RBC (Auto) (0-4) /hpf U Hyaline Cast (Auto) (0-5) /lpf U Epithel Cells (Auto) (0-5) /lpf Urine Bacteria (Auto) (Negative) POC Stool Occult Blood (Negative) COVID-19 Eval Order SARS-CoV-2 (PCR) (Negative) Blood Type O Negative Antibody Screen NEGATIVE Crossmatch See Detail 04/18/21 04/18/21 04/18/21 Range/Units 19:57 20:22 20:22 WBC (4.8-10.8) K/uL RBC (4.2-5.4) M/uL Hgb (12.0-16.0) g/dL Hct (37-47) % MCV (80-100) fL MCH (25-34) pg MCHC (32-36) g/dL RDW Std Deviation (36.4-46.3) fL RDW Coeff of Dipesh (11.5-14.5) % Plt Count (130-400) K/uL MPV (7.4-10.4) fL Immature Gran % (Auto) % Neut % (Auto) % Lymph % (Auto) % Gaines % (Auto) % Eos % (Auto) % Baso % (Auto) % Neut # (Auto) (1.4-6.5) K/uL Lymph # (Auto) (1.2-3.4) K/uL Gaines # (Auto) (0.11-0.59) K/uL Eos # (Auto) (0-0.5) K/uL Baso # (Auto) (0-0.2) K/uL Immature Gran # (Auto) (0.00-0.02) K/uL PT (9.0-12.0) Seconds INR (0.9-1.1) APTT (21.0-31.0) Seconds PTT Ratio Sodium 136 (136-145) mmol/L Potassium 4.7 (3.5-5.1) mmol/L Chloride 107 (98-107) mmol/L Carbon Dioxide 24 (21-32) mmol/L Anion Gap 6.0 (3-11) BUN 43 H (7-18) mg/dl Creatinine 1.09 (0.6-1.2) mg/dl Est Cr Clr Drug Dosing 29.1 ml/min Est GFR ( Amer) 54.7 ml/min Est GFR (Non-Af Amer) 47.2 ml/min BUN/Creatinine Ratio 39.4 H (10-20) Glucose 68 L (70-99) mg/dl POC Glucose (70-99) mg/dl Calcium 8.8 (8.5-10.1) mg/dl Magnesium 2.2 (1.8-2.4) mg/dl Total Bilirubin 0.3 (0.2-1) mg/dl AST 13 L (15-37) U/L ALT 13 (12-78) U/L Alkaline Phosphatase 73 (45-117) U/L Total Protein 6.8 (6.4-8.2) gm/dl Albumin 2.6 L (3.4-5.0) gm/dl Globulin 4.2 H (2.5-4.0) gm/dl Albumin/Globulin Ratio 0.6 L (0.9-2) TSH 1.770 (0.300-4.500) uIu/ml Urine Color Urine Appearance (Clear) Urine pH (4.5-7.5) Ur Specific [place] (1.000-1.030) Urine Protein (Negative) Urine Glucose (UA) (Negative) Urine Ketones (Negative) Urine Blood (Negative) Urine Nitrite (Negative) Urine Bilirubin (Negative) Urine Urobilinogen (Negative) Ur Leukocyte Esterase (Negative) Urine WBC (Auto) (0-5) /hpf Urine RBC (Auto) (0-4) /hpf U Hyaline Cast (Auto) (0-5) /lpf U Epithel Cells (Auto) (0-5) /lpf Urine Bacteria (Auto) (Negative) POC Stool Occult Blood (Negative) COVID-19 Eval Order Covid19 at [facility] SARS-CoV-2 (PCR) NEGATIVE (Negative) Blood Type Antibody Screen Crossmatch 04/18/21 04/18/21 04/18/21 Range/Units 20:24 21:11 22:25 WBC (4.8-10.8) K/uL RBC (4.2-5.4) M/uL Hgb (12.0-16.0) g/dL Hct (37-47) % MCV (80-100) fL MCH (25-34) pg MCHC (32-36) g/dL RDW Std Deviation (36.4-46.3) fL RDW Coeff of Dipesh (11.5-14.5) % Plt Count (130-400) K/uL MPV (7.4-10.4) fL Immature Gran % (Auto) % Neut % (Auto) % Lymph % (Auto) % Gaines % (Auto) % Eos % (Auto) % Baso % (Auto) % Neut # (Auto) (1.4-6.5) K/uL Lymph # (Auto) (1.2-3.4) K/uL Gaines # (Auto) (0.11-0.59) K/uL Eos # (Auto) (0-0.5) K/uL Baso # (Auto) (0-0.2) K/uL Immature Gran # (Auto) (0.00-0.02) K/uL PT (9.0-12.0) Seconds INR (0.9-1.1) APTT (21.0-31.0) Seconds PTT Ratio Sodium (136-145) mmol/L Potassium (3.5-5.1) mmol/L Chloride (98-107) mmol/L Carbon Dioxide (21-32) mmol/L Anion Gap (3-11) BUN (7-18) mg/dl Creatinine (0.6-1.2) mg/dl Est Cr Clr Drug Dosing ml/min Est GFR ( Amer) ml/min Est GFR (Non-Af Amer) ml/min BUN/Creatinine Ratio (10-20) Glucose (70-99) mg/dl POC Glucose 96 (70-99) mg/dl Calcium (8.5-10.1) mg/dl Magnesium (1.8-2.4) mg/dl Total Bilirubin (0.2-1) mg/dl AST (15-37) U/L ALT (12-78) U/L Alkaline Phosphatase (45-117) U/L Total Protein (6.4-8.2) gm/dl Albumin (3.4-5.0) gm/dl Globulin (2.5-4.0) gm/dl Albumin/Globulin Ratio (0.9-2) TSH (0.300-4.500) uIu/ml Urine Color Yellow Urine Appearance Cloudy A (Clear) Urine pH 8.5 H (4.5-7.5) Ur Specific [place] 1.014 (1.000-1.030) Urine Protein 2+ H (Negative) Urine Glucose (UA) Negative (Negative) Urine Ketones Trace H (Negative) Urine Blood Trace H (Negative) Urine Nitrite Positive A (Negative) Urine Bilirubin Negative (Negative) Urine Urobilinogen Negative (Negative) Ur Leukocyte Esterase 3+ H (Negative) Urine WBC (Auto) >30 H (0-5) /hpf Urine RBC (Auto) 0-4 (0-4) /hpf U Hyaline Cast (Auto) 1-5 (0-5) /lpf U Epithel Cells (Auto) 0-5 (0-5) /lpf Urine Bacteria (Auto) 2+ H (Negative) POC Stool Occult Blood Positive A (Negative) COVID-19 Eval Order SARS-CoV-2 (PCR) (Negative) Blood Type Antibody Screen Crossmatch Administered Medications Brimonidine Tartrate (Brimonidine Tartrate 0.2% 5ml) 1 drops OPB TID MIRANDA Stop: 05/19/21 08:59 Last Admin: 04/19/21 13:38 Dose: 1 drops Documented by: [id number] Admin: 04/19/21 08:05 Dose: 1 drops Documented by: [id number] Cyanocobalamin (Cyanocobalamin 500 Mcg Tablet (Vitamin B-12)) 500 mcg PO DAILY MIRANDA Stop: 05/19/21 08:59 Last Admin: 04/19/21 08:05 Dose: 500 mcg Documented by: [id number] Dorzolamide/Timolol (Dorzolamide/Timolol 22.3/6.8mg/Ml 10 Ml Btl) 1 drops OPB BID MIRANDA Stop: 05/19/21 08:59 Last Admin: 04/19/21 08:04 Dose: 1 drops Documented by: [id number] Pantoprazole Sodium 40 mg/ (Dextrose) 100 mls @ 20 mls/hr IV Q5H MIRANDA Stop: 05/18/21 20:13 Last Admin: 04/19/21 10:55 Dose: 8 mg/hr, 20 mls/hr Documented by: [id number] Infusion: 04/19/21 10:54 Dose: 0 mg/hr, 0 mls/hr Documented by: [id number] Admin: 04/19/21 05:57 Dose: 8 mg/hr, 20 mls/hr Documented by: [id number] Infusion: 04/19/21 05:57 Dose: 8 mg/hr, 20 mls/hr Documented by: [id number] Admin: 04/19/21 01:38 Dose: 8 mg/hr, 20 mls/hr Documented by: [id number] Infusion: 04/19/21 01:11 Dose: 8 mg/hr, 20 mls/hr Documented by: [id number] Infusion: 04/18/21 23:49 Dose: 8 mg/hr, 20 mls/hr Documented by: [id number] Admin: 04/18/21 20:11 Dose: 8 mg/hr, 20 mls/hr Documented by: [id number] Sodium Chloride (Nss 1000ml) 1,000 mls @ 60 mls/hr IV .[id number] MIRANDA Stop: 05/18/21 23:44 Last Infusion: 04/19/21 02:30 Dose: 60 mls/hr Documented by: [id number] Admin: 04/19/21 00:02 Dose: 75 mls/hr Documented by: [id number] Cefepime HCl 2,000 mg/ Syringe 20 mls @ 5 mls/min IV Q24H MIRANDA; Protocol Stop: 04/29/21 05:59 Last Admin: 04/19/21 05:57 Dose: 5 mls/min Documented by: [id number] Octreotide Acetate 500 mcg/ (Sodium Chloride) 105 mls @ 10.5 mls/hr IV .Q10H MIRANDA Stop: 05/19/21 10:59 Last Admin: 04/19/21 10:55 Dose: 50 mcg/hr, 10.5 mls/hr Documented by: [id number] Insulin Aspart (Insulin Aspart 100 Units/Ml 3 Ml Pen) 0 units SC Q6 MIRANDA Stop: 05/19/21 00:00 Last Admin: 04/19/21 12:10 Dose: 1 units Documented by: [id number] Cosigned by: [id number] Admin: 04/19/21 06:03 Dose: 1 units Documented by: [id number] Cosigned by: [id number] Admin: 04/19/21 00:47 Dose: Not Given Documented by: [id number] Cosigned by: [id number] Metoprolol Succinate (Metoprolol Succ 25mg Ext Rel Tab) 12.5 mg PO DAILY [facility] Stop: 05/19/21 08:59 Last Admin: 04/19/21 08:05 Dose: 12.5 mg Documented by: [id number] Miscellaneous (Rocklatan~Order Awaiting Action) 1 ea N/A QS [facility] Stop: 05/19/21 00:00 Last Admin: 04/19/21 07:54 Dose: Not Given Documented by: [id number] Admin: 04/19/21 00:04 Dose: Not Given Documented by: [id number] Discontinued Medications Sodium Chloride (Nss 1000ml) 1,000 mls @ 999 mls/hr IV .Q1H1M MIRANDA Stop: 04/18/21 21:00 Last Infusion: 04/18/21 21:31 Dose: 0 mls/hr Documented by: [id number] Admin: 04/18/21 20:08 Dose: 999 mls/hr Documented by: [id number] Pantoprazole Sodium (Protonix Bolus/Drip) 0 mls @ 1 mls/hr IV ONE STA Stop: 04/18/21 19:59 Last Admin: 04/18/21 20:37 Dose: Not Given Documented by: [id number] Pantoprazole Sodium 80 mg/ (Dextrose) 120 mls @ 400 mls/hr IV NOW ONE Stop: 04/18/21 20:15 Last Infusion: 04/18/21 20:37 Dose: 0 mls/hr Documented by: [id number] Admin: 04/18/21 20:11 Dose: 400 mls/hr Documented by: [id number] Dextrose/Sodium Chloride (D5w And Nss) 1,000 mls @ 75 mls/hr IV .[id number] MIRANDA Stop: 05/18/21 22:14 Last Admin: 04/18/21 23:54 Dose: Not Given Documented by: [id number] Piperacillin Sod/Tazobactam Sod (Zosyn) 4.5 gm in 120 mls @ 240 mls/hr IV NOW ONE Stop: 04/18/21 22:56 Last Infusion: 04/18/21 23:54 Dose: 0 mls/hr Documented by: [id number] Admin: 04/18/21 22:41 Dose: 240 mls/hr Documented by: [id number] Sodium Chloride (Nss 1000ml) 1,000 mls @ 999 mls/hr IV .Q1H1M ONE Stop: 04/18/21 23:28 Last Infusion: 04/18/21 23:54 Dose: 0 mls/hr Documented by: [id number] Admin: 04/18/21 22:41 Dose: 999 mls/hr Documented by: [id number] Octreotide Acetate 50 mcg/ (Syringe) 5 mls @ 3 mls/min IV NOW ONE Stop: 04/19/21 11:01 Last Admin: 04/19/21 10:55 Dose: 3 mls/min Documented by: [id number] Octreotide Acetate (Octreotide Acetate 100 Mcg/Ml Vial) 50 mcg SQ NOW STA Stop: 04/19/21 10:15 Last Admin: 04/19/21 11:09 Dose: Not Given Documented by: [id number] Imaging Data Radiologist's Impression: Head CT 04/18/21 21:[address] DOSE: 894.57 mGycm HISTORY: Altered mental status. TECHNIQUE: Multiaxial CT images of the head were performed without the use of intravenous contrast. Automated exposure control was utilized for this study. A dose lowering technique was utilized adhering to the principles of ALARA. Comparison: Head CT 03/12/2021. Findings: The paranasal sinuses and mastoid air cells are clear. The calvarium and skull base are intact. There is no mass, hematoma, midline shift, acute infarct. White matter hypodensity is nonspecific but suggestive of microvascular ischemic change. The ventricles and sulci demonstrate mild age-related involutional changes. Impression: No acute intracranial abnormality. Atrophy and microvascular ischemic changes. ACT 112: Negative or not required by law. Electronically signed by: Patrick Kennedy M.D. 04/19/2021 7:07 AM Discharge Plan Visit Data Chief Complaint: Hypotension Stated Complaint: weakness ED Provider: Ted Seals Discharge Problem: GIB (gastrointestinal bleeding), Acute UTI Patient Disposition: Admitted As Inpatient Discharge Instructions Interventions: ED Discharge Assessment Last Done: 04/18/21 22:51 Discharge Problem: GIB (gastrointestinal bleeding) Qualifiers: GI bleed type/associated pathology: unspecified gastrointestinal hemorrhage type Qualified Code(s): K92.2 - Gastrointestinal hemorrhage, unspecified
[2021-04-18 20:21] LABS: Partial Thromboplastin Time 25.7 Seconds (21.0-31.0); Prothrombin Time 10.3 Seconds (9.0-12.0)
[2021-04-18 20:22] LABS: Albumin Level 2.6 gm/dl (3.4-5.0); BUN Creatinine Ratio 39.4 (10-20); Calcium 8.8 mg/dl (8.5-10.1); Creatinine Clr Calc Pharmacy 29.1 ml/min; Est GFR (African American) 54.7 ml/min; Est GFR (Non-African American) 47.2 ml/min; Potassium 4.7 mmol/L (3.5-5.1)
[2021-04-18 20:26] LABS: Albumin Globulin Ratio 0.6 (0.9-2); Bilirubin,Total 0.3 mg/dl (0.2-1); Globulin 4.2 gm/dl (2.5-4.0); Total Protein 6.8 gm/dl (6.4-8.2)
[2021-04-18 21:05] LABS: Magnesium 2.2 mg/dl (1.8-2.4)
--- NOTE | 2021-04-18 21:44 | History & Physical Report ---
Date of Service April 18, 2021 Assessment & Plan (1) UGIB (upper gastrointestinal bleed): Differentials include gastritis, PUD, variceal bleed Hemodynamic instability given hypotension Encephalopathy secondary to complicated UTI History congenital UPJ obstruction as per records No overt sepsis for now Diarrhea rule out C. difficile given recent hospital confinement/[facility] today chronic anemia, hemoglobin stable CAD/PVD status post stent DM2 insulin requiring, well-controlled as of recent hemoglobin A1c of 23 Feb 2021 Functional disability, recurrent admissions Medical telemetry IV PPI Hold antiplatelet Rx for now Transfuse PRBC if hemoglobin less than 8 GI consult Re: UGI B Stool C. difficile Appropriate to hold antihypertensives for now given hypotension CS, Cefepime basal insulin adjusted for n.p.o. status, ISS BG goal 1 10-1 40 PT OT eval Social service RE discharge planning, recurrent admissions DVT prophylaxis. TEDS Re: Pharmacologic anticoagulation contraindicated with GI bleed, SCDs contraindicated with history LE PAD Full code as per [id number] until patient CODE STATUS clarified with patient's son. Family requesting to be updated of plan of care. Mr. Cecilio Malone, contact #[phone]. Alternative slot key person is patient [id number], Ms. Radha Malone, contact #[phone]. Text document was generated using [employer] (V3D) voice recognition software. It may contain grammatical or spelling errors. Kindly contact undersigned for clarification of any documentation item in question. History of Present Illness Chief Complaint: Diarrhea as per records Primary Care Provider: Roland Plunkett MD History obtained from patient, family, and records. Limited history from patient secondary to obtunded state. Medical history significant for CAD, PAD status post stent, hypertension, hyperlipidemia, DM2 insulin requiring, congenital UPJ obstruction as per records, chronic right hydronephrosis, chronic anemia (baseline hemoglobin 8-9). Recent confinement last month for recurrent falls. Patient discharged on iron and vitamin B12 supplements for chronic anemia. PT recommended SNF placement Patient discharged to [facility]. Patient discharged last week to home from [facility] because Medicare money had run out as per daughter in law. At home, patient noted to have weakness, trouble getting around. Appetite not too good. Patient noted to have diarrhea today with black stools attributed to iron intake as per [id number]. No abdominal pain complaints. No witnessed emesis episodes. Patient a little more confused than usual. Patient brought to the ER for evaluation. IV PPI initiated for GI bleed after positive stool Hemoccult obtained. Zosyn given for UTI. 1 unit packed RBC transfused at the ER. Medical History as above 2009 colonoscopy showed diverticulosis 2009 EGD showed isolated esophageal varix, hiatal hernia, gastric erythema Surgical History : Toe amputation, cataract surgeries, elbow tumor removal, laser trabeculoplasty Family History : DM, heart disease Personal/Social history : Non-smoker, no EtOH intake, lives by herself Allergies Allergy/AdvReac Type Severity Reaction Status Date / Time baclofen Allergy Unknown unkown Verified 04/18/21 21:04 Bactrim Allergy Unknown itching Verified 12/21/17 14:38 sulfamethoxazole Allergy Unknown itching Verified 04/18/21 21:04 tramadol Allergy Unknown unkown Verified 04/18/21 21:04 trimethoprim Allergy Unknown itching Verified 04/18/21 21:04 glipizide AdvReac erratic Verified 04/18/21 21:04 bsgs Home Medications Medication Instructions Recorded Confirmed Type aspirin [Aspirin Low Dose] 81 mg PO DAILY 02/18/19 04/18/21 History brimonidine 1 drp OPB TID 02/18/19 04/18/21 History cholecalciferol (vitamin D3) 1,000 unit PO DAILY 02/18/19 04/18/21 History [Vitamin D3] clopidogrel 75 mg PO DAILY 02/18/19 04/18/21 History lisinopril 10 mg PO DAILY 02/18/19 04/18/21 History magnesium oxide 400 mg PO DAILY 02/18/19 04/18/21 History metformin 850 mg PO BIDM 02/18/19 04/18/21 History metoprolol succinate 12.5 mg PO DAILY 02/18/19 04/18/21 History simvastatin 20 mg PO HS 02/18/19 04/18/21 History acetaminophen 1,000 mg PO Q8H PRN #60 tab 03/01/19 04/18/21 Rx Rocklatan 1 drp OPB HS 06/09/20 04/18/21 History dorzolamide-timolol 1 drp OPB BID 06/09/20 04/18/21 History insulin aspart U-100 [Novolog 6 unit SUBCUT BIDM 06/09/20 04/18/21 History Flexpen U-100 Insulin] Levemir FlexTouch U-100 Insuln 14 unit SUBCUT DAILYBB 06/10/20 04/18/21 History docusate sodium [Stool Softener] 100 mg PO DAILY 06/10/20 04/18/21 History ibuprofen 600 mg PO Q6 PRN 03/12/21 04/18/21 History cyanocobalamin (vitamin B-12) 500 mcg PO DAILY 04/18/21 04/18/21 History [Vitamin B-12] ferrous sulfate 325 mg PO BID 04/18/21 04/18/21 History hydrocortisone acetate 25 mg [place] BID PRN 04/18/21 04/18/21 History Past Med/Surg History Medical History (Updated 04/19/21 @ 00:31 by Kostas Galarza MD) Amputated toe of left foot CAD (coronary artery disease) Chronic total circumflex occlusion, 80% mid LAD stenosis -managed medically Callus Diabetes mellitus, type II Diabetic neuropathy Diabetic retinopathy Dyslipidemia History of amputation of left great toe History of amputation of right great toe HTN (hypertension) PAD (peripheral artery disease) Multiple interventions to RLE Type 2 diabetes mellitus with diabetic polyneuropathy Surgical History History of amputation of lesser toe of left foot History of amputation of lesser toe of right foot History of cataract surgery History of transmetatarsal amputation of right foot Family History Brother Diabetes Social History Smoking Status: Never smoker Tobacco Type: Cigarettes Second Hand Exposure: No; Hx Alcohol Use: No Hx Substance Use: No Preferred Language: Thai Communication Ability: Effective Beam Dyer Required: No Beliefs That Will Affect Care: None marital status: / Current Living Situation: Alone Current Living Situation Comment: unable to obtain from patient, currently confused current occupational status: retired Feels Safe at Home: Yes Assistive Devices: None Review of Systems Review of Systems: Could not be reliably obtained Physical Exam Physical Exam: GENERAL: Obtunded, no respiratory distress SKIN: Pallor, warm HEENT: Pale palpebral conjunctivae, no ptosis, dry buccal mucosa NECK : Supple, no tenderness CHEST : Decreased breath sounds, no tenderness HEART : RRR, no obvious murmurs ABDOMEN: Some distention, nontender EXTREMITIES : No LE swelling/tenderness, no other conspicuous deformities noted NEUROLOGIC : Obtunded, no facial asymmetry, gait and stance not assessed Results & Data Results & Data ([facility]) Vital Signs (Past 12 Hours) Vital Signs Temp Pulse Resp BP Pulse Ox 04/18/21 21:41 36.5 C 84 24 105/47 L 97 04/18/21 21:21 36.6 C 82 18 103/54 L 98 04/18/21 20:30 87 16 87/51 L 99 04/18/21 20:29 85 16 93/46 L 98 04/18/21 20:24 97 04/18/21 20:15 82 17 95/45 L 98 04/18/21 20:01 83 16 85/36 L 95 04/18/21 20:00 85 19 98 04/18/21 19:57 36.7 C 86 19 86/46 L 96 04/18/21 19:53 89 18 86/46 L 96 Laboratory Results Laboratory Results WBC 11.32 K/uL (4.8-10.8) H 04/18/21 19:57 RBC 3.48 M/uL (4.2-5.4) L 04/18/21 19:57 Hgb 8.9 g/dL (12.0-16.0) L 04/18/21 19:57 Hct 28.1 % (37-47) L 04/18/21 19:57 MCV 80.7 fL (80-100) 04/18/21 19:57 MCH 25.6 pg (25-34) 04/18/21 19:57 MCHC 31.7 g/dL (32-36) L 04/18/21 19:57 RDW Std Deviation 48.8 fL (36.4-46.3) H 04/18/21 19:57 RDW Coeff of Dipesh 16.6 % (11.5-14.5) H 04/18/21 19:57 Plt Count 431 K/uL (130-400) H 04/18/21 19:57 MPV 9.3 fL (7.4-10.4) 04/18/21 19:57 Immature Gran % (Auto) 0.6 % 04/18/21 19:57 Neut % (Auto) 70.8 % 04/18/21 19:57 Lymph % (Auto) 14.0 % 04/18/21 19:57 Pike % (Auto) 12.9 % 04/18/21 19:57 Eos % (Auto) 1.3 % 04/18/21 19:57 Baso % (Auto) 0.4 % 04/18/21 19:57 Neut # (Auto) 8.02 K/uL (1.4-6.5) H 04/18/21 19:57 Lymph # (Auto) 1.58 K/uL (1.2-3.4) 04/18/21 19:57 Pike # (Auto) 1.46 K/uL (0.11-0.59) H 04/18/21 19:57 Eos # (Auto) 0.15 K/uL (0-0.5) 04/18/21 19:57 Baso # (Auto) 0.04 K/uL (0-0.2) 04/18/21 19:57 Immature Gran # (Auto) 0.07 K/uL (0.00-0.02) H 04/18/21 19:57 PT 10.3 Seconds (9.0-12.0) 04/18/21 19:57 INR 1.0 (0.9-1.1) 04/18/21 19:57 APTT 25.7 Seconds (21.0-31.0) 04/18/21 19:57 PTT Ratio 1.0 04/18/21 19:57 Sodium 136 mmol/L (136-145) 04/18/21 19:57 Potassium 4.7 mmol/L (3.5-5.1) 04/18/21 19:57 Chloride 107 mmol/L (98-107) 04/18/21 19:57 Carbon Dioxide 24 mmol/L (21-32) 04/18/21 19:57 Anion Gap 6.0 (3-11) 04/18/21 19:57 BUN 43 mg/dl (7-18) H 04/18/21 19:57 Creatinine 1.09 mg/dl (0.6-1.2) 04/18/21 19:57 Est Cr Clr Drug Dosing 29.1 ml/min 04/18/21 19:57 Est GFR ( Amer) 54.7 ml/min 04/18/21 19:57 Est GFR (Non-Af Amer) 47.2 ml/min 04/18/21 19:57 BUN/Creatinine Ratio 39.4 (10-20) H 04/18/21 19:57 Glucose 68 mg/dl (70-99) L 04/18/21 19:57 POC Glucose 96 mg/dl (70-99) 04/18/21 21:11 Calcium 8.8 mg/dl (8.5-10.1) 04/18/21 19:57 Magnesium 2.2 mg/dl (1.8-2.4) 04/18/21 19:57 Total Bilirubin 0.3 mg/dl (0.2-1) 04/18/21 19:57 AST 13 U/L (15-37) L 04/18/21 19:57 ALT 13 U/L (12-78) 04/18/21 19:57 Alkaline Phosphatase 73 U/L (45-117) 04/18/21 19:57 Total Protein 6.8 gm/dl (6.4-8.2) 04/18/21 19:57 Albumin 2.6 gm/dl (3.4-5.0) L 04/18/21 19:57 Globulin 4.2 gm/dl (2.5-4.0) H 04/18/21 19:57 Albumin/Globulin Ratio 0.6 (0.9-2) L 04/18/21 19:57 POC Stool Occult Blood Positive (Negative) A 04/18/21 20:24 COVID-19 Eval Order Covid19 at [facility] 04/18/21 20:22 SARS-CoV-2 (PCR) NEGATIVE (Negative) 04/18/21 20:22 Blood Type O Negative 04/18/21 19:57 Antibody Screen NEGATIVE 04/18/21 19:57 Crossmatch See Detail 04/18/21 19:57 Diagnostic Findings Chest x-ray as per my interpretation atelectasis CT head initial read: No mass lesion or midline shift. Mild periventricular white matter low-density bilaterally consistent with chronic small vessel ischemic disease. No evidence of acute large vessel infarct or intracranial hemorrhage. EKG as per my interpretation : Rate 85, NSR, LAD, LAFB, incomplete RBBB, T wave abnormalities inferior leads
[2021-04-18] MEDS ORDERED: D5W AND NSS 1,000 ML IV SCH (22:15)
[2021-04-18] MEDS ORDERED: PIPERACILLIN/TAZOBACTAM 4.5 GM/120 ML BAG IV ONE (22:27)
[2021-04-18] MEDS ORDERED: PIPERACILL/TAZOBAC CONSULT ACTIVE PRN (22:27)
[2021-04-18] MEDS ORDERED: SODIUM CHLORIDE 0.9% 1000ML 1,000 ML IV ONE (22:28)
[2021-04-18 22:43] LABS: Bacteria Urine Automated 2+ (Negative); Bilirubin Urine Negative (Negative); Blood Urine Trace (Negative); Color Urine Yellow; Epithelial Cell Urine Auto 0-5 /lpf (0-5); Glucose Urine UA Negative (Negative); Ketones Urine Trace (Negative); Leukocyte Esterase Urine 3+ (Negative); Nitrite Urine Positive (Negative); RBC Urine Automated 0-4 /hpf (0-4); Specific Gravity Urine 1.014 (1.000-1.030); Urobilinogen Urine Negative (Negative); WBC Urine Automated >30 /hpf (0-5); pH Urine 8.5 (4.5-7.5)
[2021-04-18 22:45] LABS: Appearance Urine Cloudy (Clear); Protein Urine 2+ (Negative)
[2021-04-18] MEDS ORDERED: CEFEPIME CONSULT ACTIVE PRN (22:49)
[2021-04-18] MEDS ORDERED: CEFEPIME 2,000 MG/20 ML VIAL IV STA (22:49)
[2021-04-18] MEDS ORDERED: GLUCAGON FOR INJ 1 MG VIAL SQ PRN (23:48)
[2021-04-18] MEDS ORDERED: DEXTROSE 50% 50 ML SYRINGE IV PRN (23:48)
[2021-04-18] MEDS ORDERED: GLUCOSE 40% GEL 15 GM TUBE PO PRN (23:48)
[2021-04-18] MEDS ORDERED: PROMETHAZINE HCL 12.5 MG in SODIUM CHLORIDE 0.9% 50 ML IV PRN (23:48)
[2021-04-18] MEDS ORDERED: GLUCOSE 10 TABS/TUBE PO PRN (23:48)
[2021-04-18] MEDS ORDERED: ACETAMINOPHEN 325 MG TAB PO PRN (23:48)
[2021-04-18] MEDS ORDERED: CARBOHYDRATES FOR HYPOGLYCEMIA PO PRN (23:48)
[2021-04-19] MEDS: SODIUM CHLORIDE 0.9% 1000ML 1,000 ML IV SCH ×2 (00:02→16:06)
[2021-04-19 00:32] LABS: Hematocrit (blood only) 29.9 % (37-47); Hemoglobin 9.4 g/dL (12.0-16.0)
[2021-04-19] MEDS: INSULIN ASPART 100 UNITS/ML 3 ML PEN SC SCH ×4 (00:47→17:55)
[2021-04-19 01:02] LABS: Thyroid Stimulating Hormone 1.77 uIu/ml (0.300-4.500)
[2021-04-19] MEDS: PANTOprazole 40 MG in DEXTROSE 5% 100 ML IV SCH ×5 (01:38→20:39)
[2021-04-19] MEDS: CEFEPIME 2,000 MG in SYRINGE 0 ML IV SCH (05:57)
--- NOTE | 2021-04-19 07:07 | XRay Report ---
XR chest 1V portable CLINICAL HISTORY: weakness COMPARISON STUDY: 03/12/2021 FINDINGS: The heart is normal in size. There is no failure. There is no focal pulmonary consolidation . There is stable blunting of the left lateral costophrenic angle suggesting a small effusion. A lee ann droid lesion of the proximal right humerus remain stable.[ IMPRESSION: Persistent blunting of the left lateral costophrenic angle suggesting a trace effusion ve rsus pleural scarring. ACT 112: Negative or not required by law. Electronically signed by: Nigel Patrick M.D. 04/19/2021 7:05 AM
--- NOTE | 2021-04-19 07:08 | CT Scan Report ---
HEAD CT NONCONTRAST CT DOSE: 894.57 mGycm HISTORY: Altered mental status. TECHNIQUE: Multiaxial CT images of the head were performed without the use of intravenous contrast. A utomated exposure control was utilized for this study. A dose lowering technique was utilized adheri ng to the principles of ALARA. Comparison: Head CT 03/12/2021. Findings: The paranasal sinuses and mastoid air cells are clear. The calvarium and skull base are int act. There is no mass, hematoma, midline shift, acute infarct. White matter hypodensity is nonspecifi c but suggestive of microvascular ischemic change. The ventricles and sulci demonstrate mild age-rela víctor involutional changes. Impression: No acute intracranial abnormality. Atrophy and microvascular ischemic changes. ACT 112: Negative or not required by law. Electronically signed by: Patrick Kennedy M.D. 04/19/2021 7:07 AM
[2021-04-19] MEDS: DORZOLAMIDE/TIMOLOL 22.3/6.8MG/ML 10 ML BTL OPB SCH ×2 (08:04→20:42)
[2021-04-19] MEDS: BRIMONIDINE TARTRATE 0.2% 5ML OPB SCH ×3 (08:05→20:45)
[2021-04-19] MEDS: METOPROLOL SUCC 25MG EXT REL TAB PO SCH (08:05)
[2021-04-19] MEDS: CYANOCOBALAMIN 500 MCG TABLET (VITAMIN B-12) PO SCH (08:05)
--- NOTE | 2021-04-19 08:42 | Gastrointestinal Consultation ---
Date of Consultation April 19, 2021 Assessment & Plan (1) UGIB (upper gastrointestinal bleed): 80 year old female admitted w/ weakness, confusion concern for UTI who was noted to have heme + stools which were black (takes PO iron). She was transfused 1 unit RBC, HGB stable overnight 9.4 which is her baseline without any evidence of black/bloody stools/emesis. CT from last night did show esophagitis. Pt notes that she does not want an EGD but if her family insisted she would consider. Will contact family to discuss goals of cares/wishes Keep NPO for now If no plan for EGD, can have clear liquids Would keep on IV PPI for 48 hours then PO PPI 40 mg twice daily x 1 month then PO PPI 40 mg daily Trend HGB Monitor and document stools Transfuse PRN Recall as needed. Thank you for allowing us to participate in the care of this patient. Please call with any acute changes, questions or concerns. Please see addendum below with additional recommendation from my supervising physician. Supervising Physician Co-Signing Physician Notes Attending attestation I have seen, examined this patient, and agree with the findings and above by our mid-level provider JP Allison, with the following additions: - Patient admitted with weakness with dark stools while on Iron. Hb at baseline at adm. Apparently obtunded last rose, now appropriate, although still weak appearing. There has been on evidence of bleeding since presentation to the ER. Discussed with patient as well as to son via phone. They do not desire to pursue endoscopic or procedural options at this time. Fortunately, Hb and VSS. Would treat UTI with abx Advance diet as tolerated PPI and although recent CT and PLTs, examination, do not support chronic liver disease, prior EGD suggested the possbility and in light of medial therapy, therefore, can add octreotide for 24 hrs and then re-evaluate Call with any questions, concerns, or clinical change. History of Present Illness Reason for Consultation: black stools Requesting Physician: Leland Attending Physician: Ethel Ha DO History of Present Illness 80 year old female with history of CAD, PAD status post stent, hypertension, hyperlipidemia, T2DM, congenital UPJ obstruction as per records, chronic right hydronephrosis, chronic anemia (baseline hemoglobin 8-9) who presents with AMS, UTI and concern for UGI bleed. Pt was seen and evaluated, chart reviewed. She is awake, alert and oriented on my examination this AM answering questions appropriately. Notes she is feeling well from GI standpoint. Denies abd pain, nausea, vomiting. Notes she did have a black stool yesterday but suggests this is common for her on PO iron. Her stools yesterday was looser. No bloody BMs. Denies fevers, chills, CP, SOB. She is taking PO iron, ASA, plavix Denies other NSAIDs No known history of liver disease CT 2019: Mild thickening of the distal esophagus. There is a small hiatus hernia. The unenhanced liver, spleen, adrenal glands, and pancreas are unremarkable EGD 2009: showed isolated esophageal varix, hiatal hernia, gastric erythema Colonoscopy 2010: diverticulosis Allergies Allergy/AdvReac Type Severity Reaction Status Date / Time baclofen Allergy Unknown unkown Verified 04/18/21 21:04 Bactrim Allergy Unknown itching Verified 12/21/17 14:38 sulfamethoxazole Allergy Unknown itching Verified 04/18/21 21:04 tramadol Allergy Unknown unkown Verified 04/18/21 21:04 trimethoprim Allergy Unknown itching Verified 04/18/21 21:04 glipizide AdvReac erratic Verified 04/18/21 21:04 bsgs Home Medications Medication Instructions Recorded Confirmed Type aspirin [Aspirin Low Dose] 81 mg PO DAILY 02/18/19 04/18/21 History brimonidine 1 drp OPB TID 02/18/19 04/18/21 History cholecalciferol (vitamin D3) 1,000 unit PO DAILY 02/18/19 04/18/21 History [Vitamin D3] clopidogrel 75 mg PO DAILY 02/18/19 04/18/21 History lisinopril 10 mg PO DAILY 02/18/19 04/18/21 History magnesium oxide 400 mg PO DAILY 02/18/19 04/18/21 History metformin 850 mg PO BIDM 02/18/19 04/18/21 History metoprolol succinate 12.5 mg PO DAILY 02/18/19 04/18/21 History simvastatin 20 mg PO HS 02/18/19 04/18/21 History acetaminophen 1,000 mg PO Q8H PRN #60 tab 03/01/19 04/18/21 Rx Rocklatan 1 drp OPB HS 06/09/20 04/18/21 History dorzolamide-timolol 1 drp OPB BID 06/09/20 04/18/21 History insulin aspart U-100 [Novolog 6 unit SUBCUT BIDM 06/09/20 04/18/21 History Flexpen U-100 Insulin] Levemir FlexTouch U-100 Insuln 14 unit SUBCUT DAILYBB 06/10/20 04/18/21 History docusate sodium [Stool Softener] 100 mg PO DAILY 06/10/20 04/18/21 History ibuprofen 600 mg PO Q6 PRN 03/12/21 04/18/21 History cyanocobalamin (vitamin B-12) 500 mcg PO DAILY 04/18/21 04/18/21 History [Vitamin B-12] ferrous sulfate 325 mg PO BID 04/18/21 04/18/21 History hydrocortisone acetate 25 mg DE BID PRN 04/18/21 04/18/21 History Patient History Medical History (Updated 04/19/21 @ 00:31 by Kostas Glaarza MD) Amputated toe of left foot CAD (coronary artery disease) Chronic total circumflex occlusion, 80% mid LAD stenosis -managed medically Callus Diabetes mellitus, type II Diabetic neuropathy Diabetic retinopathy Dyslipidemia History of amputation of left great toe History of amputation of right great toe HTN (hypertension) PAD (peripheral artery disease) Multiple interventions to RLE Type 2 diabetes mellitus with diabetic polyneuropathy Surgical History History of amputation of lesser toe of left foot History of amputation of lesser toe of right foot History of cataract surgery History of transmetatarsal amputation of right foot Family History Brother Diabetes Social History Smoking Status: Never smoker Tobacco Type: Cigarettes Second Hand Exposure: No; Hx Alcohol Use: No Hx Substance Use: No Preferred Language: Malagasy Communication Ability: Effective Senior Environmental Technician Required: No Beliefs That Will Affect Care: None marital status: / Current Living Situation: Alone Current Living Situation Comment: unable to obtain from patient, currently confused current occupational status: retired Feels Safe at Home: Yes Assistive Devices: None Review of Systems Review of Systems: All systems reviewed & are unremarkable except as noted in HPI & below Physical Exam Constitutional: WD/WN, vitals as above + ill appearing (chronically ill appearing) and + thin; no acute distress Neck: trachea midline, no thyromegaly no tracheal deviation and no neck crepitus Respiratory: normal respiratory effort, lungs clear to auscultation Cardiovascular: Rate/Rhythm: regular rate and regular rhythm Gastrointestinal (Abdomen): normal bowel sounds, soft, nontender, no hepatosplenomegaly Skin: no rashes, warm and dry Results & Data ([facility]) Vital Signs (Past 12 Hours) Vital Signs Temp Pulse Pulse Resp BP BP Pulse Ox 04/19/21 04:59 36.4 C L 75 18 145/75 H 98 04/18/21 23:50 35.9 C L 85 18 126/69 99 04/18/21 23:45 91 H 04/18/21 23:12 36.4 C L 82 17 116/55 L 92 04/18/21 22:50 86 18 94 04/18/21 22:45 81 19 101/52 L 95 04/18/21 22:40 87 13 93 04/18/21 22:36 82 17 100/52 L 98 04/18/21 22:31 85 14 100/52 L 93 04/18/21 22:30 85 14 94 04/18/21 22:26 36.4 C L 85 14 104/54 L 93 04/18/21 22:20 88 24 92 04/18/21 22:17 87 22 93/59 L 98 04/18/21 22:15 84 14 86/39 L 97 04/18/21 22:12 87 16 98 04/18/21 22:10 84 14 93/46 L 93 04/18/21 22:09 87 15 97 04/18/21 21:56 36.5 C 83 15 93/46 L 95 04/18/21 21:41 36.5 C 79 15 105/47 L 98 04/18/21 21:40 82 14 96 04/18/21 21:31 81 18 97 04/18/21 21:30 86 19 108/49 L 94 04/18/21 21:22 86 18 103/54 L 98 04/18/21 21:21 36.6 C 82 18 103/54 L 98 04/18/21 21:20 86 19 97 04/18/21 21:15 86 14 92 04/18/21 21:10 87 15 96 04/18/21 21:00 84 17 96 04/18/21 20:50 85 16 97 04/18/21 20:45 80 16 85/52 L 99 04/18/21 20:40 86 20 94 Laboratory Results 04/19/21 04/19/21 04/19/21 Range/Units 00:05 00:05 00:05 WBC (4.8-10.8) K/uL RBC (4.2-5.4) M/uL Hgb 9.4 L (12.0-16.0) g/dL Hct 29.9 L (37-47) % MCV (80-100) fL MCH (25-34) pg MCHC (32-36) g/dL RDW Std Deviation (36.4-46.3) fL RDW Coeff of Dipesh (11.5-14.5) % Plt Count (130-400) K/uL MPV (7.4-10.4) fL Immature Gran % (Auto) % Neut % (Auto) % Lymph % (Auto) % Hernando % (Auto) % Eos % (Auto) % Baso % (Auto) % Neut # (Auto) (1.4-6.5) K/uL Lymph # (Auto) (1.2-3.4) K/uL Hern[place] # (Auto) (0.11-0.59) K/uL Eos # (Auto) (0-0.5) K/uL Baso # (Auto) (0-0.2) K/uL Immature Gran # (Auto) (0.00-0.02) K/uL PT (9.0-12.0) Seconds INR (0.9-1.1) APTT (21.0-31.0) Seconds PTT Ratio Sodium (136-145) mmol/L Potassium (3.5-5.1) mmol/L Chloride (98-107) mmol/L Carbon Dioxide (21-32) mmol/L Anion Gap (3-11) BUN (7-18) mg/dl Creatinine (0.6-1.2) mg/dl Est Cr Clr Drug Dosing ml/min Est GFR ( Amer) ml/min Est GFR (Non-Af Amer) ml/min BUN/Creatinine Ratio (10-20) Glucose (70-99) mg/dl POC Glucose (70-99) mg/dl Lactate 1.1 (0.4-2.0) mmol/L Calcium (8.5-10.1) mg/dl Magnesium (1.8-2.4) mg/dl Total Bilirubin (0.2-1) mg/dl AST (15-37) U/L ALT (12-78) U/L Alkaline Phosphatase (45-117) U/L Ammonia 20.9 (11-32) umol/L Total Protein (6.4-8.2) gm/dl Albumin (3.4-5.0) gm/dl Globulin (2.5-4.0) gm/dl Albumin/Globulin Ratio (0.9-2) TSH (0.300-4.500) uIu/ml Urine Color Urine Appearance (Clear) Urine pH (4.5-7.5) Ur Specific [place] (1.000-1.030) Urine Protein (Negative) Urine Glucose (UA) (Negative) Urine Ketones (Negative) Urine Blood (Negative) Urine Nitrite (Negative) Urine Bilirubin (Negative) Urine Urobilinogen (Negative) Ur Leukocyte Esterase (Negative) Urine WBC (Auto) (0-5) /hpf Urine RBC (Auto) (0-4) /hpf U Hyaline Cast (Auto) (0-5) /lpf U Epithel Cells (Auto) (0-5) /lpf Urine Bacteria (Auto) (Negative) POC Stool Occult Blood (Negative) COVID-19 Eval Order SARS-CoV-2 (PCR) (Negative) Blood Type Antibody Screen Crossmatch 04/18/21 04/18/21 04/18/21 Range/Units 23:30 22:25 21:11 WBC (4.8-10.8) K/uL RBC (4.2-5.4) M/uL Hgb (12.0-16.0) g/dL Hct (37-47) % MCV (80-100) fL MCH (25-34) pg MCHC (32-36) g/dL RDW Std Deviation (36.4-46.3) fL RDW Coeff of Dipesh (11.5-14.5) % Plt Count (130-400) K/uL MPV (7.4-10.4) fL Immature Gran % (Auto) % Neut % (Auto) % Lymph % (Auto) % Hernando % (Auto) % Eos % (Auto) % Baso % (Auto) % Neut # (Auto) (1.4-6.5) K/uL Lymph # (Auto) (1.2-3.4) K/uL Hernando # (Auto) (0.11-0.59) K/uL Eos # (Auto) (0-0.5) K/uL Baso # (Auto) (0-0.2) K/uL Immature Gran # (Auto) (0.00-0.02) K/uL PT (9.0-12.0) Seconds INR (0.9-1.1) APTT (21.0-31.0) Seconds PTT Ratio Sodium (136-145) mmol/L Potassium (3.5-5.1) mmol/L Chloride (98-107) mmol/L Carbon Dioxide (21-32) mmol/L Anion Gap (3-11) BUN (7-18) mg/dl Creatinine (0.6-1.2) mg/dl Est Cr Clr Drug Dosing ml/min Est GFR ( Amer) ml/min Est GFR (Non-Af Amer) ml/min BUN/Creatinine Ratio (10-20) Glucose (70-99) mg/dl POC Glucose 137 H 96 (70-99) mg/dl Lactate (0.4-2.0) mmol/L Calcium (8.5-10.1) mg/dl Magnesium (1.8-2.4) mg/dl Total Bilirubin (0.2-1) mg/dl AST (15-37) U/L ALT (12-78) U/L Alkaline Phosphatase (45-117) U/L Ammonia (11-32) umol/L Total Protein (6.4-8.2) gm/dl Albumin (3.4-5.0) gm/dl Globulin (2.5-4.0) gm/dl Albumin/Globulin Ratio (0.9-2) TSH (0.300-4.500) uIu/ml Urine Color Yellow Urine Appearance Cloudy A (Clear) Urine pH 8.5 H (4.5-7.5) Ur Specific [place] 1.014 (1.000-1.030) Urine Protein 2+ H (Negative) Urine Glucose (UA) Negative (Negative) Urine Ketones Trace H (Negative) Urine Blood Trace H (Negative) Urine Nitrite Positive A (Negative) Urine Bilirubin Negative (Negative) Urine Urobilinogen Negative (Negative) Ur Leukocyte Esterase 3+ H (Negative) Urine WBC (Auto) >30 H (0-5) /hpf Urine RBC (Auto) 0-4 (0-4) /hpf U Hyaline Cast (Auto) 1-5 (0-5) /lpf U Epithel Cells (Auto) 0-5 (0-5) /lpf Urine Bacteria (Auto) 2+ H (Negative) POC Stool Occult Blood (Negative) COVID-19 Eval Order SARS-CoV-2 (PCR) (Negative) Blood Type Antibody Screen Crossmatch 04/18/21 04/18/21 04/18/21 Range/Units 20:24 20:22 20:22 WBC (4.8-10.8) K/uL RBC (4.2-5.4) M/uL Hgb (12.0-16.0) g/dL Hct (37-47) % MCV (80-100) fL MCH (25-34) pg MCHC (32-36) g/dL RDW Std Deviation (36.4-46.3) fL RDW Coeff of Dipesh (11.5-14.5) % Plt Count (130-400) K/uL MPV (7.4-10.4) fL Immature Gran % (Auto) % Neut % (Auto) % Lymph % (Auto) % Hernando % (Auto) % Eos % (Auto) % Baso % (Auto) % Neut # (Auto) (1.4-6.5) K/uL Lymph # (Auto) (1.2-3.4) K/uL Hernando # (Auto) (0.11-0.59) K/uL Eos # (Auto) (0-0.5) K/uL Baso # (Auto) (0-0.2) K/uL Immature Gran # (Auto) (0.00-0.02) K/uL PT (9.0-12.0) Seconds INR (0.9-1.1) APTT (21.0-31.0) Seconds PTT Ratio Sodium (136-145) mmol/L Potassium (3.5-5.1) mmol/L Chloride (98-107) mmol/L Carbon Dioxide (21-32) mmol/L Anion Gap (3-11) BUN (7-18) mg/dl Creatinine (0.6-1.2) mg/dl Est Cr Clr Drug Dosing ml/min Est GFR ( Amer) ml/min Est GFR (Non-Af Amer) ml/min BUN/Creatinine Ratio (10-20) Glucose (70-99) mg/dl POC Glucose (70-99) mg/dl Lactate (0.4-2.0) mmol/L Calcium (8.5-10.1) mg/dl Magnesium (1.8-2.4) mg/dl Total Bilirubin (0.2-1) mg/dl AST (15-37) U/L ALT (12-78) U/L Alkaline Phosphatase (45-117) U/L Ammonia (11-32) umol/L Total Protein (6.4-8.2) gm/dl Albumin (3.4-5.0) gm/dl Globulin (2.5-4.0) gm/dl Albumin/Globulin Ratio (0.9-2) TSH (0.300-4.500) uIu/ml Urine Color Urine Appearance (Clear) Urine pH (4.5-7.5) Ur Specific [place] (1.000-1.030) Urine Protein (Negative) Urine Glucose (UA) (Negative) Urine Ketones (Negative) Urine Blood (Negative) Urine Nitrite (Negative) Urine Bilirubin (Negative) Urine Urobilinogen (Negative) Ur Leukocyte Esterase (Negative) Urine WBC (Auto) (0-5) /hpf Urine RBC (Auto) (0-4) /hpf U Hyaline Cast (Auto) (0-5) /lpf U Epithel Cells (Auto) (0-5) /lpf Urine Bacteria (Auto) (Negative) POC Stool Occult Blood Positive A (Negative) COVID-19 Eval Order Covid19 at [facility] SARS-CoV-2 (PCR) NEGATIVE (Negative) Blood Type Antibody Screen Crossmatch 06/30/21 06/30/21 06/30/21 Range/Units 19:57 19:57 19:57 WBC 11.32 H (4.8-10.8) K/uL RBC 3.48 L (4.2-5.4) M/uL Hgb 8.9 L (12.0-16.0) g/dL Hct 28.1 L (37-47) % MCV 80.7 (80-100) fL MCH 25.6 (25-34) pg MCHC 31.7 L (32-36) g/dL RDW Std Deviation 48.8 H (36.4-46.3) fL RDW Coeff of Dipesh 16.6 H (11.5-14.5) % Plt Count 431 H (130-400) K/uL MPV 9.3 (7.4-10.4) fL Immature Gran % (Auto) 0.6 % Neut % (Auto) 70.8 % Lymph % (Auto) 14.0 % Hernando % (Auto) 12.9 % Eos % (Auto) 1.3 % Baso % (Auto) 0.4 % Neut # (Auto) 8.02 H (1.4-6.5) K/uL Lymph # (Auto) 1.58 (1.2-3.4) K/uL Hernando # (Auto) 1.46 H (0.11-0.59) K/uL Eos # (Auto) 0.15 (0-0.5) K/uL Baso # (Auto) 0.04 (0-0.2) K/uL Immature Gran # (Auto) 0.07 H (0.00-0.02) K/uL PT 10.3 (9.0-12.0) Seconds INR 1.0 (0.9-1.1) APTT 25.7 (21.0-31.0) Seconds PTT Ratio 1.0 Sodium 136 (136-145) mmol/L Potassium 4.7 (3.5-5.1) mmol/L Chloride 107 (98-107) mmol/L Carbon Dioxide 24 (21-32) mmol/L Anion Gap 6.0 (3-11) BUN 43 H (7-18) mg/dl Creatinine 1.09 (0.6-1.2) mg/dl Est Cr Clr Drug Dosing 29.1 ml/min Est GFR ( Amer) 54.7 ml/min Est GFR (Non-Af Amer) 47.2 ml/min BUN/Creatinine Ratio 39.4 H (10-20) Glucose 68 L (70-99) mg/dl POC Glucose (70-99) mg/dl Lactate (0.4-2.0) mmol/L Calcium 8.8 (8.5-10.1) mg/dl Magnesium 2.2 (1.8-2.4) mg/dl Total Bilirubin 0.3 (0.2-1) mg/dl AST 13 L (15-37) U/L ALT 13 (12-78) U/L Alkaline Phosphatase 73 (45-117) U/L Ammonia (11-32) umol/L Total Protein 6.8 (6.4-8.2) gm/dl Albumin 2.6 L (3.4-5.0) gm/dl Globulin 4.2 H (2.5-4.0) gm/dl Albumin/Globulin Ratio 0.6 L (0.9-2) TSH 1.770 (0.300-4.500) uIu/ml Urine Color Urine Appearance (Clear) Urine pH (4.5-7.5) Ur Specific [place] (1.000-1.030) Urine Protein (Negative) Urine Glucose (UA) (Negative) Urine Ketones (Negative) Urine Blood (Negative) Urine Nitrite (Negative) Urine Bilirubin (Negative) Urine Urobilinogen (Negative) Ur Leukocyte Esterase (Negative) Urine WBC (Auto) (0-5) /hpf Urine RBC (Auto) (0-4) /hpf U Hyaline Cast (Auto) (0-5) /lpf U Epithel Cells (Auto) (0-5) /lpf Urine Bacteria (Auto) (Negative) POC Stool Occult Blood (Negative) COVID-19 Eval Order SARS-CoV-2 (PCR) (Negative) Blood Type Antibody Screen Crossmatch 04/18/21 Range/Units 19:57 WBC (4.8-10.8) K/uL RBC (4.2-5.4) M/uL Hgb (12.0-16.0) g/dL Hct (37-47) % MCV (80-100) fL MCH (25-34) pg MCHC (32-36) g/dL RDW Std Deviation (36.4-46.3) fL RDW Coeff of Dipesh (11.5-14.5) % Plt Count (130-400) K/uL MPV (7.4-10.4) fL Immature Gran % (Auto) % Neut % (Auto) % Lymph % (Auto) % [place]ando % (Auto) % Eos % (Auto) % Baso % (Auto) % Neut # (Auto) (1.4-6.5) K/uL Lymph # (Auto) (1.2-3.4) K/uL [place] # (Auto) (0.11-0.59) K/uL Eos # (Auto) (0-0.5) K/uL Baso # (Auto) (0-0.2) K/uL Immature Gran # (Auto) (0.00-0.02) K/uL PT (9.0-12.0) Seconds INR (0.9-1.1) APTT (21.0-31.0) Seconds PTT Ratio Sodium (136-145) mmol/L Potassium (3.5-5.1) mmol/L Chloride (98-107) mmol/L Carbon Dioxide (21-32) mmol/L Anion Gap (3-11) BUN (7-18) mg/dl Creatinine (0.6-1.2) mg/dl Est Cr Clr Drug Dosing ml/min Est GFR ( Amer) ml/min Est GFR (Non-Af Amer) ml/min BUN/Creatinine Ratio (10-20) Glucose (70-99) mg/dl POC Glucose (70-99) mg/dl Lactate (0.4-2.0) mmol/L Calcium (8.5-10.1) mg/dl Magnesium (1.8-2.4) mg/dl Total Bilirubin (0.2-1) mg/dl AST (15-37) U/L ALT (12-78) U/L Alkaline Phosphatase (45-117) U/L Ammonia (11-32) umol/L Total Protein (6.4-8.2) gm/dl Albumin (3.4-5.0) gm/dl Globulin (2.5-4.0) gm/dl Albumin/Globulin Ratio (0.9-2) TSH (0.300-4.500) uIu/ml Urine Color Urine Appearance (Clear) Urine pH (4.5-7.5) Ur Specific [place] (1.000-1.030) Urine Protein (Negative) Urine Glucose (UA) (Negative) Urine Ketones (Negative) Urine Blood (Negative) Urine Nitrite (Negative) Urine Bilirubin (Negative) Urine Urobilinogen (Negative) Ur Leukocyte Esterase (Negative) Urine WBC (Auto) (0-5) /hpf Urine RBC (Auto) (0-4) /hpf U Hyaline Cast (Auto) (0-5) /lpf U Epithel Cells (Auto) (0-5) /lpf Urine Bacteria (Auto) (Negative) POC Stool Occult Blood (Negative) COVID-19 Eval Order SARS-CoV-2 (PCR) (Negative) Blood Type O Negative Antibody Screen NEGATIVE Crossmatch See Detail
[2021-04-19] MEDS ORDERED: OCTREOTIDE ACETATE 100 MCG/ML VIAL SQ STA (10:14)
[2021-04-19] MEDS: OCTREOTIDE ACETATE 500 MCG in 0.9 % SODIUM CHLORIDE 100 ML IV SCH ×2 (10:55→20:40)
[2021-04-19] MEDS ORDERED: OCTREOTIDE ACETATE IV ONE (11:00)
[2021-04-19 12:46] LABS: Hematocrit (blood only) 31.1 % (37-47); Hemoglobin 9.9 g/dL (12.0-16.0)
--- NOTE | 2021-04-19 14:38 | Electrocardiogram Report ---
Test Reason : Blood Pressure : / mmHG Vent. Rate : 084 BPM Atrial Rate : 084 BPM P-R Int : 154 ms QRS Dur : 114 ms QT Int : 404 ms P-R-T Axes : 047 -50 019 degrees QTc Int : 477 ms Normal sinus rhythm Incomplete right bundle branch block Left anterior fascicular block Abnormal ECG When compared with ECG of 12-MAR-2021 19:45, No significant change was found Confirmed by Kartik Lucia ([id number]) on 04/19/2021 2:37:41 PM Referred By: REFERRED SELF Confirmed By:Kartik Lucia
--- NOTE | 2021-04-19 15:18 | Hospitalist Progress Note ---
Date of Service April 19, 2021 Assessment & Plan (1) UGIB (upper gastrointestinal bleed): Recent blackish stools reported which were heme positive. Patient notably on iron supplementation. She was transfused 1 unit of blood overnight with a hemoglobin that was 8.9 and improved to 9.4. She denies any acute blood loss today either by mouth or per rectum. She remains hypotensive, confused, and appears to have a low temperature. This was later checked rectally and was normal. GI consulted and keeping patient on PPI drip for 48 hours then transitioning to oral PPI. She has she has a history of varices on EGD, she was started on octreotide. Continue to monitor and document stools and monitor H&H. (2) Acute UTI: Appears to have a positive urinary tract infection, she is empirically covered on cefepime. She denies any acute urinary tract symptoms however she is extremely somnolent and although easily awoken and able to orient, history is limited. Continue cefepime pending culture results and clinical improvement. (3) Somnolence: Hypersomnolence thought secondary to infection initially. She does have some issues with speech. Uncertain if this is chronic. Patient denies having history of stroke. CT head without contrast overnight was negative. Patient is unable to move extremities easily secondary to discomfort of some kind. She is not easily following directions. With hypotension and initial hypothermia, there was concern for developing adrenal crisis in setting of acute infection. However, rectal temperature was normothermic and with 1 dose of hydrocortisone her blood pressure improved. She also had a random cortisol that was within normal limits. Further steroids were held as this is contraindicated in acute GI bleed and infection. We will continue to monitor closely on telemetry overnight. (4) Hypotension: Consideration given to adrenal insufficiency, see plan above. This is improved. Continue holding lisinopril per home regimen (5) Anemia: Possibly secondary to blood loss, but this is uncertain at this time. May be multifactorial secondary to comorbidities. She was also recently hospitalized and this may be related to hospitalization versus phlebotomy. Continue to trend. (6) CAD (coronary artery disease): Continue holding aspirin and Plavix in setting of acute GI bleed. Continue beta-floyd and simvastatin per home regimen. (7) Diabetes mellitus, type II: Loose correction factor with carb coverage for now. Patient is euglycemic. No glargine at this time. Patient is n.p.o. In setting of somnolence. (8) DVT prophylaxis: SCDs, chemoprophylaxis contraindicated in the setting of acute GI bleeding Full code Disposition-pending medical improvement, continue telemetry monitoring Ethel Ha DO [facility]ist Admission and Anticipated Discharge Date Admission Date: April 18, 2021 Subjective 80-year-old female presented by ambulance from [facility] out of concern for generalized weakness. There was dark tarry diarrhea reported and she does take aspirin and Plavix which was held. Although the patient denied taking NSAIDs, this was on her home medication list. Today she remains somnolent but is able to awaken and oriented to person place and time. She grimaces but cannot localize a source of pain. She is seeming to have some speech difficulty but does not sense that she is. She is generally weak and not moving her arms or legs very easily, resisting most attempts for the examiner to move them. She appears to be the same as her description on physical exam overnight. CT head without acute abnormalities overnight. Review of Systems Review of Systems: All systems reviewed & are unremarkable except as noted in Subjective Physical Exam Physical Exam: CONSTITUTIONAL: thin, frail, vitals as above, generally ill- appearing and somnolent. EYES: Pupils are round and equal bilaterally, normal conjunctivae, no scleral icterus ENT: external ear and nose normal, MMM NECK: trachea midline RESPIRATORY: clear to auscultation bilaterally, no crackles, rales or wheezes, normal respiratory effort CARDIOVASCULAR: regular rate and rhythm, S1 and 2 heard without murmurs, gallops or rubs, no JVD, no peripheral edema GASTROINTESTINAL: soft, nontender, nondistended MUSCULOSKELETAL: generalized weakness, she is resistant to movement of any of her arms or legs 2/2 reported pain. SKIN: warm and dry NEUROLOGIC: abnormal speech-speaks flat without opening mouth very wide, slightly garbled, somnolent, difficult to follow instructions, but is able to do some things. PSYCHIATRIC: alert cooperative and oriented to person, place and time. Results & Data Results & Data ([facility]) Vital Signs (Past 12 Hours) Vital Signs Temp Pulse Resp BP Pulse Ox 04/19/21 11:01 35.6 C L 62 20 134/70 97 04/19/21 07:15 35.7 C L 81 18 106/66 100 04/19/21 04:59 36.4 C L 75 18 145/75 H 98 Laboratory Results Short CBC 04/18/21 04/19/21 04/19/21 Range/Units 19:57 00:05 12:15 WBC 11.32 H (4.8-10.8) K/uL Hgb 8.9 L 9.4 L 9.9 L (12.0-16.0) g/dL Hct 28.1 L 29.9 L 31.1 L (37-47) % Plt Count 431 H (130-400) K/uL BMP 04/18/21 19:57 Sodium 136 Potassium 4.7 Chloride 107 Carbon Dioxide 24 BUN 43 H Creatinine 1.09 Glucose 68 L Calcium 8.8 Liver Function 04/18/21 Range/Units 19:57 Total Bilirubin 0.3 (0.2-1) mg/dl AST 13 L (15-37) U/L ALT 13 (12-78) U/L Alkaline Phosphatase 73 (45-117) U/L Albumin 2.6 L (3.4-5.0) gm/dl Urine 04/18/21 Range/Units 22:25 Urine Color Yellow Urine Appearance Cloudy A (Clear) Urine pH 8.5 H (4.5-7.5) Ur Specific [place] 1.014 (1.000-1.030) Urine Protein 2+ H (Negative) Urine Glucose (UA) Negative (Negative) Medications Administered Current Inpatient Medications Acetaminophen (Acetaminophen 325 Mg Tab) 650 mg PO Q4H PRN PRN Reason: Pain or Fever Stop: 05/18/21 23:47 Brimonidine Tartrate (Brimonidine Tartrate 0.2% 5ml) 1 drops OPB TID [facility] Stop: 05/19/21 08:59 Last Admin: 04/19/21 13:38 Dose: 1 drops Documented by: Cyanocobalamin (Cyanocobalamin 500 Mcg Tablet (Vitamin B-12)) 500 mcg PO DAILY [facility] Stop: 05/19/21 08:59 Last Admin: 04/19/21 08:05 Dose: 500 mcg Documented by: Dextrose (Dextrose 50% 50 Ml Syringe) 25 - 50 ml IV UD PRN; Protocol PRN Reason: Hypoglycemia Protocol Stop: 05/18/21 23:47 Dorzolamide/Timolol (Dorzolamide/Timolol 22.3/6.8mg/Ml 10 Ml Btl) 1 drops OPB BID [facility] Stop: 05/19/21 08:59 Last Admin: 04/19/21 08:04 Dose: 1 drops Documented by: Glucagon (Glucagon For Inj 1 Mg Vial) 1 mg SQ UD PRN; Protocol PRN Reason: Hypoglycemia Protocol Stop: 05/18/21 23:47 Glucose (Glucose 10 Tabs/Tube) 4 - 8 tabs PO UD PRN; Protocol PRN Reason: Hypoglycemia Protocol Stop: 05/18/21 23:47 Glucose (Glucose 40% Gel 15 Gm Tube) 15 - 30 gm PO UD PRN; Protocol PRN Reason: Hypoglycemia Protocol Stop: 05/18/21 23:47 Pantoprazole Sodium 40 mg/ (Dextrose) 100 mls @ 20 mls/hr IV Q5H [facility] Stop: 05/18/21 20:13 Last Admin: 04/19/21 10:55 Dose: 8 mg/hr, 20 mls/hr Documented by: Sodium Chloride (Nss 1000ml) 1,000 mls @ 60 mls/hr IV .[id number] [facility] Stop: 05/18/21 23:44 Last Infusion: 04/19/21 02:30 Dose: 60 mls/hr Documented by: Cefepime HCl 2,000 mg/ Syringe 20 mls @ 5 mls/min IV Q24H [facility]; Protocol Stop: 04/29/21 05:59 Last Admin: 04/19/21 05:57 Dose: 5 mls/min Documented by: Promethazine HCl 12.5 mg/ (Sodium Chloride) 50.5 mls @ 202 mls/hr IV Q6H PRN PRN Reason: Nausea And Vomiting Stop: 05/18/21 23:47 Octreotide Acetate 500 mcg/ (Sodium Chloride) 105 mls @ 10.5 mls/hr IV .Q10H [facility] Stop: 05/19/21 10:59 Last Admin: 04/19/21 10:55 Dose: 50 mcg/hr, 10.5 mls/hr Documented by: Insulin Aspart (Insulin Aspart 100 Units/Ml 3 Ml Pen) 0 units SC Q6 [facility] Stop: 05/19/21 00:00 Last Admin: 04/19/21 12:10 Dose: 1 units Documented by: Metoprolol Succinate (Metoprolol Succ 25mg Ext Rel Tab) 12.5 mg PO DAILY [facility] Stop: 05/19/21 08:59 Last Admin: 04/19/21 08:05 Dose: 12.5 mg Documented by: Miscellaneous (Rocklatan~Order Awaiting Action) 1 ea N/A QS [facility] Stop: 05/19/21 00:00 Last Admin: 04/19/21 07:54 Dose: Not Given Documented by: Miscellaneous (Carbohydrates For Hypoglycemia ) 15 - 30 gm PO UD PRN PRN Reason: Hypoglycemia Protocol Stop: 05/18/21 23:47 Miscellaneous Information (Cefepime Consult Active) 1 ea N/A UD PRN PRN Reason: Consult Stop: 05/18/21 22:48 Simvastatin (Simvastatin 20 Mg Tab) 20 mg PO HS [facility] Stop: 05/19/21 20:59
[2021-04-19 17:43] LABS: Hemoglobin 9.8 g/dL (12.0-16.0); Mean Corpuscular Hgb Conc 31.6 g/dL (32-36); Mean Corpuscular Volume 79.1 fL (80-100); Mean Platelet Volume 9.5 fL (7.4-10.4); Platelet Count 352 K/uL (130-400); RDW Coefficient of Variation 16.9 % (11.5-14.5); RDW Standard Deviation 48.6 fL (36.4-46.3); Red Blood Count 3.92 M/uL (4.2-5.4); White Blood Count 7.05 K/uL (4.8-10.8)
[2021-04-19 18:12] LABS: Base Excess ABG -3.1 mEq/L (-9-1.8); HCO3 ABG 21 mmol/L (19-24); Oxygen Saturation ABG 97.1 % (90-95); PCO2 ABG 35 mmHg (35-46); PO2 ABG 93 mmHg (80-95)
[2021-04-19 18:14] LABS: Allen Test POS (Pos)
[2021-04-19 18:25] LABS: BUN Creatinine Ratio 40.8 (10-20); Calcium 8.7 mg/dl (8.5-10.1); Creatinine Clr Calc Pharmacy 63.1 ml/min; Est GFR (African American) 101.9 ml/min; Est GFR (Non-African American) 87.9 ml/min; Potassium 4.8 mmol/L (3.5-5.1)
[2021-04-19] MEDS ORDERED: HYDROCORTISONE SOD 100 MG in SYRINGE 0 ML IV SCH (20:00)
[2021-04-19] MEDS: SIMVASTATIN 20 MG TAB PO SCH (20:45)
[2021-04-19] MEDS ORDERED: ACETAMINOPHEN 1,000 MG/100 ML VIAL IV PRN (22:53)
[2021-04-20] MEDS: INSULIN ASPART 100 UNITS/ML 3 ML PEN SC SCH ×5 (00:22→21:14)
[2021-04-20] MEDS: PANTOprazole 40 MG in DEXTROSE 5% 100 ML IV SCH ×3 (01:42→11:44)
[2021-04-20] MEDS: SODIUM CHLORIDE 0.9% 1000ML 1,000 ML IV SCH ×2 (01:44→11:56)
[2021-04-20] MEDS: CEFEPIME 2,000 MG in SYRINGE 0 ML IV SCH ×3 (06:15→21:13)
[2021-04-20] MEDS: OCTREOTIDE ACETATE 500 MCG in 0.9 % SODIUM CHLORIDE 100 ML IV SCH (06:15)
[2021-04-20] MEDS: DORZOLAMIDE/TIMOLOL 22.3/6.8MG/ML 10 ML BTL OPB SCH ×2 (08:08→20:04)
[2021-04-20] MEDS: BRIMONIDINE TARTRATE 0.2% 5ML OPB SCH ×3 (08:08→20:05)
--- NOTE | 2021-04-20 08:45 | Gastroenterology Progress Note ---
Date of Service April 20, 2021 Assessment & Plan (1) UGIB (upper gastrointestinal bleed): 80 year old female admitted w/ weakness, confusion concern for UTI who was noted to have heme + stools which were black (takes PO iron). She was transfused 1 unit RBC, HGB stable overnight 9.4 which is her baseline without any evidence of black/bloody stools/emesis. CT from last night did show esophagitis. Pt notes that she does not want an EGD but if her family insisted she would consider. Will contact family to discuss goals of cares/wishes. Per pt and family wishes, no further evaluation with endoscopy. She has remained clinically stable w/o evidence of active GI bleed No GI contraindication to diet IV PPI BID while admitted then PPI 40 mg twice daily x 1 month then PO PPI 40 mg daily Can stop IV octreotide Trend HGB Monitor and document stools Transfuse PRN Recall as needed. Thank you for allowing us to participate in the care of this patient. Please call with any acute changes, questions or concerns. Please see addendum below with additional recommendation from my supervising physician. Admission and Anticipated Discharge Date Admission Date: April 18, 2021 Supervising Physician Co-Signing Physician Notes Attending attestation I have seen, examined this patient, and agree with the findings and above by our mid-level provider Ms. Yahaira TRAMMELL, with the following additions: - No signs of bleeding, Hb stable,no bowel movements - supportive care Subjective Pt was seen and evaluated, chart reviewed. Pleasantly confused this AM Denies any GI concerns/symptoms at this time. No abd pain. Denies nausea/vomiting. No further BMs have been reported since admission. Review of Systems Review of Systems: All systems reviewed & are unremarkable except as noted in HPI & below Physical Exam Constitutional: WD/WN, vitals as above + ill appearing (chronically ill appearing) and + thin; no acute distress Neck: trachea midline, no thyromegaly no tracheal deviation and no neck crepitus Respiratory: normal respiratory effort, lungs clear to auscultation Cardiovascular: Rate/Rhythm: regular rate and regular rhythm Gastrointestinal (Abdomen): normal bowel sounds, soft, nontender, no hepatosplenomegaly Skin: no rashes, warm and dry Results & Data ([facility]) Vital Signs (Past 12 Hours) Vital Signs Temp Pulse Pulse Resp BP BP Pulse Ox 04/20/21 08:06 73 04/20/21 07:22 35.8 C L 78 20 135/70 99 04/20/21 03:15 35.5 C L 78 18 124/69 95 04/20/21 00:35 67 04/19/21 23:00 36.2 C L 77 18 146/73 H 94
[2021-04-20] MEDS ORDERED: HYDROCORTISONE SOD 50 MG in SYRINGE 0 ML IV SCH (09:00)
[2021-04-20 09:08] LABS: Hematocrit (blood only) 29.2 % (37-47); Hemoglobin 9.2 g/dL (12.0-16.0); Mean Corpuscular Hemoglobin 25.2 pg (25-34); Mean Corpuscular Hgb Conc 31.5 g/dL (32-36); Mean Platelet Volume 9.5 fL (7.4-10.4); Platelet Count 353 K/uL (130-400); RDW Coefficient of Variation 16.8 % (11.5-14.5); RDW Standard Deviation 49.1 fL (36.4-46.3); Red Blood Count 3.65 M/uL (4.2-5.4); White Blood Count 6.52 K/uL (4.8-10.8)
[2021-04-20 09:25] LABS: BUN Creatinine Ratio 28.2 (10-20); Calcium 8.2 mg/dl (8.5-10.1); Creatinine Clr Calc Pharmacy 50.1 ml/min; Est GFR (African American) 94.4 ml/min; Est GFR (Non-African American) 81.5 ml/min; Potassium 4.8 mmol/L (3.5-5.1)
[2021-04-20] MEDS: METOPROLOL SUCC 25MG EXT REL TAB PO SCH (09:50)
[2021-04-20] MEDS ORDERED: LANTUS PER UNIT CHARGE SQ ONE (10:00)
[2021-04-20] MEDS ORDERED: ACETAMINOPHEN 325 MG TAB PO PRN (18:02)
--- NOTE | 2021-04-20 18:13 | Hospitalist Progress Note ---
Date of Service April 20, 2021 Assessment & Plan (1) UGIB (upper gastrointestinal bleed): ruled out, no GI bleeding since admission, normal stools, hemodynamically stable and H/H stable. Stopping PPI and octreotide now. (2) Acute UTI: Continue cefepime pending culture results and clinical improvement. (3) Acute metabolic encephalopathy: improved but she is still confused. Less somnolent today. Cont a ntibiotic therapy. (4) Hypotension: resolved. Restart lisinopril. (5) Anemia: Possibly secondary to blood loss, but this is uncertain at this time. May be multifactorial secondary to comorbidities. She was also recently hospitalized and this may be related to hospitalization versus phlebotomy. Continue to trend. (6) CAD (coronary artery disease): ASA/Plavix restarted. Continue beta-floyd and simvastatin per home regimen. (7) Diabetes mellitus, type II: Loose correction factor with carb coverage for now. Patient is euglycemic. Adding glargine now that she has a diet reordered. (8) DVT prophylaxis: Lovenox Full code Disposition-likely back to SNF after the weekend. Ethel Ha DO [facility] Hospitalist (9) Generalized weakness: Admission and Anticipated Discharge Date Admission Date: April 18, 2021 Subjective 80-year-old female presented by ambulance from [facility] out of concern for generalized weakness and dark, tarry diarrhea. She is disoriented today but is more alert and appears clinically improved. She can move her arms and legs better and her speech is more clear. No further bleeding episodes since admission. ROS limited 2/2 confusion. Denies pain. Review of Systems 2 Review of Systems: Unobtainable due to mental health condition (confusion) Physical Exam Physical Exam: CONSTITUTIONAL: thin, frail, vitals as above, NAD, more alert today. EYES: Pupils are round and equal bilaterally, EOMI, normal conjunctivae, no scleral icterus ENT: external ear and nose normal, MMM NECK: trachea midline RESPIRATORY: clear to auscultation bilaterally, no crackles, rales or wheezes, normal respiratory effort CARDIOVASCULAR: regular rate and rhythm, S1 and 2 heard without murmurs, gallops or rubs, no JVD, no peripheral edema GASTROINTESTINAL: soft, nontender, nondistended MUSCULOSKELETAL: generalized weakness, limited ability to bend her knees 2/2 pain, bilateral mid-foot amputee, limited flexion of right arm 2/2 pain. SKIN: warm and dry NEUROLOGIC: CN 2-12 grossly intact, no facial droop, smiles equal, moves extremities equally. PSYCHIATRIC: alert cooperative and oriented to person, place and time. Results & Data Results & Data ([facility]) Vital Signs (Past 12 Hours) Vital Signs Temp Pulse Pulse Resp BP BP Pulse Ox 04/20/21 12:25 36.0 C L 70 18 161/78 H 99 04/20/21 09:46 68 131/73 04/20/21 08:06 73 04/20/21 07:22 35.8 C L 78 20 135/70 99 Laboratory Results Short CBC 04/20/21 Range/Units 08:46 WBC 6.52 (4.8-10.8) K/uL Hgb 9.2 L (12.0-16.0) g/dL Hct 29.2 L (37-47) % Plt Count 353 (130-400) K/uL BMP 04/19/21 04/20/21 17:26 08:46 Sodium 139 139 Potassium 4.8 4.8 Chloride 112 H 111 H Carbon Dioxide 22 21 BUN 22 H 19 H Creatinine 0.54 L D 0.68 Glucose 175 H 222 H Calcium 8.7 8.2 L Medications Administered Current Inpatient Medications Acetaminophen (Acetaminophen 325 Mg Tab) 650 mg PO Q4H PRN PRN Reason: pain/fever Stop: 05/20/21 18:01 Aspirin (Aspirin 81 Mg Ectab) 81 mg PO QAM [facility] Stop: 05/21/21 08:59 Brimonidine Tartrate (Brimonidine Tartrate 0.2% 5ml) 1 drops OPB TID [facility] Stop: 05/19/21 08:59 Last Admin: 04/20/21 15:18 Dose: 1 drops Documented by: Clopidogrel Bisulfate (Clopidogrel Bisulfate 75 Mg Tab) 75 mg PO QAM [facility] Stop: 05/21/21 08:59 Cyanocobalamin (Cyanocobalamin 500 Mcg Tablet (Vitamin B-12)) 500 mcg PO DAILY [facility] Stop: 05/19/21 08:59 Last Admin: 04/19/21 08:05 Dose: 500 mcg Documented by: Dextrose (Dextrose 50% 50 Ml Syringe) 25 - 50 ml IV UD PRN; Protocol PRN Reason: Hypoglycemia Protocol Stop: 05/18/21 23:47 Dorzolamide/Timolol (Dorzolamide/Timolol 22.3/6.8mg/Ml 10 Ml Btl) 1 drops OPB BID [facility] Stop: 05/19/21 08:59 Last Admin: 04/20/21 08:08 Dose: 1 drops Documented by: Glucagon (Glucagon For Inj 1 Mg Vial) 1 mg SQ UD PRN; Protocol PRN Reason: Hypoglycemia Protocol Stop: 05/18/21 23:47 Glucose (Glucose 10 Tabs/Tube) 4 - 8 tabs PO UD PRN; Protocol PRN Reason: Hypoglycemia Protocol Stop: 05/18/21 23:47 Glucose (Glucose 40% Gel 15 Gm Tube) 15 - 30 gm PO UD PRN; Protocol PRN Reason: Hypoglycemia Protocol Stop: 05/18/21 23:47 Promethazine HCl 12.5 mg/ (Sodium Chloride) 50.5 mls @ 202 mls/hr IV Q6H PRN PRN Reason: Nausea And Vomiting Stop: 05/18/21 23:47 Cefepime HCl 2,000 mg/ Syringe 20 mls @ 5 mls/min IV Q8H [facility]; Protocol Stop: 04/29/21 05:59 Last Admin: 04/20/21 17:01 Dose: 5 mls/min Documented by: Insulin Aspart (Insulin Aspart 100 Units/Ml 3 Ml Pen) 0 units SC ACHS [facility] Stop: 05/20/21 20:59 Lisinopril (Lisinopril 10 Mg Tab) 10 mg PO DAILY [facility] Stop: 05/21/21 08:59 Metoprolol Succinate (Metoprolol Succ 25mg Ext Rel Tab) 12.5 mg PO DAILY [facility] Stop: 05/19/21 08:59 Last Admin: 04/20/21 09:50 Dose: 12.5 mg Documented by: Miscellaneous (Rocklatan~Order Awaiting Action) 1 ea N/A QS [facility] Stop: 05/19/21 00:00 Last Admin: 04/20/21 17:01 Dose: Not Given Documented by: Miscellaneous (Carbohydrates For Hypoglycemia ) 15 - 30 gm PO UD PRN PRN Reason: Hypoglycemia Protocol Stop: 05/18/21 23:47 Miscellaneous Information (Cefepime Consult Active) 1 ea N/A UD PRN PRN Reason: Consult Stop: 05/18/21 22:48 Pantoprazole Sodium (Pantoprazole 40 Mg Tab) 40 mg PO BID [facility] Stop: 05/20/21 20:59 Simvastatin (Simvastatin 20 Mg Tab) 20 mg PO [facility] Stop: 05/19/21 20:59 Last Admin: 04/19/21 20:45 Dose: 20 mg Documented by: Vitamin D (Cholecalciferol 1,000 Units 25 Mcg Tab) [facility] Stop: 05/21/21 08:59
[2021-04-20] MEDS: PANTOprazole 40 MG TAB PO SCH (20:03)
[2021-04-20] MEDS: SIMVASTATIN 20 MG TAB PO SCH (20:03)
[2021-04-21] MEDS: CEFEPIME 2,000 MG in SYRINGE 0 ML IV SCH (05:35)
[2021-04-21] MEDS: lisinopril 10 MG TAB PO SCH (08:10)
[2021-04-21] MEDS: PANTOprazole 40 MG TAB PO SCH ×2 (08:10→21:04)
[2021-04-21] MEDS: ENOXAPARIN INJ 40 MG/0.4 ML SYR SQ SCH (08:10)
[2021-04-21] MEDS: ASPIRIN 81 MG ECTAB PO SCH (08:10)
[2021-04-21] MEDS: CLOPIDOGREL BISULFATE 75 MG TAB PO SCH (08:10)
[2021-04-21] MEDS: CHOLECALCIFEROL 1,000 UNITS 25 MCG TAB PO SCH (08:10)
[2021-04-21] MEDS: BRIMONIDINE TARTRATE 0.2% 5ML OPB SCH ×3 (08:11→21:05)
[2021-04-21] MEDS: DORZOLAMIDE/TIMOLOL 22.3/6.8MG/ML 10 ML BTL OPB SCH ×2 (08:11→21:05)
[2021-04-21] MEDS: INSULIN ASPART 100 UNITS/ML 3 ML PEN SC SCH ×4 (08:12→21:05)
[2021-04-21] MEDS: METOPROLOL SUCC 25MG EXT REL TAB PO SCH (08:13)
[2021-04-21] MEDS ORDERED: INSULIN GLARGINE SOLOSTAR 100 UNITS/ML 3 ML PEN SC SCH (09:00)
[2021-04-21] MEDS: cephALEXin 250 MG CAP PO SCH ×4 (10:02→21:04)
--- NOTE | 2021-04-21 14:56 | Hospitalist Progress Note ---
Date of Service April 21, 2021 Assessment & Plan (1) Acute metabolic encephalopathy: improved but she is still confused. Cont antibiotic therapy. (2) Acute UTI: Adjusted abx to cephalexin based on culture results. Continues to improve. (3) Anemia: Likely 2/2 chronic inflammation from multiple comorbiditites. She was also recently hospitalized and this may be related to hospitalization versus phlebotomy. Continue to trend. No need for blood transfusion at this time. (4) CAD (coronary artery disease): chronic, cont medical management. ASA/Plavix restarted. Continue beta- floyd and simvastatin per home regimen. (5) Diabetes mellitus, type II: at inpatient goal on current glargine and novolog regimen. (6) Generalized weakness: Cont PT/OT efforts, placement back at [facility] on discharge. (7) DVT prophylaxis: Lovenox Full code Disposition-likely back to SNF after the weekend. [facility] and Anticipated Discharge Date Admission Date: April 18, 2021 Subjective 80-year-old female presented by ambulance from [facility] out of concern for generalized weakness and dark, tarry diarrhea. She is disoriented today but is more alert and appears clinically improved. She can move her arms and legs better and her speech is more clear. No further bleeding episodes since admission. She is more alert and less confused today but still disoriented to date. Eating well. Not moving much. Therapy attempted to work with her this morning but this was unsuccessful. Denies pain or other issues at this time. Review of Systems Review of Systems: All systems reviewed & are unremarkable except as noted in Subjective Physical Exam Physical Exam: CONSTITUTIONAL: thin, frail, vitals as above, NAD, more alert today. EYES: EOMI, normal conjunctivae, no scleral icterus ENT: external ear and nose normal, MMM NECK: trachea midline RESPIRATORY: clear to auscultation bilaterally, no crackles, rales or wheezes, normal respiratory effort CARDIOVASCULAR: regular rate and rhythm, S1 and 2 heard without murmurs, gallops or rubs, no JVD, no peripheral edema GASTROINTESTINAL: soft, nontender, nondistended MUSCULOSKELETAL: generalized weakness, limited ability to bend her knees 2/2 pain, bilateral mid-foot amputee, limited flexion of right arm 2/2 pain. SKIN: warm and dry NEUROLOGIC: CN 2-12 grossly intact, no facial droop, smiles equal, moves extremities equally. PSYCHIATRIC: alert cooperative and oriented to person and place. Intermittent delirium-states "I got mixed up down there at the car shop" Results & Data Results & Data ([facility]) Vital Signs (Past 12 Hours) Vital Signs Temp Pulse Pulse Resp BP BP Pulse Ox 04/21/21 08:06 36.7 C 69 18 155/73 H 96 04/21/21 07:00 78 04/21/21 04:13 36.8 C 61 20 134/73 96 04/21/21 03:40 36.7 C 65 16 146/71 H 95 Medications Administered Current Inpatient Medications Acetaminophen (Acetaminophen 325 Mg Tab) 650 mg PO Q4H PRN PRN Reason: pain/fever Stop: 05/20/21 18:01 Aspirin (Aspirin 81 Mg Ectab) 81 mg PO QAM [facility] Stop: 05/21/21 08:59 Last Admin: 04/21/21 08:10 Dose: 81 mg Documented by: Brimonidine Tartrate (Brimonidine Tartrate 0.2% 5ml) 1 drops OPB TID [facility] Stop: 05/19/21 08:59 Last Admin: 04/21/21 13:03 Dose: 1 drops Documented by: Cephalexin HCl (Cephalexin 250 Mg Cap) 250 mg PO QID [facility]; Protocol Stop: 04/26/21 08:59 Last Admin: 04/21/21 13:02 Dose: 250 mg Documented by: Clopidogrel Bisulfate (Clopidogrel Bisulfate 75 Mg Tab) 75 mg PO QAM [facility] Stop: 05/21/21 08:59 Last Admin: 04/21/21 08:10 Dose: 75 mg Documented by: Cyanocobalamin (Cyanocobalamin 500 Mcg Tablet (Vitamin B-12)) 500 mcg PO DAILY [facility] Stop: 05/19/21 08:59 Last Admin: 04/19/21 08:05 Dose: 500 mcg Documented by: Dextrose (Dextrose 50% 50 Ml Syringe) 25 - 50 ml IV UD PRN; Protocol PRN Reason: Hypoglycemia Protocol Stop: 05/18/21 23:47 Dorzolamide/Timolol (Dorzolamide/Timolol 22.3/6.8mg/Ml 10 Ml Btl) 1 drops OPB BID [facility] Stop: 05/19/21 08:59 Last Admin: 04/21/21 08:11 Dose: 1 drops Documented by: Enoxaparin Sodium (Enoxaparin Inj 40 Mg/0.4 Ml Syr) 40 mg SQ QAM [facility] Stop: 05/21/21 08:59 Last Admin: 04/21/21 08:10 Dose: 40 mg Documented by: Glucagon (Glucagon For Inj 1 Mg Vial) 1 mg SQ UD PRN; Protocol PRN Reason: Hypoglycemia Protocol Stop: 05/18/21 23:47 Glucose (Glucose 10 Tabs/Tube) 4 - 8 tabs PO UD PRN; Protocol PRN Reason: Hypoglycemia Protocol Stop: 05/18/21 23:47 Glucose (Glucose 40% Gel 15 Gm Tube) 15 - 30 gm PO UD PRN; Protocol PRN Reason: Hypoglycemia Protocol Stop: 05/18/21 23:47 Promethazine HCl 12.5 mg/ (Sodium Chloride) 50.5 mls @ 202 mls/hr IV Q6H PRN PRN Reason: Nausea And Vomiting Stop: 05/18/21 23:47 Insulin Aspart (Insulin Aspart 100 Units/Ml 3 Ml Pen) 0 units SC ACHS [facility] Stop: 05/20/21 20:59 Last Admin: 04/21/21 13:02 Dose: 6 units Documented by: Insulin Glargine (Insulin Glargine Solostar 100 Units/Ml 3 Ml Pen) 10 units SC BID [facility] Stop: 05/21/21 20:59 Lisinopril (Lisinopril 10 Mg Tab) 10 mg PO DAILY [facility] Stop: 05/21/21 08:59 Last Admin: 04/21/21 08:10 Dose: 10 mg Documented by: Metoprolol Succinate (Metoprolol Succ 25mg Ext Rel Tab) 12.5 mg PO DAILY [facility] Stop: 05/19/21 08:59 Last Admin: 04/21/21 08:13 Dose: 12.5 mg Documented by: Miscellaneous (Rocklatan~Order Awaiting Action) 1 ea N/A QS [facility] Stop: 05/19/21 00:00 Last Admin: 04/21/21 08:11 Dose: Not Given Documented by: Miscellaneous (Carbohydrates For Hypoglycemia ) 15 - 30 gm PO UD PRN PRN Reason: Hypoglycemia Protocol Stop: 05/18/21 23:47 Pantoprazole Sodium (Pantoprazole 40 Mg Tab) 40 mg PO BID [facility] Stop: 05/20/21 20:59 Last Admin: 04/21/21 08:10 Dose: 40 mg Documented by: Simvastatin (Simvastatin 20 Mg Tab) 20 mg PO [facility] Stop: 05/19/21 20:59 Last Admin: 04/20/21 20:03 Dose: 20 mg Documented by: Vitamin D (Cholecalciferol 1,000 Units 25 Mcg Tab) 1,000 units PO [facility] Stop: 05/21/21 08:59 Last Admin: 04/21/21 08:10 Dose: 1,000 units Documented by:
[2021-04-21] MEDS: SIMVASTATIN 20 MG TAB PO SCH (21:04)
[2021-04-21] MEDS: INSULIN GLARGINE SOLOSTAR 100 UNITS/ML 3 ML PEN SC SCH (21:04)
[2021-04-22] MEDS ORDERED: MICONAZOLE NITRATE POWDER 43 GM EXT PRN (07:16)
[2021-04-22] MEDS: cephALEXin 250 MG CAP PO SCH ×4 (08:40→20:40)
[2021-04-22] MEDS: BRIMONIDINE TARTRATE 0.2% 5ML OPB SCH ×3 (08:40→20:42)
[2021-04-22] MEDS: PANTOprazole 40 MG TAB PO SCH ×2 (08:40→20:42)
[2021-04-22] MEDS: lisinopril 10 MG TAB PO SCH (08:40)
[2021-04-22] MEDS: ASPIRIN 81 MG ECTAB PO SCH (08:40)
[2021-04-22] MEDS: MAGNESIUM OXIDE 400 MG TAB PO SCH (08:40)
[2021-04-22] MEDS: METOPROLOL SUCC 25MG EXT REL TAB PO SCH (08:40)
[2021-04-22] MEDS: ENOXAPARIN INJ 40 MG/0.4 ML SYR SQ SCH (08:41)
[2021-04-22] MEDS: CLOPIDOGREL BISULFATE 75 MG TAB PO SCH (08:41)
[2021-04-22] MEDS: CHOLECALCIFEROL 1,000 UNITS 25 MCG TAB PO SCH (08:41)
[2021-04-22] MEDS: DORZOLAMIDE/TIMOLOL 22.3/6.8MG/ML 10 ML BTL OPB SCH ×2 (08:42→20:41)
[2021-04-22] MEDS: INSULIN ASPART 100 UNITS/ML 3 ML PEN SC SCH ×4 (08:43→20:41)
[2021-04-22] MEDS: INSULIN GLARGINE SOLOSTAR 100 UNITS/ML 3 ML PEN SC SCH ×2 (08:45→20:41)
[2021-04-22] MEDS: CYANOCOBALAMIN 500 MCG TABLET (VITAMIN B-12) PO SCH (13:00)
--- NOTE | 2021-04-22 15:49 | Hospitalist Progress Note ---
Date of Service April 22, 2021 Assessment & Plan (1) Acute metabolic encephalopathy: improved but she is still confused. Cont supportive care. (2) Acute UTI: Adjusted abx to cephalexin based on culture results. Continues to improve. (3) Anemia: Likely 2/2 chronic inflammation from multiple comorbiditites. She was also recently hospitalized and this may be related to hospitalization versus phlebotomy. Continue to trend. No need for blood transfusion at this time. (4) CAD (coronary artery disease): chronic, cont medical management. ASA/Plavix restarted. Continue beta- floyd and simvastatin per home regimen. (5) Diabetes mellitus, type II: at inpatient goal on current glargine and novolog regimen. (6) Generalized weakness: Cont PT/OT efforts, placement back at [facility] on discharge. (7) DVT prophylaxis: Lovenox Full code Disposition-likely back to SNF after the weekend. Ethel Ha DO [facility] Hospitalist Admission and Anticipated Discharge Date Admission Date: April 18, 2021 Subjective 80-year-old female presented by ambulance from [place] [facility] out of concern for generalized weakness and dark, tarry diarrhea. Started on PPI drip and octreotide initially, however, these were stopped within 48 hours. No further bleeding episodes since admission. She was alco encephalopathic on arrival presumably 2/2 UTI. Although she has improved she still has some disorientation which may be her baseline. Denies any pain, reports feeling tired. Otherwise she is eating and doing well. Review of Systems Review of Systems: All systems reviewed & are unremarkable except as noted in Subjective Physical Exam Physical Exam: CONSTITUTIONAL: thin, frail, vitals as above, NAD, more alert today. EYES: EOMI, normal conjunctivae, no scleral icterus ENT: external ear and nose normal, MMM NECK: trachea midline RESPIRATORY: clear to auscultation bilaterally, no crackles, rales or wheezes, normal respiratory effort CARDIOVASCULAR: regular rate and rhythm, S1 and 2 heard without murmurs, gallops or rubs, no JVD, no peripheral edema GASTROINTESTINAL: soft, nontender, nondistended MUSCULOSKELETAL: generalized weakness, limited ability to bend her knees 2/2 pain, bilateral mid-foot amputee, limited flexion of right arm 2/2 pain. SKIN: warm and dry NEUROLOGIC: CN 2-12 grossly intact, no facial droop, smiles equal, moves extremities equally. PSYCHIATRIC: alert cooperative and oriented to person and place. Intermittent delirium-states "I got mixed up down there at the car shop" Results & Data Results & Data ([facility]) Vital Signs (Past 12 Hours) Vital Signs Temp Pulse Resp BP Pulse Ox 04/22/21 08:39 69 134/70 04/22/21 04:00 36.3 C L 69 20 162/76 H 100 Medications Administered Current Inpatient Medications Acetaminophen (Acetaminophen 325 Mg Tab) 650 mg PO Q4H PRN PRN Reason: pain/fever Stop: 05/20/21 18:01 Aspirin (Aspirin 81 Mg Ectab) 81 mg PO QAM [facility] Stop: 05/21/21 08:59 Last Admin: 04/22/21 08:40 Dose: 81 mg Documented by: Brimonidine Tartrate (Brimonidine Tartrate 0.2% 5ml) 1 drops OPB TID [facility] Stop: 05/19/21 08:59 Last Admin: 04/22/21 13:01 Dose: 1 drops Documented by: Cephalexin HCl (Cephalexin 250 Mg Cap) 250 mg PO QID [facility]; Protocol Stop: 04/26/21 08:59 Last Admin: 04/22/21 13:01 Dose: 250 mg Documented by: Clopidogrel Bisulfate (Clopidogrel Bisulfate 75 Mg Tab) 75 mg PO QAM [facility] Stop: 05/21/21 08:59 Last Admin: 04/22/21 08:41 Dose: 75 mg Documented by: Cyanocobalamin (Cyanocobalamin 500 Mcg Tablet (Vitamin B-12)) 500 mcg PO DAILY [facility] Stop: 05/19/21 08:59 Last Admin: 04/22/21 13:00 Dose: 500 mcg Documented by: Dextrose (Dextrose 50% 50 Ml Syringe) 25 - 50 ml IV UD PRN; Protocol PRN Reason: Hypoglycemia Protocol Stop: 05/18/21 23:47 Dorzolamide/Timolol (Dorzolamide/Timolol 22.3/6.8mg/Ml 10 Ml Btl) 1 drops OPB BID [facility] Stop: 05/19/21 08:59 Last Admin: 04/22/21 08:42 Dose: 1 drops Documented by: Enoxaparin Sodium (Enoxaparin Inj 40 Mg/0.4 Ml Syr) 40 mg SQ QAM [facility] Stop: 05/21/21 08:59 Last Admin: 04/22/21 08:41 Dose: 40 mg Documented by: Glucagon (Glucagon For Inj 1 Mg Vial) 1 mg SQ UD PRN; Protocol PRN Reason: Hypoglycemia Protocol Stop: 05/18/21 23:47 Glucose (Glucose 10 Tabs/Tube) 4 - 8 tabs PO UD PRN; Protocol PRN Reason: Hypoglycemia Protocol Stop: 05/18/21 23:47 Glucose (Glucose 40% Gel 15 Gm Tube) 15 - 30 gm PO UD PRN; Protocol PRN Reason: Hypoglycemia Protocol Stop: 05/18/21 23:47 Insulin Aspart (Insulin Aspart 100 Units/Ml 3 Ml Pen) 0 units SC ACHS [facility] Stop: 05/20/21 20:59 Last Admin: 04/22/21 13:00 Dose: 7 units Documented by: Insulin Glargine (Insulin Glargine Solostar 100 Units/Ml 3 Ml Pen) 10 units SC BID [facility] Stop: 05/21/21 20:59 Last Admin: 04/22/21 08:45 Dose: 10 units Documented by: Lisinopril (Lisinopril 10 Mg Tab) 10 mg PO DAILY [facility] Stop: 05/21/21 08:59 Last Admin: 04/22/21 08:40 Dose: 10 mg Documented by: Magnesium Oxide (Magnesium Oxide 400 Mg Tab) 400 mg PO DAILY [facility] Stop: 05/22/21 08:59 Last Admin: 04/22/21 08:40 Dose: 400 mg Documented by: Metoprolol Succinate (Metoprolol Succ 25mg Ext Rel Tab) 12.5 mg PO DAILY [facility] Stop: 05/19/21 08:59 Last Admin: 04/22/21 08:40 Dose: 12.5 mg Documented by: Miconazole Nitrate (Miconazole Nitrate Powder 43 Gm) 1 appln EXT PRN PRN PRN Reason: Affected Skin Folds Stop: 05/22/21 07:15 Miscellaneous (Rocklatan~Order Awaiting Action) 1 ea N/A QS [facility] Stop: 05/19/21 00:00 Last Admin: 04/22/21 08:28 Dose: Not Given Documented by: Miscellaneous (Carbohydrates For Hypoglycemia ) 15 - 30 gm PO UD PRN PRN Reason: Hypoglycemia Protocol Stop: 05/18/21 23:47 Pantoprazole Sodium (Pantoprazole 40 Mg Tab) 40 mg PO BID [facility] Stop: 05/20/21 20:59 Last Admin: 04/22/21 08:40 Dose: 40 mg Documented by: Simvastatin (Simvastatin 20 Mg Tab) 20 mg PO [facility] Stop: 05/19/21 20:59 Last Admin: 04/21/21 21:04 Dose: 20 mg Documented by: Vitamin D (Cholecalciferol 1,000 Units 25 Mcg Tab) 1,000 [facility] Stop: 05/21/21 08:59 Last Admin: 04/22/21 08:41 Dose: 1,000 units Documented by:
[2021-04-22] MEDS: SIMVASTATIN 20 MG TAB PO SCH (20:42)
[2021-04-23] MEDS ORDERED: INSULIN ASPART 100 UNITS/ML 3 ML PEN SC ONE (01:00)
[2021-04-23 07:04] LABS: Creatinine Clr Calc Pharmacy 59.9 ml/min; Est GFR (African American) 100.1 ml/min; Est GFR (Non-African American) 86.3 ml/min
[2021-04-23] MEDS: METOPROLOL SUCC 25MG EXT REL TAB PO SCH (08:38)
[2021-04-23] MEDS: ENOXAPARIN INJ 40 MG/0.4 ML SYR SQ SCH (08:38)
[2021-04-23] MEDS: CYANOCOBALAMIN 500 MCG TABLET (VITAMIN B-12) PO SCH (08:39)
[2021-04-23] MEDS: lisinopril 10 MG TAB PO SCH (08:39)
[2021-04-23] MEDS: ASPIRIN 81 MG ECTAB PO SCH (08:40)
[2021-04-23] MEDS: MAGNESIUM OXIDE 400 MG TAB PO SCH (08:40)
[2021-04-23] MEDS: CHOLECALCIFEROL 1,000 UNITS 25 MCG TAB PO SCH (08:40)
[2021-04-23] MEDS: CLOPIDOGREL BISULFATE 75 MG TAB PO SCH (08:41)
[2021-04-23] MEDS: PANTOprazole 40 MG TAB PO SCH ×2 (08:42→20:09)
[2021-04-23] MEDS: cephALEXin 250 MG CAP PO SCH ×4 (08:42→20:08)
[2021-04-23] MEDS: DORZOLAMIDE/TIMOLOL 22.3/6.8MG/ML 10 ML BTL OPB SCH ×2 (08:43→20:06)
[2021-04-23] MEDS: BRIMONIDINE TARTRATE 0.2% 5ML OPB SCH ×3 (08:43→20:08)
--- NOTE | 2021-04-23 09:47 | Hospitalist Progress Note ---
Date of Service April 23, 2021 Assessment & Plan (1) Acute metabolic encephalopathy: Likely due to UTI Improved per previous Provider and RN Patient may have some cognitive impairment CT head had no acute abnormalities but atrophy and microvascular ischemic changes (2) Acute UTI: Urine culture grew proteus mirabilis Currently on keflex to complete treatment (3) Anemia: Likely 2/2 chronic inflammation from multiple comorbiditites. She was also recently hospitalized and this may be related to hospitalization versus phlebotomy. On admission there was report of black stool However, no evidence of GI bleed since admission. Patient also takes iron pills. Per GI evaluation/notes, no further evaluation with endoscopy per patient and family's wishes Serial hemoglobin review had been stable (4) CAD (coronary artery disease): Chronic Cont medical management. Continue ASA/Plavix. Continue beta-floyd and simvastatin per home regimen. (5) Diabetes mellitus, type II: Continue insulin regimen per protocol to maintain glycemic control (6) Generalized weakness: Cont PT/OT efforts Plan to go back to SNF hopefully tomorrow per CM notes (7) DVT prophylaxis: Lovenox Full code Disposition-likely back to SNF tomorrow Admission and Anticipated Discharge Date Admission Date: April 18, 2021 Subjective 80-year-old female presented by ambulance from [place] [facility] out of concern for generalized weakness and dark, tarry diarrhea. Started on PPI drip and octreotide initially, however, these were stopped within 48 hours. No further bleeding episodes since admission. Being managed for metabolic encephalopathy due to UTI Patient seen and examined Denied any new complaints on ROS. Only states that she "feels weak and old" Review of Systems Review of Systems: All systems reviewed & are unremarkable except as noted in Subjective Physical Exam Constitutional: + well hydrated; no acute distress Eyes: PERRL, conjunctivae normal, anicteric sclerae ENMT: external ear and nose normal, oropharynx normal Respiratory: normal respiratory effort, lungs clear to auscultation Cardiovascular: Rate/Rhythm: regular rate and regular rhythm S1 S2 Gastrointestinal (Abdomen): normal bowel sounds, soft, nontender, no hepatosplenomegaly Musculoskeletal: Midfoot amputation bilaterally. No pedal edema. Patient refused to participate witih further exam stating she is tired Neurologic: PERRL, EOMI, accommodation nl, no face palsy, no dysarthria Psychiatric: Orientation: alert, oriented to person and oriented to place (Knows she is in the hospital but does not recall name) Oriented to year but not date/month. Cooperative Limited insight Results & Data Results & Data ([facility]) Vital Signs (Past 12 Hours) Vital Signs Temp Pulse Resp BP Pulse Ox 04/23/21 07:09 36.5 C 68 20 126/75 98 04/22/21 23:15 36.5 C 75 20 114/60 98 Laboratory Results Abnormal lab results 04/22/21 04/22/21 04/22/21 Range/Units 11:24 16:41 20:15 Creatinine (0.6-1.2) mg/dl POC Glucose 272 H 153 H 275 H (70-99) mg/dl 04/23/21 04/23/21 04/23/21 Range/Units 00:57 06:05 07:29 Creatinine 0.57 L (0.6-1.2) mg/dl POC Glucose 126 H 137 H (70-99) mg/dl
[2021-04-23] MEDS: INSULIN ASPART 100 UNITS/ML 3 ML PEN SC SCH ×4 (09:56→20:59)
[2021-04-23] MEDS: INSULIN GLARGINE SOLOSTAR 100 UNITS/ML 3 ML PEN SC SCH ×2 (09:57→21:00)
[2021-04-23] MEDS ORDERED: bisacodyL 10 MG SUPP PR STA (11:59)
[2021-04-23] MEDS: POLYETHYLENE (MIRALAX) 17 GM PACK PO SCH (12:59)
[2021-04-23] MEDS: SIMVASTATIN 20 MG TAB PO SCH (20:58)
[2021-04-24 07:49] LABS: BUN Creatinine Ratio 26.3 (10-20); Calcium 8.6 mg/dl (8.5-10.1); Creatinine Clr Calc Pharmacy 56.5 ml/min; Est GFR (African American) 97.8 ml/min; Est GFR (Non-African American) 84.4 ml/min
[2021-04-24] MEDS: CYANOCOBALAMIN 500 MCG TABLET (VITAMIN B-12) PO SCH (09:47)
[2021-04-24] MEDS: lisinopril 10 MG TAB PO SCH (09:48)
[2021-04-24] MEDS: CLOPIDOGREL BISULFATE 75 MG TAB PO SCH (09:48)
[2021-04-24] MEDS: cephALEXin 250 MG CAP PO SCH ×4 (09:48→21:33)
[2021-04-24] MEDS: CHOLECALCIFEROL 1,000 UNITS 25 MCG TAB PO SCH (09:49)
[2021-04-24] MEDS: PANTOprazole 40 MG TAB PO SCH ×2 (09:49→21:33)
[2021-04-24] MEDS: ASPIRIN 81 MG ECTAB PO SCH (09:49)
[2021-04-24] MEDS: MAGNESIUM OXIDE 400 MG TAB PO SCH (09:50)
[2021-04-24] MEDS: DORZOLAMIDE/TIMOLOL 22.3/6.8MG/ML 10 ML BTL OPB SCH ×2 (09:51→21:34)
[2021-04-24] MEDS: ENOXAPARIN INJ 40 MG/0.4 ML SYR SQ SCH (09:51)
[2021-04-24] MEDS: BRIMONIDINE TARTRATE 0.2% 5ML OPB SCH ×3 (09:52→21:35)
[2021-04-24] MEDS: METOPROLOL SUCC 25MG EXT REL TAB PO SCH (09:56)
[2021-04-24] MEDS: POLYETHYLENE (MIRALAX) 17 GM PACK PO SCH (10:17)
[2021-04-24] MEDS: INSULIN GLARGINE SOLOSTAR 100 UNITS/ML 3 ML PEN SC SCH ×2 (10:18→21:38)
[2021-04-24] MEDS: INSULIN ASPART 100 UNITS/ML 3 ML PEN SC SCH ×4 (10:22→21:38)
--- NOTE | 2021-04-24 15:39 | Hospitalist Progress Note ---
Date of Service April 24, 2021 Assessment & Plan (1) Acute metabolic encephalopathy: Likely due to UTI Improved Patient may have some cognitive impairment CT head had no acute abnormalities but atrophy and microvascular ischemic changes (2) Acute UTI: Urine culture grew proteus mirabilis Currently on keflex to complete treatment (3) Anemia: Likely 2/2 chronic inflammation from multiple comorbiditites. She was also recently hospitalized and this may be related to hospitalization versus phlebotomy. On admission there was report of black stool However, no evidence of GI bleed since admission. Patient also takes iron pills. Per GI evaluation/notes, no further evaluation with endoscopy per patient and family's wishes Serial hemoglobin review had been stable (4) CAD (coronary artery disease): Chronic Cont medical management. Continue ASA/Plavix. Continue beta-floyd and simvastatin per home regimen. (5) Diabetes mellitus, type II: Continue insulin regimen per protocol to maintain glycemic control (6) Generalized weakness: Cont PT/OT efforts Plan to go back to SNF (7) DVT prophylaxis: Lovenox Full code Admission and Anticipated Discharge Date Admission Date: April 18, 2021 Subjective 80-year-old female presented by ambulance from [place] [facility] out of concern for generalized weakness and dark, tarry diarrhea. Started on PPI drip and octreotide initially, however, these were stopped within 48 hours. No further bleeding episodes since admission. Being managed for metabolic encephalopathy due to UTI Patient seen and examined Sitting in chair Denied any complaints Review of Systems Review of Systems: All systems reviewed & are unremarkable except as noted in Subjective Physical Exam Constitutional: + well hydrated; no acute distress Eyes: PERRL, conjunctivae normal, anicteric sclerae ENMT: external ear and nose normal, oropharynx normal Respiratory: normal respiratory effort, lungs clear to auscultation Cardiovascular: Rate/Rhythm: regular rate and regular rhythm Gastrointestinal (Abdomen): normal bowel sounds, soft, nontender, no hepatosplenomegaly Musculoskeletal: Midfoot amputation bilaterally. No pedal edema Neurologic: PERRL, EOMI, accommodation nl, no face palsy, no dysarthria Psychiatric: Orientation: alert, oriented to person and oriented to place (Knows she is in the hospital but does not recall name) Results & Data Results & Data ([facility]) Vital Signs (Past 12 Hours) Vital Signs Temp Pulse Resp BP BP Pulse Ox 04/24/21 09:57 73 96/58 L 04/24/21 07:05 36.8 C 78 16 132/61 99 Laboratory Results Abnormal lab results 04/23/21 04/23/21 04/24/21 Range/Units 17:26 20:49 06:28 Chloride 108 H (98-107) mmol/L BUN/Creatinine Ratio 26.3 H (10-20) Glucose 157 H (70-99) mg/dl POC Glucose 106 H 223 H (70-99) mg/dl 04/24/21 04/24/21 Range/Units 08:13 12:19 Chloride (98-107) mmol/L BUN/Creatinine Ratio (10-20) Glucose (70-99) mg/dl POC Glucose 143 H 241 H (70-99) mg/dl
[2021-04-24] MEDS: SIMVASTATIN 20 MG TAB PO SCH (21:34)
[2021-04-25 06:42] LABS: Creatinine Clr Calc Pharmacy 60.4 ml/min; Est GFR (African American) 100.1 ml/min; Est GFR (Non-African American) 86.3 ml/min
[2021-04-25] MEDS: lisinopril 10 MG TAB PO SCH (10:34)
[2021-04-25] MEDS: CLOPIDOGREL BISULFATE 75 MG TAB PO SCH (10:34)
[2021-04-25] MEDS: CYANOCOBALAMIN 500 MCG TABLET (VITAMIN B-12) PO SCH (10:35)
[2021-04-25] MEDS: CHOLECALCIFEROL 1,000 UNITS 25 MCG TAB PO SCH (10:35)
[2021-04-25] MEDS: PANTOprazole 40 MG TAB PO SCH (10:35)
[2021-04-25] MEDS: MAGNESIUM OXIDE 400 MG TAB PO SCH (10:35)
[2021-04-25] MEDS: ASPIRIN 81 MG ECTAB PO SCH (10:36)
[2021-04-25] MEDS: cephALEXin 250 MG CAP PO SCH ×2 (10:36→13:18)
[2021-04-25] MEDS: ENOXAPARIN INJ 40 MG/0.4 ML SYR SQ SCH (10:36)
[2021-04-25] MEDS: DORZOLAMIDE/TIMOLOL 22.3/6.8MG/ML 10 ML BTL OPB SCH (10:37)
[2021-04-25] MEDS: POLYETHYLENE (MIRALAX) 17 GM PACK PO SCH (10:37)
[2021-04-25] MEDS: BRIMONIDINE TARTRATE 0.2% 5ML OPB SCH (10:38)
[2021-04-25] MEDS: METOPROLOL SUCC 25MG EXT REL TAB PO SCH (10:39)
[2021-04-25] MEDS: INSULIN GLARGINE SOLOSTAR 100 UNITS/ML 3 ML PEN SC SCH (10:52)
[2021-04-25] MEDS: INSULIN ASPART 100 UNITS/ML 3 ML PEN SC SCH ×2 (10:52→13:19)
--- NOTE | 2021-04-25 12:29 | Discharge Summary ---
Date of Service April 25, 2021 Admission HPI Per Admitting Provider History obtained from patient, family, and records. Limited history from patient secondary to obtunded state. Medical history significant for CAD, PAD status post stent, hypertension, hyperlipidemia, DM2 insulin requiring, congenital UPJ obstruction as per records, chronic right hydronephrosis, chronic anemia (baseline hemoglobin 8-9). Recent confinement last month for recurrent falls. Patient discharged on iron and vitamin B12 supplements for chronic anemia. PT recommended SNF placement Patient discharged to [facility]. Patient discharged last week to home from [facility] because Medicare money had run out as per daughter in law. At home, patient noted to have weakness, trouble getting around. Appetite not too good. Patient noted to have diarrhea today with black stools attributed to iron intake as per [id number]. No abdominal pain complaints. No witnessed emesis episodes. Patient a little more confused than usual. Patient brought to the ER for evaluation. IV PPI initiated for GI bleed after positive stool Hemoccult obtained. Zosyn given for UTI. 1 unit packed RBC transfused at the ER. Medical History as above 2009 colonoscopy showed diverticulosis 2009 EGD showed isolated esophageal varix, hiatal hernia, gastric erythema Surgical History : Toe amputation, cataract surgeries, elbow tumor removal, laser trabeculoplasty Family History : DM, heart disease Personal/Social history : Non-smoker, no EtOH intake, lives by herself Admission Exam Per Admitting Provider GENERAL: Obtunded, no respiratory distress SKIN: Pallor, warm HEENT: Pale palpebral conjunctivae, no ptosis, dry buccal mucosa NECK : Supple, no tenderness CHEST : Decreased breath sounds, no tenderness HEART : RRR, no obvious murmurs ABDOMEN: Some distention, nontender EXTREMITIES : No LE swelling/tenderness, no other conspicuous deformities noted NEUROLOGIC : Obtunded, no facial asymmetry, gait and stance not assessed Principal Diagnosis Acute metabolic encephalopathy Urinary tract infection Possible Esophagitis Discharge Exam Constitutional + well hydrated; no acute distress Eyes PERRL, conjunctivae normal, anicteric sclerae ENMT external ear and nose normal, oropharynx normal Respiratory normal respiratory effort, lungs clear to auscultation Cardiovascular Rate/Rhythm: regular rate and regular rhythm S1 S2 Gastrointestinal (Abdomen) normal bowel sounds, soft, nontender, no hepatosplenomegaly Musculoskeletal Midfoot amputation bilaterally. No pedal edema Neurologic PERRL, EOMI, accommodation nl, no face palsy, no dysarthria Psychiatric Orientation: alert, oriented to person and oriented to place (Knows she is in the hospital but does not recall name) Discharge Data Allergies Allergy/AdvReac Type Severity Reaction Status Date / Time baclofen Allergy Unknown unkown Verified 04/18/21 21:04 Bactrim Allergy Unknown itching Verified 12/21/17 14:38 sulfamethoxazole Allergy Unknown itching Verified 04/18/21 21:04 tramadol Allergy Unknown unkown Verified 04/18/21 21:04 trimethoprim Allergy Unknown itching Verified 04/18/21 21:04 glipizide AdvReac erratic Verified 04/18/21 21:04 bsgs Consultations 04/18/21 21:09 ED Decision to Admit Stat 04/18/21 22:43 Consult Gastroenterology Routine Ordered Studies 04/18/21 21:42 CT head/brain wo con Urgent The paranasal sinuses and mastoid air cells are clear. The calvarium and skull base are intact. There is no mass, hematoma, midline shift, acute infarct. White matter hypodensity is nonspecific but suggestive of microvascular ischemic change. The ventricles and sulci demonstrate mild age-related involutional changes. Impression: No acute intracranial abnormality. Atrophy and microvascular ischemic changes. Hospital Course (1) Acute metabolic encephalopathy: Likely due to UTI Resolved Patient may have some cognitive impairment CT head had no acute abnormalities but atrophy and microvascular ischemic changes (2) Acute UTI: Urine culture grew proteus mirabilis Currently on keflex. Discharged on one more day of keflex to complete treatment (3) Anemia: Likely 2/2 chronic inflammation from multiple comorbiditites. She was also recently hospitalized and this may be related to hospitalization versus phlebotomy. On admission there was report of black stool However, no evidence of GI bleed since admission. Patient also takes iron pills. GI recommended starting pantoprazole 40mg bid for 1 month and then daily afterwards for possible esophagitis Per GI evaluation/notes, no further evaluation with endoscopy per patient and family's wishes Serial hemoglobin review had been stable (4) CAD (coronary artery disease): Chronic Cont medical management. Continue ASA/Plavix. Continue beta-floyd and simvastatin per home regimen. (5) Diabetes mellitus, type II: Continue home insulin regimen (6) Generalized weakness: Cont PT/OT at SNF Total Time Total Time Spent Total Time Spent (In Minutes): 65 Total Time Includes: Examination of the Patient, Discharge Planning and Medication Reconciliation Discharge Plan Discharge Items Patient Disposition: Transfer Longterm Fac Reason For Visit: Diarrhea and concern for possible bleeding Discharge Diagnosis: Acute metabolic encephalopathy Urinary tract infection Esophagitis Activity: As commented below Activity Comment: Per Physical therapist Non-emergency contact: Primary Care Provider Call non-emergency contact if: you have any medication questions Follow-up/Referrals: Roland Plunkett MD [Primary Care Provider] - Diet: Carb Consistent or DM2 and Heart Healthy Addtl Attending Provider Instructions: Mrs Malone You were brought to the hospital for diarrhea and concern for possible GI bleeding as well as confusion. You were evaluated. Certified Solid Waste Facility Operator recommend taking pantoprazole 40mg twice daily for 1 month after which you change to once daily You did have a urinary tract infection which was treated with antibiotics. You have been discharged nursing facility. Please ensure follow-up with your primary care doctor and continue medications as prescribed. It was a pleasure taking care of you Pending Studies at Discharge: No Stand-Alone Forms: My [facility] Skilled Items Patient informed of condition?: Yes DNR: No Discharge Level of Care: Skilled Communicable Disease: No Discharge Prognosis: Stable Lines: None Urinary Catheter: No Medications and DC Order Prescriptions: New cephalexin 250 mg Capsule 250 mg PO QID 1 Days Qty: 4 RF: 0 pantoprazole 40 mg Tablet,Delayed Release (Dr/Ec) 40 mg PO BID 30 Days Qty: 60 RF: 0 Continued metformin 850 mg Tablet 850 mg PO BIDM RF: 0 clopidogrel 75 mg Tablet 75 mg PO DAILY RF: 0 aspirin [Aspirin Low Dose] 81 mg Tablet,Delayed Release (Dr/Ec) 81 mg PO DAILY RF: 0 simvastatin 20 mg Tablet 20 mg PO HS RF: 0 lisinopril 10 mg Tablet 10 mg PO DAILY RF: 0 brimonidine 0.2 % Drops 1 drp OPB TID RF: 0 metoprolol succinate 25 mg Tablet Extended Release 24 Hr 12.5 mg PO DAILY RF: 0 cholecalciferol (vitamin D3) [Vitamin D3] 1,000 unit Capsule 1,000 unit PO DAILY RF: 0 magnesium oxide 400 mg magnesium Tablet 400 mg PO DAILY RF: 0 acetaminophen 500 mg tablet 1,000 mg PO Q8H PRN (Reason: fever or pain) Qty: 60 RF: 0 dorzolamide-timolol 22.3-6.8 mg/mL drops 1 drp OPB BID RF: 0 insulin aspart U-100 [Novolog Flexpen U-100 Insulin] 100 unit/mL (3 mL) insulin pen 6 unit SUBCUT BIDM RF: 0 Rocklatan 0.02-0.005 % drops 1 drp OPB HS RF: 0 Levemir FlexTouch U-100 Insuln 100 unit/mL (3 mL) insulin pen 14 unit subcut DAILYBB RF: 0 docusate sodium [Stool Softener] 100 mg Capsule 100 mg PO DAILY RF: 0 hydrocortisone acetate 25 mg Suppository 25 mg [place] BID PRN (Reason: Hemorrhoids) RF: 0 cyanocobalamin (vitamin B-12) [Vitamin B-12] 500 mcg Tablet 500 mcg PO DAILY RF: 0 ferrous sulfate 325 mg (65 mg iron) Tablet 325 mg PO BID RF: 0 Discontinued ibuprofen 600 mg tablet 600 mg PO Q6 PRN (Reason: Pain) RF: 0 Discharge Orders: Discharge Order (Routine); Ordered 04/25/21 Ordered By: Christina Faith Admission Data Admit Date/Time: 04/18/21 22:26 Attending Provider: Christina Faith I. Admit Provider: Kostas Galarza Primary Care Provider: Roland Plunkett Other Providers: [facility] ; [facility] ; Kostas Galarza ; Adelina Abraham ; Katie Santiago ; Alex Jaquez ; Malaika Callahan ; Kelby Morales ; Cassidy Santana ; Emily Villafana ; Jacobo Dill ; Yahaira Arango ; Dori Briceño ; Kelli Dupree ; Nelda Hancock ; Shelia Garcia ; Ethel Ha Other Interventions: Discharge Summary Assessment (RN) Last Done: 04/25/21 14:35
== END 2021-04-25 14:45 | DRG 689 ==
LOC: ED 19:48 → 2W 22:26 → SUATTDRO 22:26 → 2W 22:51 → 2N 04-20 04:07 → 3N 04-23 11:13